=== PATIENT | male | born 1940 | race Caucasian/White ===

== ENCOUNTER 2016-05-09 07:52 | Outpatient (RCR) | payer OTHER ==
[~2016-05-09] VITALS: Ht 175 cm; Wt 67.7 kg
[~2016-05-09 07:52] MED LIST: ASPI-715 PO; DEXTROSE 50% 50 ML SYR IVP PRN; GLY5 PO; KIDNEY MED; LIDOCAINE/PRILOCAINE 30GM TUBE TP PRN; LOR5/325 PO; LOSARTAN; METF-420 PO; METO-566 PO; NOVOLIN SUBQ; ONDA4TAB PO; POTA-24 PO; PRO25 PO; UNKNOWN BP MED
[2016-05-09] MEDS ORDERED: ASPI81TA94 PO (08:03)
[2016-05-09] MEDS ORDERED: LEVO75TA73 PO (08:09)
[2016-05-09] MEDS ORDERED: OMEP-218 PO (08:09)
[2016-05-09] MEDS ORDERED: [UNRECOGNIZED DRUG - CODE] PO (08:09)
[2016-05-09] MEDS ORDERED: MULT1TAB64 PO (08:09)
[2016-05-09] MEDS ORDERED: MULT1CAP59 PO (08:09)
[2016-05-09] MEDS ORDERED: ERGO500037 PO (08:09)
[2016-05-09] MEDS ORDERED: LIDOCAINE/SOD BICARB 8.4% SYR SC PRN (12:00)
[2016-05-09] MEDS ORDERED: LOPERAMIDE HCL 2 MG CAP PO PRN (12:00)
[2016-05-09] MEDS ORDERED: diphenhydr DIALYSIS 50 MG/ML IVP PRN (12:00)
[2016-05-09] MEDS ORDERED: DIALYSIS ACETAMINOPHEN 325 MG PO PRN (12:00)
[2016-05-09] MEDS ORDERED: PROMETHAZINE HCL 25 MG TAB PO PRN (14:00)
[2016-05-09] MEDS: HEPARIN SOD (PORCINE) LOAD IVP PRN (14:30)
[2016-05-09] MEDS: HEPARIN SOD (PORCINE) UNIT/HR IVP PRN (14:30)
[2016-05-11] MEDS: HEPARIN SOD (PORCINE) UNIT/HR IVP PRN (14:49)
[2016-05-11] MEDS: HEPARIN SOD (PORCINE) LOAD IVP PRN (14:50)
[2016-05-13] MEDS: HEPARIN SOD (PORCINE) LOAD IVP PRN (14:35)
[2016-05-13] MEDS: HEPARIN SOD (PORCINE) UNIT/HR IVP PRN (14:35)
[2016-05-16] MEDS: HEPARIN SOD (PORCINE) LOAD IVP PRN (15:08)
[2016-05-16] MEDS: HEPARIN SOD (PORCINE) UNIT/HR IVP PRN (15:08)
[2016-05-18] MEDS: HEPARIN SOD (PORCINE) UNIT/HR IVP PRN (14:45)
[2016-05-18] MEDS: HEPARIN SOD (PORCINE) LOAD IVP PRN (14:45)
[2016-05-18 15:53] LABS: PLATELET COUNT, AUTOMATED 177 K/uL (150-450)
[2016-05-20] MEDS: HEPARIN SOD (PORCINE) LOAD IVP PRN (14:46)
[2016-05-20] MEDS: HEPARIN SOD (PORCINE) UNIT/HR IVP PRN (14:46)
[2016-05-20] MEDS: DARBEPOETIN ESRD 25 MCG/ML IVP PRN (15:06)
[2016-05-23] MEDS: HEPARIN SOD (PORCINE) UNIT/HR IVP PRN (14:40)
[2016-05-23] MEDS: HEPARIN SOD (PORCINE) LOAD IVP PRN (14:40)
[2016-05-25] MEDS: HEPARIN SOD (PORCINE) LOAD IVP PRN (14:54)
[2016-05-25] MEDS: HEPARIN SOD (PORCINE) UNIT/HR IVP PRN (14:54)
[2016-05-27] MEDS: HEPARIN SOD (PORCINE) UNIT/HR IVP PRN (14:16)
[2016-05-27] MEDS: HEPARIN SOD (PORCINE) LOAD IVP PRN (14:16)
[2016-05-27] MEDS: DARBEPOETIN ESRD 25 MCG/ML IVP PRN (14:21)
[2016-05-30] MEDS: HEPARIN SOD (PORCINE) UNIT/HR IVP PRN (14:12)
[2016-05-30] MEDS: HEPARIN SOD (PORCINE) LOAD IVP PRN (14:12)
[2016-06-01] MEDS ORDERED: CALC-515 PO (08:49)
[2016-06-01] MEDS: HEPARIN SOD (PORCINE) UNIT/HR IVP PRN (14:11)
[2016-06-01] MEDS: HEPARIN SOD (PORCINE) LOAD IVP PRN (14:11)
[2016-06-03] MEDS: HEPARIN SOD (PORCINE) UNIT/HR IVP PRN (14:16)
[2016-06-03] MEDS: HEPARIN SOD (PORCINE) LOAD IVP PRN (14:16)
[2016-06-03] MEDS: DARBEPOETIN ESRD 25 MCG/ML IVP PRN (14:21)
[2016-06-06] MEDS: HEPARIN SOD (PORCINE) LOAD IVP PRN (14:16)
[2016-06-06] MEDS: HEPARIN SOD (PORCINE) UNIT/HR IVP PRN (14:17)
[2016-06-08] MEDS: HEPARIN SOD (PORCINE) LOAD IVP PRN (14:07)
[2016-06-08] MEDS: HEPARIN SOD (PORCINE) UNIT/HR IVP PRN (14:07)
[2016-06-10] MEDS: HEPARIN SOD (PORCINE) LOAD IVP PRN (14:13)
[2016-06-10] MEDS: HEPARIN SOD (PORCINE) UNIT/HR IVP PRN (14:14)
[2016-06-10] MEDS: DARBEPOETIN ESRD 25 MCG/ML IVP PRN (14:32)
[2016-06-13] MEDS: HEPARIN SOD (PORCINE) LOAD IVP PRN (14:18)
[2016-06-13] MEDS: HEPARIN SOD (PORCINE) UNIT/HR IVP PRN (14:18)
[2016-06-15] MEDS: HEPARIN SOD (PORCINE) LOAD IVP PRN (14:10)
[2016-06-15] MEDS: HEPARIN SOD (PORCINE) UNIT/HR IVP PRN (14:11)
[2016-06-17] MEDS: HEPARIN SOD (PORCINE) LOAD IVP PRN (12:15)
[2016-06-17] MEDS: HEPARIN SOD (PORCINE) UNIT/HR IVP PRN (12:15)
[2016-06-17] MEDS: DARBEPOETIN ESRD 25 MCG/ML IVP PRN (15:00)
[2016-06-20] MEDS: HEPARIN SOD (PORCINE) UNIT/HR IVP PRN (10:45)
[2016-06-20] MEDS: HEPARIN SOD (PORCINE) LOAD IVP PRN (10:45)
[2016-06-22] MEDS: HEPARIN SOD (PORCINE) LOAD IVP PRN (10:40)
[2016-06-22] MEDS: HEPARIN SOD (PORCINE) UNIT/HR IVP PRN (10:41)
[2016-06-22 11:05] LABS: PLATELET COUNT, AUTOMATED 268 K/uL (150-450)
[2016-06-24] MEDS: HEPARIN SOD (PORCINE) LOAD IVP PRN (10:33)
[2016-06-24] MEDS: HEPARIN SOD (PORCINE) UNIT/HR IVP PRN (10:33)
[2016-06-27] MEDS: HEPARIN SOD (PORCINE) UNIT/HR IVP PRN (10:34)
[2016-06-27] MEDS: HEPARIN SOD (PORCINE) LOAD IVP PRN (10:34)
[2016-06-29] MEDS: HEPARIN SOD (PORCINE) LOAD IVP PRN (10:34)
[2016-06-29] MEDS: HEPARIN SOD (PORCINE) UNIT/HR IVP PRN (10:35)
[2016-07-01] MEDS: HEPARIN SOD (PORCINE) UNIT/HR IVP PRN (12:20)
[2016-07-01] MEDS: HEPARIN SOD (PORCINE) LOAD IVP PRN (12:20)
[2016-07-01] MEDS: DARBEPOETIN ESRD 25 MCG/ML IVP PRN (13:57)
[2016-07-04] MEDS: HEPARIN (PORCINE) 1000 UNIT/ML (DIALYSIS) IVP PRN (12:14)
[2016-07-04] MEDS: HEPARIN SOD (PORCINE) LOAD IVP PRN (12:14)
[2016-07-06] MEDS: HEPARIN (PORCINE) 1000 UNIT/ML (DIALYSIS) IVP PRN (14:31)
[2016-07-06] MEDS: HEPARIN SOD (PORCINE) LOAD IVP PRN (14:32)
[2016-07-08] MEDS: HEPARIN (PORCINE) 1000 UNIT/ML (DIALYSIS) IVP PRN (14:21)
[2016-07-08] MEDS: HEPARIN SOD (PORCINE) LOAD IVP PRN (14:22)
[2016-07-11] MEDS: HEPARIN SOD (PORCINE) LOAD IVP PRN (13:13)
[2016-07-11] MEDS: HEPARIN (PORCINE) 1000 UNIT/ML (DIALYSIS) IVP PRN (13:13)
[2016-07-13] MEDS: HEPARIN (PORCINE) 1000 UNIT/ML (DIALYSIS) IVP PRN (12:50)
[2016-07-13] MEDS: HEPARIN SOD (PORCINE) LOAD IVP PRN (12:50)
[2016-07-15] MEDS: HEPARIN (PORCINE) 1000 UNIT/ML (DIALYSIS) IVP PRN (12:51)
[2016-07-15] MEDS: HEPARIN SOD (PORCINE) LOAD IVP PRN (12:51)
[2016-07-15] MEDS: DARBEPOETIN ESRD 25 MCG/ML IVP PRN (13:54)
[2016-07-18] MEDS: HEPARIN (PORCINE) 1000 UNIT/ML (DIALYSIS) IVP PRN (12:52)
[2016-07-18] MEDS: HEPARIN SOD (PORCINE) LOAD IVP PRN (12:52)
[2016-07-20] MEDS: HEPARIN (PORCINE) 1000 UNIT/ML (DIALYSIS) IVP PRN (12:43)
[2016-07-20] MEDS: HEPARIN SOD (PORCINE) LOAD IVP PRN (12:43)
[2016-07-22] MEDS: HEPARIN (PORCINE) 1000 UNIT/ML (DIALYSIS) IVP PRN (12:43)
[2016-07-22] MEDS: HEPARIN SOD (PORCINE) LOAD IVP PRN (12:43)
[2016-07-25] MEDS: HEPARIN SOD (PORCINE) LOAD IVP PRN (12:42)
[2016-07-25] MEDS: HEPARIN (PORCINE) 1000 UNIT/ML (DIALYSIS) IVP PRN (12:42)
[2016-07-27] MEDS: HEPARIN SOD (PORCINE) LOAD IVP PRN (12:51)
[2016-07-27] MEDS: HEPARIN (PORCINE) 1000 UNIT/ML (DIALYSIS) IVP PRN (12:51)
[2016-07-27 13:32] LABS: PLATELET COUNT, AUTOMATED 249 K/uL (150-450)
[2016-07-29] MEDS: HEPARIN SOD (PORCINE) LOAD IVP PRN (12:33)
[2016-07-29] MEDS: HEPARIN (PORCINE) 1000 UNIT/ML (DIALYSIS) IVP PRN (12:33)
[2016-07-29] MEDS: DARBEPOETIN ESRD 25 MCG/ML IVP PRN (13:01)
[2016-08-01] MEDS: HEPARIN (PORCINE) 1000 UNIT/ML (DIALYSIS) IVP PRN (12:43)
[2016-08-01] MEDS: HEPARIN SOD (PORCINE) LOAD IVP PRN (12:43)
[2016-08-03] MEDS: HEPARIN (PORCINE) 1000 UNIT/ML (DIALYSIS) IVP PRN (12:43)
[2016-08-03] MEDS: HEPARIN SOD (PORCINE) LOAD IVP PRN (12:43)
[2016-08-05] MEDS: HEPARIN (PORCINE) 1000 UNIT/ML (DIALYSIS) IVP PRN (12:46)
[2016-08-05] MEDS: HEPARIN SOD (PORCINE) LOAD IVP PRN (12:46)
[2016-08-08] MEDS: HEPARIN (PORCINE) 1000 UNIT/ML (DIALYSIS) IVP PRN (11:11)
[2016-08-08] MEDS: HEPARIN SOD (PORCINE) LOAD IVP PRN (11:11)
[2016-08-10] MEDS: HEPARIN SOD (PORCINE) LOAD IVP PRN (11:23)
[2016-08-10] MEDS: HEPARIN (PORCINE) 1000 UNIT/ML (DIALYSIS) IVP PRN (11:23)
[2016-08-12] MEDS: HEPARIN (PORCINE) 1000 UNIT/ML (DIALYSIS) IVP PRN (11:13)
[2016-08-12] MEDS: HEPARIN SOD (PORCINE) LOAD IVP PRN (11:13)
[2016-08-12] MEDS: DARBEPOETIN ESRD 25 MCG/ML IVP PRN (11:38)
[2016-08-15] MEDS: HEPARIN (PORCINE) 1000 UNIT/ML (DIALYSIS) IVP PRN (11:24)
[2016-08-15] MEDS: HEPARIN SOD (PORCINE) LOAD IVP PRN (11:24)
[2016-08-17] MEDS: HEPARIN (PORCINE) 1000 UNIT/ML (DIALYSIS) IVP PRN (11:11)
[2016-08-17] MEDS: HEPARIN SOD (PORCINE) LOAD IVP PRN (11:11)
[2016-08-19] MEDS: HEPARIN (PORCINE) 1000 UNIT/ML (DIALYSIS) IVP PRN (11:09)
[2016-08-19] MEDS: HEPARIN SOD (PORCINE) LOAD IVP PRN (11:09)
[2016-08-22] MEDS: HEPARIN (PORCINE) 1000 UNIT/ML (DIALYSIS) IVP PRN (11:12)
[2016-08-22] MEDS: HEPARIN SOD (PORCINE) LOAD IVP PRN (11:12)
[2016-08-24] MEDS: HEPARIN (PORCINE) 1000 UNIT/ML (DIALYSIS) IVP PRN (10:57)
[2016-08-24] MEDS: HEPARIN SOD (PORCINE) LOAD IVP PRN (10:58)
[2016-08-26] MEDS: HEPARIN (PORCINE) 1000 UNIT/ML (DIALYSIS) IVP PRN (11:16)
[2016-08-26] MEDS: HEPARIN SOD (PORCINE) LOAD IVP PRN (11:16)
[2016-08-26] MEDS: DARBEPOETIN ESRD 25 MCG/ML IVP PRN (12:45)
[2016-08-29] MEDS: HEPARIN SOD (PORCINE) LOAD IVP PRN (11:16)
[2016-08-29] MEDS: HEPARIN (PORCINE) 1000 UNIT/ML (DIALYSIS) IVP PRN (11:16)
[2016-08-31] MEDS ORDERED: HEPARIN (PORCINE) 1000 UNIT/ML (DIALYSIS) ONE (05:50)
[2016-08-31] MEDS: HEPARIN SOD (PORCINE) LOAD IVP PRN (11:50)
[2016-08-31] MEDS: HEPARIN (PORCINE) 1000 UNIT/ML (DIALYSIS) IVP PRN (11:50)
[2016-08-31 12:02] LABS: PLATELET COUNT, AUTOMATED 247 K/uL (150-450)
[2016-09-02] MEDS: HEPARIN (PORCINE) 1000 UNIT/ML (DIALYSIS) IVP PRN (11:02)
[2016-09-02] MEDS: HEPARIN SOD (PORCINE) LOAD IVP PRN (11:02)
[2016-09-02] MEDS: DARBEPOETIN ESRD 25 MCG/ML IVP PRN (11:47)
[2016-09-05] MEDS: HEPARIN SOD (PORCINE) LOAD IVP PRN (11:19)
[2016-09-05] MEDS: HEPARIN (PORCINE) 1000 UNIT/ML (DIALYSIS) IVP PRN (11:19)
[2016-09-07] MEDS: HEPARIN SOD (PORCINE) LOAD IVP PRN (11:14)
[2016-09-07] MEDS: HEPARIN (PORCINE) 1000 UNIT/ML (DIALYSIS) IVP PRN (11:14)
[2016-09-09] MEDS: HEPARIN (PORCINE) 1000 UNIT/ML (DIALYSIS) IVP PRN (10:59)
[2016-09-09] MEDS: HEPARIN SOD (PORCINE) LOAD IVP PRN (10:59)
[2016-09-12] MEDS: HEPARIN (PORCINE) 1000 UNIT/ML (DIALYSIS) IVP PRN (11:04)
[2016-09-12] MEDS: HEPARIN SOD (PORCINE) LOAD IVP PRN (11:05)
[2016-09-14] MEDS: HEPARIN SOD (PORCINE) LOAD IVP PRN (11:12)
[2016-09-14] MEDS: HEPARIN (PORCINE) 1000 UNIT/ML (DIALYSIS) IVP PRN (11:13)
[2016-09-16] MEDS: HEPARIN (PORCINE) 1000 UNIT/ML (DIALYSIS) IVP PRN (11:07)
[2016-09-16] MEDS: HEPARIN SOD (PORCINE) LOAD IVP PRN (11:07)
[2016-09-16] MEDS: DARBEPOETIN ESRD 25 MCG/ML IVP PRN (11:20)
[2016-09-19] MEDS: HEPARIN (PORCINE) 1000 UNIT/ML (DIALYSIS) IVP PRN (11:07)
[2016-09-19] MEDS: HEPARIN SOD (PORCINE) LOAD IVP PRN (11:07)
[2016-09-21] MEDS: HEPARIN SOD (PORCINE) LOAD IVP PRN (11:05)
[2016-09-21] MEDS: HEPARIN (PORCINE) 1000 UNIT/ML (DIALYSIS) IVP PRN (11:05)
[2016-09-23] MEDS: HEPARIN (PORCINE) 1000 UNIT/ML (DIALYSIS) IVP PRN (12:03)
[2016-09-23] MEDS: HEPARIN SOD (PORCINE) LOAD IVP PRN (12:03)
[2016-09-23] MEDS: DARBEPOETIN ESRD 25 MCG/ML IVP PRN (13:28)
[2016-09-26] MEDS: HEPARIN (PORCINE) 1000 UNIT/ML (DIALYSIS) IVP PRN (11:13)
[2016-09-26] MEDS: HEPARIN SOD (PORCINE) LOAD IVP PRN (11:13)
[2016-09-28] MEDS: HEPARIN (PORCINE) 1000 UNIT/ML (DIALYSIS) IVP PRN (11:14)
[2016-09-28] MEDS: HEPARIN SOD (PORCINE) LOAD IVP PRN (11:14)
[2016-09-28 11:43] LABS: PLATELET COUNT, AUTOMATED 251 K/uL (150-450)
[2016-09-30] MEDS: HEPARIN (PORCINE) 1000 UNIT/ML (DIALYSIS) IVP PRN (11:51)
[2016-09-30] MEDS: HEPARIN SOD (PORCINE) LOAD IVP PRN (11:51)
[2016-09-30] MEDS: DARBEPOETIN ESRD 25 MCG/ML IVP PRN (12:11)
[2016-10-03] MEDS: HEPARIN SOD (PORCINE) LOAD IVP PRN (11:14)
[2016-10-03] MEDS: HEPARIN (PORCINE) 1000 UNIT/ML (DIALYSIS) IVP PRN (11:14)
[2016-10-05] MEDS: HEPARIN SOD (PORCINE) LOAD IVP PRN (11:21)
[2016-10-05] MEDS: HEPARIN (PORCINE) 1000 UNIT/ML (DIALYSIS) IVP PRN (11:21)
[2016-10-07] MEDS: HEPARIN (PORCINE) 1000 UNIT/ML (DIALYSIS) IVP PRN (10:57)
[2016-10-07] MEDS: HEPARIN SOD (PORCINE) LOAD IVP PRN (10:57)
[2016-10-07] MEDS: DARBEPOETIN ESRD 25 MCG/ML IVP PRN (11:19)
[2016-10-10] MEDS: HEPARIN (PORCINE) 1000 UNIT/ML (DIALYSIS) IVP PRN (11:24)
[2016-10-10] MEDS: HEPARIN SOD (PORCINE) LOAD IVP PRN (11:24)
[2016-10-12] MEDS: HEPARIN SOD (PORCINE) LOAD IVP PRN (11:09)
[2016-10-12] MEDS: HEPARIN (PORCINE) 1000 UNIT/ML (DIALYSIS) IVP PRN (11:09)
[2016-10-14] MEDS: HEPARIN (PORCINE) 1000 UNIT/ML (DIALYSIS) IVP PRN (11:04)
[2016-10-14] MEDS: HEPARIN SOD (PORCINE) LOAD IVP PRN (11:04)
[2016-10-17] MEDS: HEPARIN (PORCINE) 1000 UNIT/ML (DIALYSIS) IVP PRN (11:11)
[2016-10-17] MEDS: HEPARIN SOD (PORCINE) LOAD IVP PRN (11:11)
[2016-10-19] MEDS: HEPARIN (PORCINE) 1000 UNIT/ML (DIALYSIS) IVP PRN (10:58)
[2016-10-19] MEDS: HEPARIN SOD (PORCINE) LOAD IVP PRN (10:58)
[2016-10-21] MEDS ORDERED: DARBEPOETIN ESRD 25 MCG/ML IVP PRN (08:00)
[2016-10-21] MEDS: HEPARIN (PORCINE) 1000 UNIT/ML (DIALYSIS) IVP PRN (11:11)
[2016-10-21] MEDS: HEPARIN SOD (PORCINE) LOAD IVP PRN (11:11)
[2016-10-21] MEDS ORDERED: PROPOFOL EMUL(*) 10MG/ML 20 ML 20 ML ONE (12:59)
[2016-10-21] MEDS ORDERED: LIDOCAINE MPF 1% 5 ML VIAL ONE (12:59)
[2016-10-21] MEDS ORDERED: fentaNYL CITR 100 MCG/2 ML AMP ONE (13:00)
[2016-10-21] MEDS ORDERED: ePHEDrine 25 MG/5 ML DISP.SYR IVP ONE ×2 (13:23→13:47)
[2016-10-21] MEDS ORDERED: ceFAZolin 1 GM VIAL ONE (13:26)
[2016-10-21] MEDS ORDERED: NEOSTIG METHYLSUL 10MG/10ML VL ONE (13:49)
[2016-10-21] MEDS ORDERED: GLYCOPYRROLATE 1 MG/5 ML INJ ONE (13:50)
[2016-10-24] MEDS: HEPARIN (PORCINE) 1000 UNIT/ML (DIALYSIS) IVP PRN (10:55)
[2016-10-24] MEDS: HEPARIN SOD (PORCINE) LOAD IVP PRN (10:55)
[2016-10-26] MEDS: HEPARIN SOD (PORCINE) LOAD IVP PRN (11:05)
[2016-10-26] MEDS: HEPARIN (PORCINE) 1000 UNIT/ML (DIALYSIS) IVP PRN (11:05)
[2016-10-26 11:33] LABS: PLATELET COUNT, AUTOMATED 261 K/uL (150-450)
[2016-10-28] MEDS: HEPARIN SOD (PORCINE) LOAD IVP PRN (11:13)
[2016-10-28] MEDS: HEPARIN (PORCINE) 1000 UNIT/ML (DIALYSIS) IVP PRN (11:13)
[2016-10-28] MEDS: DARBEPOETIN ESRD 25 MCG/ML IVP PRN (11:46)
[2016-10-31] MEDS: HEPARIN (PORCINE) 1000 UNIT/ML (DIALYSIS) IVP PRN (11:28)
[2016-10-31] MEDS: HEPARIN SOD (PORCINE) LOAD IVP PRN (11:28)
[2016-11-02] MEDS: HEPARIN (PORCINE) 1000 UNIT/ML (DIALYSIS) IVP PRN (11:22)
[2016-11-02] MEDS: HEPARIN SOD (PORCINE) LOAD IVP PRN (11:22)
[2016-11-04] MEDS: HEPARIN SOD (PORCINE) LOAD IVP PRN (10:57)
[2016-11-04] MEDS: HEPARIN (PORCINE) 1000 UNIT/ML (DIALYSIS) IVP PRN (10:57)
[2016-11-04] MEDS: DARBEPOETIN ESRD 25 MCG/ML IVP PRN (11:24)
[2016-11-07] MEDS: HEPARIN (PORCINE) 1000 UNIT/ML (DIALYSIS) IVP PRN (11:08)
[2016-11-07] MEDS: HEPARIN SOD (PORCINE) LOAD IVP PRN (11:08)
[2016-11-09] MEDS: HEPARIN (PORCINE) 1000 UNIT/ML (DIALYSIS) IVP PRN (11:13)
[2016-11-09] MEDS: HEPARIN SOD (PORCINE) LOAD IVP PRN (11:13)
[2016-11-09] MEDS: SODIUM FERRIC GLUC 62.5 MG/5ML IVP PRN (11:31)
[2016-11-11] MEDS: HEPARIN (PORCINE) 1000 UNIT/ML (DIALYSIS) IVP PRN (11:00)
[2016-11-11] MEDS: HEPARIN SOD (PORCINE) LOAD IVP PRN (11:00)
[2016-11-11] MEDS: DARBEPOETIN ESRD 25 MCG/ML IVP PRN (12:07)
[2016-11-14] MEDS: HEPARIN (PORCINE) 1000 UNIT/ML (DIALYSIS) IVP PRN (11:15)
[2016-11-14] MEDS: HEPARIN SOD (PORCINE) LOAD IVP PRN (11:15)
[2016-11-16] MEDS: HEPARIN SOD (PORCINE) LOAD IVP PRN (11:02)
[2016-11-16] MEDS: HEPARIN (PORCINE) 1000 UNIT/ML (DIALYSIS) IVP PRN (11:02)
[2016-11-16] MEDS: SODIUM FERRIC GLUC 62.5 MG/5ML IVP PRN (11:22)
[2016-11-18] MEDS: HEPARIN SOD (PORCINE) LOAD IVP PRN (11:07)
[2016-11-18] MEDS: HEPARIN (PORCINE) 1000 UNIT/ML (DIALYSIS) IVP PRN (11:07)
[2016-11-18] MEDS: DARBEPOETIN ESRD 25 MCG/ML IVP PRN (11:24)
[2016-11-21] MEDS: HEPARIN (PORCINE) 1000 UNIT/ML (DIALYSIS) IVP PRN (11:15)
[2016-11-21] MEDS: HEPARIN SOD (PORCINE) LOAD IVP PRN (11:15)
[2016-11-23] MEDS: HEPARIN SOD (PORCINE) LOAD IVP PRN (11:16)
[2016-11-23] MEDS: HEPARIN (PORCINE) 1000 UNIT/ML (DIALYSIS) IVP PRN (11:16)
[2016-11-23] MEDS: SODIUM FERRIC GLUC 62.5 MG/5ML IVP PRN (11:40)
[2016-11-23 11:54] LABS: PLATELET COUNT, AUTOMATED 214 K/uL (150-450)
[2016-11-25] MEDS: HEPARIN SOD (PORCINE) LOAD IVP PRN (11:01)
[2016-11-25] MEDS: HEPARIN (PORCINE) 1000 UNIT/ML (DIALYSIS) IVP PRN (11:01)
[2016-11-25] MEDS: DARBEPOETIN ESRD 25 MCG/ML IVP PRN (11:19)
[2016-11-28] MEDS: HEPARIN (PORCINE) 1000 UNIT/ML (DIALYSIS) IVP PRN (10:49)
[2016-11-28] MEDS: HEPARIN SOD (PORCINE) LOAD IVP PRN (10:49)
[2016-11-30] MEDS: HEPARIN (PORCINE) 1000 UNIT/ML (DIALYSIS) IVP PRN (11:22)
[2016-11-30] MEDS: HEPARIN SOD (PORCINE) LOAD IVP PRN (11:22)
[2016-11-30] MEDS: SODIUM FERRIC GLUC 62.5 MG/5ML IVP PRN (11:51)
[2016-12-02] MEDS: HEPARIN (PORCINE) 1000 UNIT/ML (DIALYSIS) IVP PRN (11:34)
[2016-12-02] MEDS: HEPARIN SOD (PORCINE) LOAD IVP PRN (11:34)
[2016-12-02] MEDS: DARBEPOETIN ESRD 25 MCG/ML IVP PRN (12:25)
[2016-12-05] MEDS: HEPARIN (PORCINE) 1000 UNIT/ML (DIALYSIS) IVP PRN (12:00)
[2016-12-05] MEDS: HEPARIN SOD (PORCINE) LOAD IVP PRN (12:00)
[2016-12-07] MEDS: HEPARIN SOD (PORCINE) LOAD IVP PRN (12:13)
[2016-12-07] MEDS: HEPARIN (PORCINE) 1000 UNIT/ML (DIALYSIS) IVP PRN (12:13)
[2016-12-07] MEDS: SODIUM FERRIC GLUC 62.5 MG/5ML IVP PRN (12:36)
[2016-12-09] MEDS: HEPARIN SOD (PORCINE) LOAD IVP PRN (11:37)
[2016-12-09] MEDS: HEPARIN (PORCINE) 1000 UNIT/ML (DIALYSIS) IVP PRN (11:37)
[2016-12-09] MEDS: DARBEPOETIN ESRD 25 MCG/ML IVP PRN (12:04)
[2016-12-12] MEDS: HEPARIN (PORCINE) 1000 UNIT/ML (DIALYSIS) IVP PRN (11:36)
[2016-12-12] MEDS: HEPARIN SOD (PORCINE) LOAD IVP PRN (11:36)
[2016-12-14] MEDS: HEPARIN (PORCINE) 1000 UNIT/ML (DIALYSIS) IVP PRN (11:44)
[2016-12-14] MEDS: HEPARIN SOD (PORCINE) LOAD IVP PRN (11:45)
[2016-12-14] MEDS: SODIUM FERRIC GLUC 62.5 MG/5ML IVP PRN (12:08)
[2016-12-16] MEDS: HEPARIN SOD (PORCINE) LOAD IVP PRN (11:34)
[2016-12-16] MEDS: HEPARIN (PORCINE) 1000 UNIT/ML (DIALYSIS) IVP PRN (11:34)
[2016-12-16] MEDS: DARBEPOETIN ESRD 25 MCG/ML IVP PRN (11:55)
[2016-12-19] MEDS: HEPARIN SOD (PORCINE) LOAD IVP PRN (11:33)
[2016-12-19] MEDS: HEPARIN (PORCINE) 1000 UNIT/ML (DIALYSIS) IVP PRN (11:33)
[2016-12-21] MEDS: HEPARIN (PORCINE) 1000 UNIT/ML (DIALYSIS) IVP PRN (11:33)
[2016-12-21] MEDS: HEPARIN SOD (PORCINE) LOAD IVP PRN (11:33)
[2016-12-21] MEDS: SODIUM FERRIC GLUC 62.5 MG/5ML IVP PRN (11:53)
[2016-12-21 12:17] LABS: PLATELET COUNT, AUTOMATED 224 K/uL (150-450)
[2016-12-23] MEDS: HEPARIN (PORCINE) 1000 UNIT/ML (DIALYSIS) IVP PRN (11:23)
[2016-12-23] MEDS: HEPARIN SOD (PORCINE) LOAD IVP PRN (11:23)
[2016-12-23] MEDS: DARBEPOETIN ESRD 25 MCG/ML IVP PRN (11:49)
[2016-12-26] MEDS: HEPARIN SOD (PORCINE) LOAD IVP PRN (11:43)
[2016-12-26] MEDS: HEPARIN (PORCINE) 1000 UNIT/ML (DIALYSIS) IVP PRN (11:43)
[2016-12-28] MEDS: HEPARIN (PORCINE) 1000 UNIT/ML (DIALYSIS) IVP PRN (11:29)
[2016-12-28] MEDS: HEPARIN SOD (PORCINE) LOAD IVP PRN (11:29)
[2016-12-28] MEDS: SODIUM FERRIC GLUC 62.5 MG/5ML IVP PRN (11:48)
[2016-12-30] MEDS: HEPARIN (PORCINE) 1000 UNIT/ML (DIALYSIS) IVP PRN (11:30)
[2016-12-30] MEDS: HEPARIN SOD (PORCINE) LOAD IVP PRN (11:30)
[2016-12-30] MEDS: DARBEPOETIN ESRD 25 MCG/ML IVP PRN (11:46)
[2017-01-02] MEDS: HEPARIN (PORCINE) 1000 UNIT/ML (DIALYSIS) IVP PRN (11:28)
[2017-01-02] MEDS: HEPARIN SOD (PORCINE) LOAD IVP PRN (11:28)
[2017-01-04] MEDS: HEPARIN SOD (PORCINE) LOAD IVP PRN (11:24)
[2017-01-04] MEDS: HEPARIN (PORCINE) 1000 UNIT/ML (DIALYSIS) IVP PRN (11:25)
[2017-01-04] MEDS: SODIUM FERRIC GLUC 62.5 MG/5ML IVP PRN (11:53)
[2017-01-06] MEDS: HEPARIN (PORCINE) 1000 UNIT/ML (DIALYSIS) IVP PRN (11:26)
[2017-01-06] MEDS: HEPARIN SOD (PORCINE) LOAD IVP PRN (11:26)
[2017-01-09] MEDS: HEPARIN SOD (PORCINE) LOAD IVP PRN (13:48)
[2017-01-09] MEDS: HEPARIN (PORCINE) 1000 UNIT/ML (DIALYSIS) IVP PRN (13:48)
[2017-01-11] MEDS: HEPARIN (PORCINE) 1000 UNIT/ML (DIALYSIS) IVP PRN (11:24)
[2017-01-11] MEDS: HEPARIN SOD (PORCINE) LOAD IVP PRN (11:24)
[2017-01-11] MEDS: SODIUM FERRIC GLUC 62.5 MG/5ML IVP PRN (12:01)
[2017-01-11] MEDS ORDERED: INFLUENZA VIRUS VAC 0.5 ML SYR IM ONLY ONE (14:30)
[2017-01-13] MEDS: HEPARIN SOD (PORCINE) LOAD IVP PRN (11:13)
[2017-01-13] MEDS: HEPARIN (PORCINE) 1000 UNIT/ML (DIALYSIS) IVP PRN (11:13)
[2017-01-13] MEDS: DARBEPOETIN ESRD 25 MCG/ML IVP PRN (11:44)
[2017-01-16] MEDS: HEPARIN SOD (PORCINE) LOAD IVP PRN (11:24)
[2017-01-16] MEDS: HEPARIN (PORCINE) 1000 UNIT/ML (DIALYSIS) IVP PRN (11:25)
[2017-01-18] MEDS: HEPARIN SOD (PORCINE) LOAD IVP PRN (11:16)
[2017-01-18] MEDS: HEPARIN (PORCINE) 1000 UNIT/ML (DIALYSIS) IVP PRN (11:16)
[2017-01-18] MEDS: SODIUM FERRIC GLUC 62.5 MG/5ML IVP PRN (12:10)
[2017-01-20] MEDS: HEPARIN (PORCINE) 1000 UNIT/ML (DIALYSIS) IVP PRN (11:19)
[2017-01-20] MEDS: HEPARIN SOD (PORCINE) LOAD IVP PRN (11:19)
[2017-01-23] MEDS: HEPARIN SOD (PORCINE) LOAD IVP PRN (11:39)
[2017-01-23] MEDS: HEPARIN (PORCINE) 1000 UNIT/ML (DIALYSIS) IVP PRN (11:39)
[2017-01-25] MEDS: HEPARIN SOD (PORCINE) LOAD IVP PRN (11:34)
[2017-01-25] MEDS: HEPARIN (PORCINE) 1000 UNIT/ML (DIALYSIS) IVP PRN (11:34)
[2017-01-25 12:13] LABS: PLATELET COUNT, AUTOMATED 226 K/uL (150-450)
[2017-01-25] MEDS: SODIUM FERRIC GLUC 62.5 MG/5ML IVP PRN (12:22)
[2017-01-27] MEDS: HEPARIN (PORCINE) 1000 UNIT/ML (DIALYSIS) IVP PRN (11:18)
[2017-01-27] MEDS: HEPARIN SOD (PORCINE) LOAD IVP PRN (11:18)
[2017-01-27] MEDS: DARBEPOETIN ESRD 25 MCG/ML IVP PRN (12:15)
[2017-01-30] MEDS: HEPARIN (PORCINE) 1000 UNIT/ML (DIALYSIS) IVP PRN (11:17)
[2017-01-30] MEDS: HEPARIN SOD (PORCINE) LOAD IVP PRN (11:17)
[2017-02-01] MEDS: HEPARIN SOD (PORCINE) LOAD IVP PRN (11:27)
[2017-02-01] MEDS: HEPARIN (PORCINE) 1000 UNIT/ML (DIALYSIS) IVP PRN (11:27)
[2017-02-01] MEDS: SODIUM FERRIC GLUC 62.5 MG/5ML IVP PRN (12:01)
[2017-02-03] MEDS: HEPARIN SOD (PORCINE) LOAD IVP PRN (11:49)
[2017-02-03] MEDS: HEPARIN (PORCINE) 1000 UNIT/ML (DIALYSIS) IVP PRN (11:49)
[2017-02-06] MEDS: HEPARIN (PORCINE) 1000 UNIT/ML (DIALYSIS) IVP PRN (11:16)
[2017-02-06] MEDS: HEPARIN SOD (PORCINE) LOAD IVP PRN (11:16)
[2017-02-08] MEDS: HEPARIN SOD (PORCINE) LOAD IVP PRN (11:40)
[2017-02-08] MEDS: HEPARIN (PORCINE) 1000 UNIT/ML (DIALYSIS) IVP PRN (11:41)
[2017-02-08] MEDS: SODIUM FERRIC GLUC 62.5 MG/5ML IVP PRN (12:42)
[2017-02-10] MEDS ORDERED: METO25TA93 PO (09:07)
[2017-02-10] MEDS ORDERED: METO25TA23 PO (09:07)
[2017-02-10] MEDS: HEPARIN SOD (PORCINE) LOAD IVP PRN (11:22)
[2017-02-10] MEDS: HEPARIN (PORCINE) 1000 UNIT/ML (DIALYSIS) IVP PRN (11:22)
[2017-02-10] MEDS: DARBEPOETIN ESRD 25 MCG/ML IVP PRN (12:08)
[2017-02-13] MEDS: HEPARIN (PORCINE) 1000 UNIT/ML (DIALYSIS) IVP PRN (11:20)
[2017-02-13] MEDS: HEPARIN SOD (PORCINE) LOAD IVP PRN (11:20)
[2017-02-15] MEDS: HEPARIN SOD (PORCINE) LOAD IVP PRN (11:15)
[2017-02-15] MEDS: HEPARIN (PORCINE) 1000 UNIT/ML (DIALYSIS) IVP PRN (11:15)
[2017-02-15] MEDS: SODIUM FERRIC GLUC 62.5 MG/5ML IVP PRN (11:45)
[2017-02-17] MEDS: HEPARIN SOD (PORCINE) LOAD IVP PRN (11:26)
[2017-02-17] MEDS: HEPARIN (PORCINE) 1000 UNIT/ML (DIALYSIS) IVP PRN (11:26)
[2017-02-17] MEDS: DARBEPOETIN ESRD 25 MCG/ML IVP PRN (12:13)
[2017-02-20] MEDS: HEPARIN SOD (PORCINE) LOAD IVP PRN (11:25)
[2017-02-20] MEDS: HEPARIN (PORCINE) 1000 UNIT/ML (DIALYSIS) IVP PRN (11:25)
[2017-02-22] MEDS: HEPARIN (PORCINE) 1000 UNIT/ML (DIALYSIS) IVP PRN (11:12)
[2017-02-22] MEDS: HEPARIN SOD (PORCINE) LOAD IVP PRN (11:12)
[2017-02-22] MEDS: SODIUM FERRIC GLUC 62.5 MG/5ML IVP PRN (11:49)
[2017-02-24] MEDS: HEPARIN SOD (PORCINE) LOAD IVP PRN (11:19)
[2017-02-24] MEDS: HEPARIN (PORCINE) 1000 UNIT/ML (DIALYSIS) IVP PRN (11:19)
[2017-02-24] MEDS: DARBEPOETIN ESRD 25 MCG/ML IVP PRN (12:21)
[2017-02-27] MEDS: HEPARIN SOD (PORCINE) LOAD IVP PRN (11:18)
[2017-02-27] MEDS: HEPARIN (PORCINE) 1000 UNIT/ML (DIALYSIS) IVP PRN (11:18)
[2017-03-01] MEDS: HEPARIN SOD (PORCINE) LOAD IVP PRN (11:27)
[2017-03-01] MEDS: HEPARIN (PORCINE) 1000 UNIT/ML (DIALYSIS) IVP PRN (11:27)
[2017-03-01] MEDS: SODIUM FERRIC GLUC 62.5 MG/5ML IVP PRN (11:45)
[2017-03-01 12:15] LABS: PLATELET COUNT, AUTOMATED 239 K/uL (150-450)
[2017-03-04] MEDS: HEPARIN SOD (PORCINE) LOAD IVP PRN (11:05)
[2017-03-04] MEDS: HEPARIN (PORCINE) 1000 UNIT/ML (DIALYSIS) IVP PRN (11:05)
[2017-03-04] MEDS: DARBEPOETIN ESRD 25 MCG/ML IVP PRN (12:06)
[2017-03-06] MEDS: HEPARIN SOD (PORCINE) LOAD IVP PRN (11:10)
[2017-03-06] MEDS: HEPARIN (PORCINE) 1000 UNIT/ML (DIALYSIS) IVP PRN (11:11)
[2017-03-08] MEDS: HEPARIN (PORCINE) 1000 UNIT/ML (DIALYSIS) IVP PRN (11:22)
[2017-03-08] MEDS: HEPARIN SOD (PORCINE) LOAD IVP PRN (11:22)
[2017-03-08] MEDS: SODIUM FERRIC GLUC 62.5 MG/5ML IVP PRN (11:57)
[2017-03-10] MEDS: HEPARIN (PORCINE) 1000 UNIT/ML (DIALYSIS) IVP PRN (11:14)
[2017-03-10] MEDS: HEPARIN SOD (PORCINE) LOAD IVP PRN (11:14)
[2017-03-10] MEDS: DARBEPOETIN ESRD 25 MCG/ML IVP PRN (12:02)
[2017-03-13] MEDS: HEPARIN SOD (PORCINE) LOAD IVP PRN (11:04)
[2017-03-13] MEDS: HEPARIN (PORCINE) 1000 UNIT/ML (DIALYSIS) IVP PRN (11:04)
[2017-03-15] MEDS: HEPARIN SOD (PORCINE) LOAD IVP PRN (11:14)
[2017-03-15] MEDS: HEPARIN (PORCINE) 1000 UNIT/ML (DIALYSIS) IVP PRN (11:14)
[2017-03-15 11:41] LABS: PLATELET COUNT, AUTOMATED 235 K/uL (150-450)
[2017-03-15] MEDS: SODIUM FERRIC GLUC 62.5 MG/5ML IVP PRN (11:44)
[2017-03-17] MEDS: HEPARIN (PORCINE) 1000 UNIT/ML (DIALYSIS) IVP PRN (11:19)
[2017-03-17] MEDS: HEPARIN SOD (PORCINE) LOAD IVP PRN (11:19)
[2017-03-17] MEDS: DARBEPOETIN ESRD 25 MCG/ML IVP PRN (11:53)
[2017-03-20] MEDS: HEPARIN (PORCINE) 1000 UNIT/ML (DIALYSIS) IVP PRN (11:11)
[2017-03-20] MEDS: HEPARIN SOD (PORCINE) LOAD IVP PRN (11:11)
[2017-03-22] MEDS: HEPARIN SOD (PORCINE) LOAD IVP PRN (11:24)
[2017-03-22] MEDS: HEPARIN (PORCINE) 1000 UNIT/ML (DIALYSIS) IVP PRN (11:24)
[2017-03-22] MEDS: SODIUM FERRIC GLUC 62.5 MG/5ML IVP PRN (11:47)
[2017-03-24] MEDS: HEPARIN SOD (PORCINE) LOAD IVP PRN (11:33)
[2017-03-24] MEDS: HEPARIN (PORCINE) 1000 UNIT/ML (DIALYSIS) IVP PRN (11:33)
[2017-03-24] MEDS: DARBEPOETIN ESRD 25 MCG/ML IVP PRN (11:57)
[2017-03-27] MEDS: HEPARIN SOD (PORCINE) LOAD IVP PRN (11:14)
[2017-03-27] MEDS: HEPARIN (PORCINE) 1000 UNIT/ML (DIALYSIS) IVP PRN (11:14)
[2017-03-29] MEDS: HEPARIN SOD (PORCINE) LOAD IVP PRN (11:48)
[2017-03-29] MEDS: HEPARIN (PORCINE) 1000 UNIT/ML (DIALYSIS) IVP PRN (11:48)
[2017-03-29] MEDS: SODIUM FERRIC GLUC 62.5 MG/5ML IVP PRN (12:20)
[2017-03-31] MEDS: HEPARIN (PORCINE) 1000 UNIT/ML (DIALYSIS) IVP PRN (11:10)
[2017-03-31] MEDS: HEPARIN SOD (PORCINE) LOAD IVP PRN (11:11)
[2017-03-31] MEDS: DARBEPOETIN ESRD 40MCG/ML IVP PRN (11:32)
[2017-04-02] MEDS: HEPARIN SOD (PORCINE) LOAD IVP PRN (11:10)
[2017-04-02] MEDS: HEPARIN (PORCINE) 1000 UNIT/ML (DIALYSIS) IVP PRN (11:10)
[2017-04-05] MEDS: HEPARIN SOD (PORCINE) LOAD IVP PRN (11:16)
[2017-04-05] MEDS: HEPARIN (PORCINE) 1000 UNIT/ML (DIALYSIS) IVP PRN (11:16)
[2017-04-05] MEDS: SODIUM FERRIC GLUC 62.5 MG/5ML IVP PRN (11:48)
[2017-04-07] MEDS: HEPARIN SOD (PORCINE) LOAD IVP PRN (11:30)
[2017-04-07] MEDS: HEPARIN (PORCINE) 1000 UNIT/ML (DIALYSIS) IVP PRN (11:30)
[2017-04-07] MEDS: DARBEPOETIN ESRD 40MCG/ML IVP PRN (12:05)
== END 2017-04-10 09:21 | disposition home or self-care (01) ==
LOC: DIAL 07:52
PROVIDERS: ATTEND Internal Medicine Nephrology
DX: I12.0 Hypertensive chronic kidney disease with stage 5 chronic kidney disease or end stage renal disease (principal); N18.6 End stage renal disease; E11.22 Type 2 diabetes mellitus with diabetic chronic kidney disease; E11.21 Type 2 diabetes mellitus with diabetic nephropathy; E03.9 Hypothyroidism, unspecified; E78.5 Hyperlipidemia, unspecified; D63.1 Anemia in chronic kidney disease; Z79.4 Long term (current) use of insulin; Z79.82 Long term (current) use of aspirin; Z79.899 Other long term (current) drug therapy; Z99.2 Dependence on renal dialysis; E46 Unspecified protein-calorie malnutrition; E55.9 Vitamin D deficiency, unspecified; Z87.891 Personal history of nicotine dependence; Z23 Encounter for immunization
CPT/HCPCS: 82040; 82108; 82247; 82310; 82374; 82465; 82565; 82728; 82947; 83036; 83540; 83550; 83970; 84075; 84100; 84132; 84295; 84443; 84460; 84478; 84520; 85018; 85025; 86580; 86803; 90658; 90674; 90999; A4657; J0882; J1644; J2916; J0690; J2001; J2704; J2710; J3010; J3490

== ENCOUNTER 2017-04-10 05:48 | Outpatient (RCR) | payer OTHER ==
[~2017-04-10 05:48] MED LIST changes: +ASPI81TA94 PO; +CALC-515 PO; +DARBEPOETIN ESRD 40MCG/ML IVP PRN; +DIALYSIS ACETAMINOPHEN 325 MG PO PRN; +ERGO500037 PO; +LEVO75TA73 PO; +LIDOCAINE/SOD BICARB 8.4% SYR SC PRN; +LOPERAMIDE HCL 2 MG CAP PO PRN; +METO25TA23 PO; +METO25TA93 PO; +MULT1CAP59 PO; +MULT1TAB64 PO; +OMEP-218 PO; +PROMETHAZINE HCL 25 MG TAB PO PRN; +[UNRECOGNIZED DRUG - CODE] PO; +diphenhydr DIALYSIS 50 MG/ML IVP PRN
[2017-04-10] MEDS: HEPARIN (PORCINE) 1000 UNIT/ML (DIALYSIS) IVP PRN (11:09)
[2017-04-10] MEDS: HEPARIN SOD (PORCINE) LOAD IVP PRN (11:09)
[2017-04-12] MEDS: HEPARIN SOD (PORCINE) LOAD IVP PRN (11:30)
[2017-04-12] MEDS: HEPARIN (PORCINE) 1000 UNIT/ML (DIALYSIS) IVP PRN (11:30)
[2017-04-12] MEDS: SODIUM FERRIC GLUC 62.5 MG/5ML IVP PRN (12:00)
[2017-04-14] MEDS: HEPARIN SOD (PORCINE) LOAD IVP PRN (11:53)
[2017-04-14] MEDS: HEPARIN (PORCINE) 1000 UNIT/ML (DIALYSIS) IVP PRN (11:53)
[2017-04-17] MEDS: HEPARIN SOD (PORCINE) LOAD IVP PRN (11:33)
[2017-04-17] MEDS: HEPARIN (PORCINE) 1000 UNIT/ML (DIALYSIS) IVP PRN (11:33)
[2017-04-19] MEDS: HEPARIN SOD (PORCINE) LOAD IVP PRN (11:08)
[2017-04-19] MEDS: HEPARIN (PORCINE) 1000 UNIT/ML (DIALYSIS) IVP PRN (11:08)
[2017-04-19] MEDS: SODIUM FERRIC GLUC 62.5 MG/5ML IVP PRN (11:20)
[2017-04-20] MEDS ORDERED: HEPARIN SOD (PORCINE) LOAD IVP PRN (09:45)
[2017-04-20] MEDS ORDERED: DIALYSIS ACETAMINOPHEN 325 MG PO PRN (09:50)
[2017-04-20] MEDS ORDERED: LIDOCAINE/SOD BICARB 8.4% SYR SC PRN (09:50)
[2017-04-20] MEDS ORDERED: PROMETHAZINE HCL 25 MG TAB PO PRN (09:50)
[2017-04-21] MEDS: HEPARIN (PORCINE) 1000 UNIT/ML (DIALYSIS) IVP PRN (11:35)
[2017-04-21] MEDS: HEPARIN SOD (PORCINE) LOAD IVP PRN (11:35)
[2017-04-21] MEDS: LOPERAMIDE HCL 2 MG CAP PO PRN (12:11)
[2017-04-24] MEDS: HEPARIN (PORCINE) 1000 UNIT/ML (DIALYSIS) IVP PRN (11:01)
[2017-04-24] MEDS: HEPARIN SOD (PORCINE) LOAD IVP PRN (11:01)
[2017-04-26] MEDS: HEPARIN (PORCINE) 1000 UNIT/ML (DIALYSIS) IVP PRN (11:34)
[2017-04-26] MEDS: HEPARIN SOD (PORCINE) LOAD IVP PRN (11:34)
[2017-04-26] MEDS: SODIUM FERRIC GLUC 62.5 MG/5ML IVP PRN (12:10)
[2017-04-26 12:23] LABS: PLATELET COUNT, AUTOMATED 197 K/uL (150-450)
[2017-04-28] MEDS: HEPARIN SOD (PORCINE) LOAD IVP PRN (11:05)
[2017-04-28] MEDS: HEPARIN (PORCINE) 1000 UNIT/ML (DIALYSIS) IVP PRN (11:05)
[2017-05-01] MEDS: HEPARIN (PORCINE) 1000 UNIT/ML (DIALYSIS) IVP PRN (11:30)
[2017-05-01] MEDS: HEPARIN SOD (PORCINE) LOAD IVP PRN (11:30)
[2017-05-03] MEDS: HEPARIN (PORCINE) 1000 UNIT/ML (DIALYSIS) IVP PRN (11:17)
[2017-05-03] MEDS: HEPARIN SOD (PORCINE) LOAD IVP PRN (11:17)
[2017-05-05] MEDS: HEPARIN (PORCINE) 1000 UNIT/ML (DIALYSIS) IVP PRN (10:54)
[2017-05-05] MEDS: HEPARIN SOD (PORCINE) LOAD IVP PRN (10:55)
[2017-05-08] MEDS: HEPARIN (PORCINE) 1000 UNIT/ML (DIALYSIS) IVP PRN (11:15)
[2017-05-08] MEDS: HEPARIN SOD (PORCINE) LOAD IVP PRN (11:15)
[2017-05-10] MEDS: HEPARIN (PORCINE) 1000 UNIT/ML (DIALYSIS) IVP PRN (10:58)
[2017-05-10] MEDS: HEPARIN SOD (PORCINE) LOAD IVP PRN (10:58)
[2017-05-12] MEDS: HEPARIN SOD (PORCINE) LOAD IVP PRN (11:03)
[2017-05-12] MEDS: HEPARIN (PORCINE) 1000 UNIT/ML (DIALYSIS) IVP PRN (11:03)
[2017-05-15] MEDS: HEPARIN SOD (PORCINE) LOAD IVP PRN (11:01)
[2017-05-15] MEDS: HEPARIN (PORCINE) 1000 UNIT/ML (DIALYSIS) IVP PRN (11:01)
[2017-05-17] MEDS: HEPARIN (PORCINE) 1000 UNIT/ML (DIALYSIS) IVP PRN (11:43)
[2017-05-17] MEDS: HEPARIN SOD (PORCINE) LOAD IVP PRN (11:43)
[2017-05-19] MEDS: HEPARIN (PORCINE) 1000 UNIT/ML (DIALYSIS) IVP PRN (11:07)
[2017-05-19] MEDS: HEPARIN SOD (PORCINE) LOAD IVP PRN (11:07)
[2017-05-19] MEDS: LOPERAMIDE HCL 2 MG CAP PO PRN (11:12)
[2017-05-19] MEDS: DARBEPOETIN ESRD 25 MCG/ML IVP PRN (11:13)
[2017-05-22] MEDS: HEPARIN (PORCINE) 1000 UNIT/ML (DIALYSIS) IVP PRN (11:17)
[2017-05-22] MEDS: HEPARIN SOD (PORCINE) LOAD IVP PRN (11:17)
[2017-05-24] MEDS: LOPERAMIDE HCL 2 MG CAP PO PRN (11:33)
[2017-05-24] MEDS: HEPARIN (PORCINE) 1000 UNIT/ML (DIALYSIS) IVP PRN (11:33)
[2017-05-24] MEDS: HEPARIN SOD (PORCINE) LOAD IVP PRN (11:33)
[2017-05-26] MEDS: HEPARIN SOD (PORCINE) LOAD IVP PRN (11:13)
[2017-05-26] MEDS: HEPARIN (PORCINE) 1000 UNIT/ML (DIALYSIS) IVP PRN (11:13)
[2017-05-26] MEDS: DARBEPOETIN ESRD 25 MCG/ML IVP PRN (11:51)
[2017-05-29] MEDS: HEPARIN (PORCINE) 1000 UNIT/ML (DIALYSIS) IVP PRN (11:24)
[2017-05-29] MEDS: HEPARIN SOD (PORCINE) LOAD IVP PRN (11:24)
[2017-05-31] MEDS: HEPARIN (PORCINE) 1000 UNIT/ML (DIALYSIS) IVP PRN (11:31)
[2017-05-31] MEDS: HEPARIN SOD (PORCINE) LOAD IVP PRN (11:32)
[2017-05-31 12:30] LABS: PLATELET COUNT, AUTOMATED 234 K/uL (150-450)
[2017-06-02] MEDS: HEPARIN SOD (PORCINE) LOAD IVP PRN (11:17)
[2017-06-02] MEDS: HEPARIN (PORCINE) 1000 UNIT/ML (DIALYSIS) IVP PRN (11:17)
[2017-06-02] MEDS: DARBEPOETIN ESRD 25 MCG/ML IVP PRN (11:32)
[2017-06-05] MEDS: HEPARIN (PORCINE) 1000 UNIT/ML (DIALYSIS) IVP PRN (11:16)
[2017-06-05] MEDS: HEPARIN SOD (PORCINE) LOAD IVP PRN (11:16)
[2017-06-07] MEDS: HEPARIN SOD (PORCINE) LOAD IVP PRN (11:10)
[2017-06-07] MEDS: HEPARIN (PORCINE) 1000 UNIT/ML (DIALYSIS) IVP PRN (11:10)
[2017-06-09] MEDS: HEPARIN SOD (PORCINE) LOAD IVP PRN (11:18)
[2017-06-09] MEDS: HEPARIN (PORCINE) 1000 UNIT/ML (DIALYSIS) IVP PRN (11:18)
[2017-06-09] MEDS: DARBEPOETIN ESRD 25 MCG/ML IVP PRN (11:37)
[2017-06-12] MEDS: HEPARIN SOD (PORCINE) LOAD IVP PRN (11:21)
[2017-06-12] MEDS: HEPARIN (PORCINE) 1000 UNIT/ML (DIALYSIS) IVP PRN (11:21)
[2017-06-14] MEDS: HEPARIN (PORCINE) 1000 UNIT/ML (DIALYSIS) IVP PRN (11:27)
[2017-06-14] MEDS: HEPARIN SOD (PORCINE) LOAD IVP PRN (11:27)
[2017-06-16] MEDS: HEPARIN (PORCINE) 1000 UNIT/ML (DIALYSIS) IVP PRN (11:07)
[2017-06-16] MEDS: HEPARIN SOD (PORCINE) LOAD IVP PRN (11:07)
[2017-06-16] MEDS: DARBEPOETIN ESRD 25 MCG/ML IVP PRN (11:27)
[2017-06-19] MEDS: HEPARIN (PORCINE) 1000 UNIT/ML (DIALYSIS) IVP PRN (11:19)
[2017-06-19] MEDS: HEPARIN SOD (PORCINE) LOAD IVP PRN (11:19)
[2017-06-21] MEDS: HEPARIN SOD (PORCINE) LOAD IVP PRN (11:30)
[2017-06-21] MEDS: HEPARIN (PORCINE) 1000 UNIT/ML (DIALYSIS) IVP PRN (11:30)
[2017-06-23] MEDS: HEPARIN SOD (PORCINE) LOAD IVP PRN (11:03)
[2017-06-23] MEDS: HEPARIN (PORCINE) 1000 UNIT/ML (DIALYSIS) IVP PRN (11:03)
[2017-06-23] MEDS: DARBEPOETIN ESRD 25 MCG/ML IVP PRN (11:50)
[2017-06-26] MEDS: HEPARIN (PORCINE) 1000 UNIT/ML (DIALYSIS) IVP PRN (11:24)
[2017-06-26] MEDS: HEPARIN SOD (PORCINE) LOAD IVP PRN (11:25)
[2017-06-28] MEDS: HEPARIN SOD (PORCINE) LOAD IVP PRN (11:26)
[2017-06-28] MEDS: HEPARIN (PORCINE) 1000 UNIT/ML (DIALYSIS) IVP PRN (11:26)
[2017-06-28 12:11] LABS: PLATELET COUNT, AUTOMATED 236 K/uL (150-450)
[2017-06-30] MEDS: HEPARIN SOD (PORCINE) LOAD IVP PRN (11:40)
[2017-06-30] MEDS: HEPARIN (PORCINE) 1000 UNIT/ML (DIALYSIS) IVP PRN (11:40)
[2017-06-30] MEDS: DARBEPOETIN ESRD 40MCG/ML IVP PRN (13:47)
[2017-07-03] MEDS: HEPARIN (PORCINE) 1000 UNIT/ML (DIALYSIS) IVP PRN (11:14)
[2017-07-03] MEDS: HEPARIN SOD (PORCINE) LOAD IVP PRN (11:15)
[2017-07-05] MEDS: HEPARIN (PORCINE) 1000 UNIT/ML (DIALYSIS) IVP PRN (11:24)
[2017-07-05] MEDS: HEPARIN SOD (PORCINE) LOAD IVP PRN (11:24)
[2017-07-07] MEDS: HEPARIN (PORCINE) 1000 UNIT/ML (DIALYSIS) IVP PRN (11:23)
[2017-07-07] MEDS: HEPARIN SOD (PORCINE) LOAD IVP PRN (11:23)
[2017-07-07] MEDS: DARBEPOETIN ESRD 40MCG/ML IVP PRN (12:13)
[2017-07-10] MEDS: HEPARIN (PORCINE) 1000 UNIT/ML (DIALYSIS) IVP PRN (11:16)
[2017-07-10] MEDS: HEPARIN SOD (PORCINE) LOAD IVP PRN (11:16)
[2017-07-12] MEDS: HEPARIN (PORCINE) 1000 UNIT/ML (DIALYSIS) IVP PRN (11:28)
[2017-07-12] MEDS: HEPARIN SOD (PORCINE) LOAD IVP PRN (11:28)
[2017-07-14] MEDS: HEPARIN SOD (PORCINE) LOAD IVP PRN (11:29)
[2017-07-14] MEDS: HEPARIN (PORCINE) 1000 UNIT/ML (DIALYSIS) IVP PRN (11:29)
[2017-07-14] MEDS: DARBEPOETIN ESRD 40MCG/ML IVP PRN (13:16)
[2017-07-17] MEDS: HEPARIN (PORCINE) 1000 UNIT/ML (DIALYSIS) IVP PRN (11:30)
[2017-07-17] MEDS: HEPARIN SOD (PORCINE) LOAD IVP PRN (11:30)
[2017-07-19] MEDS: HEPARIN SOD (PORCINE) LOAD IVP PRN (11:17)
[2017-07-19] MEDS: HEPARIN (PORCINE) 1000 UNIT/ML (DIALYSIS) IVP PRN (11:17)
[2017-07-21] MEDS: HEPARIN (PORCINE) 1000 UNIT/ML (DIALYSIS) IVP PRN (11:21)
[2017-07-21] MEDS: HEPARIN SOD (PORCINE) LOAD IVP PRN (11:21)
[2017-07-21] MEDS: DARBEPOETIN ESRD 40MCG/ML IVP PRN (11:56)
[2017-07-24] MEDS: HEPARIN SOD (PORCINE) LOAD IVP PRN (13:26)
[2017-07-24] MEDS: HEPARIN (PORCINE) 1000 UNIT/ML (DIALYSIS) IVP PRN (13:26)
[2017-07-26] MEDS: HEPARIN (PORCINE) 1000 UNIT/ML (DIALYSIS) IVP PRN (13:38)
[2017-07-26] MEDS: HEPARIN SOD (PORCINE) LOAD IVP PRN (13:38)
[2017-07-26 14:36] LABS: PLATELET COUNT, AUTOMATED 254 K/uL (150-450)
[2017-07-28] MEDS: HEPARIN (PORCINE) 1000 UNIT/ML (DIALYSIS) IVP PRN (13:17)
[2017-07-28] MEDS: HEPARIN SOD (PORCINE) LOAD IVP PRN (13:17)
[2017-07-28] MEDS: DARBEPOETIN ESRD 40MCG/ML IVP PRN (13:48)
[2017-07-31] MEDS: HEPARIN SOD (PORCINE) LOAD IVP PRN (13:17)
[2017-07-31] MEDS: HEPARIN (PORCINE) 1000 UNIT/ML (DIALYSIS) IVP PRN (13:17)
[2017-08-02] MEDS: HEPARIN (PORCINE) 1000 UNIT/ML (DIALYSIS) IVP PRN (13:55)
[2017-08-02] MEDS: HEPARIN SOD (PORCINE) LOAD IVP PRN (13:55)
[2017-08-04] MEDS: HEPARIN (PORCINE) 1000 UNIT/ML (DIALYSIS) IVP PRN (13:50)
[2017-08-04] MEDS: HEPARIN SOD (PORCINE) LOAD IVP PRN (13:51)
[2017-08-04] MEDS: DARBEPOETIN ESRD 40MCG/ML IVP PRN (14:45)
[2017-08-07] MEDS: HEPARIN (PORCINE) 1000 UNIT/ML (DIALYSIS) IVP PRN (14:01)
[2017-08-07] MEDS: HEPARIN SOD (PORCINE) LOAD IVP PRN (14:01)
[2017-08-09] MEDS: HEPARIN (PORCINE) 1000 UNIT/ML (DIALYSIS) IVP PRN (10:50)
[2017-08-09] MEDS: HEPARIN SOD (PORCINE) LOAD IVP PRN (10:50)
[2017-08-11] MEDS: HEPARIN (PORCINE) 1000 UNIT/ML (DIALYSIS) IVP PRN (13:41)
[2017-08-11] MEDS: HEPARIN SOD (PORCINE) LOAD IVP PRN (13:41)
[2017-08-11] MEDS: DARBEPOETIN ESRD 40MCG/ML IVP PRN (14:11)
[2017-08-14] MEDS: HEPARIN (PORCINE) 1000 UNIT/ML (DIALYSIS) IVP PRN (13:56)
[2017-08-14] MEDS: HEPARIN SOD (PORCINE) LOAD IVP PRN (13:57)
[2017-08-16] MEDS: HEPARIN SOD (PORCINE) LOAD IVP PRN (12:00)
[2017-08-16] MEDS: HEPARIN (PORCINE) 1000 UNIT/ML (DIALYSIS) IVP PRN (12:00)
[2017-08-16 12:33] LABS: PLATELET COUNT, AUTOMATED 247 K/uL (150-450)
[2017-08-18] MEDS: HEPARIN (PORCINE) 1000 UNIT/ML (DIALYSIS) IVP PRN (11:22)
[2017-08-18] MEDS: HEPARIN SOD (PORCINE) LOAD IVP PRN (11:23)
[2017-08-18] MEDS: DARBEPOETIN ESRD 40MCG/ML IVP PRN (12:30)
[2017-08-21] MEDS: HEPARIN SOD (PORCINE) LOAD IVP PRN (11:14)
[2017-08-21] MEDS: HEPARIN (PORCINE) 1000 UNIT/ML (DIALYSIS) IVP PRN (11:14)
[2017-08-23] MEDS: HEPARIN SOD (PORCINE) LOAD IVP PRN (11:50)
[2017-08-23] MEDS: HEPARIN (PORCINE) 1000 UNIT/ML (DIALYSIS) IVP PRN (11:50)
[2017-08-25] MEDS: HEPARIN (PORCINE) 1000 UNIT/ML (DIALYSIS) IVP PRN (11:45)
[2017-08-25] MEDS: HEPARIN SOD (PORCINE) LOAD IVP PRN (11:46)
[2017-08-25] MEDS: DARBEPOETIN ESRD 40MCG/ML IVP PRN (12:36)
[2017-08-28] MEDS: HEPARIN SOD (PORCINE) LOAD IVP PRN (11:44)
[2017-08-28] MEDS: HEPARIN (PORCINE) 1000 UNIT/ML (DIALYSIS) IVP PRN (11:44)
[2017-08-30] MEDS: HEPARIN (PORCINE) 1000 UNIT/ML (DIALYSIS) IVP PRN (11:40)
[2017-08-30] MEDS: HEPARIN SOD (PORCINE) LOAD IVP PRN (11:41)
[2017-09-01] MEDS: HEPARIN (PORCINE) 1000 UNIT/ML (DIALYSIS) IVP PRN (11:40)
[2017-09-01] MEDS: HEPARIN SOD (PORCINE) LOAD IVP PRN (11:40)
[2017-09-01] MEDS: DARBEPOETIN ESRD 40MCG/ML IVP PRN (12:18)
[2017-09-04] MEDS: HEPARIN (PORCINE) 1000 UNIT/ML (DIALYSIS) IVP PRN (11:51)
[2017-09-04] MEDS: HEPARIN SOD (PORCINE) LOAD IVP PRN (11:51)
[2017-09-06] MEDS: HEPARIN (PORCINE) 1000 UNIT/ML (DIALYSIS) IVP PRN (11:06)
[2017-09-06] MEDS: HEPARIN SOD (PORCINE) LOAD IVP PRN (11:06)
[2017-09-08] MEDS: HEPARIN SOD (PORCINE) LOAD IVP PRN (11:27)
[2017-09-08] MEDS: HEPARIN (PORCINE) 1000 UNIT/ML (DIALYSIS) IVP PRN (11:27)
[2017-09-11] MEDS: HEPARIN (PORCINE) 1000 UNIT/ML (DIALYSIS) IVP PRN (11:11)
[2017-09-11] MEDS: HEPARIN SOD (PORCINE) LOAD IVP PRN (11:11)
[2017-09-13] MEDS: HEPARIN (PORCINE) 1000 UNIT/ML (DIALYSIS) IVP PRN (11:25)
[2017-09-13] MEDS: HEPARIN SOD (PORCINE) LOAD IVP PRN (11:25)
[2017-09-15] MEDS: HEPARIN SOD (PORCINE) LOAD IVP PRN (11:16)
[2017-09-15] MEDS: HEPARIN (PORCINE) 1000 UNIT/ML (DIALYSIS) IVP PRN (11:16)
[2017-09-18] MEDS: HEPARIN (PORCINE) 1000 UNIT/ML (DIALYSIS) IVP PRN (11:18)
[2017-09-18] MEDS: HEPARIN SOD (PORCINE) LOAD IVP PRN (11:18)
[2017-09-20] MEDS: HEPARIN (PORCINE) 1000 UNIT/ML (DIALYSIS) IVP PRN (11:42)
[2017-09-20] MEDS: HEPARIN SOD (PORCINE) LOAD IVP PRN (11:42)
[2017-09-20 13:26] LABS: PLATELET COUNT, AUTOMATED 232 K/uL (150-450)
[2017-09-22] MEDS: HEPARIN (PORCINE) 1000 UNIT/ML (DIALYSIS) IVP PRN ×2 (11:19→11:20)
[2017-09-22] MEDS: HEPARIN SOD (PORCINE) LOAD IVP PRN (11:20)
[2017-09-25] MEDS: HEPARIN SOD (PORCINE) LOAD IVP PRN (10:41)
[2017-09-25] MEDS: HEPARIN (PORCINE) 1000 UNIT/ML (DIALYSIS) IVP PRN (10:41)
[2017-09-27] MEDS: HEPARIN (PORCINE) 1000 UNIT/ML (DIALYSIS) IVP PRN (11:03)
[2017-09-27] MEDS: HEPARIN SOD (PORCINE) LOAD IVP PRN (11:04)
[2017-09-29] MEDS: HEPARIN SOD (PORCINE) LOAD IVP PRN (10:39)
[2017-09-29] MEDS: HEPARIN (PORCINE) 1000 UNIT/ML (DIALYSIS) IVP PRN (10:39)
[2017-10-02] MEDS: HEPARIN SOD (PORCINE) LOAD IVP PRN (10:28)
[2017-10-02] MEDS: HEPARIN (PORCINE) 1000 UNIT/ML (DIALYSIS) IVP PRN (10:28)
[2017-10-04] MEDS: HEPARIN SOD (PORCINE) LOAD IVP PRN (10:51)
[2017-10-04] MEDS: HEPARIN (PORCINE) 1000 UNIT/ML (DIALYSIS) IVP PRN (10:51)
[2017-10-04] MEDS ORDERED: DARBEPOETIN ESRD 25 MCG/ML IVP PRN (16:35)
[2017-10-06] MEDS: HEPARIN SOD (PORCINE) LOAD IVP PRN (10:56)
[2017-10-06] MEDS: HEPARIN (PORCINE) 1000 UNIT/ML (DIALYSIS) IVP PRN (10:56)
[2017-10-09] MEDS: HEPARIN SOD (PORCINE) LOAD IVP PRN (10:52)
[2017-10-09] MEDS: HEPARIN (PORCINE) 1000 UNIT/ML (DIALYSIS) IVP PRN (10:52)
[2017-10-11] MEDS: HEPARIN SOD (PORCINE) LOAD IVP PRN (11:04)
[2017-10-11] MEDS: HEPARIN (PORCINE) 1000 UNIT/ML (DIALYSIS) IVP PRN (11:04)
[2017-10-13] MEDS: HEPARIN SOD (PORCINE) LOAD IVP PRN (10:45)
[2017-10-13] MEDS: HEPARIN (PORCINE) 1000 UNIT/ML (DIALYSIS) IVP PRN (10:45)
[2017-10-13] MEDS: DARBEPOETIN ESRD 40MCG/ML IVP PRN (11:29)
[2017-10-16] MEDS: HEPARIN SOD (PORCINE) LOAD IVP PRN (11:03)
[2017-10-16] MEDS: HEPARIN (PORCINE) 1000 UNIT/ML (DIALYSIS) IVP PRN (11:03)
[2017-10-18] MEDS: HEPARIN (PORCINE) 1000 UNIT/ML (DIALYSIS) IVP PRN (11:10)
[2017-10-18] MEDS: HEPARIN SOD (PORCINE) LOAD IVP PRN (11:10)
[2017-10-20] MEDS: HEPARIN (PORCINE) 1000 UNIT/ML (DIALYSIS) IVP PRN (11:14)
[2017-10-20] MEDS: HEPARIN SOD (PORCINE) LOAD IVP PRN (11:14)
[2017-10-20] MEDS: DARBEPOETIN ESRD 40MCG/ML IVP PRN (12:54)
[2017-10-23] MEDS: HEPARIN (PORCINE) 1000 UNIT/ML (DIALYSIS) IVP PRN (11:04)
[2017-10-23] MEDS: HEPARIN SOD (PORCINE) LOAD IVP PRN (11:04)
[2017-10-25] MEDS: HEPARIN SOD (PORCINE) LOAD IVP PRN (10:47)
[2017-10-25] MEDS: HEPARIN (PORCINE) 1000 UNIT/ML (DIALYSIS) IVP PRN (10:47)
[2017-10-25 12:09] LABS: PLATELET COUNT, AUTOMATED 258 K/uL (150-450)
[2017-10-27] MEDS: HEPARIN (PORCINE) 1000 UNIT/ML (DIALYSIS) IVP PRN (11:05)
[2017-10-27] MEDS: HEPARIN SOD (PORCINE) LOAD IVP PRN (11:05)
[2017-10-27] MEDS: DARBEPOETIN ESRD 40MCG/ML IVP PRN (13:21)
[2017-10-30] MEDS: HEPARIN (PORCINE) 1000 UNIT/ML (DIALYSIS) IVP PRN (10:48)
[2017-10-30] MEDS: HEPARIN SOD (PORCINE) LOAD IVP PRN (10:48)
[2017-11-01] MEDS: HEPARIN SOD (PORCINE) LOAD IVP PRN (10:45)
[2017-11-01] MEDS: HEPARIN (PORCINE) 1000 UNIT/ML (DIALYSIS) IVP PRN (10:45)
[2017-11-03] MEDS: HEPARIN SOD (PORCINE) LOAD IVP PRN (10:47)
[2017-11-03] MEDS: HEPARIN (PORCINE) 1000 UNIT/ML (DIALYSIS) IVP PRN (10:47)
[2017-11-03] MEDS: DARBEPOETIN ESRD 40MCG/ML IVP PRN (12:11)
[2017-11-06] MEDS: HEPARIN (PORCINE) 1000 UNIT/ML (DIALYSIS) IVP PRN (10:42)
[2017-11-06] MEDS: HEPARIN SOD (PORCINE) LOAD IVP PRN (10:42)
[2017-11-08] MEDS: HEPARIN SOD (PORCINE) LOAD IVP PRN (11:00)
[2017-11-08] MEDS: HEPARIN (PORCINE) 1000 UNIT/ML (DIALYSIS) IVP PRN (11:00)
[2017-11-10] MEDS: HEPARIN (PORCINE) 1000 UNIT/ML (DIALYSIS) IVP PRN (10:47)
[2017-11-10] MEDS: HEPARIN SOD (PORCINE) LOAD IVP PRN (10:47)
[2017-11-10] MEDS: DARBEPOETIN ESRD 40MCG/ML IVP PRN (12:20)
[2017-11-13] MEDS: HEPARIN (PORCINE) 1000 UNIT/ML (DIALYSIS) IVP PRN (10:44)
[2017-11-13] MEDS: HEPARIN SOD (PORCINE) LOAD IVP PRN (10:44)
[2017-11-15] MEDS: HEPARIN SOD (PORCINE) LOAD IVP PRN (10:59)
[2017-11-15] MEDS: HEPARIN (PORCINE) 1000 UNIT/ML (DIALYSIS) IVP PRN (10:59)
[2017-11-15 11:30] LABS: PLATELET COUNT, AUTOMATED 249 K/uL (150-450)
[2017-11-17] MEDS: HEPARIN (PORCINE) 1000 UNIT/ML (DIALYSIS) IVP PRN (10:56)
[2017-11-17] MEDS: HEPARIN SOD (PORCINE) LOAD IVP PRN (10:56)
[2017-11-17] MEDS: DARBEPOETIN ESRD 40MCG/ML IVP PRN (12:32)
[2017-11-20] MEDS: HEPARIN (PORCINE) 1000 UNIT/ML (DIALYSIS) IVP PRN (10:33)
[2017-11-20] MEDS: HEPARIN SOD (PORCINE) LOAD IVP PRN (10:33)
[2017-11-22] MEDS: HEPARIN (PORCINE) 1000 UNIT/ML (DIALYSIS) IVP PRN (11:12)
[2017-11-22] MEDS: HEPARIN SOD (PORCINE) LOAD IVP PRN (11:12)
[2017-11-24] MEDS: HEPARIN (PORCINE) 1000 UNIT/ML (DIALYSIS) IVP PRN (11:06)
[2017-11-24] MEDS: HEPARIN SOD (PORCINE) LOAD IVP PRN (11:06)
[2017-11-24] MEDS: DARBEPOETIN ESRD 40MCG/ML IVP PRN (11:25)
[2017-11-27] MEDS: HEPARIN (PORCINE) 1000 UNIT/ML (DIALYSIS) IVP PRN (10:53)
[2017-11-27] MEDS: HEPARIN SOD (PORCINE) LOAD IVP PRN (10:54)
[2017-11-29] MEDS: HEPARIN SOD (PORCINE) LOAD IVP PRN (11:01)
[2017-11-29] MEDS: HEPARIN (PORCINE) 1000 UNIT/ML (DIALYSIS) IVP PRN (11:02)
[2017-12-01] MEDS: HEPARIN (PORCINE) 1000 UNIT/ML (DIALYSIS) IVP PRN (10:54)
[2017-12-01] MEDS: HEPARIN SOD (PORCINE) LOAD IVP PRN (10:54)
[2017-12-01] MEDS: DARBEPOETIN ESRD 40MCG/ML IVP PRN (12:42)
[2017-12-04] MEDS: HEPARIN (PORCINE) 1000 UNIT/ML (DIALYSIS) IVP PRN (10:57)
[2017-12-04] MEDS: HEPARIN SOD (PORCINE) LOAD IVP PRN (10:57)
[2017-12-06] MEDS: HEPARIN (PORCINE) 1000 UNIT/ML (DIALYSIS) IVP PRN (10:58)
[2017-12-06] MEDS: HEPARIN SOD (PORCINE) LOAD IVP PRN (10:59)
[2017-12-08] MEDS: HEPARIN (PORCINE) 1000 UNIT/ML (DIALYSIS) IVP PRN (10:55)
[2017-12-08] MEDS: HEPARIN SOD (PORCINE) LOAD IVP PRN (10:56)
[2017-12-08] MEDS: DARBEPOETIN ESRD 40MCG/ML IVP PRN (12:14)
[2017-12-11] MEDS: HEPARIN (PORCINE) 1000 UNIT/ML (DIALYSIS) IVP PRN (11:02)
[2017-12-11] MEDS: HEPARIN SOD (PORCINE) LOAD IVP PRN (11:03)
[2017-12-13] MEDS: HEPARIN (PORCINE) 1000 UNIT/ML (DIALYSIS) IVP PRN (11:07)
[2017-12-13] MEDS: HEPARIN SOD (PORCINE) LOAD IVP PRN (11:08)
[2017-12-15] MEDS: HEPARIN (PORCINE) 1000 UNIT/ML (DIALYSIS) IVP PRN (11:06)
[2017-12-15] MEDS: HEPARIN SOD (PORCINE) LOAD IVP PRN (11:06)
[2017-12-18] MEDS: HEPARIN SOD (PORCINE) LOAD IVP PRN (11:09)
[2017-12-18] MEDS: HEPARIN (PORCINE) 1000 UNIT/ML (DIALYSIS) IVP PRN (11:09)
[2017-12-20] MEDS: HEPARIN SOD (PORCINE) LOAD IVP PRN (10:57)
[2017-12-20] MEDS: HEPARIN (PORCINE) 1000 UNIT/ML (DIALYSIS) IVP PRN (10:58)
[2017-12-22] MEDS: HEPARIN (PORCINE) 1000 UNIT/ML (DIALYSIS) IVP PRN (10:59)
[2017-12-22] MEDS: HEPARIN SOD (PORCINE) LOAD IVP PRN (10:59)
[2017-12-25] MEDS: HEPARIN SOD (PORCINE) LOAD IVP PRN (10:45)
[2017-12-25] MEDS: HEPARIN (PORCINE) 1000 UNIT/ML (DIALYSIS) IVP PRN (10:45)
[2017-12-27] MEDS: HEPARIN SOD (PORCINE) LOAD IVP PRN (11:08)
[2017-12-27] MEDS: HEPARIN (PORCINE) 1000 UNIT/ML (DIALYSIS) IVP PRN (11:08)
[2017-12-27 12:11] LABS: PLATELET COUNT, AUTOMATED 217 K/uL (150-450)
[2017-12-29] MEDS: HEPARIN SOD (PORCINE) LOAD IVP PRN (11:10)
[2017-12-29] MEDS: HEPARIN (PORCINE) 1000 UNIT/ML (DIALYSIS) IVP PRN (11:10)
[2018-01-01] MEDS: HEPARIN (PORCINE) 1000 UNIT/ML (DIALYSIS) IVP PRN (10:31)
[2018-01-01] MEDS: HEPARIN SOD (PORCINE) LOAD IVP PRN (10:31)
[2018-01-03] MEDS ORDERED: INFLUENZA VIRUS VAC 0.5ML SYR IM ONLY ONE (11:00)
[2018-01-03] MEDS: HEPARIN SOD (PORCINE) LOAD IVP PRN (11:05)
[2018-01-03] MEDS: HEPARIN (PORCINE) 1000 UNIT/ML (DIALYSIS) IVP PRN (11:05)
[2018-01-05] MEDS: HEPARIN (PORCINE) 1000 UNIT/ML (DIALYSIS) IVP PRN (10:47)
[2018-01-05] MEDS: HEPARIN SOD (PORCINE) LOAD IVP PRN (10:47)
[2018-01-05] MEDS ORDERED: INFLUENZA VIRUS VAC 0.5ML SYR IM ONLY ONE (11:00)
[2018-01-08] MEDS: HEPARIN (PORCINE) 1000 UNIT/ML (DIALYSIS) IVP PRN (10:45)
[2018-01-08] MEDS: HEPARIN SOD (PORCINE) LOAD IVP PRN (10:45)
[2018-01-10] MEDS: HEPARIN (PORCINE) 1000 UNIT/ML (DIALYSIS) IVP PRN (09:55)
[2018-01-10] MEDS: HEPARIN SOD (PORCINE) LOAD IVP PRN (09:55)
[2018-01-12] MEDS: HEPARIN SOD (PORCINE) LOAD IVP PRN (09:52)
[2018-01-12] MEDS: HEPARIN (PORCINE) 1000 UNIT/ML (DIALYSIS) IVP PRN (09:52)
[2018-01-15] MEDS: HEPARIN SOD (PORCINE) LOAD IVP PRN (09:42)
[2018-01-15] MEDS: HEPARIN (PORCINE) 1000 UNIT/ML (DIALYSIS) IVP PRN (09:43)
[2018-01-17] MEDS: HEPARIN SOD (PORCINE) LOAD IVP PRN (10:02)
[2018-01-17] MEDS: HEPARIN (PORCINE) 1000 UNIT/ML (DIALYSIS) IVP PRN (10:02)
[2018-01-19] MEDS: HEPARIN (PORCINE) 1000 UNIT/ML (DIALYSIS) IVP PRN (10:01)
[2018-01-19] MEDS: HEPARIN SOD (PORCINE) LOAD IVP PRN (10:01)
[2018-01-19] MEDS ORDERED: DARBEPOETIN ESRD 40MCG/ML IVP PRN (14:20)
[2018-01-22] MEDS: HEPARIN SOD (PORCINE) LOAD IVP PRN (09:56)
[2018-01-22] MEDS: HEPARIN (PORCINE) 1000 UNIT/ML (DIALYSIS) IVP PRN (09:56)
[2018-01-24] MEDS: HEPARIN (PORCINE) 1000 UNIT/ML (DIALYSIS) IVP PRN (09:52)
[2018-01-24] MEDS: HEPARIN SOD (PORCINE) LOAD IVP PRN (09:53)
[2018-01-26] MEDS: HEPARIN SOD (PORCINE) LOAD IVP PRN (10:02)
[2018-01-26] MEDS: HEPARIN (PORCINE) 1000 UNIT/ML (DIALYSIS) IVP PRN (10:02)
[2018-01-29] MEDS: HEPARIN (PORCINE) 1000 UNIT/ML (DIALYSIS) IVP PRN (09:56)
[2018-01-29] MEDS: HEPARIN SOD (PORCINE) LOAD IVP PRN (09:56)
[2018-01-31] MEDS: HEPARIN (PORCINE) 1000 UNIT/ML (DIALYSIS) IVP PRN (10:00)
[2018-01-31] MEDS: HEPARIN SOD (PORCINE) LOAD IVP PRN (10:01)
[2018-01-31 10:58] LABS: PLATELET COUNT, AUTOMATED 222 K/uL (150-450)
[2018-02-02] MEDS: HEPARIN (PORCINE) 1000 UNIT/ML (DIALYSIS) IVP PRN (09:50)
[2018-02-02] MEDS: HEPARIN SOD (PORCINE) LOAD IVP PRN (09:50)
[2018-02-02] MEDS: DARBEPOETIN ESRD 25 MCG/ML IVP PRN (10:19)
[2018-02-05] MEDS: HEPARIN SOD (PORCINE) LOAD IVP PRN (10:06)
[2018-02-05] MEDS: HEPARIN (PORCINE) 1000 UNIT/ML (DIALYSIS) IVP PRN (10:06)
[2018-02-07] MEDS: HEPARIN (PORCINE) 1000 UNIT/ML (DIALYSIS) IVP PRN (09:59)
[2018-02-07] MEDS: HEPARIN SOD (PORCINE) LOAD IVP PRN (10:00)
[2018-02-09] MEDS: HEPARIN (PORCINE) 1000 UNIT/ML (DIALYSIS) IVP PRN (10:01)
[2018-02-09] MEDS: HEPARIN SOD (PORCINE) LOAD IVP PRN (10:02)
[2018-02-09] MEDS: DARBEPOETIN ESRD 25 MCG/ML IVP PRN (12:30)
[2018-02-12] MEDS: HEPARIN SOD (PORCINE) LOAD IVP PRN (10:02)
[2018-02-12] MEDS: HEPARIN (PORCINE) 1000 UNIT/ML (DIALYSIS) IVP PRN (10:02)
[2018-02-14] MEDS: HEPARIN (PORCINE) 1000 UNIT/ML (DIALYSIS) IVP PRN (09:51)
[2018-02-14] MEDS: HEPARIN SOD (PORCINE) LOAD IVP PRN (09:52)
[2018-02-14] MEDS: SODIUM FERRIC GLUC 62.5 MG/5ML IVP PRN (12:09)
[2018-02-16] MEDS: HEPARIN (PORCINE) 1000 UNIT/ML (DIALYSIS) IVP PRN (09:59)
[2018-02-16] MEDS: HEPARIN SOD (PORCINE) LOAD IVP PRN (09:59)
[2018-02-16] MEDS: DARBEPOETIN ESRD 25 MCG/ML IVP PRN (11:35)
[2018-02-19] MEDS: HEPARIN (PORCINE) 1000 UNIT/ML (DIALYSIS) IVP PRN (09:51)
[2018-02-19] MEDS: HEPARIN SOD (PORCINE) LOAD IVP PRN (09:52)
[2018-02-21] MEDS: HEPARIN (PORCINE) 1000 UNIT/ML (DIALYSIS) IVP PRN (09:55)
[2018-02-21] MEDS: HEPARIN SOD (PORCINE) LOAD IVP PRN (09:55)
[2018-02-21] MEDS: SODIUM FERRIC GLUC 62.5 MG/5ML IVP PRN (10:22)
[2018-02-23] MEDS: HEPARIN (PORCINE) 1000 UNIT/ML (DIALYSIS) IVP PRN (10:01)
[2018-02-23] MEDS: HEPARIN SOD (PORCINE) LOAD IVP PRN (10:02)
[2018-02-23] MEDS: DARBEPOETIN ESRD 25 MCG/ML IVP PRN (11:30)
[2018-02-26] MEDS: HEPARIN (PORCINE) 1000 UNIT/ML (DIALYSIS) IVP PRN (09:46)
[2018-02-26] MEDS: HEPARIN SOD (PORCINE) LOAD IVP PRN (09:47)
[2018-02-28] MEDS: HEPARIN (PORCINE) 1000 UNIT/ML (DIALYSIS) IVP PRN (09:55)
[2018-02-28] MEDS: HEPARIN SOD (PORCINE) LOAD IVP PRN (09:55)
[2018-02-28] MEDS: SODIUM FERRIC GLUC 62.5 MG/5ML IVP PRN (10:24)
[2018-02-28 10:34] LABS: PLATELET COUNT, AUTOMATED 246 K/uL (150-450)
[2018-03-03] MEDS: HEPARIN (PORCINE) 1000 UNIT/ML (DIALYSIS) IVP PRN (09:55)
[2018-03-03] MEDS: HEPARIN SOD (PORCINE) LOAD IVP PRN (09:55)
[2018-03-03] MEDS: DARBEPOETIN ESRD 40MCG/ML IVP PRN (11:44)
[2018-03-06] MEDS: HEPARIN (PORCINE) 1000 UNIT/ML (DIALYSIS) IVP PRN (09:19)
[2018-03-06] MEDS: HEPARIN SOD (PORCINE) LOAD IVP PRN (09:20)
[2018-03-07] MEDS: HEPARIN (PORCINE) 1000 UNIT/ML (DIALYSIS) IVP PRN (10:03)
[2018-03-07] MEDS: HEPARIN SOD (PORCINE) LOAD IVP PRN (10:04)
[2018-03-07] MEDS: SODIUM FERRIC GLUC 62.5 MG/5ML IVP PRN (11:46)
[2018-03-09] MEDS: HEPARIN SOD (PORCINE) LOAD IVP PRN (09:59)
[2018-03-09] MEDS: HEPARIN (PORCINE) 1000 UNIT/ML (DIALYSIS) IVP PRN (09:59)
[2018-03-09] MEDS: DARBEPOETIN ESRD 40MCG/ML IVP PRN (10:40)
[2018-03-12] MEDS: HEPARIN (PORCINE) 1000 UNIT/ML (DIALYSIS) IVP PRN (09:59)
[2018-03-12] MEDS: HEPARIN SOD (PORCINE) LOAD IVP PRN (10:00)
[2018-03-14] MEDS: HEPARIN (PORCINE) 1000 UNIT/ML (DIALYSIS) IVP PRN (09:55)
[2018-03-14] MEDS: HEPARIN SOD (PORCINE) LOAD IVP PRN (09:55)
[2018-03-14] MEDS: SODIUM FERRIC GLUC 62.5 MG/5ML IVP PRN (10:25)
[2018-03-14 10:37] LABS: PLATELET COUNT, AUTOMATED 239 K/uL (150-450)
[2018-03-16] MEDS: HEPARIN (PORCINE) 1000 UNIT/ML (DIALYSIS) IVP PRN (09:52)
[2018-03-16] MEDS: HEPARIN SOD (PORCINE) LOAD IVP PRN (09:52)
[2018-03-16] MEDS: LOPERAMIDE HCL 2 MG CAP PO PRN (10:14)
[2018-03-16] MEDS: DARBEPOETIN ESRD 40MCG/ML IVP PRN (11:50)
[2018-03-19] MEDS: HEPARIN (PORCINE) 1000 UNIT/ML (DIALYSIS) IVP PRN (09:48)
[2018-03-19] MEDS: HEPARIN SOD (PORCINE) LOAD IVP PRN (09:48)
[2018-03-21] MEDS: HEPARIN SOD (PORCINE) LOAD IVP PRN (09:50)
[2018-03-21] MEDS: HEPARIN (PORCINE) 1000 UNIT/ML (DIALYSIS) IVP PRN (09:50)
[2018-03-21] MEDS: SODIUM FERRIC GLUC 62.5 MG/5ML IVP PRN (10:11)
[2018-03-23] MEDS: HEPARIN SOD (PORCINE) LOAD IVP PRN (09:49)
[2018-03-23] MEDS: HEPARIN (PORCINE) 1000 UNIT/ML (DIALYSIS) IVP PRN (09:49)
[2018-03-23] MEDS: DARBEPOETIN ESRD 40MCG/ML IVP PRN (11:52)
[2018-03-26] MEDS: HEPARIN (PORCINE) 1000 UNIT/ML (DIALYSIS) IVP PRN (09:47)
[2018-03-26] MEDS: HEPARIN SOD (PORCINE) LOAD IVP PRN (09:48)
[2018-03-28] MEDS: HEPARIN (PORCINE) 1000 UNIT/ML (DIALYSIS) IVP PRN (09:58)
[2018-03-28] MEDS: HEPARIN SOD (PORCINE) LOAD IVP PRN (09:58)
[2018-03-28] MEDS: SODIUM FERRIC GLUC 62.5 MG/5ML IVP PRN (10:26)
[2018-03-30] MEDS: HEPARIN (PORCINE) 1000 UNIT/ML (DIALYSIS) IVP PRN (09:55)
[2018-03-30] MEDS: HEPARIN SOD (PORCINE) LOAD IVP PRN (09:55)
[2018-03-30] MEDS: DARBEPOETIN ESRD 40MCG/ML IVP PRN (11:32)
[2018-04-01] MEDS: HEPARIN SOD (PORCINE) LOAD IVP PRN (09:54)
[2018-04-01] MEDS: HEPARIN (PORCINE) 1000 UNIT/ML (DIALYSIS) IVP PRN (09:54)
[2018-04-04] MEDS: HEPARIN SOD (PORCINE) LOAD IVP PRN (09:58)
[2018-04-04] MEDS: HEPARIN (PORCINE) 1000 UNIT/ML (DIALYSIS) IVP PRN (09:58)
[2018-04-04] MEDS: SODIUM FERRIC GLUC 62.5 MG/5ML IVP PRN (11:21)
[2018-04-06] MEDS: HEPARIN SOD (PORCINE) LOAD IVP PRN (09:56)
[2018-04-06] MEDS: HEPARIN (PORCINE) 1000 UNIT/ML (DIALYSIS) IVP PRN (09:56)
[2018-04-06] MEDS: DARBEPOETIN ESRD 40MCG/ML IVP PRN (10:15)
[2018-04-09] MEDS: HEPARIN SOD (PORCINE) LOAD IVP PRN (09:54)
[2018-04-09] MEDS: HEPARIN (PORCINE) 1000 UNIT/ML (DIALYSIS) IVP PRN (09:54)
== END 2018-04-09 18:04 | disposition home or self-care (01) ==
LOC: DIAL 05:48
PROVIDERS: ATTEND Internal Medicine Nephrology
DX: I12.0 Hypertensive chronic kidney disease with stage 5 chronic kidney disease or end stage renal disease (principal); N18.6 End stage renal disease; D63.1 Anemia in chronic kidney disease; N25.81 Secondary hyperparathyroidism of renal origin; E11.22 Type 2 diabetes mellitus with diabetic chronic kidney disease; E46 Unspecified protein-calorie malnutrition; Z99.2 Dependence on renal dialysis; I95.3 Hypotension of hemodialysis
CPT/HCPCS: 82040; 82108; 82247; 82306; 82310; 82374; 82465; 82565; 82728; 82947; 83036; 83540; 83550; 83970; 84075; 84100; 84132; 84295; 84443; 84460; 84478; 84520; 85018; 85025; 86580; 86706; 86803; 87340; 90999; A4657; J0882; J2916

== ENCOUNTER 2018-04-11 10:11 | Outpatient (RCR) | payer MEDICARE, OTHER ==
[2018-04-11] MEDS: HEPARIN (PORCINE) 1000 UNIT/ML (DIALYSIS) IVP PRN ×2 (09:54)
[~2018-04-11 10:11] MED LIST changes: -DEXTROSE 50% 50 ML SYR IVP PRN
[2018-04-11] MEDS: SODIUM FERRIC GLUC 62.5 MG/5ML IVP PRN (12:04)
[2018-04-13] MEDS: HEPARIN (PORCINE) 1000 UNIT/ML (DIALYSIS) IVP PRN ×2 (09:52)
[2018-04-16] MEDS: HEPARIN (PORCINE) 1000 UNIT/ML (DIALYSIS) IVP PRN ×2 (09:59)
[2018-04-18] MEDS: HEPARIN (PORCINE) 1000 UNIT/ML (DIALYSIS) IVP PRN ×2 (09:53)
[2018-04-18] MEDS: SODIUM FERRIC GLUC 62.5 MG/5ML IVP PRN (10:09)
[2018-04-20] MEDS: HEPARIN (PORCINE) 1000 UNIT/ML (DIALYSIS) IVP PRN ×2 (09:59)
[2018-04-20] MEDS: DARBEPOETIN ESRD 40MCG/ML IVP PRN (10:09)
[2018-04-22] MEDS ORDERED: CYCL10TA29 PO (14:12)
[2018-04-22] MEDS ORDERED: PRED20TA6 PO (14:12)
[2018-04-22] MEDS ORDERED: TRAM-420 PO (14:12)
[2018-04-23] MEDS: HEPARIN (PORCINE) 1000 UNIT/ML (DIALYSIS) IVP PRN ×2 (09:56→09:57)
[2018-04-25] MEDS: HEPARIN (PORCINE) 1000 UNIT/ML (DIALYSIS) IVP PRN ×2 (10:02)
[2018-04-25] MEDS: SODIUM FERRIC GLUC 62.5 MG/5ML IVP PRN (11:45)
[2018-05-04] MEDS: HEPARIN (PORCINE) 1000 UNIT/ML (DIALYSIS) IVP PRN ×2 (14:28)
[2018-05-04] MEDS ORDERED: OMEP40CA48 PO (14:34)
[2018-05-04] MEDS ORDERED: MULT1CAP59 PO (14:34)
[2018-05-04] MEDS ORDERED: PRIL (14:34)
[2018-05-04] MEDS ORDERED: ASPI81TA86 PO (14:34)
[2018-05-04] MEDS ORDERED: METO-253 PO (14:34)
[2018-05-04] MEDS ORDERED: LEV112 PO (14:34)
[2018-05-04 14:52] LABS: PLATELET COUNT, AUTOMATED 244 K/uL (150-450)
[2018-05-07] MEDS: HEPARIN (PORCINE) 1000 UNIT/ML (DIALYSIS) IVP PRN ×2 (15:31)
[2018-05-09] MEDS: HEPARIN (PORCINE) 1000 UNIT/ML (DIALYSIS) IVP PRN ×2 (14:12)
[2018-05-09] MEDS ORDERED: CALC400T65 PO (16:27)
[2018-05-11] MEDS: HEPARIN (PORCINE) 1000 UNIT/ML (DIALYSIS) IVP PRN ×2 (13:56)
[2018-05-11] MEDS: DARBEPOETIN ESRD 40MCG/ML IVP PRN (15:00)
[2018-05-13] MEDS ORDERED: CALC-743 PO (10:33)
[2018-05-14] MEDS: HEPARIN (PORCINE) 1000 UNIT/ML (DIALYSIS) IVP PRN ×2 (15:15)
[2018-05-16] MEDS: HEPARIN (PORCINE) 1000 UNIT/ML (DIALYSIS) IVP PRN ×2 (12:49)
[2018-05-16] MEDS ORDERED: LIDO700A19 TP (16:20)
[2018-05-16] MEDS ORDERED: ACET-2007 PO (16:20)
[2018-05-18] MEDS: HEPARIN (PORCINE) 1000 UNIT/ML (DIALYSIS) IVP PRN ×2 (10:37)
[2018-05-18] MEDS: DARBEPOETIN ESRD 25 MCG/ML IVP PRN (11:59)
[2018-05-21] MEDS: HEPARIN (PORCINE) 1000 UNIT/ML (DIALYSIS) IVP PRN ×2 (09:36)
[2018-05-23] MEDS: HEPARIN (PORCINE) 1000 UNIT/ML (DIALYSIS) IVP PRN ×2 (10:31)
[2018-05-25] MEDS: HEPARIN (PORCINE) 1000 UNIT/ML (DIALYSIS) IVP PRN ×2 (09:55)
[2018-05-25] MEDS: DARBEPOETIN ESRD 25 MCG/ML IVP PRN (11:46)
[2018-05-28] MEDS: HEPARIN (PORCINE) 1000 UNIT/ML (DIALYSIS) IVP PRN ×2 (10:23)
[2018-05-30] MEDS: HEPARIN (PORCINE) 1000 UNIT/ML (DIALYSIS) IVP PRN ×2 (10:22)
[2018-05-30 10:53] LABS: PLATELET COUNT, AUTOMATED 315 K/uL (150-450)
[2018-06-01] MEDS: HEPARIN (PORCINE) 1000 UNIT/ML (DIALYSIS) IVP PRN ×2 (10:12)
[2018-06-01] MEDS: DARBEPOETIN ESRD 40MCG/ML IVP PRN (12:12)
[2018-06-04] MEDS: HEPARIN (PORCINE) 1000 UNIT/ML (DIALYSIS) IVP PRN ×2 (09:57)
[2018-06-06] MEDS: HEPARIN (PORCINE) 1000 UNIT/ML (DIALYSIS) IVP PRN ×2 (10:06)
[2018-06-08] MEDS: HEPARIN (PORCINE) 1000 UNIT/ML (DIALYSIS) IVP PRN ×2 (09:54→09:55)
[2018-06-08] MEDS: DARBEPOETIN ESRD 40MCG/ML IVP PRN (10:19)
[2018-06-20] MEDS: HEPARIN (PORCINE) 1000 UNIT/ML (DIALYSIS) IVP PRN ×2 (10:57)
[2018-06-20 11:18] LABS: PLATELET COUNT, AUTOMATED 337 K/uL (150-450)
[2018-06-22] MEDS: HEPARIN (PORCINE) 1000 UNIT/ML (DIALYSIS) IVP PRN ×2 (10:25)
[2018-06-22] MEDS: DARBEPOETIN ESRD 100 MCG/0.5ML SYR IVP PRN (10:50)
[2018-06-25] MEDS: HEPARIN (PORCINE) 1000 UNIT/ML (DIALYSIS) IVP PRN ×2 (08:02)
[2018-06-27] MEDS: HEPARIN (PORCINE) 1000 UNIT/ML (DIALYSIS) IVP PRN ×2 (10:29)
[2018-06-29] MEDS: HEPARIN (PORCINE) 1000 UNIT/ML (DIALYSIS) IVP PRN ×2 (07:08)
[2018-06-29] MEDS: DARBEPOETIN ESRD 100 MCG/0.5ML SYR IVP PRN (07:32)
[2018-07-02] MEDS: HEPARIN (PORCINE) 1000 UNIT/ML (DIALYSIS) IVP PRN ×2 (10:20)
[2018-07-04] MEDS: HEPARIN (PORCINE) 1000 UNIT/ML (DIALYSIS) IVP PRN ×2 (10:20)
[2018-07-06] MEDS: HEPARIN (PORCINE) 1000 UNIT/ML (DIALYSIS) IVP PRN ×2 (10:22→10:23)
[2018-07-06] MEDS: DARBEPOETIN ESRD 100 MCG/0.5ML SYR IVP PRN (11:59)
[2018-07-09] MEDS: HEPARIN (PORCINE) 1000 UNIT/ML (DIALYSIS) IVP PRN ×2 (10:26→10:27)
[2018-07-11] MEDS: HEPARIN (PORCINE) 1000 UNIT/ML (DIALYSIS) IVP PRN ×2 (10:23)
[2018-07-13] MEDS: HEPARIN (PORCINE) 1000 UNIT/ML (DIALYSIS) IVP PRN ×2 (10:21→10:22)
[2018-07-13] MEDS: DARBEPOETIN ESRD 25 MCG/ML IVP PRN (11:29)
[2018-07-16] MEDS: HEPARIN (PORCINE) 1000 UNIT/ML (DIALYSIS) IVP PRN ×2 (10:13)
[2018-07-18] MEDS: HEPARIN (PORCINE) 1000 UNIT/ML (DIALYSIS) IVP PRN ×2 (10:09)
[2018-07-20] MEDS: HEPARIN (PORCINE) 1000 UNIT/ML (DIALYSIS) IVP PRN ×2 (10:21→10:22)
[2018-07-20] MEDS: DARBEPOETIN ESRD 25 MCG/ML IVP PRN (10:41)
[2018-07-23] MEDS: HEPARIN (PORCINE) 1000 UNIT/ML (DIALYSIS) IVP PRN ×2 (10:25→10:26)
[2018-07-25] MEDS: HEPARIN (PORCINE) 1000 UNIT/ML (DIALYSIS) IVP PRN ×2 (10:12)
[2018-07-25 10:57] LABS: PLATELET COUNT, AUTOMATED 298 K/uL (150-450)
[2018-07-27] MEDS: HEPARIN (PORCINE) 1000 UNIT/ML (DIALYSIS) IVP PRN ×2 (10:06)
[2018-07-27] MEDS: DARBEPOETIN ESRD 40MCG/ML IVP PRN (10:29)
[2018-07-30] MEDS: HEPARIN (PORCINE) 1000 UNIT/ML (DIALYSIS) IVP PRN ×2 (10:11)
[2018-08-01] MEDS: HEPARIN (PORCINE) 1000 UNIT/ML (DIALYSIS) IVP PRN ×2 (10:36)
[2018-08-03] MEDS: HEPARIN (PORCINE) 1000 UNIT/ML (DIALYSIS) IVP PRN ×2 (10:11)
[2018-08-03] MEDS: DARBEPOETIN ESRD 40MCG/ML IVP PRN (10:36)
[2018-08-06] MEDS: HEPARIN (PORCINE) 1000 UNIT/ML (DIALYSIS) IVP PRN ×2 (10:07)
[2018-08-08] MEDS: HEPARIN (PORCINE) 1000 UNIT/ML (DIALYSIS) IVP PRN ×2 (10:11)
[2018-08-10] MEDS: HEPARIN (PORCINE) 1000 UNIT/ML (DIALYSIS) IVP PRN ×2 (10:12)
[2018-08-10] MEDS: DARBEPOETIN ESRD 25 MCG/ML IVP PRN (11:49)
[2018-08-13] MEDS: HEPARIN (PORCINE) 1000 UNIT/ML (DIALYSIS) IVP PRN ×2 (10:04)
[2018-08-15] MEDS: HEPARIN (PORCINE) 1000 UNIT/ML (DIALYSIS) IVP PRN ×2 (10:09)
[2018-08-17] MEDS: HEPARIN (PORCINE) 1000 UNIT/ML (DIALYSIS) IVP PRN ×2 (09:55)
[2018-08-17] MEDS: DARBEPOETIN ESRD 25 MCG/ML IVP PRN (10:09)
[2018-08-20] MEDS: HEPARIN (PORCINE) 1000 UNIT/ML (DIALYSIS) IVP PRN ×2 (10:12)
[2018-08-22] MEDS: HEPARIN (PORCINE) 1000 UNIT/ML (DIALYSIS) IVP PRN ×2 (10:03)
[2018-08-22 10:34] LABS: PLATELET COUNT, AUTOMATED 303 K/uL (150-450)
[2018-08-24] MEDS: HEPARIN (PORCINE) 1000 UNIT/ML (DIALYSIS) IVP PRN ×2 (10:17)
[2018-08-27] MEDS: HEPARIN (PORCINE) 1000 UNIT/ML (DIALYSIS) IVP PRN ×2 (09:58)
[2018-08-29] MEDS: HEPARIN (PORCINE) 1000 UNIT/ML (DIALYSIS) IVP PRN ×2 (10:10)
[2018-08-31] MEDS: HEPARIN (PORCINE) 1000 UNIT/ML (DIALYSIS) IVP PRN ×2 (10:02→10:03)
[2018-08-31] MEDS: DARBEPOETIN ESRD 25 MCG/ML IVP PRN (11:53)
[2018-09-03] MEDS: HEPARIN (PORCINE) 1000 UNIT/ML (DIALYSIS) IVP PRN ×2 (10:08→10:09)
[2018-09-05] MEDS: HEPARIN (PORCINE) 1000 UNIT/ML (DIALYSIS) IVP PRN ×2 (10:06)
[2018-09-07] MEDS: HEPARIN (PORCINE) 1000 UNIT/ML (DIALYSIS) IVP PRN ×2 (10:08)
[2018-09-10] MEDS: HEPARIN (PORCINE) 1000 UNIT/ML (DIALYSIS) IVP PRN ×2 (10:15)
[2018-09-12] MEDS: HEPARIN (PORCINE) 1000 UNIT/ML (DIALYSIS) IVP PRN ×2 (10:10)
[2018-09-12 10:54] LABS: PLATELET COUNT, AUTOMATED 289 K/uL (150-450)
[2018-09-14] MEDS: HEPARIN (PORCINE) 1000 UNIT/ML (DIALYSIS) IVP PRN ×2 (10:07)
[2018-09-14] MEDS: DARBEPOETIN ESRD 25 MCG/ML IVP PRN (11:33)
[2018-09-17] MEDS: HEPARIN (PORCINE) 1000 UNIT/ML (DIALYSIS) IVP PRN ×2 (10:07)
[2018-09-19] MEDS: HEPARIN (PORCINE) 1000 UNIT/ML (DIALYSIS) IVP PRN ×2 (10:00)
[2018-09-21] MEDS ORDERED: CALC-515 PO (08:22)
[2018-09-21] MEDS: HEPARIN (PORCINE) 1000 UNIT/ML (DIALYSIS) IVP PRN ×2 (10:25)
[2018-09-24] MEDS: HEPARIN (PORCINE) 1000 UNIT/ML (DIALYSIS) IVP PRN ×2 (10:13)
[2018-09-26] MEDS: HEPARIN (PORCINE) 1000 UNIT/ML (DIALYSIS) IVP PRN ×2 (10:05→10:06)
[2018-09-28] MEDS: HEPARIN (PORCINE) 1000 UNIT/ML (DIALYSIS) IVP PRN ×2 (10:12)
[2018-09-28] MEDS: DARBEPOETIN ESRD 25 MCG/ML IVP PRN (12:13)
[2018-10-01] MEDS: HEPARIN (PORCINE) 1000 UNIT/ML (DIALYSIS) IVP PRN ×2 (10:23)
[2018-10-03] MEDS: HEPARIN (PORCINE) 1000 UNIT/ML (DIALYSIS) IVP PRN ×2 (10:00)
[2018-10-05] MEDS: HEPARIN (PORCINE) 1000 UNIT/ML (DIALYSIS) IVP PRN ×2 (10:07→10:08)
[2018-10-08] MEDS: HEPARIN (PORCINE) 1000 UNIT/ML (DIALYSIS) IVP PRN ×2 (10:03)
[2018-10-10] MEDS: HEPARIN (PORCINE) 1000 UNIT/ML (DIALYSIS) IVP PRN ×2 (10:05→10:06)
[2018-10-12] MEDS: HEPARIN (PORCINE) 1000 UNIT/ML (DIALYSIS) IVP PRN ×2 (10:07)
[2018-10-12] MEDS: DARBEPOETIN ESRD 25 MCG/ML IVP PRN (10:28)
[2018-10-15] MEDS: HEPARIN (PORCINE) 1000 UNIT/ML (DIALYSIS) IVP PRN ×2 (10:13→10:14)
[2018-10-17] MEDS: HEPARIN (PORCINE) 1000 UNIT/ML (DIALYSIS) IVP PRN ×2 (10:30)
[2018-10-19] MEDS: HEPARIN (PORCINE) 1000 UNIT/ML (DIALYSIS) IVP PRN ×2 (10:21)
[2018-10-19] MEDS: DARBEPOETIN ESRD 25 MCG/ML IVP PRN (10:49)
[2018-10-22] MEDS: HEPARIN (PORCINE) 1000 UNIT/ML (DIALYSIS) IVP PRN ×2 (10:03→10:04)
[2018-10-24] MEDS: HEPARIN (PORCINE) 1000 UNIT/ML (DIALYSIS) IVP PRN ×2 (10:15)
[2018-10-26] MEDS: HEPARIN (PORCINE) 1000 UNIT/ML (DIALYSIS) IVP PRN ×2 (10:20)
[2018-10-26] MEDS: DARBEPOETIN ESRD 25 MCG/ML IVP PRN (11:11)
[2018-10-29] MEDS: HEPARIN (PORCINE) 1000 UNIT/ML (DIALYSIS) IVP PRN ×2 (10:34)
[2018-10-31] MEDS: HEPARIN (PORCINE) 1000 UNIT/ML (DIALYSIS) IVP PRN ×2 (10:10)
[2018-10-31 11:06] LABS: PLATELET COUNT, AUTOMATED 298 K/uL (150-450)
[2018-11-02] MEDS: HEPARIN (PORCINE) 1000 UNIT/ML (DIALYSIS) IVP PRN ×2 (10:19)
[2018-11-02] MEDS: DARBEPOETIN ESRD 25 MCG/ML IVP PRN (10:31)
[2018-11-07] MEDS: HEPARIN (PORCINE) 1000 UNIT/ML (DIALYSIS) IVP PRN ×2 (10:01)
[2018-11-09] MEDS: HEPARIN (PORCINE) 1000 UNIT/ML (DIALYSIS) IVP PRN ×2 (10:18)
[2018-11-09] MEDS: DARBEPOETIN ESRD 25 MCG/ML IVP PRN (11:33)
[2018-11-12] MEDS: HEPARIN (PORCINE) 1000 UNIT/ML (DIALYSIS) IVP PRN ×2 (10:44→10:45)
[2018-11-14] MEDS: HEPARIN (PORCINE) 1000 UNIT/ML (DIALYSIS) IVP PRN ×2 (10:07→10:08)
[2018-11-16] MEDS: HEPARIN (PORCINE) 1000 UNIT/ML (DIALYSIS) IVP PRN ×2 (09:48)
[2018-11-16] MEDS: DARBEPOETIN ESRD 25 MCG/ML IVP PRN (10:28)
[2018-11-19] MEDS: HEPARIN (PORCINE) 1000 UNIT/ML (DIALYSIS) IVP PRN ×2 (10:10)
[2018-11-21] MEDS: HEPARIN (PORCINE) 1000 UNIT/ML (DIALYSIS) IVP PRN ×2 (10:23→10:24)
[2018-11-21 11:17] LABS: PLATELET COUNT, AUTOMATED 279 K/uL (150-450)
[2018-11-23] MEDS: HEPARIN (PORCINE) 1000 UNIT/ML (DIALYSIS) IVP PRN ×2 (10:01)
[2018-11-23] MEDS: DARBEPOETIN ESRD 25 MCG/ML IVP PRN (10:28)
[2018-11-26] MEDS: HEPARIN (PORCINE) 1000 UNIT/ML (DIALYSIS) IVP PRN ×2 (10:10)
[2018-11-28] MEDS: HEPARIN (PORCINE) 1000 UNIT/ML (DIALYSIS) IVP PRN ×2 (10:10)
[2018-11-30] MEDS: HEPARIN (PORCINE) 1000 UNIT/ML (DIALYSIS) IVP PRN ×2 (09:59)
[2018-11-30] MEDS: DARBEPOETIN ESRD 25 MCG/ML IVP PRN (10:31)
== END 2018-12-08 ==
LOC: DIAL 10:11
PROVIDERS: ATTEND Internal Medicine Nephrology
DX: E11.22 Type 2 diabetes mellitus with diabetic chronic kidney disease (principal); N18.6 End stage renal disease; I95.3 Hypotension of hemodialysis; D63.1 Anemia in chronic kidney disease; Z99.2 Dependence on renal dialysis; N25.81 Secondary hyperparathyroidism of renal origin; E83.39 Other disorders of phosphorus metabolism; Z98.61 Coronary angioplasty status; E43 Unspecified severe protein-calorie malnutrition; I12.0 Hypertensive chronic kidney disease with stage 5 chronic kidney disease or end stage renal disease; Z79.4 Long term (current) use of insulin
CPT/HCPCS: 36416; 82040; 82108; 82247; 82306; 82310; 82374; 82465; 82565; 82728; 82947; 82948; 83036; 83540; 83550; 83970; 84075; 84100; 84132; 84295; 84443; 84460; 84478; 84520; 85018; 85025; 86580; 86706; 86803; 87340; 90999; A4657; J0882; J2916

== ENCOUNTER 2018-04-16 13:47 | Emergency (ER) | payer OTHER ==
[~2018-04-16 13:47] MED LIST changes: -DARBEPOETIN ESRD 40MCG/ML IVP PRN; -DIALYSIS ACETAMINOPHEN 325 MG PO PRN; -LIDOCAINE/PRILOCAINE 30GM TUBE TP PRN; -LIDOCAINE/SOD BICARB 8.4% SYR SC PRN; -LOPERAMIDE HCL 2 MG CAP PO PRN; -PROMETHAZINE HCL 25 MG TAB PO PRN; -diphenhydr DIALYSIS 50 MG/ML IVP PRN
--- NOTE | 2018-04-16 14:19 | ER Report ---
History and Physical Time Seen By MD: 14:00 Hx. of Stated Complaint: LOWER BACK PAIN HPI/ROS CHIEF COMPLAINT: Back pain HISTORY OF PRESENT ILLNESS: 77-year-old male just over a week ago was working for an extended period of time on his knees at home. When he got up without known injury, he noted some back pain that gradually got worse over the next couple days. Pain has now been persistent, bilateral low back and around "his tailbone", radiating intermittently to both legs down past knees. Pain is moderate in severity. Pain appears to be relieved at night, as patient states he does not notice pain when he sleeps. Pain is worse when he starts moving around in the morning and persistent throughout the day. Patient has taken Tylenol for the pain, with some relief. He is no prior back injuries, no known osteoporosis, has not seen his primary care doctor at the [place] for this. He presents more out of concern for injury then need for pain control. He does have a family member who is a physical therapist and has initiated stretching with some relief. No abdominal pain, no weakness, no incontinence, no new neuro deficit. REVIEW OF SYSTEMS: Constitutional: No fever, no chills. Eyes: no eye pain ENT: no facial pain or injury Cardiovascular: No chest pain, no palpitations. Respiratory: No cough, no shortness of breath. Gastrointestinal: No abdominal pain, no vomiting. Genitourinary: no dysuria, no perineal anesthesia, no incontinence Musculoskeletal: above Skin: No rashes. Neurological: No headache. Remainder of the 14 system rev: Yes Allergies: Coded Allergies: meperidine HCl (Verified Allergy, Mild, GETS LOOPY, 04/16/18) meperidine (Verified Adverse Reaction, Intermediate, HALLUCINATIONS, 04/16/18) Home Meds Reported Medications Metoprolol Tartrate (METOPROLOL TARTRATE) 25 Mg Tablet, 1 TAB PO BID, TAB 02/10/17 Calcium Carbonate (TUMS) 200 Mg Tab.chew, 3000 MG PO TIDCF, TAB.CHEW Take 3 tabs tid with meals 06/01/16 Ergocalciferol (Vitamin D2) (VITAMIN D2) 50,000 Unit Capsule, 60420 UNIT PO 3XW, CAPSULE 05/09/16 Omeprazole Magnesium (PRILOSEC OTC) 20 Mg Tablet.dr, 1 TAB PO QDAY, TAB 05/09/16 Nut.tx.impaired Renal Fxn,Soy (NEPRO CARB STEADY) 237 Ml Liquid, 237 ML PO QODAY 05/09/16 Levothyroxine Sodium (LEVOTHYROXINE SODIUM) 75 Mcg Tablet, 0.1 MCG PO QDAY, TAB 05/09/16 Aspirin (ASPIRIN) 81 Mg Tab.chew, 81 MG PO QDAY, TAB.CHEW 05/09/16 [Novolin] 100unit/ml No Conflict Check, 10 UNITS SUBQ TID 05/28/12 Discontinued Reported Medications Multivitamin (MULTI VITAMIN DAILY) 1 Each Tablet, 1 EACH PO DAILY 05/09/16 Reviewed Nurses Notes: Yes Hx Smoking: No Smoking Status: Never Smoker Exposure to Second Hand Smoke?: No Hx Substance Use Disorder: No Hx Alcohol Use: No Constitutional Vital Sign - Last 24 Hours 04/16/18 13:50 Temp 97.4 Pulse 72 Resp 16 B/P (MAP) 167/88 Pulse Ox 91 O2 Delivery Room Air Physical Exam General Appearance: The patient is alert, has no immediate need for airway protection and no signs of toxicity. [ ] Eyes: Pupils equal and round no pallor or injection. ENT, Mouth: Mucous membranes are moist. Respiratory: There are no retractions, lungs are clear to auscultation. Cardiovascular: Regular rate and rhythm. Gastrointestinal: Abdomen is soft and non tender, no masses, bowel sounds normal. Specifically, no pulsatile mass, no ttp on deep palpation Neurological: Cranial nerves grossly intact, 5 out of 5 muscle strength lower extremity bilaterally, normal sensation throughout lower extremity bilaterally, normal lower extremity reflexes. Skin: Warm and dry, no rashes. Musculoskeletal: TTP L5, S1 without stepoff. Mild bilat superior gluteal ttp. DIFFERENTIAL DIAGNOSIS: After history and physical exam differential diagnosis was considered for back pain including but not limited to cauda equina, muscular pain, herniated disc, spine fracture, intra-abdominal causes and urinary tract infection. Medical Decision Making ED Course/Re-evaluation ED Course 77-year-old diabetic, chronic kidney disease, on hemodialysis, presents with back pain one week after minor injury. I ruled out CRAFTI risk factors, and after ED evaluation, patient does not appear to have emergent complication of musculoskeletal pain. Patient ambulates without difficulty on discharge, given strict return precautions and will follow-up with primary doctor. Decision to Disposition Date: Apr 16, 2018 Decision to Disposition Time: 14:53 Depart Departure Latest Vital Signs Vital Signs Date Time Temp Pulse Resp B/P (MAP) Pulse Ox O2 Delivery O2 Flow Rate FiO2 04/16/18 13:50 97.4 72 16 167/88 91 Room Air Impression: Primary Impression: Back pain Condition: Improved Disposition: HOME OR SELF-CARE Patient Instructions: Acute Low Back Pain (ED) Additional Instructions: As we discussed, as of right now I do not see any complications of your back i njury that are concerning. However, if you have uncontrolled pain, new weakness, numbness, incontinence, or any concerns, please return immediately. I recommend 3 tablets of Tylenol twice daily for pain as needed. As we discussed, I recommend stretching 3 times daily. Please follow up with her primary doctor for consideration of physical therapy or further evaluation if her pain is not improved in one week. Problem Qualifiers Primary Impression: Back pain Back pain location: low back pain Chronicity: acute Back pain laterality: bilateral Sciatica presence: without sciatica Qualified Codes: M54.5 - Low back pain SORIN ZHU MD Apr 16, 2018 14:19
--- NOTE | 2018-04-16 14:35 | RADIOLOGY IMAGING REPORT ---
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 There are multileve l degenerative changes including endplate osteophytosis, intervertebral displaced narrowing and ana nal osteophytosis. 2 mm retrolisthesis of L2 on L3 also a millimeter retrolisthesis of L3 on L4 is p resent. Vertebral body heights are maintained. IMPRESSION: 1. Degenerative changes as described above. Report Dictated By: Bart Martin DO at 04/16/2018 2:27 PM Report E-Signed By: Bart Martin DO at 04/16/2018 2:30 PM WSN:[id number]
[2018-04-16 14:58] VITALS: BP 129/76
== END 2018-04-16 15:10 | disposition home or self-care (01) ==
LOC: ER 14:52
DX: M54.5 Low back pain (principal)
CPT/HCPCS: 72100; 99283

== ENCOUNTER 2018-04-22 13:29 | Emergency (ER) | payer OTHER ==
--- NOTE | 2018-04-22 13:40 | ER Report ---
History and Physical Time Seen By MD: 13:40 Hx. of Stated Complaint: PATIENT HERE 1 WEEK AGO FOR BACK. REPORTS NOT GETTING ANY BETTER AND STILL HAVE A LOT OF PAIN HPI/ROS CHIEF COMPLAINT: Lower midline back pain HISTORY OF PRESENT ILLNESS: Patient is a 77-year-old male here with complaints of lower lumbar back pain which is been present since last week on the patient reportedly was on his knees working on a tub. He was seen in the emergency department at that time, x-rays were negative for fracture or dislocation. Patient has been taking Tylenol without relief of symptoms. Patient is on dialysis so he was advised to avoid NSAIDs. Patient denies bowel or bladder incontinence, fevers, saddle anesthesia, lower extremity weakness. Pain is primarily located in the lower midline lumbar region with radiation to both buttock. REVIEW OF SYSTEMS: Constitutional: No fever, no chills. Eyes: No discharge. ENT: No sore throat. Cardiovascular: No chest pain, no palpitations. Respiratory: No cough, no shortness of breath. Gastrointestinal: No abdominal pain, no vomiting. Genitourinary: No hematuria, bladder retention or incontinence Musculoskeletal: + lower lumbar back pain with radiation to b/l buttocks. Skin: No rashes. Neurological: NV intact in the lower extremities Allergies: Coded Allergies: meperidine HCl (Verified Allergy, Mild, GETS LOOPY, 04/16/18) meperidine (Verified Adverse Reaction, Intermediate, HALLUCINATIONS, 04/16/18) Home Meds Reported Medications Metoprolol Tartrate (METOPROLOL TARTRATE) 25 Mg Tablet, 1 TAB PO BID, TAB 02/10/17 Calcium Carbonate (TUMS) 200 Mg Tab.chew, 3000 MG PO TIDCF, TAB.CHEW Take 3 tabs tid with meals 06/01/16 Ergocalciferol (Vitamin D2) (VITAMIN D2) 50,000 Unit Capsule, 11568 UNIT PO 3XW, CAPSULE 05/09/16 Omeprazole Magnesium (PRILOSEC OTC) 20 Mg Tablet.dr, 1 TAB PO QDAY, TAB 05/09/16 Nut.tx.impaired Renal Fxn,Soy (NEPRO CARB STEADY) 237 Ml Liquid, 237 ML PO QODAY 05/09/16 Levothyroxine Sodium (LEVOTHYROXINE SODIUM) 75 Mcg Tablet, 0.1 MCG PO QDAY, TAB 05/09/16 Aspirin (ASPIRIN) 81 Mg Tab.chew, 81 MG PO QDAY, TAB.CHEW 05/09/16 [Novolin] 100unit/ml No Conflict Check, 10 UNITS SUBQ TID 05/28/12 Discontinued Reported Medications Multivitamin (MULTI VITAMIN DAILY) 1 Each Tablet, 1 EACH PO DAILY 05/09/16 Hx Smoking: No Smoking Status: Never Smoker Exposure to Second Hand Smoke?: No Hx Substance Use Disorder: No Hx Alcohol Use: No Constitutional Vital Sign - Last 24 Hours 04/22/18 13:33 Temp 98.6 Pulse 69 Resp 16 Pulse Ox 90 O2 Delivery Room Air Physical Exam General Appearance: The patient is alert, has no immediate need for airway protection and no signs of toxicity. No acute distress Eyes: Pupils equal and round no pallor or injection. ENT, Mouth: Mucous membranes are moist. Respiratory: There are no retractions, lungs are clear to auscultation. Cardiovascular: Regular rate and rhythm. Gastrointestinal: Abdomen is soft and non tender, no masses, bowel sounds normal. Neurological: Neurovascularly intact in the distal lower extremities Skin: Warm and dry, no rashes. Musculoskeletal: Neck is supple non tender.+ Midline lumbar and sacral tenderness on palpation, hypertonic paraspinal musculature bilaterally. Extremities are nontender, nonswollen and have full range of motion. [ ] DIFFERENTIAL DIAGNOSIS: After history and physical exam differential diagnosis was considered for back pain including but not limited to muscular pain, herniated disc, spine fracture, intra-abdominal causes and urinary tract infection. Medical Decision Making ED Course/Re-evaluation ED Course Patient is a 77-year-old male here with complaints of ongoing back pain since last week on the patient was on his knees working on time. He was seen in the emergency department, x-ray imaging showed no acute findings. Patient was taking Tylenol without relief of symptoms. Patient came back and because he was having persistent symptoms. He was started on prednisone, tramadol and given prescription sore a 5 day course of prednisone 40 mg, tramadol, Flexeril as needed for symptom management. Return precautions provided. Patient denied bowel or bladder incontinence, saddle anesthesias, fevers, lower extremity weakness. Decision to Disposition Date: Apr 22, 2018 Decision to Disposition Time: 14:14 Depart Departure Latest Vital Signs Vital Signs Date Time Temp Pulse Resp B/P (MAP) Pulse Ox O2 Delivery O2 Flow Rate FiO2 04/22/18 13:33 98.6 69 16 90 Room Air Impression: Primary Impression: Back pain Condition: Improved Disposition: HOME OR SELF-CARE New Scripts Cyclobenzaprine Hcl (CYCLOBENZAPRINE HCL) 10 Mg Tablet 10 MG PO Q8H PRN for MUSCLE SPASMS, #20 TAB 0 Refills Prov: LINDY ATWOOD DO 04/22/18 Tramadol Hcl (TRAMADOL HCL) 50 Mg Tablet 50 MG PO Q6H PRN for PAIN, #15 TAB 0 Refills Prov: LINDY ATWOOD DO 04/22/18 Prednisone (PREDNISONE) 20 Mg Tablet 40 MG PO QDAY for 4 Days, #4 TAB Prov: LINDY ATWOOD DO 04/22/18 Patient Instructions: Acute Low Back Pain (ED) Additional Instructions: You may take Flexeril 10 mg up to 3 times a day as needed for muscle spasms. You may take 1 tramadol every 6-8 hours as needed for back pain relief. Please take prednisone 40 mg for the next 4 days to complete a 5 day course. Please follow up closely with your family doctor in the next several days. Please return immediately if you develop worsening back pain, bowel or bladder incontinence, weakness in her legs, loss of sensation. Please closely monitor your glucose levels as prednisone may elevate your levels from baseline. LINDY ATWOOD DO Apr 22, 2018 13:40
[2018-04-22] MEDS ORDERED: predniSONE 20 MG TAB PO ONE (14:00)
[2018-04-22] MEDS ORDERED: traMADol 50 MG TAB PO ONE (14:05)
[2018-04-22] MEDS ORDERED: CYCL10TA29 PO (14:12)
[2018-04-22] MEDS ORDERED: TRAM-420 PO (14:12)
[2018-04-22] MEDS ORDERED: PRED20TA6 PO (14:12)
== END 2018-04-22 15:03 | disposition home or self-care (01) ==
LOC: ER 13:51
DX: M54.5 Low back pain (principal)
CPT/HCPCS: 99283; J7512

== ENCOUNTER 2018-04-26 03:46 | Emergency (ER) | payer OTHER ==
--- NOTE | 2018-04-26 03:45 | ER Report ---
History and Physical Time Seen By MD: 03:45 (TEE MARTINEZ MD) HPI/ROS CHIEF COMPLAINT: fall, low back and left hip pain HISTORY OF PRESENT ILLNESS: This is a 77 year old male. He fell while getting into bed. Landed on bottom and was not able to get up. He does not know how long he was on the ground. No loss of consciousness. Pain in back and hip made it difficult to move. He eventually crawled to a phone and called for help. EMS arrived at his home at about 0300. He has no neck or head pain. Pain in left hip and low back and sacral area when moving the left lower extremity. Has no loss of bowel or bladder function. Has no cough or shortness of breath. Normal sensation in feet. (TEE MARTINEZ MD) Allergies: Coded Allergies: meperidine HCl (Verified Allergy, Mild, GETS LOOPY, 04/26/18) meperidine (Verified Adverse Reaction, Intermediate, HALLUCINATIONS, 04/26/18) Home Meds Active Scripts Cyclobenzaprine Hcl (CYCLOBENZAPRINE HCL) 10 Mg Tablet, 10 MG PO Q8H PRN for MUSCLE SPASMS, #20 TAB 0 Refills Prov:LINDY ATWOOD DO 04/22/18 Tramadol Hcl (TRAMADOL HCL) 50 Mg Tablet, 50 MG PO Q6H PRN for PAIN, #15 TAB 0 Refills Prov:LINDY ATWOOD DO 04/22/18 Prednisone (PREDNISONE) 20 Mg Tablet, 40 MG PO QDAY for 4 Days, #4 TAB Prov:LINDY ATWOOD DO 04/22/18 Reported Medications Metoprolol Tartrate (METOPROLOL TARTRATE) 25 Mg Tablet, 1 TAB PO BID, TAB 02/10/17 Calcium Carbonate (TUMS) 200 Mg Tab.chew, 3000 MG PO TIDCF, TAB.CHEW Take 3 tabs tid with meals 06/01/16 Ergocalciferol (Vitamin D2) (VITAMIN D2) 50,000 Unit Capsule, 98672 UNIT PO 3XW, CAPSULE 05/09/16 Omeprazole Magnesium (PRILOSEC OTC) 20 Mg Tablet.dr, 1 TAB PO QDAY, TAB 05/09/16 Nut.tx.impaired Renal Fxn,Soy (NEPRO CARB STEADY) 237 Ml Liquid, 237 ML PO QODAY 05/09/16 Levothyroxine Sodium (LEVOTHYROXINE SODIUM) 75 Mcg Tablet, 0.1 MCG PO QDAY, TAB 05/09/16 Aspirin (ASPIRIN) 81 Mg Tab.chew, 81 MG PO QDAY, TAB.CHEW 05/09/16 [Novolin] 100unit/ml No Conflict Check, 10 UNITS SUBQ TID 05/28/12 Past Medical/Surgical History Past medical history for end-stage renal disease on dialysis Monday, history of insulin-dependent diabetes, history of surgical fistula placed. (SORIN HI MD) Reviewed Nurses Notes: Yes (TEE MARTINEZ MD) Hx Smoking: No Smoking Status: Never Smoker Exposure to Second Hand Smoke?: No Hx Substance Use Disorder: No Hx Alcohol Use: No (TEE MARTINEZ MD) Constitutional Vital Sign - Last 24 Hours 04/26/18 04/26/18 04/26/18 04/26/18 03:46 03:46 03:46 04:16 Temp 98.9 Pulse 77 75 77 Resp 17 B/P (MAP) 169/95 Pulse Ox 99 97 97 O2 Delivery Nasal Cannula O2 Flow Rate 2.0 04/26/18 04/26/18 04/26/18 04/26/18 04:36 04:46 05:00 05:09 Pulse 81 B/P (MAP) 185/99 (127) 169/91 (117) Pulse Ox 93 04/26/18 04/26/18 04/26/18 04/26/18 05:14 05:30 06:00 06:05 Pulse 75 75 B/P (MAP) 147/94 (111) 147/87 (107) Pulse Ox 88 94 04/26/18 04/26/18 04/26/18 04/26/18 06:30 06:35 06:40 07:00 Pulse 78 78 B/P (MAP) 160/86 (110) 153/86 (108) Pulse Ox 96 96 04/26/18 04/26/18 04/26/18 04/26/18 07:10 07:30 07:40 08:00 Pulse 73 77 B/P (MAP) 152/85 (107) 140/80 (100) Pulse Ox 96 95 04/26/18 04/26/18 04/26/18 04/26/18 08:10 08:30 08:35 09:05 Pulse 78 74 74 B/P (MAP) 145/88 (107) Pulse Ox 94 97 97 04/26/18 09:10 Pulse 74 Pulse Ox 97 (SORIN HI MD) Physical Exam General Appearance: The patient is alert. No acute distress. Eyes: Pupils are round, chronic dilated right pupil. No pallor, injection or icterus. ENT: Mucous membranes are moist. Normal oral mucosa. Posterior oropharynx is normal. Neck: Supple and non tender. Respiratory: Lungs are clear to auscultation. Cardiovascular: Regular rate and rhythm. No murmurs, gallops or rubs. Normal capillary refill. Gastrointestinal: Abdomen is soft and non tender. Nondistended. Normal active bowel sounds. Neurological: Alert and oriented x3. Cranial nerves II through XII show no acute deficits on my exam. No focal neurologic deficits in the extremities. Skin: Warm and dry. No rashes. Musculoskeletal: Pain in lower sacral and pelvic area. Can move left lower leg, but severe pain when moving the hip. Has pain in sacrum and low back. No pain in the neck or chest. DIFFERENTIAL DIAGNOSIS: After history and physical exam, differential diagnosis was considered for fall with left hip area and sacral/lumbar area pain. [facility] Medical Decision Making Data Points Result Diagram: 04/26/18 0421 04/26/18 0441 Laboratory Hematology Test 04/26/18 04:21 04/26/18 04:41 Red Blood Count 3.39 M/uL (4.00-5.60) Mean Corpuscular Volume 96.6 fL (80.0-96.0) Mean Corpuscular Hemoglobin 32.7 pg (26.0-33.0) Mean Corpuscular Hemoglobin Concent 33.9 g/dL (32.0-36.0) Red Cell Distribution Width 14.6 % (11.5-14.5) Mean Platelet Volume 7.1 fL (7.2-11.1) Neutrophils (%) (Auto) % (39.4-72.5) Lymphocytes (%) (Auto) % (17.6-49.6) Monocytes (%) (Auto) % (4.1-12.4) Eosinophils (%) (Auto) % (0.4-6.7) Basophils (%) (Auto) % (0.3-1.4) Nucleated RBC Relative Count (auto) /100WBC Neutrophils # (Auto) K/uL (2.0-7.4) Lymphocytes # (Auto) K/uL (1.3-3.6) Monocytes # (Auto) K/uL (0.3-1.0) Eosinophils # (Auto) K/uL (0.0-0.5) Basophils # (Auto) K/uL (0.0-0.1) Nucleated RBC Absolute Count (auto) K/uL Neutrophils % (Manual) 88 % (39.4-72.5) Band Neutrophils % 3 % Lymphocytes % (Manual) 2 % (17.6-49.6) Monocytes % (Manual) 2 % (4.1-12.4) Eosinophils % (Manual) 1 % (0.4-6.7) Basophils % (Manual) 0 % (0.3-1.4) Metamyelocytes % 4 % Peripheral Blood Smear Yes Y/N Sodium Level 139 mmol/L (137-145) Potassium Level 3.7 mmol/L (3.5-5.0) Chloride Level 97 mmol/L (98-107) Carbon Dioxide Level 32 mmol/L (22-30) Blood Urea Nitrogen 36 mg/dl (9-21) Creatinine 3.40 mg/dl (0.66-1.25) Glomerular Filtration Rate Calc 17.7 Random Glucose 191 mg/dl (75-110) Calcium Level 9.2 mg/dl (8.4-10.2) Total Bilirubin 0.5 mg/dl (0.2-1.3) Aspartate Amino Transf (AST/SGOT) 17 U/L (0-35) Alanine Aminotransferase (ALT/SGPT) 34 U/L (0-56) Alkaline Phosphatase 146 U/L (0-126) Total Creatine Kinase 81 U/L (55-170) Total Protein 7.3 g/dl (6.3-8.2) Albumin 3.8 g/dl (3.5-5.0) Chemistry Test 04/26/18 04:21 04/26/18 04:41 White Blood Count 12.0 k/uL (4.5-11.0) Red Blood Count 3.39 M/uL (4.00-5.60) Hemoglobin 11.1 g/dL (14.0-18.0) Hematocrit 32.7 % (42.0-52.0) Mean Corpuscular Volume 96.6 fL (80.0-96.0) Mean Corpuscular Hemoglobin 32.7 pg (26.0-33.0) Mean Corpuscular Hemoglobin Concent 33.9 g/dL (32.0-36.0) Red Cell Distribution Width 14.6 % (11.5-14.5) Platelet Count 289 K/uL (150-450) Mean Platelet Volume 7.1 fL (7.2-11.1) Neutrophils (%) (Auto) % (39.4-72.5) Lymphocytes (%) (Auto) % (17.6-49.6) Monocytes (%) (Auto) % (4.1-12.4) Eosinophils (%) (Auto) % (0.4-6.7) Basophils (%) (Auto) % (0.3-1.4) Nucleated RBC Relative Count (auto) /100WBC Neutrophils # (Auto) K/uL (2.0-7.4) Lymphocytes # (Auto) K/uL (1.3-3.6) Monocytes # (Auto) K/uL (0.3-1.0) Eosinophils # (Auto) K/uL (0.0-0.5) Basophils # (Auto) K/uL (0.0-0.1) Nucleated RBC Absolute Count (auto) K/uL Neutrophils % (Manual) 88 % (39.4-72.5) Band Neutrophils % 3 % Lymphocytes % (Manual) 2 % (17.6-49.6) Monocytes % (Manual) 2 % (4.1-12.4) Eosinophils % (Manual) 1 % (0.4-6.7) Basophils % (Manual) 0 % (0.3-1.4) Metamyelocytes % 4 % Peripheral Blood Smear Yes Y/N Glomerular Filtration Rate Calc 17.7 Calcium Level 9.2 mg/dl (8.4-10.2) Total Bilirubin 0.5 mg/dl (0.2-1.3) Aspartate Amino Transf (AST/SGOT) 17 U/L (0-35) Alanine Aminotransferase (ALT/SGPT) 34 U/L (0-56) Alkaline Phosphatase 146 U/L (0-126) Total Creatine Kinase 81 U/L (55-170) Total Protein 7.3 g/dl (6.3-8.2) Albumin 3.8 g/dl (3.5-5.0) (SORIN HI MD) EKG/Imaging Imaging Pelvis and left hip: Indication: Injury. Technique: Two views were obtained. Comparison: None. Findings: There is no evidence of fracture, dislocation, or other acute deformity. There is mild joint space narrowing in both hips. No erosion or osteophyte formation is identified. There is uniform mineralization of the skeletal structures. No focal soft tissue deformity is evident. There is diffuse atherosclerotic calcification in the iliac and proximal femoral arteries. There is moderate/marked degenerative disc disease in the lower lumbar spine. IMPRESSION: No acute deformity. Report Dictated By: Alexandro Chapman MD at 04/26/2018 4:27 AM EXAMINATION: Abdomen and pelvis CT without contrast HISTORY: Fall, left hip and low back pain TECHNIQUE: CT was performed through the abdomen and pelvis without iv contrast. Sagittal and coronal reformatted images were generated. One of the following dose optimization techniques was utilized in the performance of this exam: automated exposure control; adjustment of the mA and/or kV according to patient size; or use of iterative reconstruction technique. Specific details can be referenced in the facility's radiology CT exam operational policy. COMPARISON: None FINDINGS: Lower chest: Coronary artery calcifications. Chronic rounded atelectasis in the left lower lobe measures 2.9 cm craniocaudad, coronal image 63. Trace to small chronic loculated pleural fluid in the region of the round atelectasis. Spleen: Normal. Adrenal glands: Normal. Pancreas: Normal. Kidneys: Normal. Liver / biliary: Moderately distended gallbladder. Mildly dense liver. Vessels: Normal for age. Lymph node assessment: Normal. Bowel including small bowel, colon and appendix: Small hiatal hernia, otherwise unremarkable stomach. Normal small bowel. Appendix not definitively visualized. Moderate volume colonic stool, no acute colonic abnormality. Peritoneum / retroperitoneum / mesentery: Normal. Pelvic structures: Significantly distended urinary bladder. Normal prostate. Moderate rectal stool. No pelvic fluid or adenopathy. Body wall: Small fat-containing umbilical hernia. Musculoskeletal: Acute minimally displaced left inferior pubic ramus fracture partially extends into the left pubic body. Nondisplaced acute left superior pubic ramus fracture, coronal image 44. Convexity left lumbar scoliosis. Bilateral anterior sacral cortical irregularity concerning for subtle acute sacral fractures. Mild age-indeterminate L3 wedge compression deformity is favored to be chronic. IMPRESSION: 1. Acute minimally displaced left inferior pubic ramus fracture. Nondisplaced acute left superior pubic ramus fracture. 2. Subtle nondisplaced bilateral anterior cortical sacral fractures. 3. No additional acute finding in the abdomen or pelvis. 4. Chronic left lower lung 2.9 cm rounded atelectasis with adjacent trace to small volume chronic loculated pleural fluid. Report Dictated By: Andrea Cobian MD at 04/26/2018 5:45 AM EXAMINATION: CT Cervical spine without intravenous contrast HISTORY: Fall COMPARISON: None. TECHNIQUE: Axial images were obtained from the skull base through the upper thoracic spine without IV contrast administration. Coronal and sagittal reformatted images were generated from the axial source data. One of the following dose optimization techniques was utilized in the performance of this exam: automated exposure control; adjustment of the mA and/or kV according to patient size; or use of iterative reconstruction technique. Specific details can be referenced in the facility's radiology CT exam operational policy. FINDINGS: Vertebral bodies and posterior elements: Multiple cervical vertebral body heights. Multilevel thoracic vertebral body wedging. Alignment: Slight retrolisthesis of C4 on C5. Disc Spaces: Severe multilevel disc space degeneration. Multilevel degenerative foraminal narrowing. Soft tissues: Normal. Visualized upper chest: Biapical pleural-parenchymal scarring. IMPRESSION: No acute fracture or acute abnormality. Severe multilevel disc space degeneration. Chronic slight retrolisthesis of C4 on C5. Report Dictated By: Andrea Cobian MD at 04/26/2018 6:17 AM Addendum: There is additional mild age-indeterminate wedging of the T3 vertebral body. Report Dictated By: Andrea Cobian MD at 04/26/2018 6:24 AM Report E-Signed By: Andrea Cobian MD at 04/26/2018 6:25 AM ORIGINAL REPORT EXAMINATION: CT Thoracic spine without intravenous contrast HISTORY: Fall COMPARISON: None. TECHNIQUE: Axial images were obtained through the thoracic spine without IV contrast administration. Coronal and sagittal reformatted images were generated from the source data. One of the following dose optimization techniques was utilized in the performance of this exam: automated exposure control; adjustment of the mA and/or kV according to patient size; or use of iterative reconstruction technique. Specific details can be referenced in the facility's radiology CT exam operational policy. FINDINGS: Alignment: Normal. Vertebral bodies and posterior elements: Minimal T1 vertebral body wedging. Mild upper T2 concave endplate deformity with adjacent upper vertebral body curvilinear sclerosis. Mild T4 wedge compression deformity. Mild T6 wedge comp ression deformity. No acute fracture lucency seen within these vertebral bodies. Hardware: None. Disc Spaces: T11-12 chronic disc space calcification. Coronary artery calcifications. Rounded atelectasis with adjacent pleural fluid in the left lower chest noted. Soft tissues: No significant abnormality. Visualized lungs / abdomen: No significant abnormality. IMPRESSION: Age-indeterminate minimal to mild T1, T2, T4 and T6 wedge compression deformities. These may be chronic. Acute fractures cannot be entirely excluded. Correlate with site of pain. MR could be utilized to evaluate for underlying marrow edema if there is high clinical concern for acute wedge compression fractures. Report Dictated By: Andrea Cobian MD at 04/26/2018 5:59 AM EXAMINATION: CT Lumbar spine without intravenous contrast HISTORY: Fall, pain COMPARISON: Radiographs April 16, 2018 TECHNIQUE: Axial images were obtained through the lumbar spine without IV contrast administration. Coronal and sagittal reformatted images were generated from the source data. One of the following dose optimization techniques was utilized in the performance of this exam: automated exposure control; adjustment of the mA and/or kV according to patient size; or use of iterative reconstruction technique. Specific details can be referenced in the facility's radiology CT exam operational policy. FINDINGS: Alignment: Slight retrolisthesis of L2 on L3 in approximate 3 mm retrolisthesis of L3 on L4 as before. Mild convexity left lumbar scoliosis. Vertebral bodies and posterior elements: Mild L3 wedge compression deformity is unchanged compared to radiographs. Concave upper L4 endplate deformity is also likely unchanged and favored to be chronic. No definitive acute finding in the lumbar spine. Disc Spaces: Severe multilevel disc space degeneration. Hardware: None. Other: Nondisplaced fracture lucencies are visible within the upper sacrum on coronal reformations, for example image 64 and 67. Visible abdomen and thoracic structures. Left lower chest rounded atelectasis and adjacent chronic loculated pleural fluid. CT abdomen and pelvis CT for additional details. IMPRESSION: 1. Mild unchanged likely chronic L3 wedge compression deformity when compared to April 16, 2018 radiographs. 2. Unchanged minimal upper L4 concave endplate deformity is also favored to be chronic. 3. Subtle nondisplaced acute upper anterior sacral cortical fractures. 4. Convexity left lumbar scoliosis and multilevel degenerative findings. Report Dictated By: Andrea Cobian MD at 04/26/2018 6:09 AM ([facility]) ED Course/Re-evaluation ED Course 04/26/2018 9:23:54 am physical therapy has come to evaluate the patient nothing by mouth that he is unsafe to discharge home as he is not even able to sit up on the side of the bed secondary to pain alone weight-bear or ambulate with a walker. I had 2 separate discussions totaling approximately 15 minutes with the patient about recommendation for transfer to [facility] so he can receive inpatient dialysis explaining that [facility] per her is the assessment of the physical therapy that this would not be an overnight admission followed by discharge tomorrow if they feel that he will require days worth of physical therapy and pain control before he will be safely able to ambulate on his own. This was explained to the patient and he is unwilling at this time to be transferred to [facility] citing that he has to take care of his dog and that it is "so far away". I explained that the patient does have a right to sign out against medical advice however I I explained very strongly that I felt that he would likely be calling an ambulance to return to the emergency department as he is unable to care for himself. I am attempting to reach out to the patient's daughter Hina Nunes so that I can speak with her and hopefully have her try to convince her father to be transferred so that he can get the appropriate medical care he needs. 04/26/2018 9:41:06 am I did speak with the patient's daughter and she had a conversation with her father via the bone and he is now agreeable to transfer to [facility] for pain control and inpatient dialysis. 04/26/2018 10:05:[address] Wilkinson who is the on-call trauma surgeon at [facility]. Because this was a traumatic injury the patient will be required to go to [facility] instead of [facility] as part of there protocol. Patient was updated as to the change of location of the transfer. Decision to Disposition Date: Apr 26, 2018 Decision to Disposition Time: 10:07 (SORIN HI MD) Depart Departure Latest Vital Signs Vital Signs Date Time Temp Pulse Resp B/P (MAP) Pulse Ox O2 Delivery O2 Flow Rate FiO2 04/26/18 09:10 74 97 04/26/18 08:30 145/88 (107) 04/26/18 03:46 98.9 17 Nasal Cannula 04/26/18 03:46 2.0 (SORIN HI MD) Impression: Primary Impression: Fracture of left superior pubic ramus Additional Impression: Fracture of left inferior pubic ramus Condition: Improved Disposition: XFER TO [facility] (To Dr Wilkinson at [facility]) Problem Qualifiers Primary Impression: Fracture of left superior pubic ramus Encounter type: initial encounter Fracture type: closed Qualified Codes: S32.512A - Fracture of superior rim of left pubis, initial encounter for closed fracture Additional Impression: Fracture of left inferior pubic ramus Encounter type: initial encounter Fracture type: closed Qualified Codes: S32.592A - Other specified fracture of left pubis, initial encounter for closed fracture TEE MARTINEZ MD Apr 26, 2018 03:45 SORIN HI MD Apr 26, 2018 09:26
[~2018-04-26 03:46] MED LIST changes: -ASPI81TA86 PO; -LEV112 PO; -METO-253 PO; -OMEP40CA48 PO; -PRIL
[2018-04-26] MEDS ORDERED: ONDANSETRON 4 MG/2 ML VIAL IVP ONE (03:55)
[2018-04-26] MEDS ORDERED: NS(*) 0.9% 1000 ML BAG 1,000 ML IV ONE (03:55)
[2018-04-26] MEDS ORDERED: fentaNYL CITR 100 MCG/2 ML AMP IVP ONE ×2 (03:55→04:45)
--- NOTE | 2018-04-26 04:34 | RADIOLOGY IMAGING REPORT ---
FACILITY: [facility] PATIENT NAME: Nahum Garza : 1940 MR: [id number] V: [id number] EXAM DATE: ORDERING PHYSICIAN: TEE MARTINEZ TECHNOLOGIST: Location: [facility] [place] Patient: Nahum Garza : 1940 Visit/Account:[id number] Date of Sevice: 04/26/2018 Pelvis and left hip: Indication: Injury. Technique: Two views were obtained. Comparison: None. Findings: There is no evidence of fracture, dislocation, or other acute deformity. There is mild join t space narrowing in both hips. No erosion or osteophyte formation is identified. There is uniform mi neralization of the skeletal structures. No focal soft tissue deformity is evident. There is diffuse atherosclerotic calcification in the iliac and proximal femoral arteries. There is moderate/marked degenerative disc disease in the lower lumbar spine. IMPRESSION: No acute deformity. Report Dictated By: Alexandro Chapman MD at 04/26/2018 4:27 AM Report E-Signed By: Alexandro Chapman MD at 04/26/2018 4:30 AM WSN:[id number]
[2018-04-26 04:56] LABS: PLATELET COUNT, AUTOMATED 289 K/uL (150-450)
--- NOTE | 2018-04-26 06:06 | RADIOLOGY IMAGING REPORT ---
FACILITY: [facility] PATIENT NAME: Nahum Garza : 1940 MR: [id number] V: [id number] EXAM DATE: ORDERING PHYSICIAN: TEE MARTINEZ TECHNOLOGIST: Location: [facility] Patient: Nahum Garza : 1940 Visit/Account:[id number] Date of Sevice: 04/26/2018 EXAMINATION: Abdomen and pelvis CT without contrast HISTORY: Fall, left hip and low back pain TECHNIQUE: CT was performed through the abdomen and pelvis without iv contrast. Sagittal and coron al reformatted images were generated. One of the following dose optimization techniques was utilized in the performance of this exam: autom ated exposure control; adjustment of the mA and/or kV according to patient size; or use of iterative reconstruction technique. Specific details can be referenced in the facility's radiology CT exam ope rational policy. COMPARISON: None FINDINGS: Lower chest: Coronary artery calcifications. Chronic rounded atelectasis in the left lower lobe measu res 2.9 cm craniocaudad, coronal image 63. Trace to small chronic loculated pleural fluid in the ed on of the round atelectasis. Spleen: Normal. Adrenal glands: Normal. Pancreas: Normal. Kidneys: Normal. Liver / biliary: Moderately distended gallbladder. Mildly dense liver. Vessels: Normal for age. Lymph node assessment: Normal. Bowel including small bowel, colon and appendix: Small hiatal hernia, otherwise unremarkable stomach. Normal small bowel. Appendix not definitively visualized. Moderate volume colonic stool, no acute co lonic abnormality. Peritoneum / retroperitoneum / mesentery: Normal. Pelvic structures: Significantly distended urinary bladder. Normal prostate. Moderate rectal stool . No pelvic fluid or adenopathy. Body wall: Small fat-containing umbilical hernia. Musculoskeletal: Acute minimally displaced left inferior pubic ramus fracture partially extends into the left pubic body. Nondisplaced acute left superior pubic ramus fracture, coronal image 44. Convexity left lumbar scoliosis. Bilateral anterior sacral cortical irregularity concerning for subtl e acute sacral fractures. Mild age-indeterminate L3 wedge compression deformity is favored to be chronic. IMPRESSION: 1. Acute minimally displaced left inferior pubic ramus fracture. Nondisplaced acute left superior pub ic ramus fracture. 2. Subtle nondisplaced bilateral anterior cortical sacral fractures. 3. No additional acute finding in the abdomen or pelvis. 4. Chronic left lower lung 2.9 cm rounded atelectasis with adjacent trace to small volume chronic loc ulated pleural fluid. Report Dictated By: Andrea Cobian MD at 04/26/2018 5:45 AM Report E-Signed By: Andrea Cobian MD at 04/26/2018 5:59 AM WSN:[id number]
--- NOTE | 2018-04-26 06:11 | RADIOLOGY IMAGING REPORT ---
FACILITY: [facility] PATIENT NAME: Nahum Garza : 1940 MR: [id number] V: [id number] EXAM DATE: ORDERING PHYSICIAN: TEE MARTINEZ TECHNOLOGIST: Location: [facility] Patient: Nahum Garza : 1940 Visit/Account:[id number] Date of Sevice: 04/26/2018 ADDENDUM #1 Addendum: There is additional mild age-indeterminate wedging of the T3 vertebral body. Report Dictated By: Andrea Cobian MD at 04/26/2018 6:24 AM Report E-Signed By: Andrea Cobian MD at 04/26/2018 6:25 AM ORIGINAL REPORT EXAMINATION: CT Thoracic spine without intravenous contrast HISTORY: Fall COMPARISON: None. TECHNIQUE: Axial images were obtained through the thoracic spine without IV contrast administration. Coronal and sagittal reformatted images were generated from the source data. One of the following dose optimization techniques was utilized in the performance of this exam: autom ated exposure control; adjustment of the mA and/or kV according to patient size; or use of iterative reconstruction technique. Specific details can be referenced in the facility's radiology CT exam ope rational policy. FINDINGS: Alignment: Normal. Vertebral bodies and posterior elements: Minimal T1 vertebral body wedging. Mild upper T2 concave end plate deformity with adjacent upper vertebral body curvilinear sclerosis. Mild T4 wedge compression d eformity. Mild T6 wedge compression deformity. No acute fracture lucency seen within these vertebral bodies. Hardware: None. Disc Spaces: T11-12 chronic disc space calcification. Coronary artery calcifications. Rounded atelect asis with adjacent pleural fluid in the left lower chest noted. Soft tissues: No significant abnormality. Visualized lungs / abdomen: No significant abnormality. IMPRESSION: Age-indeterminate minimal to mild T1, T2, T4 and T6 wedge compression deformities. These may be chron ic. Acute fractures cannot be entirely excluded. Correlate with site of pain. MR could be utilized to evaluate for underlying marrow edema if there is high clinical concern for [place] wedge compression fractures. Report Dictated By: Andrea Cobian MD at 04/26/2018 5:59 AM Report E-Signed By: Andrea Cobian MD at 04/26/2018 6:07 AM WSN:[id number]
--- NOTE | 2018-04-26 06:23 | RADIOLOGY IMAGING REPORT ---
FACILITY: [facility] PATIENT NAME: Nahum Garza : 1940 MR: [id number] V: [id number] EXAM DATE: ORDERING PHYSICIAN: TEE MARTINEZ TECHNOLOGIST: Location: [facility] [place] Patient: Nahum Garza : 1940 Visit/Account:[id number] Date of Sevice: 04/26/2018 EXAMINATION: CT Lumbar spine without intravenous contrast HISTORY: Fall, pain COMPARISON: Radiographs April 16, 2018 TECHNIQUE: Axial images were obtained through the lumbar spine without IV contrast administration. C oronal and sagittal reformatted images were generated from the source data. One of the following dose optimization techniques was utilized in the performance of this exam: autom ated exposure control; adjustment of the mA and/or kV according to patient size; or use of iterative reconstruction technique. Specific details can be referenced in the facility's radiology CT exam ope rational policy. FINDINGS: Alignment: Slight retrolisthesis of L2 on L3 in approximate 3 mm retrolisthesis of L3 on L4 as before . Mild convexity left lumbar scoliosis. Vertebral bodies and posterior elements: Mild L3 wedge compression deformity is unchanged compared to radiographs. Concave upper L4 endplate deformity is also likely unchanged and favored to be chronic. No definitive acute finding in the lumbar spine. Disc Spaces: Severe multilevel disc space degeneration. Hardware: None. Other: Nondisplaced fracture lucencies are visible within the upper sacrum on coronal reformations, f or example image 64 and 67. Visible abdomen and thoracic structures. Left lower chest rounded atelectasis and adjacent chronic lo culated pleural fluid. CT abdomen and pelvis CT for additional details. IMPRESSION: 1. Mild unchanged likely chronic L3 wedge compression deformity when compared to April 16, 2018 radi ographs. 2. Unchanged minimal upper L4 concave endplate deformity is also favored to be chronic. 3. Subtle nondisplaced acute upper anterior sacral cortical fractures. 4. Convexity left lumbar scoliosis and multilevel degenerative findings. Report Dictated By: Andrea Cobian MD at 04/26/2018 6:09 AM Report E-Signed By: Andrea Cobian MD at 04/26/2018 6:17 AM WSN:[id number]
--- NOTE | 2018-04-26 06:29 | RADIOLOGY IMAGING REPORT ---
FACILITY: [facility] [place] PATIENT NAME: Nahum Garza : 1940 MR: [id number] V: [id number] EXAM DATE: ORDERING PHYSICIAN: TEE MARTINEZ TECHNOLOGIST: Location: [facility] Patient: Nahum Garza : 1940 Visit/Account:[id number] Date of Sevice: 04/26/2018 EXAMINATION: CT Cervical spine without intravenous contrast HISTORY: Fall COMPARISON: None. TECHNIQUE: Axial images were obtained from the skull base through the upper thoracic spine without I V contrast administration. Coronal and sagittal reformatted images were generated from the axial sour ce data. One of the following dose optimization techniques was utilized in the performance of this exam: autom ated exposure control; adjustment of the mA and/or kV according to patient size; or use of iterative reconstruction technique. Specific details can be referenced in the facility's radiology CT exam ope rational policy. FINDINGS: Vertebral bodies and posterior elements: Multiple cervical vertebral body heights. Multilevel thoraci c vertebral body wedging. Alignment: Slight retrolisthesis of C4 on C5. Disc Spaces: Severe multilevel disc space degeneration. Multilevel degenerative foraminal narrowing. Soft tissues: Normal. Visualized upper chest: Biapical pleural-parenchymal scarring. IMPRESSION: No acute fracture or acute abnormality. Severe multilevel disc space degeneration. Chronic slight retrolisthesis of C4 on C5. Report Dictated By: Andrea Cobian MD at 04/26/2018 6:17 AM Report E-Signed By: Andrea Cobian MD at 04/26/2018 6:24 AM WSN:[id number]
--- NOTE | 2018-04-26 08:35 | NUR ---
Physical Therapy Impression PT eval complete. Pt reports that he lives with his in [place], but that she is currently "snowed in" in [place]. He reports 3 stairs with a railing to enter home with all needs on one level. He owns a cane. PT instructed patient in use of leg numerologist in attempts to perform bed mobility independently. Pt was unable to move L) LE d/t pain. Pt required modA x2 for supine to sit bed mobility, but only tolerated seated position at EOB for approx. 10 seconds prior to requesting return to supine. SPO2 dropped to 81% on room air, returned to WNL on 4L O2. The patient is not safe to d/c home at this time. PT available for further consult if needed. Physical Therapy Goals Patient's Goals
[2018-04-26 11:00] VITALS: BP 158/85
[2018-04-26] MEDS ORDERED: ONDANSETRON 4 MG/2 ML VIAL ONE (11:15)
== END 2018-04-26 11:25 | disposition short-term general hospital (02) ==
LOC: ER 03:46
DX: S32.512A Fracture of superior rim of left pubis, initial encounter for closed fracture (principal); S32.592A Other specified fracture of left pubis, initial encounter for closed fracture; S32.10XA Unspecified fracture of sacrum, initial encounter for closed fracture; W06.XXXA Fall from bed, initial encounter; N18.6 End stage renal disease; Z99.2 Dependence on renal dialysis; E11.22 Type 2 diabetes mellitus with diabetic chronic kidney disease; Z79.4 Long term (current) use of insulin
CPT/HCPCS: 36415; 36416; 72125; 72128; 72131; 73502; 74176; 82550; 82948; 85025; 96361; 96374; 96375; 97161; 99285; J2405; J3010; J7030; 82040; 82247; 82310; 82374; 82435; 82565; 82947; 84075; 84132; 84155; 84295; 84450; 84460; 84520

== ENCOUNTER → 2018-04-26 | Outpatient (CLI) | payer OTHER ==
[~2018-04-26] MED LIST changes: +ASPI81TA86 PO; +CYCL10TA29 PO; +LEV112 PO; +METO-253 PO; +OMEP40CA48 PO; +PRED20TA6 PO; +PRIL; +TRAM-420 PO
== END ==
LOC: AMB 11:05
PROVIDERS: ATTEND Nurse Practitioner
DX: S32.9XXA Fracture of unspecified parts of lumbosacral spine and pelvis, initial encounter for closed fracture (principal); I10 Essential (primary) hypertension; E11.9 Type 2 diabetes mellitus without complications; R09.02 Hypoxemia
CPT/HCPCS: A0425; A0426

== ENCOUNTER → 2018-04-26 | Outpatient (CLI) | payer OTHER | LOC: AMB 03:04 | PROVIDERS: ATTEND Nurse Practitioner | DX: M25.551 Pain in right hip (principal); M79.604 Pain in right leg; R11.2 Nausea with vomiting, unspecified; W06.XXXA Fall from bed, initial encounter | CPT/HCPCS: A0425; A0427 ==

== ENCOUNTER 2018-05-03 08:36 | Inpatient (IN) | payer MEDICARE, OTHER ==
[~2018-05-03] VITALS: Ht 170.2 cm; Wt 61.7 kg
[2018-05-03 14:20] VITALS: BP 115/58
--- NOTE | 2018-05-03 14:46 | History & Physical ---
History of Present Illness Chief Complaint Pelvic fracture History of Present Illness This patient was admitted to [facility] on April 26 for a pelvic fracture. This was a nonsurgical injury, but he was transferred because of the need for dialysis. He has been admitted to extended care for ongoing therapy. History Problems: (1) DM type 1 (diabetes mellitus, type 1) (2) End-stage renal disease on hemodialysis Home Meds Active Scripts Cyclobenzaprine Hcl (CYCLOBENZAPRINE HCL) 10 Mg Tablet, 10 MG PO Q8H PRN for MUSCLE SPASMS, #20 TAB 0 Refills Prov:LINDY ATWOOD S DO 04/22/18 Tramadol Hcl (TRAMADOL HCL) 50 Mg Tablet, 50 MG PO Q6H PRN for PAIN, #15 TAB 0 Refills Prov:ATWOODLINDY IRELAND S DO 04/22/18 Prednisone (PREDNISONE) 20 Mg Tablet, 40 MG PO QDAY for 4 Days, #4 TAB Prov:LINDY ATWOOD S DO 04/22/18 Reported Medications Metoprolol Tartrate (METOPROLOL TARTRATE) 25 Mg Tablet, 1 TAB PO BID, TAB 02/10/17 Calcium Carbonate (TUMS) 200 Mg Tab.chew, 3000 MG PO TIDCF, TAB.CHEW Take 3 tabs tid with meals 06/01/16 Ergocalciferol (Vitamin D2) (VITAMIN D2) 50,000 Unit Capsule, 21349 UNIT PO 3XW, CAPSULE 05/09/16 Omeprazole Magnesium (PRILOSEC OTC) 20 Mg Tablet.dr, 1 TAB PO QDAY, TAB 05/09/16 Nut.tx.impaired Renal Fxn,Soy (NEPRO CARB STEADY) 237 Ml Liquid, 237 ML PO QODAY 05/09/16 Levothyroxine Sodium (LEVOTHYROXINE SODIUM) 75 Mcg Tablet, 0.1 MCG PO QDAY, TAB 05/09/16 Aspirin (ASPIRIN) 81 Mg Tab.chew, 81 MG PO QDAY, TAB.CHEW 05/09/16 [Novolin] 100unit/ml No Conflict Check, 10 UNITS SUBQ TID 05/28/12 Allergies: Coded Allergies: meperidine HCl (Verified Allergy, Mild, GETS LOOPY, 04/26/18) meperidine (Verified Adverse Reaction, Intermediate, HALLUCINATIONS, 04/26/18) Hx Smoking: No Smoking Status: Never Smoker Exposure to Second Hand Smoke?: No Hx Alcohol Use: No Hx Substance Use Disorder: No Review of Systems All Systems Reviewed/Normal: Yes Exam Vital Signs Vital Signs Date Time Temp Pulse Resp B/P (MAP) Pulse Ox O2 Delivery O2 Flow Rate FiO2 05/03/18 14:20 98.8 70 14 115/58 (77) 92 Room Air Neuro: No Gross deficits Eyes: PERRLA Cardiovascular: Regular Rate and Rhythm Respiratory: Clear to Auscultation GI: Abd Soft and Non-Tender Extremities: No Edema Integumentary: No Cyanosis Assessment and Plan Problems: (1) Fracture of left superior pubic ramus Status: Acute Assessment & Plan: This is a nonsurgical injury. Physical and occupational t herapy consults are requested. (2) Fracture of left inferior pubic ramus Status: Acute (3) DM type 1 (diabetes mellitus, type 1) Assessment & Plan: He is on chronic treatment with NPH. He has also been placed on sliding scale level #1. (4) End-stage renal disease on hemodialysis Assessment & Plan: He does receive dialysis on Monday, Monday, and Monday. Venous Thromboembolism Antithrombotics Is Pt On Any Antithrombotics?: No KANDI GOMEZ DO May 03, 2018 14:46
--- NOTE | 2018-05-03 15:01 | NUR ---
Physical Therapy Impression PT/OT co elbert complete. Pt completed STS transfers with CGA, requiring Celia for pivot transfers with assistance required for walker management. Verbal and tactile cues provided for hand placement with STS transfers. Pt tolerated 2-3 steps, but with increased pain with all weightbearing through the involved LE requesting seated rest break. The patient will benefit from skilled PT services in order to improve tolerance to functional mobility and decrease need of assistance from others prior to d/c home. Physical Therapy Goals 1: Pt to complete bed mobility with Lidia 2: Pt to complete transfers with SBA and least restrictive AD 3: Pt to ambulate 150' with SBA and least restrictive AD 4: Pt to asc/desc 4 stairs with railing and SBA Patient's Goals
--- NOTE | 2018-05-03 15:44 | OT ECF NOTE ---
Type of Note: Initial Note Primary Medical Diagnosis: Generalized weakness s/p fall at home 04/26/18 resulting in left superior/inferior ramus fx and sacral fx. WBAT. Occupational Therapy Evaluation Date: 05/03/18 SUBJECTIVE: Prior Hospitalization: [facility] 04/26/18 thru 05/03/18 Prior Level of Function: Prior to admission, pt reports (I) with ADLs/IADLs. Pt does not drive at baseline, utilizes community transportation. Prior Living Status: Single level house Living with family Assist by family Community Services: No known needs Home Accessibility: Stairs without rails All needs on one level Tub/shower combination Equipment Owned: Cane Medical Complications/Past Medical History: ESRD-Dialysis 3x/week, Diabetes, HTN Psychosocial Support: Supportive spouse and daughter in [place] Pain Scale (0-10): Aching in seated position. 4/10 upon attempting ambulation. OBJECTIVE: Strength: MMT: Right Left Shoulder Flexion WFL WFL Elbow Flexion WFL WFL Wrist Extension WFL WFL Dividing Machine Operator WFL WFL (5= normal, 4= good, 3= fair, 2= poor, 1= trace) ROM: Both upper extremities,WFL Sensation: No paraesthesia reported Functional Transfer: Assistive Device: Front wheeled walker, Gait belt Transfer Ability: Minimum assistance,1-person assist ADL: Upper body dressing: Assistive device: Upper body dressing ability: N/T Lower body dressing: Assistive device: May benefit from LB AE education Lower body dressing ability: N/T Toileting: Assistive device: Toileting ability: N/T Grooming/hygiene: Assistive device: Grooming ability: N/T Bathing: Assistive device: Bathing ability: N/T Standardized Assessment: Dominic Index of Activities of Daily Livin/20 upon initial evaluation (05/03/18). ASSESSMENT: Terence presents to [facility] below PLOF s/p fall at home and subsequent pelvic fractures. At PLOF he was largely (I) with ADLs/IADLs. Currently, is unable to tolerate functional mobility and completes stand pivot transfers with Min Ax1 and RW. He will benefit from skilled OT services to optimize independence with ADLs and improve tolerance for functional mobility and IADLs. Problem List/Current Limitations: Pain Decreased activity tolerance Decreased strength Decreased ROM Decreased balance Generalized weakness Decreased vision Short Term Goals: 1) Pt will be Mod (I) UB/LB dressing. 2) Pt will be Mod (I) grooming/hygiene. 3) Pt will be Mod (I) toilet task. 4) Pt will be Min A shower task. 5) Pt Dominic Index of ADLs score will improve by 2 points. Central Supply Manager Goals: Return home with services Patient Goals: Return home Rehabilitation Prognosis: Good Barriers to Discharge: Pain PLAN: The patient will benefit from skilled occupational therapy services 3-5 times per week for 2 weeks including: Ther ex ADL training Safety training Ther act IADL training Transfer training Adaptive equip training Bed mobility Energy conservation Thank you for this referral. If you have any questions, concerns, or comments about this report or plan, please contact me at . Aicha Samuel MS, OTR/L Occupational Therapist MAZIN
--- NOTE | 2018-05-03 15:46 | PT ECF NOTE ---
Type of Note: Initial Note Primary Medical Diagnosis: Fractures of the L) superior and inferior pubic rami Physical Therapy Evaluation Date: 05/03/18 SUBJECTIVE: Prior Hospitalization: [facility] 04/16/18 - 05/03/18 Prior Level of Function: Independent Prior Living Status: Single level house, Spouse Community Services: Support adequate, uses [employer] bus to/from dialysis Home Accessibility: 4 stairs with rails, All needs on one level Equipment Owned: Cane Medical Complications/Past Medical History: End stage renal disease, DM type 1 Psychosocial Support: Supportive and daughter Pain Scale (0-10): 2.5/10 at rest, 4/10 with ambulation OBJECTIVE: Strength: Right Lower Extremity: DF: 4/5 Knee flexion: 4/5 Knee extension: 3+/5 (pain on contralateral pelvis with resistance) Hip flexion: 3+/5 Left Lower Extremity: DF: 3+/5 Knee flexion: 3/5 Knee extension: 3/5 Hip flexion: <3/5 ROM: (please note any abnormalities) L) LE hip flexion and AROM limited by pain Sensation: (please note any abnormalities) no abnormalities reported by pt Other Neuro findings: N/A Bed Mobility: Pt up in w/c and requesting to sit in chair, bed mobility not assessed Transfers: CGA for STS, Celia for stand pivot transfer with RW Gait: CGA x2' with RW Stairs: NT Timed Up and Go (>12 seconds indicated increased risk for falls): Pt unable to ambulate adequate distance to assess 10 meter walk test (0.6m/second cannot function independently): Pt unable to ambulate adequate distance to assess ASSESSMENT: PT/OT co elbert complete. Pt completed STS transfers with CGA, requiring Celia for pivot transfers with assistance required for walker management. Verbal and tactile cues provided for hand placement with STS transfers. Pt tolerated 2-3 steps, but with increased pain with all weightbearing through the involved LE requesting seated rest break. The patient will benefit from skilled PT services in order to improve tolerance to functional mobility and decrease need of assistance from others prior to d/c home. Problem List/Current Limitations: Pain Decreased WB Decreased activity kerri Decreased strength Decreased ROM Decreased balance Generalized weakness Short Term Goals: 1: Pt to complete bed mobility with Lidia 2: Pt to complete transfers with SBA and least restrictive AD 3: Pt to ambulate 150' with SBA and least restrictive AD 4: Pt to asc/desc 4 stairs with railing and SBA [facility]ci Goals: Pt to d/c home with decreased need of assistance from others. Patient Goals: "Run down the street" Rehabilitation Prognosis: Good Barriers for Discharge: High pain levels present at baseline PLAN: The patient will benefit from skilled physical therapy services 5 times per week for 2 weeks including: Therapeutic Exercise Therapeutic Activities Transfer Training Gait Training Stair Training Manual Therapy Safety Training Neuromuscular Re-educ. Pt/Caregiver Training Bed Mobility Thank you for this referral. If you have any questions, concerns, or comments about this report or plan, please contact me at . Susan Orellana, PT, DPT SAHILD
--- NOTE | 2018-05-03 16:03 | Consultant Pharmacy Review ---
Title Clerk Review Medication Review Do All Mecications have a Diag: Yes Beers Criteria Medication 2015 Sliding Scale Insulin: Slidin Scale Insulin (LISPRO) Proton Pump Inhibitors: Pantoprazole (USE FOR THE SHORTEST DURATION POSSIBLE.) Other General Cautions Lexicomp Interaction Analysis A = No known interaction C = Monitor therapy X = Avoid combination B = No action needed D = Consider therapy modification Drugs in this analysis: Acetaminophen; Aspirin; Calcium Carbonate; Choleca lciferol; Epoetin Azam; Insulin Lispro; Insulin NPH; Levothyroxine; Lidocaine and Prilocaine; Metoprolol; Oxymetazoline (Nasal); Protonix * Drug-Drug Interactions * D Calcium Carbonate (Calcium Salts) Levothyroxine (Thyroid Products) C Acetaminophen (Methemoglobinemia Associated Agents) Lidocaine and Prilocaine (Prilocaine) Depends on Age C Aspirin (Salicylates) Insulin Lispro (Blood Glucose Lowering Agents) Depends on Dose C Aspirin (Salicylates) Insulin NPH (Blood Glucose Lowering Agents) Depends on Dose C Calcium Carbonate (Calcium Salts) Cholecalciferol (Vitamin D Analogs) C Insulin Lispro (Antidiabetic Agents) Insulin NPH (Hypoglycemia-Associated Agents) C Insulin Lispro (Hypoglycemia-Associated Agents) Insulin NPH (Hypoglycemia- Associated Agents) C Insulin Lispro (Insulins) Metoprolol (Beta-Blockers) C Insulin NPH (Insulins) Metoprolol (Beta-Blockers) C Lidocaine and Prilocaine (Lidocaine (Topical)) Metoprolol (Beta-Blockers) B Aspirin (Salicylates) Calcium Carbonate (Antacids) Depends on Duration B Levothyroxine (Thyroid Products) Protonix (Proton Pump Inhibitors) Pneumococcal Vaccine HX Pneumo Vac ([id number]): Yes (2006) Comments Regarding the Review Patient has received the flu vaccine for the 2018 season; he has received the pneumococcal vaccine in 2006 and may receive the Prevnar 13 vaccine if he desires. Labs: Periodic HgA1c, annual TSH ISAC GABRIEL May 03, 2018 16:03
[2018-05-03] MEDS: INSULIN HUM LISPRO 100 UN/ML 3 ML VIAL SUBQ PRN (17:05)
[2018-05-03] MEDS: INSULIN HUM ISO(NPH) 100 UN/ML 3 ML VIAL SUBQ SCH (17:05)
[2018-05-03] MEDS: OXYMETAZOLINE SPRAY 15 ML BTL ENA SCH (20:22)
[2018-05-03] MEDS: CHOLECALCIFEROL 1000 UNIT TAB PO SCH (20:23)
[2018-05-03] MEDS: ACETAMINOPHEN 500 MG TAB PO SCH (20:23)
[2018-05-03] MEDS: MULTIVITAMINS TAB PO SCH (20:23)
[2018-05-03] MEDS: METOPROLOL TART 50 MG TAB PO SCH (20:23)
[2018-05-03] MEDS: ASPIRIN 81 MG ENTERIC COATED PO SCH (20:26)
[2018-05-04] MEDS: LEVOTHYROXINE SOD 0.112 MG TAB PO SCH (06:06)
[2018-05-04 08:00] VITALS: BP 157/67
[2018-05-04] MEDS: ACETAMINOPHEN 500 MG TAB PO SCH ×3 (08:47→20:25)
[2018-05-04] MEDS: METOPROLOL TART 50 MG TAB PO SCH ×2 (08:47→20:25)
[2018-05-04] MEDS: INSULIN HUM ISO(NPH) 100 UN/ML 3 ML VIAL SUBQ SCH ×2 (08:48→18:14)
[2018-05-04] MEDS ORDERED: [UNRECOGNIZED DRUG - OTHER] SC SCH ×2 (09:00→09:52)
[2018-05-04] MEDS ORDERED: PANTOPRAZOLE SOD 40 MG TABEC PO SCH (09:00)
--- NOTE | 2018-05-04 11:06 | NUR ---
Occupational Therapy Impression UB ther ex with 5# weight. (I) donning/doffing socks and shoes seated with no increase in pain and no use of LB AE. Pt declined further ADLs. Continue POC. Occupational Therapy Goals 1) Pt will be Mod (I) UB/LB dressing. 2) Pt will be Mod (I) grooming/hygiene. 3) Pt will be Mod (I) toilet task. 4) Pt will be Min A shower task. 5) Pt Dominic Index of ADLs score will improve by 2 points. Patient's Goal
[2018-05-04] MEDS: CALCIUM CARBONATE 500 MG CHEW PO SCH (12:28)
--- NOTE | 2018-05-04 14:14 | NUR ---
Physical Therapy Impression Pt with improved tolerance to activity compared to yesterday with 2 bouts of ambulation, 30' and 20' with RW and CGA. Physical Therapy Goals 1: Pt to complete bed mobility with Lidia 2: Pt to complete transfers with SBA and least restrictive AD 3: Pt to ambulate 150' with SBA and least restrictive AD 4: Pt to asc/desc 4 stairs with railing and SBA Patient's Goals
--- NOTE | 2018-05-04 14:26 | Medical Nutrition Therapy ---
Nutrition Anthropometrics Height (Inches): 67.00 Height (Calculated Centimeters: 170.766601 Weight (Pounds): 136 Weight (Calculated Kilograms): 61.689 Mohamud Nutrition Score: Probably Inadequate Mohamud Nutrition Risk Score: 15 Dietary Referral Nutrition Risk Factors: Nutrition Risk Comment: Physical Findings Physical Appearance: Skin Appearance Skin Appearance: Edema Edema Location Modifier: Edema Location: Type of Edema: Degree of Edema: Gastrointestinal Symptoms GI Symtoms: Tube Present: Bowel Sounds: Recent Bowel Pattern: Stool Characteristics: Brown, Soft Nutritional Diagnosis Nutritional Risk Acuity 1: Acute/ES Renal Nutritional Risk Acuity 3: Fair Appetite Past Medical History: T1DM, end stage renal disease with hemodialysis. Nutritional Acuity: 1-High Nutrition Diagnosis: Inappropriate Carb Intake Nutrition Etiology: Physiological Causes Nutrition Problem/Etiology/Sym: Inappropriate carb intake as related to physiological causes as evidenced by whole blood glucose of 85-195mg/dL. Energy Requirement: 1719 (M-St. Jeor X 1.1 (TE) X 1.2 (activity factor)) Protein Requirement: 61 (1 g protein/kg-elevated due to age and healing) Fluid Requirement: 1525 (25mL/kg) Diet Type: Diabetic Nutrition Intervention: Cont diet as ordered, Encourage intake, Check glucose Nutrition Monitoring & Eval Nutrition Goals: Eat 50-100% Meal Nutritional Goals Comment: Pt will consume 50-100% of meals offered RD Patient Assessment Time: [address] Assessment Type: RD Assessment Patient Nutrition Acuity: 1-High Follow Up Date: May 08, 2018 Nutritional Comment: Pt admitted with pelvic fracture. Dx with fracture of left superior pubic ramus and left inferior pubis ramus. Hx of T1DM and end stage renal disease with hemodialysis. Pt on ADA with 75% consumption of meals offered. Whole blood glucose has ranged from 889-195 mg/dL. Pt is taking epoetin alpha, levopthyroxine and two types of insulin. Pt wt of 61kg and ht of 170 cm makes a BMI of 21.3, which is within the normal range. Continue to monitor for adequate intake.-LEANNA JONES May 04, 2018 14:26
[2018-05-04] MEDS ORDERED: PRIL (14:34)
[2018-05-04] MEDS ORDERED: OMEP40CA48 PO (14:34)
[2018-05-04] MEDS ORDERED: METO-253 PO (14:34)
[2018-05-04] MEDS ORDERED: MULT1CAP59 PO (14:34)
[2018-05-04] MEDS ORDERED: LEV112 PO (14:34)
[2018-05-04] MEDS ORDERED: ASPI81TA86 PO (14:34)
[2018-05-04] MEDS: PATIENT'S OWN MED TP SCH (15:20)
[2018-05-04] MEDS: MULTIVITAMINS TAB PO SCH (20:25)
[2018-05-04] MEDS: CHOLECALCIFEROL 1000 UNIT TAB PO SCH (20:25)
[2018-05-04] MEDS: PANTOPRAZOLE SOD 40 MG TABEC PO SCH (20:25)
[2018-05-04] MEDS: OXYMETAZOLINE SPRAY 15 ML BTL ENA SCH (20:25)
[2018-05-04] MEDS: ASPIRIN 81 MG ENTERIC COATED PO SCH (20:27)
[2018-05-04 20:33] VITALS: BP 140/75
[2018-05-05] MEDS: LEVOTHYROXINE SOD 0.112 MG TAB PO SCH (06:14)
[2018-05-05 07:56] VITALS: BP 120/60
[2018-05-05] MEDS: METOPROLOL TART 50 MG TAB PO SCH ×2 (08:19→20:41)
[2018-05-05] MEDS: INSULIN HUM ISO(NPH) 100 UN/ML 3 ML VIAL SUBQ SCH ×2 (08:20→17:27)
[2018-05-05] MEDS: ACETAMINOPHEN 500 MG TAB PO SCH ×3 (08:20→20:40)
[2018-05-05] MEDS: CALCIUM CARBONATE 500 MG CHEW PO SCH (12:20)
[2018-05-05 15:30] VITALS: BP 125/69
[2018-05-05] MEDS: PANTOPRAZOLE SOD 40 MG TABEC PO SCH (20:40)
[2018-05-05] MEDS: MULTIVITAMINS TAB PO SCH (20:40)
[2018-05-05] MEDS: CHOLECALCIFEROL 1000 UNIT TAB PO SCH (20:41)
[2018-05-05] MEDS: OXYMETAZOLINE SPRAY 15 ML BTL ENA SCH (20:42)
[2018-05-05] MEDS: ASPIRIN 81 MG ENTERIC COATED PO SCH (20:44)
[2018-05-06] MEDS: LEVOTHYROXINE SOD 0.112 MG TAB PO SCH (05:18)
[2018-05-06 07:45] VITALS: BP 168/76
[2018-05-06] MEDS: ACETAMINOPHEN 500 MG TAB PO SCH ×3 (08:32→20:44)
[2018-05-06] MEDS: INSULIN HUM ISO(NPH) 100 UN/ML 3 ML VIAL SUBQ SCH ×2 (08:35→17:23)
[2018-05-06] MEDS: METOPROLOL TART 50 MG TAB PO SCH ×2 (08:35→20:44)
[2018-05-06] MEDS: CALCIUM CARBONATE 500 MG CHEW PO SCH (12:40)
[2018-05-06] MEDS: PATIENT'S OWN MED TP SCH (15:20)
[2018-05-06 16:00] VITALS: BP 161/78
[2018-05-06] MEDS: INSULIN HUM LISPRO 100 UN/ML 3 ML VIAL SUBQ PRN (17:23)
--- NOTE | 2018-05-06 18:22 | NUR ---
"Urine" (pus) This is note from provider notification, so that all staff will see it: "Pt passed "urine" this evening that wasn't like urine but more like pus and it smells incredibly foul. He also mentioned to the APARTMENT LEASING MANAGER that he thought he heard his outside his window calling for him. Pt stated that he had an in-and-out catheter while down at [facility] and wonders if he could have gotten an infection from that." This RN notified Dr. Toño Wolf, who said he would put in orders for lab work.
[2018-05-06 19:07] LABS: PLATELET COUNT, AUTOMATED 279 K/uL (150-450)
[2018-05-06] MEDS: PANTOPRAZOLE SOD 40 MG TABEC PO SCH (20:44)
[2018-05-06] MEDS: MULTIVITAMINS TAB PO SCH (20:44)
[2018-05-06] MEDS: CHOLECALCIFEROL 1000 UNIT TAB PO SCH (20:44)
[2018-05-06] MEDS: OXYMETAZOLINE SPRAY 15 ML BTL ENA SCH (21:45)
[2018-05-06] MEDS: ASPIRIN 81 MG ENTERIC COATED PO SCH (21:45)
[2018-05-07] MEDS: LEVOTHYROXINE SOD 0.112 MG TAB PO SCH (06:04)
[2018-05-07 08:00] VITALS: BP 154/79
[2018-05-07] MEDS: ACETAMINOPHEN 500 MG TAB PO SCH ×3 (08:39→20:28)
[2018-05-07] MEDS: METOPROLOL TART 50 MG TAB PO SCH ×2 (08:39→20:27)
[2018-05-07] MEDS: INSULIN HUM ISO(NPH) 100 UN/ML 3 ML VIAL SUBQ SCH ×2 (08:40→20:45)
[2018-05-07] MEDS ORDERED: PATIENT'S OWN MED PO SCH (09:00)
--- NOTE | 2018-05-07 11:56 | NUR ---
Occupational Therapy Impression CGA ambulation x8ft with RW. Pt request to sit. Trialed w/c mobility to improve (I) throughout the unit. Pt able to tolerate with use of B UE x20ft. UB ther ex with blue theraband. Pt declined further ADLs. Pt functional mobility significantly limited by pain. Pt declined ice or further needs at this time. Occupational Therapy Goals 1) Pt will be Mod (I) UB/LB dressing. 2) Pt will be Mod (I) grooming/hygiene. 3) Pt will be Mod (I) toilet task. 4) Pt will be Min A shower task. 5) Pt Dominic Index of ADLs score will improve by 2 points. Patient's Goal
[2018-05-07] MEDS: CALCIUM CARBONATE 500 MG CHEW PO SCH (12:24)
--- NOTE | 2018-05-07 12:28 | NUR ---
Physical Therapy Impression Pt reports not feeling well today and also with increased pain. Pt is agreeable to ther ex but no additional ambulation (ambulated with OT earlier this AM). Physical Therapy Goals 1: Pt to complete bed mobility with Lidia 2: Pt to complete transfers with SBA and least restrictive AD 3: Pt to ambulate 150' with SBA and least restrictive AD 4: Pt to asc/desc 4 stairs with railing and SBA Patient's Goals
[2018-05-07] MEDS: PATIENT'S OWN MED TP SCH (13:57)
[2018-05-07] MEDS: LIDOCAINE 5% PATCH TP SCH (15:17)
[2018-05-07 15:38] VITALS: BP 155/75
--- NOTE | 2018-05-07 17:17 | Medical Nutrition Therapy ---
Nutrition Anthropometrics Height (Inches): 67.00 Height (Calculated Centimeters: 170.211269 Weight (Pounds): 136 Weight (Calculated Kilograms): 61.689 BMI: 21.3 Mohamud Nutrition Score: Probably Inadequate Mohamud Nutrition Risk Score: 15 Dietary Referral Nutrition Risk Factors: Nutrition Risk Comment: Nutritional Diagnosis Nutritional Risk Acuity 1: Acute/ES Renal (on dialysis) Nutritional Risk Acuity 3: Fair Appetite Past Medical History: T1DM, end stage renal disease with hemodialysis. Nutritional Acuity: 1-High Nutrition Diagnosis: Inappropriate Carb Intake Nutrition Etiology: Physiological Causes Nutrition Problem/Etiology/Sym: Inappropriate carb intake as related to physiological causes as evidenced by whole blood glucose of 85-195mg/dL. Energy Requirement: 1719 (M-St. Jeor X 1.1 (TE) X 1.2 (activity factor)) Protein Requirement: 80 (1.3gm/kg r/t hemodialsyis + healing of fx) Fluid Requirement: 1525 (25mL/kg) Diet Type: Diabetic Nutrition Intervention: Cont diet as ordered, Encourage intake, Check glucose Additional Diet Restrictions: PUT PROTEIN POWDER IN APPROPRIATE FOODS Diet Comment To [facility]: OFFER SF NUTR SUPPLMENT Nutrition Monitoring & Eval Nutrition Goals: Eat 75-100% Meal Nutrition Follow-Up: Good Intake RD Patient Assessment Time: [address] Assessment Type: RD Re-Assessment Patient Nutrition Acuity: 1-High Follow Up Date: May 15, 2018 Nutritional Comment: Pt admitted with pelvic fracture. Dx with fracture of left superior pubic ramus and left inferior pubis ramus. Hx of T1DM and end stage renal disease with hemodialysis. Pt on ADA with 75% consumption of meals offered. Whole blood glucose has ranged from 889-195 mg/dL. Pt is taking epoetin alpha, levopthyroxine and two types of insulin. Pt wt of 61kg and ht of 170 cm makes a BMI of 21.3, which is within the normal range. Continue to monitor for adequate intake.-AKG 05/08 Pt cont intake 75-100%. Will put protein powder in appropriate foods and offer nutr supplment d/t increased protein needs for hemodialysis and pelvix fx. NEFTALY PETERSON May 07, 2018 17:17
[2018-05-07] MEDS: CHOLECALCIFEROL 1000 UNIT TAB PO SCH (20:27)
[2018-05-07] MEDS: INSULIN HUM LISPRO 100 UN/ML 3 ML VIAL SUBQ PRN (20:27)
[2018-05-07] MEDS: MULTIVITAMINS TAB PO SCH (20:28)
[2018-05-07] MEDS: PATCH REMOVAL 1 EA TOP SCH (20:28)
[2018-05-07] MEDS: OXYMETAZOLINE SPRAY 15 ML BTL ENA SCH (20:28)
[2018-05-07] MEDS: PANTOPRAZOLE SOD 40 MG TABEC PO SCH (20:28)
[2018-05-07] MEDS: ASPIRIN 81 MG ENTERIC COATED PO SCH (20:44)
[2018-05-08] MEDS: LEVOTHYROXINE SOD 0.112 MG TAB PO SCH (06:02)
[2018-05-08 07:40] VITALS: BP 140/70
[2018-05-08] MEDS ORDERED: NS(*) 0.9% 250 ML BAG 250 ML in NS(*) 0.9% 250 ML BAG 250 ML IV PRN (08:55)
[2018-05-08] MEDS: METOPROLOL TART 50 MG TAB PO SCH ×2 (08:57→20:42)
[2018-05-08] MEDS: ACETAMINOPHEN 500 MG TAB PO SCH ×3 (08:57→20:42)
[2018-05-08] MEDS: INSULIN HUM ISO(NPH) 100 UN/ML 3 ML VIAL SUBQ SCH ×2 (08:58→16:59)
[2018-05-08] MEDS: LIDOCAINE 5% PATCH TP SCH (08:58)
[2018-05-08] MEDS ORDERED: cefTRIAXone 1 GM VIAL IVP SCH (09:00)
[2018-05-08] MEDS ORDERED: NS(*) 0.9% 250 ML BAG 250 ML IVPB PRN (09:00)
[2018-05-08] MEDS: cefTRIAXone(*) 1 GM VIAL 1 GM in NS(*) 0.9% 100 ML ADDVANT BAG 100 ML IVPB SCH (09:11)
--- NOTE | 2018-05-08 09:52 | NUR ---
Physical Therapy Impression Pt CGA for all transfers with verbal cues for sequencing for STS transfers. PT provided verbal cues for pushing through UEs when weightbearing through L) LE, which improved with lowering of pt's walker. Pt with improved overall tolerance to ambulation. 2x10' with use of RW. Continue with POC. Physical Therapy Goals 1: Pt to complete bed mobility with Lidia 2: Pt to complete transfers with SBA and least restrictive AD 3: Pt to ambulate 150' with SBA and least restrictive AD 4: Pt to asc/desc 4 stairs with railing and SBA Patient's Goals
[2018-05-08] MEDS: CALCIUM CARBONATE 500 MG CHEW PO SCH (12:50)
--- NOTE | 2018-05-08 15:12 | NUR ---
Occupational Therapy Impression Pt alert and agreeable to OT tx. Reporting improved pain control this date. CGA ambulation x50ft with RW. Set-up shower. Set-up UB/LB dressing seated. Improved (I) with ADLs. Continue POC. Occupational Therapy Goals 1) Pt will be Mod (I) UB/LB dressing. 2) Pt will be Mod (I) grooming/hygiene. 3) Pt will be Mod (I) toilet task. 4) Pt will be Min A shower task. 5) Pt Dominic Index of ADLs score will improve by 2 points. Patient's Goal
[2018-05-08] MEDS: PATIENT'S OWN MED TP SCH (15:20)
[2018-05-08 15:50] VITALS: BP 133/70
[2018-05-08] MEDS: INSULIN HUM LISPRO 100 UN/ML 3 ML VIAL SUBQ PRN ×2 (16:59→20:42)
[2018-05-08] MEDS: PANTOPRAZOLE SOD 40 MG TABEC PO SCH (20:42)
[2018-05-08] MEDS: ASPIRIN 81 MG ENTERIC COATED PO SCH (20:42)
[2018-05-08] MEDS: MULTIVITAMINS TAB PO SCH (20:42)
[2018-05-08] MEDS: CHOLECALCIFEROL 1000 UNIT TAB PO SCH (20:42)
[2018-05-08] MEDS: PATCH REMOVAL 1 EA TOP SCH (20:43)
[2018-05-08] MEDS: OXYMETAZOLINE SPRAY 15 ML BTL ENA SCH (20:43)
[2018-05-09] MEDS: LEVOTHYROXINE SOD 0.112 MG TAB PO SCH (06:04)
[2018-05-09 07:55] VITALS: BP 139/66
[2018-05-09] MEDS: INSULIN HUM ISO(NPH) 100 UN/ML 3 ML VIAL SUBQ SCH ×2 (08:08→17:56)
[2018-05-09] MEDS: METOPROLOL TART 50 MG TAB PO SCH ×2 (09:12→20:28)
[2018-05-09] MEDS: ACETAMINOPHEN 500 MG TAB PO SCH (09:12)
[2018-05-09] MEDS: cefTRIAXone(*) 1 GM VIAL 1 GM in NS(*) 0.9% 100 ML ADDVANT BAG 100 ML IVPB SCH (09:13)
[2018-05-09] MEDS: LIDOCAINE 5% PATCH TP SCH (09:14)
[2018-05-09] MEDS: CALCIUM CARBONATE 500 MG CHEW PO SCH (11:58)
[2018-05-09] MEDS: PATIENT'S OWN MED TP SCH (12:00)
[2018-05-09] MEDS: INSULIN HUM LISPRO 100 UN/ML 3 ML VIAL SUBQ PRN (12:08)
--- NOTE | 2018-05-09 13:36 | Hospitalist Progress Note ---
Subjective Progress Notes Subjective He had complaints of pain with urination and frequency of urination, which started after catheter was placed during admission at [facility]. He states that the catheter did not go in easily, which caused them to "pull the catheter in and out many times". Patient Complains of: Cardiovascular: No: Chest Pain Respiratory: No: Shortness of Breath Physical Exam Vital Signs Date Time Temp Pulse Resp B/P (MAP) Pulse Ox O2 Delivery O2 Flow Rate FiO2 05/09/18 09:50 91 Room Air 05/09/18 07:55 99.1 70 18 139/66 (90) Intake and Output 05/09/18 07:00 Intake Total 600 ml Output Total 100 ml Balance 500 ml Intake Oral 600 ml Output Urine Total 100 ml # Voids 4 # Bowel Movements 1 General Appearance: Alert, Awake, No Acute Distress, Afebrile Neuro: No Gross deficits Cardiovascular: Regular Rate and Rhythm Respiratory: No Respiratory Distress, Clear to Auscultation GI: Soft and Non-Tender Psych: Alert & Oriented X3, Appropriate Mood & Affect Result Diagram: 05/06/18 7987 Assessment and Plan Problems: (1) Fracture of left superior pubic ramus Status: Acute Assessment & Plan: This is a nonsurgical injury. Physical and occupational therapy consults were ordered. (2) Fracture of left inferior pubic ramus Status: Acute (3) UTI (urinary tract infection) due to Enterococcus Status: Acute Assessment & Plan: He presented with frequency and pain of urination. He was initially started on Rocephin. Urine culture results show enterococcus. He has been switched to Amoxicillin which has been dosed after dialysis. He should be treated for 5-7 days. (4) DM type 1 (diabetes mellitus, type 1) Assessment & Plan: He is on chronic treatment with [facility]. He has also been placed on sliding scale level #1. (5) End-stage renal disease on hemodialysis Assessment & Plan: He does receive dialysis on Monday, Monday, and Monday. WERO CHA May 09, 2018 13:36
--- NOTE | 2018-05-09 14:46 | NUR ---
Physical Therapy Impression Pt taken to dialysis early, thus, PT performed on dialysis unit. Pt agreeable to seated ther ex with good tolerance. Physical Therapy Goals 1: Pt to complete bed mobility with Lidia 2: Pt to complete transfers with SBA and least restrictive AD 3: Pt to ambulate 150' with SBA and least restrictive AD 4: Pt to asc/desc 4 stairs with railing and SBA Patient's Goals
--- NOTE | 2018-05-09 15:36 | Antimicrobial Stewardship ---
Antimicrobial Time Out Antimicrobial Stewardship MD Service: Hospitalist Indications: UTI Antimicrobial Used Rocephin started 05/08 then switched to po Amoxicillin on 05/09. Start Date: May 08, 2018 Culture Results: Yes Eligible for PO Conversion Eligable for PO Conversion: Yes (Changed to po Amoxicillin to treat for 5-7 days.) ISAC GABRIEL May 09, 2018 15:36
[2018-05-09] MEDS ORDERED: CALC400T65 PO (16:27)
[2018-05-09] MEDS: LACTOBACILLUS ACIDOPHILUS TAB PO SCH (17:00)
[2018-05-09 19:00] VITALS: BP 133/72
[2018-05-09] MEDS: IBUPROFEN 600 MG TAB PO PRN (19:36)
[2018-05-09] MEDS: AMOXICILLIN 500 MG CAP PO SCH (19:37)
[2018-05-09] MEDS ORDERED: AMOXICILLIN 500 MG CAP PO SCH (20:00)
[2018-05-09] MEDS: MULTIVITAMINS TAB PO SCH (20:28)
[2018-05-09] MEDS: CHOLECALCIFEROL 1000 UNIT TAB PO SCH (20:28)
[2018-05-09] MEDS: PANTOPRAZOLE SOD 40 MG TABEC PO SCH (20:28)
[2018-05-09] MEDS: OXYMETAZOLINE SPRAY 15 ML BTL ENA SCH (20:29)
[2018-05-09] MEDS: PATCH REMOVAL 1 EA TOP SCH (20:29)
[2018-05-09] MEDS: ASPIRIN 81 MG ENTERIC COATED PO SCH (20:29)
[2018-05-10] MEDS: LEVOTHYROXINE SOD 0.112 MG TAB PO SCH (06:04)
[2018-05-10 08:18] VITALS: BP 148/78
[2018-05-10] MEDS: LACTOBACILLUS ACIDOPHILUS TAB PO SCH ×2 (08:33→16:45)
[2018-05-10] MEDS: METOPROLOL TART 50 MG TAB PO SCH ×2 (08:34→20:37)
[2018-05-10] MEDS: LIDOCAINE 5% PATCH TP SCH (08:34)
[2018-05-10] MEDS: INSULIN HUM ISO(NPH) 100 UN/ML 3 ML VIAL SUBQ SCH ×2 (08:35→16:46)
--- NOTE | 2018-05-10 10:59 | NUR ---
5-day MDS completed with pt. C: 14, D- , E: no concerns, Q: pt plans to return to home in the community with HHS, has not yet decided on a company. SW will follow-up for referrals.
[2018-05-10] MEDS: CALCIUM CARBONATE 500 MG CHEW PO SCH (12:05)
--- NOTE | 2018-05-10 14:09 | NUR ---
Occupational Therapy Impression CGA ambulation 2x20ft with toilet RW to toilet and back. Pt agreeable to transition to ambulation to/from vs use of BSC. Nursing informed. Pt declined further intervention reporting today was "the just right challenge." Contacted spouse Kusum, per pt request. Plan for home evaluation next week. [facility]. Occupational Therapy Goals 1) Pt will be Mod (I) UB/LB dressing. 2) Pt will be Mod (I) grooming/hygiene. 3) Pt will be Mod (I) toilet task. 4) Pt will be Min A shower task. 5) Pt Dominic Index of ADLs score will improve by 2 points. Patient's Goal
[2018-05-10] MEDS: IBUPROFEN 600 MG TAB PO PRN (14:41)
--- NOTE | 2018-05-10 15:03 | NUR ---
Physical Therapy Impression Pt's limiting factor at this time is his pain. Pt tolerated ambulation x 75' with FWW and SBA, though required one lengthy seated rest break during bout due to pain. Pt shows good safety with FWW mgmt and strength with sit <> stands. Cont. with POC. Physical Therapy Goals 1: Pt to complete bed mobility with Lidia 2: Pt to complete transfers with SBA and least restrictive AD 3: Pt to ambulate 150' with SBA and least restrictive AD 4: Pt to asc/desc 4 stairs with railing and SBA Patient's Goals
[2018-05-10 16:15] VITALS: BP 133/79
[2018-05-10] MEDS: INSULIN HUM LISPRO 100 UN/ML 3 ML VIAL SUBQ PRN ×2 (16:45→20:37)
[2018-05-10] MEDS: CHOLECALCIFEROL 1000 UNIT TAB PO SCH (20:37)
[2018-05-10] MEDS: MULTIVITAMINS TAB PO SCH (20:37)
[2018-05-10] MEDS: ASPIRIN 81 MG ENTERIC COATED PO SCH (20:37)
[2018-05-10] MEDS: PANTOPRAZOLE SOD 40 MG TABEC PO SCH (20:37)
[2018-05-10] MEDS: AMOXICILLIN 500 MG CAP PO SCH (20:37)
[2018-05-10] MEDS: OXYMETAZOLINE SPRAY 15 ML BTL ENA SCH (21:00)
[2018-05-10] MEDS: PATCH REMOVAL 1 EA TOP SCH (21:00)
[2018-05-11] MEDS: LEVOTHYROXINE SOD 0.112 MG TAB PO SCH (05:50)
[2018-05-11 08:30] VITALS: BP 152/82
[2018-05-11] MEDS: LIDOCAINE 5% PATCH TP SCH (08:35)
[2018-05-11] MEDS: IBUPROFEN 600 MG TAB PO PRN (08:35)
[2018-05-11] MEDS: LACTOBACILLUS ACIDOPHILUS TAB PO SCH ×2 (08:35→17:40)
[2018-05-11] MEDS: INSULIN HUM ISO(NPH) 100 UN/ML 3 ML VIAL SUBQ SCH ×2 (08:36→17:40)
[2018-05-11] MEDS: METOPROLOL TART 50 MG TAB PO SCH ×2 (08:36→20:24)
[2018-05-11] MEDS: INSULIN HUM LISPRO 100 UN/ML 3 ML VIAL SUBQ PRN ×3 (08:37→20:25)
--- NOTE | 2018-05-11 11:02 | NUR ---
Occupational Therapy Impression SBA ambulation x50ft with RW. Good tolerance retrieving clothing from closet with SBA and use of walker tray. (I) UB/LB dressing. (I) shower task seated. Plan for home evaluation next week when pt tolerates stairs safely. Letter of medical necessity for AE faxed to [facility] in [place]-will follow. Continue POC. Occupational Therapy Goals 1) Pt will be Mod (I) UB/LB dressing. 2) Pt will be Mod (I) grooming/hygiene. 3) Pt will be Mod (I) toilet task. 4) Pt will be Min A shower task. 5) Pt Dominic Index of ADLs score will improve by 2 points. Patient's Goal
[2018-05-11] MEDS: CALCIUM CARBONATE 500 MG CHEW PO SCH (12:09)
[2018-05-11] MEDS: PATIENT'S OWN MED TP SCH (12:10)
--- NOTE | 2018-05-11 13:40 | NUR ---
Terence taken per wheel chair to dialysis
--- NOTE | 2018-05-11 16:22 | NUR ---
Physical Therapy Impression Strongly encouraged Pt to participate in PT with multiple suggestions for activities made. Pt declined a total of 3 times. Will attempt therapy Monday. Physical Therapy Goals 1: Pt to complete bed mobility with Lidia 2: Pt to complete transfers with SBA and least restrictive AD 3: Pt to ambulate 150' with SBA and least restrictive AD 4: Pt to asc/desc 4 stairs with railing and SBA Patient's Goals
[2018-05-11 19:30] VITALS: BP 102/67
[2018-05-11] MEDS: CHOLECALCIFEROL 1000 UNIT TAB PO SCH (20:24)
[2018-05-11] MEDS: AMOXICILLIN 500 MG CAP PO SCH (20:24)
[2018-05-11] MEDS: ACETAMINOPHEN 325 MG TAB PO PRN (20:24)
[2018-05-11] MEDS: ASPIRIN 81 MG ENTERIC COATED PO SCH (20:24)
[2018-05-11] MEDS: PANTOPRAZOLE SOD 40 MG TABEC PO SCH (20:24)
[2018-05-11] MEDS: MULTIVITAMINS TAB PO SCH (20:25)
[2018-05-11] MEDS: PATCH REMOVAL 1 EA TOP SCH (20:25)
[2018-05-11] MEDS: OXYMETAZOLINE SPRAY 15 ML BTL ENA SCH (20:25)
[2018-05-12] MEDS: LEVOTHYROXINE SOD 0.112 MG TAB PO SCH (06:47)
[2018-05-12 07:30] VITALS: BP 137/96
[2018-05-12] MEDS: LIDOCAINE 5% PATCH TP SCH (08:36)
[2018-05-12] MEDS: METOPROLOL TART 50 MG TAB PO SCH ×2 (08:36→20:39)
[2018-05-12] MEDS: LACTOBACILLUS ACIDOPHILUS TAB PO SCH ×2 (08:36→18:01)
[2018-05-12] MEDS: INSULIN HUM ISO(NPH) 100 UN/ML 3 ML VIAL SUBQ SCH ×2 (08:37→18:00)
[2018-05-12] MEDS: INSULIN HUM LISPRO 100 UN/ML 3 ML VIAL SUBQ PRN ×4 (08:38→20:48)
[2018-05-12] MEDS: CALCIUM CARBONATE 500 MG CHEW PO SCH (12:52)
[2018-05-12 15:20] VITALS: BP 128/75
[2018-05-12] MEDS: CHOLECALCIFEROL 1000 UNIT TAB PO SCH (20:38)
[2018-05-12] MEDS: MULTIVITAMINS TAB PO SCH (20:38)
[2018-05-12] MEDS: AMOXICILLIN 500 MG CAP PO SCH (20:38)
[2018-05-12] MEDS: PANTOPRAZOLE SOD 40 MG TABEC PO SCH (20:39)
[2018-05-12] MEDS: ASPIRIN 81 MG ENTERIC COATED PO SCH (20:39)
[2018-05-12] MEDS: PATCH REMOVAL 1 EA TOP SCH (20:41)
[2018-05-12] MEDS: ACETAMINOPHEN 325 MG TAB PO PRN (20:42)
[2018-05-12] MEDS: OXYMETAZOLINE SPRAY 15 ML BTL ENA SCH (20:51)
[2018-05-13] MEDS: LEVOTHYROXINE SOD 0.112 MG TAB PO SCH (05:50)
[2018-05-13 07:20] VITALS: BP 163/77
[2018-05-13] MEDS: LACTOBACILLUS ACIDOPHILUS TAB PO SCH ×2 (08:29→17:29)
[2018-05-13] MEDS: INSULIN HUM ISO(NPH) 100 UN/ML 3 ML VIAL SUBQ SCH ×2 (08:30→17:33)
[2018-05-13] MEDS: INSULIN HUM LISPRO 100 UN/ML 3 ML VIAL SUBQ PRN ×3 (08:31→20:31)
[2018-05-13] MEDS: METOPROLOL TART 50 MG TAB PO SCH ×2 (08:34→20:31)
[2018-05-13] MEDS: LIDOCAINE 5% PATCH TP SCH (08:34)
[2018-05-13] MEDS ORDERED: CALC-488 PO (10:33)
[2018-05-13] MEDS: CALCIUM CARBONATE 500 MG CHEW PO SCH (12:06)
[2018-05-13 15:10] VITALS: BP 163/72
[2018-05-13] MEDS: PATCH REMOVAL 1 EA TOP SCH (20:20)
[2018-05-13] MEDS: OXYMETAZOLINE SPRAY 15 ML BTL ENA SCH (20:21)
[2018-05-13] MEDS: AMOXICILLIN 500 MG CAP PO SCH (20:31)
[2018-05-13] MEDS: ACETAMINOPHEN 325 MG TAB PO PRN (20:31)
[2018-05-13] MEDS: PANTOPRAZOLE SOD 40 MG TABEC PO SCH (20:31)
[2018-05-13] MEDS: CHOLECALCIFEROL 1000 UNIT TAB PO SCH (20:31)
[2018-05-13] MEDS: MULTIVITAMINS TAB PO SCH (20:31)
[2018-05-13] MEDS: ASPIRIN 81 MG ENTERIC COATED PO SCH (20:31)
[2018-05-14] MEDS: LEVOTHYROXINE SOD 0.112 MG TAB PO SCH (05:40)
[2018-05-14 07:30] VITALS: BP 158/79
[2018-05-14] MEDS: METOPROLOL TART 50 MG TAB PO SCH ×2 (08:42→20:29)
[2018-05-14] MEDS: LACTOBACILLUS ACIDOPHILUS TAB PO SCH ×2 (08:42→19:26)
[2018-05-14] MEDS: LIDOCAINE 5% PATCH TP SCH (08:43)
[2018-05-14] MEDS: INSULIN HUM ISO(NPH) 100 UN/ML 3 ML VIAL SUBQ SCH ×2 (08:44→19:26)
[2018-05-14] MEDS: CALCIUM CARBONATE 500 MG CHEW PO SCH (12:08)
[2018-05-14] MEDS: PATIENT'S OWN MED TP SCH (12:09)
--- NOTE | 2018-05-14 13:00 | NUR ---
Physical Therapy Impression Pt is limited by pain throughout session. CGA stairs with R ascending hand rail to simulate entry into home. Pt required a significant amount of extra time and encouragement for descent. Ambulation x 25' after a short seated rest break after completion of stairs. Recommend services upon D/C. Physical Therapy Goals 1: Pt to complete bed mobility with Lidia 2: Pt to complete transfers with SBA and least restrictive AD 3: Pt to ambulate 150' with SBA and least restrictive AD 4: Pt to asc/desc 4 stairs with railing and SBA Patient's Goals
[2018-05-14] MEDS: ACETAMINOPHEN 325 MG TAB PO PRN ×2 (13:21→20:29)
--- NOTE | 2018-05-14 13:22 | Medical Nutrition Therapy ---
Nutrition Anthropometrics Height (Inches): 67.00 Height (Calculated Centimeters: 170.976478 Weight (Pounds): 136 Weight (Calculated Kilograms): 61.689 BMI: 21.3 Mohamud Nutrition Score: Probably Inadequate Mohamud Nutrition Risk Score: 17 Dietary Referral Nutrition Risk Factors: Nutrition Risk Comment: Nutritional Diagnosis Nutritional Risk Acuity 1: Acute/ES Renal (on dialysis) Nutritional Risk Acuity 4: Good Appetite Past Medical History: T1DM, end stage renal disease with hemodialysis. Nutritional Acuity: 1-High Nutrition Diagnosis: Inappropriate Carb Intake Nutrition Etiology: Physiological Causes Nutrition Problem/Etiology/Sym: Inappropriate carb intake as related to physiological causes as evidenced by whole blood glucose of 85-195mg/dL. Energy Requirement: 1719 (M-St. Jeor X 1.1 (TE) X 1.2 (activity factor)) Protein Requirement: 80 (1.3gm/kg r/t hemodialsyis + healing of fx) Fluid Requirement: 1525 (25mL/kg) Diet Type: Diabetic Nutrition Intervention: Cont diet as ordered, Encourage intake, Check glucose Additional Diet Restrictions: PUT PROTEIN POWDER IN APPROPRIATE FOODS Diet Comment To [facility]: OFFER SF NUTR SUPPLMENT Nutrition Monitoring & Eval Nutrition Goals: Eat 75-100% Meal Nutrition Follow-Up: Good Intake RD Patient Assessment Time: [address] Assessment Type: RD Re-Assessment Patient Nutrition Acuity: 1-High Follow Up Date: May 22, 2018 Nutritional Comment: Pt admitted with pelvic fracture. Dx with fracture of left superior pubic ramus and left inferior pubis ramus. Hx of T1DM and end stage renal disease with hemodialysis. Pt on ADA with 75% consumption of meals offered. Whole blood glucose has ranged from 889-195 mg/dL. Pt is taking epoetin alpha, levopthyroxine and two types of insulin. Pt wt of 61kg and ht of 170 cm makes a BMI of 21.3, which is within the normal range. Continue to monitor for adequate intake.-AKG 05/08 Pt cont intake 75-100%. Will put protein powder in appropriate foods and offer nutr supplment d/t increased protein needs for hemodialysis and pelvix fx. BK 05/14 Pt cont on diabetic diet eating 100% of most meals. Cont to offer nutr supplments and protein powder to increase protein intake r/t increased protein needs with dialysis. BG rangin 77-228 past week. Will cont to monitor and encourage intake. NEFTALY PETERSON May 14, 2018 13:22
--- NOTE | 2018-05-14 13:42 | NUR ---
Occupational Therapy Impression Pt alert and agreeable to OT tx. Plan for home evaluation tomorrow at 315pm with [employer] transporting pt. SBA ambulation x25ft, x15ft with RW. Self-propelling w/c x150ft to improve B UE strength for mobility and ADLs. Mod (I) tub transfer with use of extended tub transfer bench. Pt progressing well towards goals. Continue POC. Occupational Therapy Goals 1) Pt will be Mod (I) UB/LB dressing. 2) Pt will be Mod (I) grooming/hygiene. 3) Pt will be Mod (I) toilet task. 4) Pt will be Min A shower task. 5) Pt Dominic Index of ADLs score will improve by 2 points. Patient's Goal
[2018-05-14 20:10] VITALS: BP 119/70
[2018-05-14] MEDS: INSULIN HUM LISPRO 100 UN/ML 3 ML VIAL SUBQ PRN (20:27)
[2018-05-14] MEDS: CHOLECALCIFEROL 1000 UNIT TAB PO SCH (20:27)
[2018-05-14] MEDS: MULTIVITAMINS TAB PO SCH (20:27)
[2018-05-14] MEDS: PANTOPRAZOLE SOD 40 MG TABEC PO SCH (20:27)
[2018-05-14] MEDS: AMOXICILLIN 500 MG CAP PO SCH (20:27)
[2018-05-14] MEDS: OXYMETAZOLINE SPRAY 15 ML BTL ENA SCH (20:29)
[2018-05-14] MEDS: PATCH REMOVAL 1 EA TOP SCH (20:29)
[2018-05-14] MEDS: ASPIRIN 81 MG ENTERIC COATED PO SCH (20:31)
[2018-05-15] MEDS: LEVOTHYROXINE SOD 0.112 MG TAB PO SCH (05:47)
[2018-05-15 08:30] VITALS: BP 150/74
[2018-05-15] MEDS: INSULIN HUM ISO(NPH) 100 UN/ML 3 ML VIAL SUBQ SCH ×2 (08:46→17:32)
[2018-05-15] MEDS: METOPROLOL TART 50 MG TAB PO SCH ×2 (08:46→20:39)
[2018-05-15] MEDS: LACTOBACILLUS ACIDOPHILUS TAB PO SCH ×2 (08:46→17:00)
[2018-05-15] MEDS: INSULIN HUM LISPRO 100 UN/ML 3 ML VIAL SUBQ PRN ×2 (08:47→20:39)
[2018-05-15] MEDS: LIDOCAINE 5% PATCH TP SCH (09:00)
--- NOTE | 2018-05-15 09:48 | NUR ---
Physical Therapy Impression Pt reports that he experienced increased pain after PT session yesterday, requesting to "take it easy" today prior to home evaluation with OT. PT instructed pt in seated LE ther-ex with emphasis on achieving full ROM, utilizing UEs to lift L) LE during marching. Pt encouraged to control eccentric motion with FAQ. PT instruction for use of leg manager transportation for sit to supine, pt completed with SBA. Supine to sit completed with no bed rail and SBA. Transfers completed with SBA and RW, ambulation x80' with SBA. Pt requested to hold off on stair negotiation, as he will be doing them at home with OT for home eval. He is able to verbalize proper sequencing. Physical Therapy Goals 1: Pt to complete bed mobility with Lidia 2: Pt to complete transfers with SBA and least restrictive AD 3: Pt to ambulate 150' with SBA and least restrictive AD 4: Pt to asc/desc 4 stairs with railing and SBA Patient's Goals
--- NOTE | 2018-05-15 10:41 | NUR ---
14-day MDS completed with pt. C: 15, D: 00, E: no concerns, Q: pt plans to return to home in the community with HHS, has not yet decided on a company. SW will follow-up for referrals.
[2018-05-15] MEDS: CALCIUM CARBONATE 500 MG CHEW PO SCH (12:40)
[2018-05-15 19:30] VITALS: BP 146/76
[2018-05-15] MEDS: CHOLECALCIFEROL 1000 UNIT TAB PO SCH (20:39)
[2018-05-15] MEDS: ACETAMINOPHEN 325 MG TAB PO PRN (20:39)
[2018-05-15] MEDS: AMOXICILLIN 500 MG CAP PO SCH (20:39)
[2018-05-15] MEDS: MULTIVITAMINS TAB PO SCH (20:40)
[2018-05-15] MEDS: PATCH REMOVAL 1 EA TOP SCH (20:40)
[2018-05-15] MEDS: OXYMETAZOLINE SPRAY 15 ML BTL ENA SCH (20:40)
[2018-05-15] MEDS: ASPIRIN 81 MG ENTERIC COATED PO SCH (20:40)
[2018-05-15] MEDS: PANTOPRAZOLE SOD 40 MG TABEC PO SCH (20:40)
[2018-05-16] MEDS: LEVOTHYROXINE SOD 0.112 MG TAB PO SCH (05:38)
[2018-05-16 07:20] LABS: PLATELET COUNT, AUTOMATED 301 K/uL (150-450)
[2018-05-16 08:00] VITALS: BP 149/65
[2018-05-16] MEDS: LACTOBACILLUS ACIDOPHILUS TAB PO SCH ×2 (08:31→16:43)
[2018-05-16] MEDS: METOPROLOL TART 50 MG TAB PO SCH ×2 (08:31→20:43)
[2018-05-16] MEDS: ACETAMINOPHEN 325 MG TAB PO PRN ×2 (08:32→20:42)
[2018-05-16] MEDS: INSULIN HUM ISO(NPH) 100 UN/ML 3 ML VIAL SUBQ SCH ×2 (08:33→16:44)
[2018-05-16] MEDS: LIDOCAINE 5% PATCH TP SCH (09:00)
[2018-05-16] MEDS: CALCIUM CARBONATE 500 MG CHEW PO SCH (12:00)
--- NOTE | 2018-05-16 12:46 | NUR ---
Occupational Therapy Impression Pt has met skilled OT goals and presents with no further questions/concerns for OT at this time. [facility] has approved requested equipment-anticipated to arrive at patient's home next week. Pt able to borrow (tub bench/toilet riser/RW) from [facility] until equipment arrives (placed in pt room). [facility] is able to offer "door to door" service for pt on dialysis days. Plan for discharge home tomorrow with services. Occupational Therapy Goals 1) Pt will be Mod (I) UB/LB dressing. 2) Pt will be Mod (I) grooming/hygiene. 3) Pt will be Mod (I) toilet task. 4) Pt will be Min A shower task. 5) Pt Dominic Index of ADLs score will improve by 2 points. Patient's Goal
--- NOTE | 2018-05-16 12:47 | NUR ---
OCCUPATIONAL THERAPY Dressing Assistance: Independent Dressing Aid Required: None Bathing Assistance: Independent Bathing Equipment: Shower Chair Home Assessment: Completed Feeding Assistance: Independent Feeding Specialized Equipment: None Toilet Use: Modified Independent Verbalizes Needs: Yes Understands Precautions: Yes Cooperative: Yes Family Teaching: Yes Occupational Therapy Comment: May benefit from addressing endurance and safety for high level IADLs in home environment.
--- NOTE | 2018-05-16 12:53 | OT ECF NOTE ---
Type of Note: Discharge Note Primary Medical Diagnosis: Generalized weakness s/p fall at home 04/26/18 resulting in left superior/inferior ramus fx and sacral fx. WBAT. Occupational Therapy Evaluation Date: 05/03/18 SUBJECTIVE: Prior Hospitalization: [facility] 04/26/18 thru 05/03/18 Prior Level of Function: Prior to admission, pt reports (I) with ADLs/IADLs. Pt does not drive at baseline, utilizes community transportation. Prior Living Status: Single level house Living with family Assist by family Community Services: No known needs Home Accessibility: Stairs without rails All needs on one level Tub/shower combination Equipment Owned: Cane. Borrowing from [facility] (RW,bed cane, extended tub bench, toilet riser). [facility] RW/BSC/tub bench/walker tray. Medical Complications/Past Medical History: ESRD-Dialysis 3x/week, Diabetes, HTN Psychosocial Support: Supportive spouse and daughter in [place] Pain Scale (0-10): Improved pain tolerance for ambulation upon discharge. OBJECTIVE: Strength: MMT: Right Left Shoulder Flexion WFL WFL Elbow Flexion WFL WFL Wrist Extension WFL WFL Bottle Caser WFL WFL (5= normal, 4= good, 3= fair, 2= poor, 1= trace) ROM: Both upper extremities,WFL Sensation: No paraesthesia reported Functional Transfer: Assistive Device: Front wheeled walker Transfer Ability: Independent ADL: Upper body dressing: Assistive device: None Upper body dressing ability: Independent Lower body dressing: Assistive device: None Lower body dressing ability: Independent Toileting: Assistive device: Raised toilet seat Toileting ability: Modified Independent Grooming/hygiene: Assistive device: Standing Grooming ability: Independent Bathing: Assistive device: Extended tub bench Bathing ability: Modified Independent Standardized Assessment: Dominic Index of Activities of Daily Livin/20 upon initial evaluation (05/03/18). upon discharge (05/16/18). ASSESSMENT: Terence presented to [facility] below PLOF s/p fall at home and subsequent pelvic fractures. At PLOF he was largely (I) with ADLs/IADLs. He has met all skilled OT goals and obtained recommend adaptive equipment. A home evaluation was completed with minimal adaptation recommendations required. Pt reports no further questions/concerns for OT at this time and is ready for discharge home tomorrow. Short Term Goals: 1) Pt will be Mod (I) UB/LB dressing. GOAL MET 2) Pt will be Mod (I) grooming/hygiene. GOAL MET 3) Pt will be Mod (I) toilet task. GOAL MET 4) Pt will be Min A shower task. GOAL MET 5) Pt Dominic Index of ADLs score will improve by 2 points. GOAL MET Machine Gunner Goals: Return home with services Patient Goals: Return home Rehabilitation Prognosis: Good Barriers to Discharge: Pain PLAN: The patient will discharge home with PT/OT and public transportation on dialysis days. Thank you for this referral. If you have any questions, concerns, or comments about this report or plan, please contact me at . Aicha Samuel MS, OTR/L Occupational Therapist MAZIN
--- NOTE | 2018-05-16 14:38 | NUR ---
Physical Therapy Impression Attempted to descend with L LE first which was actually more painful that descending with R LE, thus, Pt will descend with his "good" leg first. Pt demonstrated safety with stairs. Pt safe for DC when medically appropriate. Physical Therapy Goals 1: Pt to complete bed mobility with Lidia 2: Pt to complete transfers with SBA and least restrictive AD 3: Pt to ambulate 150' with SBA and least restrictive AD 4: Pt to asc/desc 4 stairs with railing and SBA Patient's Goals
--- NOTE | 2018-05-16 16:12 | Hospitalist Progress Note ---
Subjective Progress Notes Subjective Patient in dialysis unit. Denies any new concerns. Physical Exam Vital Signs Date Time Temp Pulse Resp B/P (MAP) Pulse Ox O2 Delivery O2 Flow Rate FiO2 05/16/18 09:00 93 Room Air 05/16/18 08:00 98.6 69 16 149/65 (93) Intake and Output 05/16/18 07:00 Intake Total 1240 ml Balance 1240 ml Intake Oral 1240 ml # Voids 1 # Bowel Movements 1 General Appearance: Alert, Awake, No Acute Distress Neuro: No Gross deficits Psych: Alert & Oriented X3, Appropriate Mood & Affect Result Diagram: 05/16/18 0650 05/16/18 0650 Assessment and Plan Problems: (1) Fracture of left superior pubic ramus Status: Acute Assessment & Plan: This is a nonsurgical injury. Physical and occupational therapy consults were ordered. (2) Fracture of left inferior pubic ramus Status: Acute (3) UTI (urinary tract infection) due to Enterococcus Status: Acute Assessment & Plan: He presented with frequency and pain of urination. He was initially started on Rocephin. Urine culture results showed enterococcus. He was switched to Amoxicillin which has been dosed daily at 8 pm, after dialysis. He should be treated for 5-7 days. (4) DM type 1 (diabetes mellitus, type 1) Assessment & Plan: He is on chronic treatment with [facility]. He has also been placed on sliding scale level #1. (5) End-stage renal disease on hemodialysis Assessment & Plan: He does receive dialysis on Monday, Monday, and Monday. Time Spent on Plan of Care: < 30 min ISAC THRASHER MD May 16, 2018 16:12
--- NOTE | 2018-05-16 16:17 | Hospitalist Depart ---
Discharge Summary Reason for Hosp/Final Diag: (1) Fracture of left superior pubic ramus Status: Acute Hospital Course & Plan: This was a nonsurgical injury. Physical and occupational therapy worked with the patient and his pain and mobility improved. (2) Fracture of left inferior pubic ramus Status: Acute Hospital Course & Plan: See above. (3) UTI (urinary tract infection) due to Enterococcus Status: Acute Hospital Course & Plan: The patient presented with frequency and pain with u rination. He was initially started on Rocephin. Urine culture grew a pansensitive enterococcus. He was switched to Amoxicillin which was dosed daily at 8 pm, after dialysis. He was treated for 8 days. (4) DM type 1 (diabetes mellitus, type 1) Hospital Course & Plan: He was continued on chronic treatment with NPH. He was also placed on sliding scale level #1 while on ECF. (5) End-stage renal disease on hemodialysis Hospital Course & Plan: He continued to receive dialysis on Monday, Monday, and Monday as per his usual schedule. Departure Weight (Pounds): 136 Weight (Ounces): 4.0 Result Diagram: 05/16/1850 05/16/1850 Item Value Date Time Urine Color Yellow 05/07/18 1345 Urine Clarity Turbid 05/07/18 1345 Urine pH 8.5 pH 05/07/18 1345 Urine Specific Hollister 1.005 05/07/18 1345 Urine Protein >/=500 mg/dL H 05/07/18 1345 Urine Glucose (UA) Negative mg/dL 05/07/18 1345 Urine Ketones Negative mg/dL 05/07/18 1345 Urine Blood Moderate H 05/07/18 1345 Urine Nitrite Positive 05/07/18 1345 Urine Bilirubin Negative 05/07/18 1345 Urine Urobilinogen 0.2 mg/dL 05/07/18 1345 Urine Leukocyte Esterase Large H 05/07/18 1345 Urine RBC 20-25 /HPF 05/07/18 1345 Urine WBC Tntc /HPF 05/07/18 1345 Urine Squamous Epithelial Cells Few /LPF 05/07/18 1345 Urine Bacteria Moderate /HPF H 05/07/18 1345 Urine Mucus Many /HPF H 05/07/18 1345 [facility]* [address] [place] [address] RACHEL YANEZ M.D., DIRECTOR OF LABORATORY SERVICES ALICIA ARREGUIN M.D., PATHOLOGIST RUN DATE: 05/09/18 Specimen Inquiry Report PAGE 1 RUN TIME: 08 PATIENT: SAMANTHA BLACK ACCT: [id number] LOC: [facility] U: [id number] AGE/SX: 77/M ROOM: [facility] RE05/03/[address]: KANDI GOMEZ DO : 1940 BED: 365 DIS: STATUS: ADM IN TLOC: SPEC #: [id number] VIANCA: 05/07/18 STATUS: COMP REQ #: [id number] RECD: 05/07/[address] [facility] [address]: W[facility] SOURCE: [facility] ENTR: 05/07/[address] [facility] [address]: KANDI GOMEZ DO SPDESC: ORDERED: CULT URINE COMMENTS: Has specimen been collected/obtained? Y Procedure Result Verified URINE CULTURE Final 05/09/18-0850 Organism 1 ENTEROCOCCUS FAECALIS (GRP D) >100,000 COL/ML BETA LACTAMASE: NEGATIVE PREDOMINATE ORGANISM IN A MIXED CULTURE ENT FAEC M.I.C. RX --------- --- AMPICILLIN <=2 S CIPROFLOXACIN <=0.5 S GENTAMICIN HIGH LEVEL SYNERGY SYN-S S LEVOFLOXACIN 1 S LINEZOLID 2 S NITROFURANTOIN <=16 S BENZYLPENICILLIN 4 S STREPTOMYCIN HIGH LEVEL SYN-S S TETRACYCLINE <=1 S VANCOMYCIN 1 S END OF REPORT Condition: Improved Discharge: Home, Home Health PT/OT Follow Up For: PT For Strengthening, OT For ADL's Home Health RN Follow Up For: Nursing Assessment Time Spent: < 30 min Discharge Instructions Home Meds Active Scripts Lidocaine (Lidocaine) 5 % Adh..patch, 1 EACH TP QDAY, #1 BOX Prov:SIAC THRASHER MD 05/16/18 Reported Medications Calcium Carbonate (CALCIUM CARBONATE) 500 Mg Tablet, 1000 MG PO TIDCF 05/13/18 Multivitamin (MULTIVITAMINS) 1 Each Capsule, 1 EACH PO QDAY, CAPSULE 05/04/18 Aspirin (ASPIRIN EC) 81 Mg Tablet.dr, 81 MG PO QDAY, TAB 05/04/18 Metoprolol Tartrate (METOPROLOL TARTRATE) 50 Mg Tab, 1 TAB PO BID, TAB 05/04/18 Omeprazole (OMEPRAZOLE) 40 Mg Capsule., 40 MG PO QDAY, CAP 05/04/18 Levothyroxine Sodium (LEVOTHYROXINE SODIUM) 0.112 Mg Tab, 0.112 MG PO QDAY, TAB 05/04/18 Ergocalciferol (Vitamin D2) (VITAMIN D2) 50,000 Unit Capsule, 41471 UNIT PO 3XW, CAPSULE 05/09/16 Nut.tx.impaired Renal Fxn,Soy (NEPRO CARB STEADY) 237 Ml Liquid, 237 ML PO QODAY 05/09/16 [Novolin] 100unit/ml No Conflict Check, 10 UNITS SUBQ TID MAY INCREASE TO 20 UNITS TID NEEDED TO KEEP BLOOD SUGARS IN RANGE 05/28/12 Discontinued Reported Medications Calcium Carbonate (TUMS ULTRA) 400 Mg Tab.chew, 500 MG PO, TAB.CHEW Take 500mg daily with lunch 05/09/18 Calcium Carbonate (TUMS) 200 Mg Tab.chew, 2000 MG PO TIDCF, TAB.CHEW Take 2 tabs three times per with meals 06/01/16 Diet: Diabetic Activity: As Tolerated Special Instructions: Follow up with your [place] primary care provider as scheduled. Copies to: TK ROYAL MD ; Venous Thromboembolism Antithrombotics Is Pt On Any Antithrombotics?: No [id number] Certification Face to Face Home Health Certification Institutional Provider conducted the [id number] encounter. Electronic Undersigning Physician Certifies Home Health. I certify that the patient has been under my care and that I had a [id number] encounter that meets the physician [id number] encounter requirements with this patient. This patient is home-bound due to safety issues and continues to require assistance with ADL's. I certify that based on my findings, that Nursing, Aides and the following Home Health services are medically necessary: PT and OT Medical Necessity: Nursing Date Face to Face Conducted: May 16, 2018 ISAC THRASHER MD May 16, 2018 16:17
[2018-05-16] MEDS ORDERED: ACET-2007 PO (16:20)
[2018-05-16] MEDS ORDERED: LIDO700A19 TP (16:20)
[2018-05-16] MEDS: INSULIN HUM LISPRO 100 UN/ML 3 ML VIAL SUBQ PRN ×2 (16:44→20:43)
[2018-05-16] MEDS ORDERED: AMOXICILLIN 500 MG CAP PO SCH (20:00)
[2018-05-16] MEDS: CHOLECALCIFEROL 1000 UNIT TAB PO SCH (20:42)
[2018-05-16] MEDS: MULTIVITAMINS TAB PO SCH (20:42)
[2018-05-16] MEDS: PANTOPRAZOLE SOD 40 MG TABEC PO SCH (20:42)
[2018-05-16] MEDS: ASPIRIN 81 MG ENTERIC COATED PO SCH (20:42)
[2018-05-16] MEDS: OXYMETAZOLINE SPRAY 15 ML BTL ENA SCH (20:43)
[2018-05-16] MEDS: PATCH REMOVAL 1 EA TOP SCH (20:44)
[2018-05-17] MEDS: LEVOTHYROXINE SOD 0.112 MG TAB PO SCH (05:27)
[2018-05-17 08:30] VITALS: BP 134/74
[2018-05-17] MEDS: METOPROLOL TART 50 MG TAB PO SCH (08:55)
[2018-05-17] MEDS: INSULIN HUM ISO(NPH) 100 UN/ML 3 ML VIAL SUBQ SCH (08:55)
[2018-05-17] MEDS: LACTOBACILLUS ACIDOPHILUS TAB PO SCH (08:55)
[2018-05-17] MEDS: LIDOCAINE 5% PATCH TP SCH (09:00)
--- NOTE | 2018-05-17 09:07 | NUR ---
DC MDS completed with pt. C: 15, D: 00, E: no concerns, Q: pt plans to return to home in the community with [facility], referral made. No further DC needs reported.
[2018-05-17] MEDS: CALCIUM CARBONATE 500 MG CHEW PO SCH (12:39)
[2018-05-17] MEDS: INSULIN HUM LISPRO 100 UN/ML 3 ML VIAL SUBQ PRN (12:40)
== END 2018-05-17 15:45 | disposition home or self-care (01) | DRG 535 ==
LOC: ECF 13:45
PROVIDERS: ADMIT Family Medicine; ATTEND Family Medicine
DX: S32.592A Other specified fracture of left pubis, initial encounter for closed fracture (principal); N18.6 End stage renal disease; N39.0 Urinary tract infection, site not specified; B95.2 Enterococcus as the cause of diseases classified elsewhere; E10.22 Type 1 diabetes mellitus with diabetic chronic kidney disease; Z88.8 Allergy status to other drugs, medicaments and biological substances; Z79.4 Long term (current) use of insulin; Z99.2 Dependence on renal dialysis
CPT/HCPCS: 36415; 36416; 81001; 82310; 82374; 82435; 82565; 82947; 82948; 84132; 84295; 84520; 85025; 87077; 87088; 87186; 87205; 97161; 97166; J0696; J7050

== ENCOUNTER 2018-06-09 08:32 | Emergency (ER) | payer MEDICARE ==
--- NOTE | 2018-06-09 09:12 | EKG ---
FACILITY: [facility] PATIENT NAME: SAMANTHA BLACK : [id number] MR: [id number] V: [id number] EXAM DATE: ORDERING PHYSICIAN: SORIN HI TECHNOLOGIST: Test Reason : BLOCK Blood Pressure : / mmHG Vent. Rate : 069 BPM Atrial Rate : 069 BPM P-R Int : 270 ms QRS Dur : 096 ms QT Int : 418 ms P-R-T Axes : 046 -40 067 degrees QTc Int : 447 ms Sinus rhythm with PAC Left axis deviation Septal infarct , age undetermined Abnormal ECG Confirmed by ISAC LAMB ([id number]) on 06/09/2018 7:35:08 PM Referred By: Confirmed By:ISAC LAMB
[2018-06-09] MEDS ORDERED: fentaNYL CITR 100 MCG/2 ML AMP IVP ONE ×2 (09:30→10:20)
--- NOTE | 2018-06-09 09:31 | RADIOLOGY IMAGING REPORT ---
FACILITY: [facility] [place] PATIENT NAME: Nahum Garza : 1940 MR: [id number] V: [id number] EXAM DATE: ORDERING PHYSICIAN: SORIN HI TECHNOLOGIST: Location: [facility] Patient: Nahum Garza : 1940 Visit/Account:[id number] Date of Sevice: 06/09/2018 PELVIS, FEMUR RIGHT Indication: R HIP DEFORMITY Comparison: None. Findings: Pelvis radiograph: There is a nondisplaced fracture of the proximal right femur, just below the great er trochanter. Proximal left femur is intact. There is a nondisplaced fracture of the left pubis bone. The right superior and inferior pubic rami a nd the right and left iliac crests are intact. There are degenerative changes in the lower lumbar spi ne. Atherosclerotic changes are seen in the soft tissues. Right femur radiograph: Again noted is the minimally displaced fracture of the proximal third of the right femur. The distal two thirds of the right femur are intact. Atherosclerotic changes seen throug hout the superficial femoral and popliteal arteries. IMPRESSION: 1. Minimally displaced fracture of the proximal right femur, just below the greater trochanter. 2. Nondisplaced fracture of the left pubis symphysis. 3. No evidence of dislocation. Report Dictated By: Chun Hinson at 06/09/2018 9:23 AM Report E-Signed By: Chun Hinson at 06/09/2018 9:26 AM WSN:[id number]
--- NOTE | 2018-06-09 09:32 | RADIOLOGY IMAGING REPORT ---
FACILITY: [facility] [place] PATIENT NAME: Nahum Garza : 1940 MR: [id number] V: [id number] EXAM DATE: ORDERING PHYSICIAN: SORIN HI TECHNOLOGIST: Location: [facility] Patient: Nahum Garza : 1940 Visit/Account:[id number] Date of Sevice: 06/09/2018 PELVIS, FEMUR RIGHT Indication: R HIP DEFORMITY Comparison: None. Findings: Pelvis radiograph: There is a nondisplaced fracture of the proximal right femur, just below the great er trochanter. Proximal left femur is intact. There is a nondisplaced fracture of the left pubis bone. The right superior and inferior pubic rami a nd the right and left iliac crests are intact. There are degenerative changes in the lower lumbar spi ne. Atherosclerotic changes are seen in the soft tissues. Right femur radiograph: Again noted is the minimally displaced fracture of the proximal third of the right femur. The distal two thirds of the right femur are intact. Atherosclerotic changes seen throug hout the superficial femoral and popliteal arteries. IMPRESSION: 1. Minimally displaced fracture of the proximal right femur, just below the greater trochanter. 2. Nondisplaced fracture of the left pubis symphysis. 3. No evidence of dislocation. Report Dictated By: Chun Hinson at 06/09/2018 9:23 AM Report E-Signed By: Chun Hinson at 06/09/2018 9:26 AM WSN:[id number]
[2018-06-09 09:46] LABS: PLATELET COUNT, AUTOMATED 248 K/uL (150-450)
[2018-06-09 09:53] LABS: INR 1.08
--- NOTE | 2018-06-09 09:53 | ER Report ---
History and Physical Time Seen By : 09:30 Hx. of Stated Complaint: FALL WITH R HIP DEFORMITY (DAVID WADDELL DO) HPI/ROS CHIEF COMPLAINT: r hip pain HISTORY OF PRESENT ILLNESS: Pt had recent fracture of his pelvis ramus and was admitted to [facility] for pain control and dialysis. Pt was then transfered to our facility for rehab. Pt is now home and had been doing well. PT uses a walker and was turning and his slippers got caught. Pt fell down landing on his r hip. pt unable to get up. Pt does not believe he hit his head. no loc. no head or neck pain. Pt denies chest pain. no abd pain. pt denies numbness to leg but c/o of pain at r hip. REVIEW OF SYSTEMS: Constitutional: No fever, no chills. Eyes: No discharge. ENT: No sore throat. Cardiovascular: No chest pain, no palpitations. Respiratory: No cough, no shortness of breath. Gastrointestinal: No abdominal pain, no vomiting. Genitourinary: No hematuria. Musculoskeletal: No back pain. + right hip pain Skin: No rashes. Neurological: No headache. (DAVID WADDELL DO) Allergies: Coded Allergies: meperidine HCl (Verified Allergy, Mild, GETS LOOPY, 04/26/18) meperidine (Verified Adverse Reaction, Intermediate, HALLUCINATIONS, 04/26/18) Home Meds Active Scripts Lidocaine (Lidocaine) 5 % Adh..patch, 1 EACH TP QDAY, #1 BOX Prov:ISAC THRASHER MD 05/16/18 Acetaminophen (MAPAP) 325 Mg Tablet, 650 MG PO Q6H PRN for FEVER/PAIN, #60 TAB Prov:ISAC THRASHER MD 05/16/18 Reported Medications Calcium Carbonate (CALCIUM CARBONATE) 500 Mg Tablet, 1000 MG PO TIDCF 05/13/18 Aspirin (ASPIRIN EC) 81 Mg Tablet.dr, 81 MG PO QDAY, TAB 05/04/18 Metoprolol Tartrate (METOPROLOL TARTRATE) 50 Mg Tab, 1 TAB PO BID, TAB 05/04/18 Omeprazole (OMEPRAZOLE) 40 Mg Capsule.dr, 40 MG PO QDAY, CAP 05/04/18 Levothyroxine Sodium (LEVOTHYROXINE SODIUM) 0.112 Mg Tab, 0.112 MG PO QDAY, TAB 05/04/18 Ergocalciferol (Vitamin D2) (VITAMIN D2) 50,000 Unit Capsule, 30278 UNIT PO 3XW, CAPSULE 05/09/16 Nut.tx.impaired Renal Fxn,Soy (NEPRO CARB STEADY) 237 Ml Liquid, 237 ML PO QODAY 05/09/16 [Novolin] 100unit/ml No Conflict Check, 10 UNITS SUBQ TID MAY INCREASE TO 20 UNITS TID NEEDED TO KEEP BLOOD SUGARS IN RANGE 05/28/12 Discontinued Reported Medications Multivitamin (MULTIVITAMINS) 1 Each Capsule, 1 EACH PO QDAY, CAPSULE 05/04/18 Past Medical/Surgical History pmhx: dm, renal dialysis M, W, F, hypothyroid Pshx: tonsillectomy (DAVID WADDELL DO) Reviewed Nurses Notes: Yes (DAVID WADDELL DO) Hx Smoking: No Smoking Status: Never Smoker Exposure to Second Hand Smoke?: No Hx Substance Use Disorder: No Hx Alcohol Use: No (DAVID WADDELL DO) Constitutional Vital Sign - Last 24 Hours 06/09/18 06/09/18 06/09/18 06/09/18 08:32 08:33 08:34 08:47 Pulse ??? 67 70 Resp 16 11 B/P (MAP) 162/102 (122) 162/102 Pulse Ox 90 89 O2 Delivery Room Air 06/09/18 06/09/18 06/09/18 06/09/18 09:00 09:02 09:17 09:30 Pulse 68 67 Resp 23 15 B/P (MAP) 159/90 (113) 178/89 (118) Pulse Ox 99 96 06/09/18 06/09/18 06/09/18 06/09/18 09:32 09:47 10:00 10:17 Pulse 64 67 ??? Resp 7 8 B/P (MAP) 164/78 (106) Pulse Ox 96 94 06/09/18 06/09/18 06/09/18 06/09/18 10:30 10:35 10:49 10:50 Pulse 67 64 Resp 15 25 B/P (MAP) 168/89 (115) Pulse Ox 97 97 O2 Flow Rate 1.0 06/09/18 06/09/18 06/09/18 06/09/18 11:00 11:05 11:20 11:30 Pulse 65 64 Resp 11 12 B/P (MAP) 157/82 (107) 135/76 (95) Pulse Ox 95 94 06/09/18 06/09/18 06/09/18 06/09/18 11:35 11:50 12:00 12:05 Pulse 64 65 68 Resp 20 11 9 B/P (MAP) 160/93 (115) Pulse Ox 97 100 97 06/09/18 06/09/18 06/09/18 06/09/18 12:20 12:30 12:35 12:50 Pulse 65 63 65 Resp 15 9 16 B/P (MAP) 149/70 (96) Pulse Ox 99 95 97 06/09/18 06/09/18 06/09/18 06/09/18 13:00 13:05 13:15 13:20 Temp 97.9 Pulse 65 66 Resp 9 7 B/P (MAP) 142/75 (97) Pulse Ox 96 97 06/09/18 06/09/18 06/09/18 06/09/18 13:30 13:35 13:50 14:00 Pulse 63 67 Resp 14 10 B/P (MAP) 137/75 (95) 150/77 (101) Pulse Ox 95 94 06/09/18 06/09/18 14:05 14:20 Pulse 69 61 Resp 15 29 Pulse Ox 92 94 Intake and Output 06/09/18 06/09/18 06/10/18 15:00 23:00 07:00 Intake Total 700 ml Balance 700 ml (SORIN HI MD) Physical Exam General Appearance: The patient is alert, has no immediate need for airway protection and no signs of toxicity. Eyes: Pupils equal and round no pallor or injection, EOMI ENT: no pharyngeal erythema or exudates, Mucous membranes are moist, TM are nl b/l without hemotypanums Respiratory: There are no retractions, lungs are clear to auscultation. Cardiovascular: Regular rate and rhythm. pulses are equal and symmetrical Gastrointestinal: Abdomen is soft and non tender, no masses, bowel sounds normal, no guarding, no rigidity or rebound Neurological: Cranial nerves II-XII grossly intact, no sensory or motor loss Skin: Warm and dry, no rashes. Musculoskeletal: Neck is supple non tender, no vertebral tenderness Upper Extremities and left lowere Extremity: are non tender, nonswollen and have full range of motion. Left lower extremity has tenderness over proximal femur and is rotated/shortened; no knee pain or swelling; foot has no deformity DIFFERENTIAL DIAGNOSIS: After history and physical exam differential diagnosis was considered for hip fx, intracranial head bleed (LAURORA,DAVID V DO) Medical Decision Making Data Points Result Diagram: 06/09/18 0913 06/09/18 0913 Laboratory Hematology Test 06/09/18 09:13 06/09/18 14:21 Red Blood Count 3.25 M/uL (4.00-5.60) Mean Corpuscular Volume 96.4 fL (80.0-96.0) Mean Corpuscular Hemoglobin 32.4 pg (26.0-33.0) Mean Corpuscular Hemoglobin Concent 33.6 g/dL (32.0-36.0) Red Cell Distribution Width 16.3 % (11.5-14.5) Mean Platelet Volume 7.4 fL (7.2-11.1) Neutrophils (%) (Auto) 61.6 % (39.4-72.5) Lymphocytes (%) (Auto) 19.8 % (17.6-49.6) Monocytes (%) (Auto) 12.7 % (4.1-12.4) Eosinophils (%) (Auto) 4.8 % (0.4-6.7) Basophils (%) (Auto) 1.1 % (0.3-1.4) Nucleated RBC Relative Count (auto) 0.1 /100WBC Neutrophils # (Auto) 3.2 K/uL (2.0-7.4) Lymphocytes # (Auto) 1.0 K/uL (1.3-3.6) Monocytes # (Auto) 0.7 K/uL (0.3-1.0) Eosinophils # (Auto) 0.2 K/uL (0.0-0.5) Basophils # (Auto) 0.1 K/uL (0.0-0.1) Nucleated RBC Absolute Count (auto) 0.01 K/uL Prothrombin Time 14.0 seconds (12.0-14.4) Prothromb Time International Ratio 1.08 Activated Partial Thromboplast Time 28 seconds (23-35) Sodium Level 140 mmol/L (137-145) Potassium Level 3.7 mmol/L (3.5-5.0) Chloride Level 98 mmol/L (98-107) Carbon Dioxide Level 32 mmol/L (22-30) Blood Urea Nitrogen 38 mg/dl (9-21) Creatinine 3.60 mg/dl (0.66-1.25) Glomerular Filtration Rate Calc 16.5 Random Glucose 122 mg/dl (75-110) Calcium Level 9.2 mg/dl (8.4-10.2) Total Bilirubin 0.5 mg/dl (0.2-1.3) Aspartate Amino Transf (AST/SGOT) 18 U/L (0-35) Alanine Aminotransferase (ALT/SGPT) 13 U/L (0-56) Alkaline Phosphatase 144 U/L (0-126) Total Protein 7.4 g/dl (6.3-8.2) Albumin 3.9 g/dl (3.5-5.0) Whole Blood Glucose 106 mg/DL (75-110) Chemistry Test 06/09/18 09:13 06/09/18 14:21 White Blood Count 5.1 k/uL (4.5-11.0) Red Blood Count 3.25 M/uL (4.00-5.60) Hemoglobin 10.5 g/dL (14.0-18.0) Hematocrit 31.4 % (42.0-52.0) Mean Corpuscular Volume 96.4 fL (80.0-96.0) Mean Corpuscular Hemoglobin 32.4 pg (26.0-33.0) Mean Corpuscular Hemoglobin Concent 33.6 g/dL (32.0-36.0) Red Cell Distribution Width 16.3 % (11.5-14.5) Platelet Count 248 K/uL (150-450) Mean Platelet Volume 7.4 fL (7.2-11.1) Neutrophils (%) (Auto) 61.6 % (39.4-72.5) Lymphocytes (%) (Auto) 19.8 % (17.6-49.6) Monocytes (%) (Auto) 12.7 % (4.1-12.4) Eosinophils (%) (Auto) 4.8 % (0.4-6.7) Basophils (%) (Auto) 1.1 % (0.3-1.4) Nucleated RBC Relative Count (auto) 0.1 /100WBC Neutrophils # (Auto) 3.2 K/uL (2.0-7.4) Lymphocytes # (Auto) 1.0 K/uL (1.3-3.6) Monocytes # (Auto) 0.7 K/uL (0.3-1.0) Eosinophils # (Auto) 0.2 K/uL (0.0-0.5) Basophils # (Auto) 0.1 K/uL (0.0-0.1) Nucleated RBC Absolute Count (auto) 0.01 K/uL Prothrombin Time 14.0 seconds (12.0-14.4) Prothromb Time International Ratio 1.08 Activated Partial Thromboplast Time 28 seconds (23-35) Glomerular Filtration Rate Calc 16.5 Calcium Level 9.2 mg/dl (8.4-10.2) Total Bilirubin 0.5 mg/dl (0.2-1.3) Aspartate Amino Transf (AST/SGOT) 18 U/L (0-35) Alanine Aminotransferase (ALT/SGPT) 13 U/L (0-56) Alkaline Phosphatase 144 U/L (0-126) Total Protein 7.4 g/dl (6.3-8.2) Albumin 3.9 g/dl (3.5-5.0) Whole Blood Glucose 106 mg/DL (75-110) Coagulation Test 06/09/18 09:13 Prothrombin Time 14.0 seconds Prothromb Time International Ratio 1.08 Activated Partial Thromboplast Time 28 seconds (SORIN HI MD) EKG/Imaging EKG Interpretation nsr with first degree AV block @ 70 with LAD compared to prior in 05/28/2012 pts now with first degree block Imaging minimally displaced fx of proximal righ tfemur just below the greater trochanter; non displaced left pubis symphysis fx (DAVID WADDELL DO) Imaging FACILITY: [facility] [place] PATIENT NAME: Nahum Garza : 1940 MR: [id number] V: [id number] EXAM DATE: ORDERING PHYSICIAN: DAVID WADDELL TECHNOLOGIST: Location: [facility] Patient: Nahum Garza : 1940 Visit/Account:[id number] Date of Sevice: 06/09/2018 CT examination of the head and cervical spine without contrast Indication: Fall Comparison: CT examination of the cervical spine April 26. Technique: Axial CT images of the head and cervical spine were obtained. Sagittal reformatted images were obtained reviewed. One of the following dose optimization techniques was utilized in the performance of this exam: Automated exposure control; adjustment of the mA and/or kV according to the patient's size; or use of an iterative reconstruction technique. Specific details can be referenced in the facility's radiology CT exam operational policy. Findings: There is mild overall global parenchymal volume loss with regions of periventricular and subcortical white matter hypoattenuation indicative of corona es from chronic small vessel occlusive disease. Given the volume loss, the ventricular system is within normal limits. There is no intracranial mass, mass effect, midline shift, intraparenchymal hemorrhage or abnormal extra-axial fluid collection. Mastoid air cells are well pneumatized. Mild mucosal thickening is seen in the left maxillary sinus. The calvarium is intact. Cervical spine: Incidental note is made of air-fluid level in the left ethmoid sinus. There are moderate to severe multilevel spondylotic changes C3-C4, C4-C5, C5-C6 and C6-C7. The prevertebral soft tissues are within normal limits. Posterior elements align appropriately without fracture. The mild wedge deformities of the upper thoracic spine are stable as compared to the previous CT examination from April 26. IMPRESSION: 1. Mild global parenchymal volume loss with evidence of changes from chronic small vessel occlusive disease. No evidence of acute intracranial finding. 2. Stable moderate to severe multilevel spondylosis of the cervical spine without acute osseous finding 3. Stable, subtle wedge deformities of the upper thoracic spine, unchanged as compared to the CT examination from April 26. Report Dictated By: Kiko Carney MD at 06/09/2018 10:59 AM Report E-Signed By: Kiko Carney MD at 06/09/2018 11:08 AM WSN:[id number] (SORIN HI MD) ED Course/Re-evaluation ED Course check labs and imaging 06/09/2018 9:52:01 am Pt with + fx but is on dialysis so is unable to stay here in [place] at [facility]. PTs first choice would be [facility] if able otherwise [facility]CR. 06/09/2018 10:09:22 am Page out to [facility] to see if they are able to accept pt. 06/09/2018 10:24:06 am [facility] does not have orthopedics for surgery so pt is going to be transferred to [facility]. SPoke with Dr. Aponte, trauma surgeon at [facility]. PT is accepted at [facility] as trauma. Understands pt will also need dialysis M/w/F and they are aware. Pts ct of head and cervical spine are pending. Will start transfer. 06/09/2018 10:27:47 am Pt back from CT and c/o increased pain in hip will remedicate. Decision to Disposition Date: Jun 09, 2018 (DAVID WADDELL DO) ED Course awaiting transfer; will keep patient comfortable with PRN pain meds Decision to Disposition Date: Jun 09, 2018 Decision to Disposition Time: 14:30 (SORIN HI MD) Depart Departure Latest Vital Signs Vital Signs Date Time Temp Pulse Resp B/P (MAP) Pulse Ox O2 Delivery O2 Flow Rate FiO2 06/09/18 14:20 61 29 94 06/09/18 14:00 150/77 (101) 06/09/18 13:15 97.9 06/09/18 10:49 1.0 06/09/18 08:34 Room Air (SORIN HI MD) Impression: Primary Impression: Hip fracture, right Condition: Condition Unchanged Disposition: XFER TO [facility] Problem Qualifiers Primary Impression: Hip fracture, right Encounter type: initial encounter Fracture type: closed Qualified Codes: S72.001A - Fracture of unspecified part of neck of right femur, initial en counter for closed fracture DAVID WADDELL DO Jun 09, 2018 09:52 SORIN HI MD Jun 09, 2018 11:16
[2018-06-09] MEDS ORDERED: ONDANSETRON 4 MG/2 ML VIAL ONE (10:21)
--- NOTE | 2018-06-09 10:22 | RADIOLOGY IMAGING REPORT ---
FACILITY: [facility] PATIENT NAME: Nahum Garza : 1940 MR: [id number] V: [id number] EXAM DATE: ORDERING PHYSICIAN: DAVID WADDELL TECHNOLOGIST: [place] [facility] [place]um Garza : 1940 Visit/Account:[id number] Date of Sevice: 06/09/2018 CHEST SINGLE AP Indication: broken hip; OR Comparison: None. Findings: Lungs: Prominent interstitial changes throughout both lungs are seen. There is no focal airspace opac ity. Mediastinum/pulmonary vasculature: Heart size and pulmonary vasculature are normal. Bones/soft tissues: Normal. IMPRESSION: 1. Chronic appearing interstitial changes both lungs. 2. Lungs are clear. Report Dictated By: Chun Hinson at 06/09/2018 10:18 AM Report E-Signed By: Chun Hinson at 06/09/2018 10:19 AM WSN:[id number]
[2018-06-09] MEDS ORDERED: ONDANSETRON 4 MG/2 ML VIAL IVP ONE ×2 (10:25→14:30)
--- NOTE | 2018-06-09 11:12 | RADIOLOGY IMAGING REPORT ---
FACILITY: [facility] PATIENT NAME: Nahum Garza : 1940 MR: [id number] V: [id number] EXAM DATE: ORDERING PHYSICIAN: DAVID WADDELL TECHNOLOGIST: Location: [facility] [place] Patient: Nahum Garza : 1940 Visit/Account:[id number] Date of Sevice: 06/09/2018 CT examination of the head and cervical spine without contrast Indication: Fall Comparison: CT examination of the cervical spine April 26. Technique: Axial CT images of the head and cervical spine were obtained. Sagittal reformatted images were obtained reviewed. One of the following dose optimization techniques was utilized in the perform ance of this exam: Automated exposure control; adjustment of the mA and/or kV according to the patien t's size; or use of an iterative reconstruction technique. Specific details can be referenced in [facility]'s radiology CT exam operational policy. Findings: There is mild overall global parenchymal volume loss with regions of periventricular and subcortical white matter hypoattenuation indicative of changes from chronic small vessel occlusive disease. Given the volume loss, the ventricular system is within normal limits. There is no intracranial mass, mass effect, midline shift, intraparenchymal hemorrhage or abnormal extra-axial fluid collection. Mastoid air cells are well pneumatized. Mild mucosal thickening is seen in the left maxillary sinus. The calvarium is intact. Cervical spine: Incidental note is made of air-fluid level in the left ethmoid sinus. There are moderate to severe multilevel spondylotic changes C3-C4, C4-C5, C5-C6 and C6-C7. The prever tebral soft tissues are within normal limits. Posterior elements align appropriately without fracture . The mild wedge deformities of the upper thoracic spine are stable as compared to the previous CT ex amination from April 26. IMPRESSION: 1. Mild global parenchymal volume loss with evidence of changes from chronic small vessel occlusive d isease. No evidence of acute intracranial finding. 2. Stable moderate to severe multilevel spondylosis of the cervical spine without acute osseous findi ng 3. Stable, subtle wedge deformities of the upper thoracic spine, unchanged as compared to the CT exam ination from April 26. Report Dictated By: Kiko Carney MD at 06/09/2018 10:59 AM Report E-Signed By: Kiko Carney MD at 06/09/2018 11:08 AM WSN:[id number]
--- NOTE | 2018-06-09 11:12 | RADIOLOGY IMAGING REPORT ---
FACILITY: [facility] [place] PATIENT NAME: Nahum Garza : 1940 MR: [id number] V: [id number] EXAM DATE: ORDERING PHYSICIAN: DAVID WADDELL TECHNOLOGIST: Location: [facility] [place] Patient: Nahum Garza : 1940 Visit/Account:[id number] Date of Sevice: 06/09/2018 CT examination of the head and cervical spine without contrast Indication: Fall Comparison: CT examination of the cervical spine April 26. Technique: Axial CT images of the head and cervical spine were obtained. Sagittal reformatted images were obtained reviewed. One of the following dose optimization techniques was utilized in the perform ance of this exam: Automated exposure control; adjustment of the mA and/or kV according to the patien t's size; or use of an iterative reconstruction technique. Specific details can be referenced in [facility] facility's radiology CT exam operational policy. Findings: There is mild overall global parenchymal volume loss with regions of periventricular and subcortical white matter hypoattenuation indicative of changes from chronic small vessel occlusive disease. Given the volume loss, the ventricular system is within normal limits. There is no intracranial mass, mass effect, midline shift, intraparenchymal hemorrhage or abnormal extra-axial fluid collection. Mastoid air cells are well pneumatized. Mild mucosal thickening is seen in the left maxillary sinus. The calvarium is intact. Cervical spine: Incidental note is made of air-fluid level in the left ethmoid sinus. There are moderate to severe multilevel spondylotic changes C3-C4, C4-C5, C5-C6 and C6-C7. The prever tebral soft tissues are within normal limits. Posterior elements align appropriately without fracture . The mild wedge deformities of the upper thoracic spine are stable as compared to the previous CT ex amination from April 26. IMPRESSION: 1. Mild global parenchymal volume loss with evidence of changes from chronic small vessel occlusive d isease. No evidence of acute intracranial finding. 2. Stable moderate to severe multilevel spondylosis of the cervical spine without acute osseous findi ng 3. Stable, subtle wedge deformities of the upper thoracic spine, unchanged as compared to the CT exam ination from April 26. Report Dictated By: Kiko Carney MD at 06/09/2018 10:59 AM Report E-Signed By: Kiko Carney MD at 06/09/2018 11:08 AM WSN:[id number]
[2018-06-09] MEDS ORDERED: LR(*) 1000 ML BAG 1,000 ML IV ONE (11:28)
[2018-06-09] MEDS ORDERED: MORPHINE 4 MG/ML SDV IVP ONE (11:55)
[2018-06-09 14:00] VITALS: BP 150/77
[2018-06-09] MEDS ORDERED: MORPHINE 4 MG/ML SDV ONE (14:15)
[2018-06-09] MEDS ORDERED: DIAZEPAM 50 MG/10 ML MDV IVP ONE (14:30)
== END 2018-06-09 14:40 | disposition short-term general hospital (02) ==
LOC: ER 09:52
DX: S72.001A Fracture of unspecified part of neck of right femur, initial encounter for closed fracture (principal); M47.892 Other spondylosis, cervical region; E11.9 Type 2 diabetes mellitus without complications; Z99.2 Dependence on renal dialysis; E03.9 Hypothyroidism, unspecified; Z79.82 Long term (current) use of aspirin; W01.0XXA Fall on same level from slipping, tripping and stumbling without subsequent striking against object, initial encounter
CPT/HCPCS: 36416; 70450; 71045; 72125; 72170; 73552; 82948; 85025; 85610; 85730; 93005; 96361; 96374; 96375; 96376; 99285; J2270; J2405; J3010; J3360; J7120; 82040; 82247; 82310; 82374; 82435; 82565; 82947; 84075; 84132; 84155; 84295; 84450; 84460; 84520

== ENCOUNTER → 2018-06-09 | Outpatient (CLI) | payer MEDICARE ==
[~2018-06-09] MED LIST changes: +ACET-2007 PO; +ASPI81TA86 PO; +CALC-488 PO; +CALC400T65 PO; +LEV112 PO; +LIDO700A19 TP; +METO-253 PO; +OMEP40CA48 PO; +PRIL
== END ==
LOC: AMB 07:49
PROVIDERS: ATTEND Nurse Practitioner
DX: M25.551 Pain in right hip (principal); W01.0XXA Fall on same level from slipping, tripping and stumbling without subsequent striking against object, initial encounter
CPT/HCPCS: A0425; A0427

== ENCOUNTER → 2018-06-09 | Outpatient (CLI) | payer MEDICARE | LOC: AMB 13:56 | PROVIDERS: ATTEND Nurse Practitioner | DX: S72.001A Fracture of unspecified part of neck of right femur, initial encounter for closed fracture (principal); Z99.2 Dependence on renal dialysis | CPT/HCPCS: A0425; A0426 ==

== ENCOUNTER 2018-06-19 12:58 | Inpatient (IN) | payer MEDICARE ==
[~2018-06-19] VITALS: Ht 165.1 cm; Wt 57.4 kg
[2018-06-19 13:25] VITALS: BP 148/67
[2018-06-19] MEDS ORDERED: ACETAMINOPHEN 500 MG TAB PO PRN ×2 (13:55→16:05)
[2018-06-19] MEDS ORDERED: OXYMETAZOLINE SPRAY 15 ML BTL ENA PRN (13:55)
--- NOTE | 2018-06-19 14:19 | NUR ---
Physical Therapy Impression PT/OT co ECF eval complete. Pt with significant fear of pain with movement. ModA x2 for supine to sit, once sitting at EOB, pt with difficulty finding comfortable position. MaxA x 2 for sit to supine as pt was unable to initiate movement d/t pain and fear of movement. Pt required significantly elevated bed in order to complete STS transfer with Celia x2 with RW. Pt with difficulty unweighting LE in order to complete side step at EOB. Pt will benefit from skilled PT services in order to increase independence with functional mobility and decrease need of assistance from others prior to d/c home. Physical Therapy Goals 1: Pt to complete bed mobility with Lidia 2: Pt to complete transfers with Lidia and least restrictive AD 3: Pt to ambulate 150' with Lidia and least restrictive AD 4: Pt to asc/desc 4 stairs with railing and CGA Patient's Goals
--- NOTE | 2018-06-19 15:48 | PT ECF NOTE ---
Type of Note: Initial Note Primary Medical Diagnosis: R) hip fx, s/p ORIF Physical Therapy Evaluation Date: 06/19/18 SUBJECTIVE: Prior Hospitalization: [facility] 06/09/18-06/19/18 Prior Level of Function: Randell with RW Prior Living Status: Single level house, Spouse Community Services:Support adequate, uses [employer] bus to/from dialysis, [facility] services s/p pelvic fx Home Accessibility: 4 stairs with rails, All needs on one level Equipment Owned: Cane, AGATA Medical Complications/Past Medical History: End stage renal disease, DM type 1 Psychosocial Support: Supportive and daughter Pain Scale (0-10): 8/10 with mobility OBJECTIVE: Strength: Right Lower Extremity: DF: 4/5 Knee flexion: <3/5 Knee extension: <3/5 Hip flexion: <3/5 Left Lower Extremity: DF: 4/5 Knee flexion: <3/5 Knee extension: <3/5 Hip flexion: <3/5 ROM: (please note any abnormalities) Bilateral LEs limited by pain in R) LE with all movement Sensation: (please note any abnormalities) no abnormalities reported by pt Other Neuro findings: N/A Bed Mobility: ModA x2 supine to sit, MaxAx2 sit to supine Transfers: Celia x2 with RW from elevated bed Gait: Pt unable Stairs: Pt unable Timed Up and Go (>12 seconds indicated increased risk for falls): Pt unable to ambulate adequate distance to assess 10 meter walk test (0.6m/second cannot function independently): Pt unable to ambulate adequate distance to assess ASSESSMENT: PT/OT co ECF eval complete. Pt with significant fear of pain with movement. ModA x2 for supine to sit, once sitting at EOB, pt with difficulty finding comfortable position. MaxA x 2 for sit to supine as pt was unable to initiate movement d/t pain and fear of movement. Pt required significantly elevated bed in order to complete STS transfer with Celia x2 with RW. Pt with difficulty unweighting LE in order to complete side step at EOB. Pt will benefit from skilled PT services in order to increase independence with functional mobility and decrease need of assistance from others prior to d/c home. Problem List/Current Limitations: Pain Decreased WB Decreased activity kerri Decreased strength Decreased ROM Decreased balance Generalized weakness Short Term Goals: 1: Pt to complete bed mobility with Randell 2: Pt to complete transfers with Randell and least restrictive AD 3: Pt to ambulate 150' with Randell and least restrictive AD 4: Pt to asc/desc 4 stairs with railing and CGA Alf Goals: Pt to d/c home with decreased need of assistance from others. Rehabilitation Prognosis: Fair Barriers for Discharge: High pain levels present at baseline evaluation, fear of movement, h/o falls PLAN: The patient will benefit from skilled physical therapy services 5 times per week for 2 weeks including: Therapeutic Exercise Therapeutic Activities Transfer Training Gait Training Stair Training Manual Therapy Safety Training Neuromuscular Re-educ. Pt/Caregiver Training Bed Mobility Thank you for this referral. If you have any questions, concerns, or comments about this report or plan, please contact me at . Susan Orellana, PT, DPT MTDD
[2018-06-19] MEDS ORDERED: BISACODYL 10 MG SUPP PR PRN (17:05)
--- NOTE | 2018-06-19 17:39 | History & Physical ---
History of Present Illness History of Present Illness 78yo male with a h/o T1DM/ESRD/pubic ramus fx who had a suffered a right hip fracture on 06/09. It was repaired on 06/10 with a CMN nail. He denies any cp/sob. He does have right groin pain with sitting since the surgery. [facility] for continued work with OT/PT. History Problems: (1) DM type 1 (diabetes mellitus, type 1) Status: Chronic (2) End-stage renal disease on hemodialysis Status: Chronic (3) Hip fracture, right Status: Acute (4) Fracture of left superior pubic ramus Status: Acute (5) Fracture of left inferior pubic ramus Status: Acute Home Meds Active Scripts Lidocaine (Lidocaine) 5 % Adh..patch, 1 EACH TP QDAY, #1 BOX Prov:ISAC THRASHER MD 05/16/18 Acetaminophen (MAPAP) 325 Mg Tablet, 650 MG PO Q6H PRN for FEVER/PAIN, #60 TAB Prov:ISAC THRASHER MD 05/16/18 Reported Medications Calcium Carbonate (CALCIUM CARBONATE) 500 Mg Tablet, 1000 MG PO TIDCF 05/13/18 Aspirin (ASPIRIN EC) 81 Mg Tablet.dr, 81 MG PO QDAY, TAB 05/04/18 Metoprolol Tartrate (METOPROLOL TARTRATE) 50 Mg Tab, 1 TAB PO BID, TAB 05/04/18 Omeprazole (OMEPRAZOLE) 40 Mg Capsule.dr, 40 MG PO QDAY, CAP 05/04/18 Levothyroxine Sodium (LEVOTHYROXINE SODIUM) 0.112 Mg Tab, 0.112 MG PO QDAY, TAB 05/04/18 Ergocalciferol (Vitamin D2) (VITAMIN D2) 50,000 Unit Capsule, 36186 UNIT PO 3XW, CAPSULE 05/09/16 Nut.tx.impaired Renal Fxn,Soy (NEPRO CARB STEADY) 237 Ml Liquid, 237 ML PO QODAY 05/09/16 [Novolin] 100unit/ml No Conflict Check, 10 UNITS SUBQ TID MAY INCREASE TO 20 UNITS TID NEEDED TO KEEP BLOOD SUGARS IN RANGE 05/28/12 Allergies: Coded Allergies: meperidine HCl (Verified Allergy, Mild, GETS LOOPY, 04/26/18) meperidine (Verified Adverse Reaction, Intermediate, HALLUCINATIONS, 04/26/18) Hx Smoking: No Smoking Status: Never Smoker Exposure to Second Hand Smoke?: No Caffeine Intake: Coffee Caffeine/Cups Per Day: 1 cup in the am Hx Alcohol Use: No Hx Substance Use Disorder: No Review of Systems Other SEE HPI Exam Vital Signs Vital Signs Date Time Temp Pulse Resp B/P (MAP) Pulse Ox O2 Delivery O2 Flow Rate FiO2 06/19/18 13:25 98.3 66 16 148/67 (94) Room Air General Appearance: Alert, Awake, No Acute Distress ENT: Moist Mucous Membranes Cardiovascular: Regular Rate and Rhythm Respiratory: Clear to Auscultation Extremities: No Edema Integumentary: Other (incisions over right hip has 3 different sites. They are all c/d/i and deangelo in place) Assessment and Plan Problems: (1) Hip fracture, right Status: Acute Assessment & Plan: He tripped and fell on 06/09 suffering a proximal femur fracture below the greater trochanter. He had a CMN nail placed on 06/10. He can weight bear as tolerated. He will be on heparin SC for 6 more days for DVT prophylaxis. He will be on APAP and lidoderm for pain and tramadol for breakthrough pain (ESRD dosing). Will start MiraLax, docusate and prn Dulcolax suppository for constipation. His deangelo need to come out by 06/24. He is work with OT/PT. (2) DM type 1 (diabetes mellitus, type 1) Status: Chronic Assessment & Plan: NPH 5 units bid. Will check glucose AC and HS, but will not do SSI because of the ESRD. If glucose>300 or <70, staff is to call. (3) End-stage renal disease on hemodialysis Status: Chronic Assessment & Plan: Continue chronic HD. Venous Thromboembolism Antithrombotics Is Pt On Any Antithrombotics?: Yes HEYDI OLMOS MD Jun 19, 2018 17:39
[2018-06-19] MEDS: POLYETHYLENE GLYCOL 17 GM PKT PO SCH (17:47)
[2018-06-19] MEDS: INSULIN HUM ISO(NPH) 100 UN/ML 3 ML VIAL SUBQ SCH (17:51)
--- NOTE | 2018-06-19 19:10 | Consultant Pharmacy Review ---
Pediatric Dermatologist Review Medication Review Do All Mecications have a Diag: No (pantoprazole (home med is omeprazole)) Other General Cautions Lexicomp Interaction Analysis A = No known interaction C = Monitor therapy X = Avoid combination B = No action needed D = Consider therapy modification Drugs in this analysis: Acetaminophen; Aspirin; Bisacodyl; Calcium Carbonate; Centrum (SYN); Cholecalciferol; Docusate Sodium (SYN); EMLA [DSC]; Heparin Sodium Injection, MCFP (CAN); HumuLIN N [OTC]; Levothyroxine; Lidoderm; Metoprolol; Oxymetazoline (Nasal); Pantoprazole; Vitamin B Complex and Ascorbic Acid * Drug-Drug Interactions X Centrum (SYN) (Multivitamins/Minerals (with ADEK, Folate, Iron)) Cholecalciferol (Vitamin D Analogs) Depends on Dose D Bisacodyl Calcium Carbonate (Antacids) D Calcium Carbonate (Antacids) Centrum (SYN) (Multivitamins/Minerals (with ADEK, Folate, Iron)) D Calcium Carbonate (Calcium Salts) Levothyroxine (Thyroid Products) D Centrum (SYN) (Multivitamins/Minerals (with ADEK, Folate, Iron)) Le vothyroxine C Acetaminophen (Methemoglobinemia Associated Agents) Lidoderm (Local Anesthetics) C Aspirin Centrum (SYN) (Multivitamins/Minerals (with ADEK, Folate, Iron)) Depends on Dose C Aspirin Heparin Sodium Injection, MCFP (CAN) (Heparin) C Aspirin (Salicylates) HumuLIN N [OTC] (Blood Glucose Lowering Agents) Depends on Dose C Calcium Carbonate (Calcium Salts) Cholecalciferol (Vitamin D Analogs) C Centrum (SYN) (Multivitamins/Minerals (with ADEK, Folate, Iron)) Pantoprazole (Proton Pump Inhibitors) C HumuLIN N [OTC] (Insulins) Metoprolol (Beta-Blockers) C Lidoderm (Lidocaine (Topical)) Metoprolol (Beta-Blockers) B Aspirin Vitamin B Complex and Ascorbic Acid (Ascorbic Acid) Depends on Dose B Aspirin (Salicylates) Calcium Carbonate (Antacids) Depends on Duration B Levothyroxine (Thyroid Products) Pantoprazole (Proton Pump Inhibitors) Patient is on Dialysis and gets his blood work checked frequently so the interaction with multivitamin and the cholecalciferol is okay as patient being monitored. Pneumococcal Vaccine HX Pneumo Vac ([id number]): Yes (01/08/14) HX Pneumo Vac (Pneumovax): Yes (10/19/12) Comments Regarding the Review Patient is up to date on his vaccinations. RAFY CRYSTAL Jun 19, 2018 19:10
[2018-06-19] MEDS: PATCH REMOVAL 1 EA TP SCH (20:51)
[2018-06-19] MEDS: HEPARIN (PORC) 5000 UN/ML VIAL SC SCH (20:52)
[2018-06-19] MEDS: METOPROLOL TART 50 MG TAB PO SCH (20:52)
[2018-06-19] MEDS: DOCUSATE SODIUM 100 MG CAP PO SCH (20:52)
[2018-06-19] MEDS: traMADol 50 MG TAB PO PRN (21:00)
[2018-06-20] MEDS: LEVOTHYROXINE SOD 0.112 MG TAB PO SCH (06:10)
[2018-06-20 08:30] VITALS: BP 142/77
--- NOTE | 2018-06-20 08:42 | OT ECF NOTE ---
Type of Note: Initial Note Primary Medical Diagnosis: Generalized weakness s/p fall at home and right hip fx with gamma nail *WBAT* [facility] for hip fx 06/09/18 thru 06/19/18 Previous pelvic fx with admission to [facility] 04/26/18 thru 05/03/18 and [facility] 05/03/18 thru 05/17/18 Occupational Therapy Evaluation Date: 06/19/18 SUBJECTIVE: Prior Hospitalization: [facility] 06/09/18 thru 06/19/18 Prior Level of Function: Mod (I) with RW Prior Living Status: Single level house Spouse Living with family Assist by family Community Services: Home health assisted Accessibility: Stairs with rails All needs on one level Tub/shower combination Equipment Owned: Front wheeled walker Rollator Toilet riser Bedside commode Extended tub bench Medical Complications/Past Medical History: Please refer to EMR. Pt has end stage renal disease on hemodialysis Psychosocial Support: Supportive spouse Pain Scale (0-10): 8/10 with mobility. Pt very fearful anticipation of all movement. OBJECTIVE: Strength: MMT: Right Left Shoulder Flexion WFL WFL Elbow Flexion WFL WFL Wrist Extension WFL WFL [employer] Support Specialist WFL WFL (5= normal, 4= good, 3= fair, 2= poor, 1= trace) ROM: Both upper extremities, WFL Sensation: Intact, No concerns Functional Transfer: Assistive Device: Front wheeled walker, Gait belt Transfer Ability: Moderate assistance, 2-person assist. Unable to tolerate functional transfers or mobility. Recommend EZ lift. ADL: Upper body dressing: Assistive device: Upper body dressing ability: N/T Lower body dressing: Assistive device: Lower body dressing ability: N/T Toileting: Assistive device: Toileting ability: N/T Grooming/hygiene: Assistive device: Grooming ability: N/T Bathing: Assistive device: Bathing ability: N/T Standardized Assessment: Dominic Index of Activities of Daily Livin/20 upon initial evaluation (06/19/18). ASSESSMENT: "Terence" presents to [facility] requiring 2 person assist for all ADLs/IADLs and is unable to tolerate functional mobility or functional transfers at this time due to increased pain. At [facility], he was Modified Independent with ADLs and occasional assist from spouse for IADLs. Pt was receiving assist from services. Problem List/Current Limitations: Pain Decreased activity tolerance Generalized weakness Short Term Goals: 1) Pt will be Mod (I) UB/LB dressing. 2) Pt will be Mod (I) grooming/hygiene. 3) Pt will be Mod (I) toileting. 4) Pt will be CGA shower transfer and shower. 5) Pt Dominic Index of ADLs will improve by 2 points. 6) Pt will be SBA light meal prep task. Prison Goals: Return home with Patient Goals: Return home Rehabilitation Prognosis: Fair Barriers to Discharge: Pain, fear of movement, history of falls PLAN: The patient will benefit from skilled occupational therapy services 5 times per week for 2 weeks including: Ther ex ADL training Safety training Ther act IADL training Transfer training Adaptive equip training Bed mobility Energy conservation Thank you for this referral. If you have any questions, concerns, or comments about this report or plan, please contact me at . Aicha Samuel MS, OTR/L Occupational Therapist MAZIN
[2018-06-20] MEDS: INSULIN HUM ISO(NPH) 100 UN/ML 3 ML VIAL SUBQ SCH ×2 (08:53→17:18)
[2018-06-20] MEDS: MULTIVITAMINS TAB PO SCH (08:54)
[2018-06-20] MEDS: LIDOCAINE 5% PATCH TP SCH (08:54)
[2018-06-20] MEDS: DOCUSATE SODIUM 100 MG CAP PO SCH ×2 (08:54→20:48)
[2018-06-20] MEDS: METOPROLOL TART 50 MG TAB PO SCH ×2 (08:54→20:44)
[2018-06-20] MEDS: VITAMIN B CPLX/VIT C/FOLIC AC PO SCH (08:54)
[2018-06-20] MEDS: PANTOPRAZOLE SOD 40 MG TABEC PO SCH (08:54)
[2018-06-20] MEDS: HEPARIN (PORC) 5000 UN/ML VIAL SC SCH ×2 (08:55→20:45)
[2018-06-20] MEDS: CALCIUM CARBONATE 500 MG CHEW PO SCH (08:55)
[2018-06-20] MEDS: POLYETHYLENE GLYCOL 17 GM PKT PO SCH (08:55)
[2018-06-20] MEDS: ACETAMINOPHEN 500 MG TAB PO PRN ×2 (08:57→20:54)
--- NOTE | 2018-06-20 12:32 | NUR ---
Occupational Therapy Impression PT/OT co-tx for pt safety. Pt with poor tolerance for transfers and functional mobility secondary to c/o pain and fear with movement. Increased time for Min Ax2 stand pivot with RW chair to w/c for dialysis. Pt declined further ADLs. Continue POC. Occupational Therapy Goals 1) Pt will be Mod (I) UB/LB dressing. 2) Pt will be Mod (I) grooming/hygiene. 3) Pt will be Mod (I) toileting. 4) Pt will be CGA shower transfer and shower. 5) Pt Dominic Index of ADLs will improve by 2 points. 6) Pt will be SBA light meal prep task. Patient's Goal
[2018-06-20 13:43] VITALS: BMI 21.5
--- NOTE | 2018-06-20 14:16 | Medical Nutrition Therapy ---
Nutrition Anthropometrics Height (Inches): 65.00 Height (Calculated Centimeters: 165.207458 Weight (Pounds): 129 Weight (Calculated Kilograms): 58.740 BMI: 21.5 Mohamud Nutrition Score: Probably Inadequate Mohamud Nutrition Risk Score: 15 Dietary Referral Nutrition Risk Factors: Special Diet Nutrition Risk Comment: Nutritional Diagnosis Nutritional Risk Acuity 1: Acute/ES Renal (on dialysis) Nutritional Risk Acuity 3: Fair Appetite Nutritional Risk Acuity 4: Age Related Past Medical History: T1DM, end stage renal disease with hemodialysis, hip fracture, pubic ramus fracture. Nutritional Acuity: 1-High Nutrition Diagnosis: Increased Nutrient Needs, Decreased Nutrient Needs Nutrition Etiology: Physiological Causes Nutrition Problem/Etiology/Sym: Increased protein need R/T physiologial cause AEB ESRD on dialysis. Decreased Na, fluids, K+, phos R/T physiologial cause AEB ESRD on dialysis Energy Requirement: 1950 (M- St J X 1.2SF) Protein Requirement: 71 (1.2gm/kg) Fluid Requirement: 1500 Nutrition Intervention: Cont diet as ordered, Check glucose Nutrition Monitoring & Eval Nutrition Goals: Eat 75-100% Meal Nutrition Follow-Up: Fair Intake RD Patient Assessment Time: [address] Assessment Type: RD Assessment Patient Nutrition Acuity: 1-High Follow Up Date: Jun 26, 2018 Nutritional Comment: 06/20: Pt admitted for right hip fracture. Pt has a hx of DMT1, end stage renal, hip fracture, pubic ramus fracture. Elevated WBG (187-210). Pt on heparin (anticoagulant). Pt on a diabetic diet and consuming 50% of meals. -JJ 06/20 Pt on Renal high protein. Pt requesting high phos/ high Na foods not recommended on renal diet. Pt was advised to limit these foods but he has right to choose foods not recommended. Encouraged pt to take phos binder with meals. Will cont to monitor and encourage intake. NEFTALY PETERSON Jun 20, 2018 14:16
--- NOTE | 2018-06-20 16:59 | NUR ---
Physical Therapy Impression Attempted stand pivot transfer chair>wheelchair. Pt able to stand with Min-Mod A x2 using RW but was unable to perform stepping or pivoting. OT had to move wheelchair behind patient. Pt with verbalizations indicating pain, however, when asked to rate pain, Pt reports low number. Pt with poor tolerance to activity at this time. Physical Therapy Goals 1: Pt to complete bed mobility with Lidia 2: Pt to complete transfers with Lidia and least restrictive AD 3: Pt to ambulate 150' with Lidia and least restrictive AD 4: Pt to asc/desc 4 stairs with railing and CGA Patient's Goals
[2018-06-20 17:00] VITALS: BP 118/68
[2018-06-20] MEDS: CHOLECALCIFEROL 1000 UNIT TAB PO SCH (20:44)
[2018-06-20] MEDS: ASPIRIN 81 MG ENTERIC COATED PO SCH (20:44)
[2018-06-20] MEDS: PATCH REMOVAL 1 EA TP SCH (21:00)
[2018-06-21] MEDS: LEVOTHYROXINE SOD 0.112 MG TAB PO SCH (06:13)
[2018-06-21 08:00] VITALS: BP 134/82
[2018-06-21] MEDS: traMADol 50 MG TAB PO PRN (08:50)
[2018-06-21] MEDS: CALCIUM CARBONATE 500 MG CHEW PO SCH (08:50)
[2018-06-21] MEDS: POLYETHYLENE GLYCOL 17 GM PKT PO SCH (08:51)
[2018-06-21] MEDS: INSULIN HUM ISO(NPH) 100 UN/ML 3 ML VIAL SUBQ SCH ×2 (08:51→17:11)
[2018-06-21] MEDS: PANTOPRAZOLE SOD 40 MG TABEC PO SCH (08:51)
[2018-06-21] MEDS: LIDOCAINE 5% PATCH TP SCH (08:51)
[2018-06-21] MEDS: HEPARIN (PORC) 5000 UN/ML VIAL SC SCH ×2 (08:51→20:25)
[2018-06-21] MEDS: CHOLECALCIFEROL 1000 UNIT TAB PO SCH (08:51)
[2018-06-21] MEDS: MULTIVITAMINS TAB PO SCH (08:51)
[2018-06-21] MEDS: VITAMIN B CPLX/VIT C/FOLIC AC PO SCH (08:51)
[2018-06-21] MEDS: DOCUSATE SODIUM 100 MG CAP PO SCH ×2 (08:51→20:25)
[2018-06-21] MEDS: METOPROLOL TART 50 MG TAB PO SCH ×2 (08:51→20:25)
--- NOTE | 2018-06-21 10:33 | NUR ---
Occupational Therapy Impression Pt able to tolerate ambulation x1 foot with Min A from therapist prior to fatigue and requesting to sit. Refusing further mobility/ADLs secondary to pain. Declined UB ther ex. Will continue to encourage and promote improved function. Reports spouse is bringing clothes later and would like a shower. Occupational Therapy Goals 1) Pt will be Mod (I) UB/LB dressing. 2) Pt will be Mod (I) grooming/hygiene. 3) Pt will be Mod (I) toileting. 4) Pt will be CGA shower transfer and shower. 5) Pt Dominic Index of ADLs will improve by 2 points. 6) Pt will be SBA light meal prep task. Patient's Goal
[2018-06-21] MEDS: ACETAMINOPHEN 500 MG TAB PO PRN ×2 (11:44→21:17)
[2018-06-21 16:25] VITALS: BP 113/67
[2018-06-21] MEDS: ASPIRIN 81 MG ENTERIC COATED PO SCH (20:25)
[2018-06-21] MEDS: PATCH REMOVAL 1 EA TP SCH (21:00)
[2018-06-22] MEDS: LEVOTHYROXINE SOD 0.112 MG TAB PO SCH (06:05)
[2018-06-22 08:00] VITALS: BP 164/89
[2018-06-22] MEDS: INSULIN HUM ISO(NPH) 100 UN/ML 3 ML VIAL SUBQ SCH ×2 (08:00→16:51)
[2018-06-22] MEDS: ONDANSETRON 4 MG ODT TABDP SL PRN (08:28)
[2018-06-22] MEDS: VITAMIN B CPLX/VIT C/FOLIC AC PO SCH (09:00)
[2018-06-22] MEDS: DOCUSATE SODIUM 100 MG CAP PO SCH ×2 (09:00→20:16)
[2018-06-22] MEDS: LIDOCAINE 5% PATCH TP SCH (09:00)
[2018-06-22] MEDS: POLYETHYLENE GLYCOL 17 GM PKT PO SCH (09:00)
[2018-06-22] MEDS: CHOLECALCIFEROL 1000 UNIT TAB PO SCH (09:00)
[2018-06-22] MEDS: PANTOPRAZOLE SOD 40 MG TABEC PO SCH (09:00)
[2018-06-22] MEDS: CALCIUM CARBONATE 500 MG CHEW PO SCH (09:00)
[2018-06-22] MEDS: METOPROLOL TART 50 MG TAB PO SCH ×2 (09:00→20:16)
[2018-06-22] MEDS: MULTIVITAMINS TAB PO SCH (09:00)
[2018-06-22] MEDS: HEPARIN (PORC) 5000 UN/ML VIAL SC SCH ×2 (10:00→20:16)
--- NOTE | 2018-06-22 16:33 | NUR ---
Occupational Therapy Impression Bryce Cognitive Assessment Completed (MOCA) Pt scoring 21/30. Normal is 26 or greater. Areas of deficit were executive function, attention, language and recall. Pt discouraged at end of assessment, will review and address needs at next tx. Occupational Therapy Goals 1) Pt will be Mod (I) UB/LB dressing. 2) Pt will be Mod (I) grooming/hygiene. 3) Pt will be Mod (I) toileting. 4) Pt will be CGA shower transfer and shower. 5) Pt Dominic Index of ADLs will improve by 2 points. 6) Pt will be SBA light meal prep task. Patient's Goal
[2018-06-22 16:40] VITALS: BP 154/72
[2018-06-22] MEDS: ACETAMINOPHEN 500 MG TAB PO PRN (16:54)
[2018-06-22] MEDS: ASPIRIN 81 MG ENTERIC COATED PO SCH (20:16)
[2018-06-22] MEDS: PATCH REMOVAL 1 EA TP SCH (21:00)
[2018-06-23] MEDS: LEVOTHYROXINE SOD 0.112 MG TAB PO SCH (06:28)
[2018-06-23 08:10] VITALS: BP 127/70
[2018-06-23] MEDS: POLYETHYLENE GLYCOL 17 GM PKT PO SCH (09:00)
[2018-06-23] MEDS: DOCUSATE SODIUM 100 MG CAP PO SCH ×2 (09:00→21:00)
[2018-06-23] MEDS: METOPROLOL TART 50 MG TAB PO SCH ×2 (09:01→21:07)
[2018-06-23] MEDS: CALCIUM CARBONATE 500 MG CHEW PO SCH (09:01)
[2018-06-23] MEDS: HEPARIN (PORC) 5000 UN/ML VIAL SC SCH ×2 (09:02→21:07)
[2018-06-23] MEDS: PANTOPRAZOLE SOD 40 MG TABEC PO SCH (09:02)
[2018-06-23] MEDS: LIDOCAINE 5% PATCH TP SCH (09:02)
[2018-06-23] MEDS: INSULIN HUM ISO(NPH) 100 UN/ML 3 ML VIAL SUBQ SCH ×2 (09:02→17:35)
[2018-06-23] MEDS: MULTIVITAMINS TAB PO SCH (09:02)
[2018-06-23] MEDS: CHOLECALCIFEROL 1000 UNIT TAB PO SCH (09:02)
[2018-06-23] MEDS: VITAMIN B CPLX/VIT C/FOLIC AC PO SCH (09:02)
[2018-06-23 15:40] VITALS: BP 144/74
[2018-06-23] MEDS: traMADol 50 MG TAB PO PRN (16:12)
--- NOTE | 2018-06-23 16:53 | NUR ---
Physical Therapy Impression Pt requires Min-Mod A for standing and Min A to ambulate 5' with RW. Pt most limited by pain in weightbearing. Physical Therapy Goals 1: Pt to complete bed mobility with Lidia 2: Pt to complete transfers with Lidia and least restrictive AD 3: Pt to ambulate 150' with Lidia and least restrictive AD 4: Pt to asc/desc 4 stairs with railing and CGA Patient's Goals
[2018-06-23] MEDS: PATCH REMOVAL 1 EA TP SCH (21:00)
[2018-06-23] MEDS: ASPIRIN 81 MG ENTERIC COATED PO SCH (21:07)
[2018-06-24] MEDS: LEVOTHYROXINE SOD 0.112 MG TAB PO SCH (05:54)
[2018-06-24 08:00] VITALS: BP 146/68
[2018-06-24] MEDS: MULTIVITAMINS TAB PO SCH (08:16)
[2018-06-24] MEDS: INSULIN HUM ISO(NPH) 100 UN/ML 3 ML VIAL SUBQ SCH ×2 (08:16→16:51)
[2018-06-24] MEDS: PANTOPRAZOLE SOD 40 MG TABEC PO SCH (08:16)
[2018-06-24] MEDS: VITAMIN B CPLX/VIT C/FOLIC AC PO SCH (08:16)
[2018-06-24] MEDS: HEPARIN (PORC) 5000 UN/ML VIAL SC SCH ×2 (08:16→20:16)
[2018-06-24] MEDS: CALCIUM CARBONATE 500 MG CHEW PO SCH (08:16)
[2018-06-24] MEDS: METOPROLOL TART 50 MG TAB PO SCH ×2 (08:17→20:16)
[2018-06-24] MEDS: DOCUSATE SODIUM 100 MG CAP PO SCH ×2 (08:17→20:16)
[2018-06-24] MEDS: CHOLECALCIFEROL 1000 UNIT TAB PO SCH (08:17)
[2018-06-24] MEDS: LIDOCAINE 5% PATCH TP SCH (08:18)
[2018-06-24] MEDS: POLYETHYLENE GLYCOL 17 GM PKT PO SCH (09:00)
[2018-06-24 15:15] VITALS: BP 101/66
[2018-06-24] MEDS: ASPIRIN 81 MG ENTERIC COATED PO SCH (20:16)
[2018-06-24] MEDS: PATCH REMOVAL 1 EA TP SCH (20:16)
[2018-06-24] MEDS: ACETAMINOPHEN 500 MG TAB PO PRN (20:16)
[2018-06-25] MEDS: LEVOTHYROXINE SOD 0.112 MG TAB PO SCH (06:27)
[2018-06-25] MEDS: LIDOCAINE/PRILOCAINE 30GM TUBE TP PRN (06:29)
[2018-06-25 07:30] VITALS: BP 148/73
[2018-06-25] MEDS: PANTOPRAZOLE SOD 40 MG TABEC PO SCH (07:51)
[2018-06-25] MEDS: CHOLECALCIFEROL 1000 UNIT TAB PO SCH (07:51)
[2018-06-25] MEDS: VITAMIN B CPLX/VIT C/FOLIC AC PO SCH (07:51)
[2018-06-25] MEDS: CALCIUM CARBONATE 500 MG CHEW PO SCH (07:51)
[2018-06-25] MEDS: MULTIVITAMINS TAB PO SCH (07:51)
[2018-06-25] MEDS: INSULIN HUM ISO(NPH) 100 UN/ML 3 ML VIAL SUBQ SCH ×2 (07:52→17:02)
[2018-06-25] MEDS: DOCUSATE SODIUM 100 MG CAP PO SCH ×2 (07:56→20:15)
[2018-06-25] MEDS: LIDOCAINE 5% PATCH TP SCH (07:56)
[2018-06-25] MEDS: POLYETHYLENE GLYCOL 17 GM PKT PO SCH (07:57)
[2018-06-25] MEDS: METOPROLOL TART 50 MG TAB PO SCH ×2 (07:57→20:15)
[2018-06-25] MEDS: HEPARIN (PORC) 5000 UN/ML VIAL SC SCH (07:58)
--- NOTE | 2018-06-25 10:14 | Medical Nutrition Therapy ---
Nutrition Anthropometrics Height (Inches): 65.00 Height (Calculated Centimeters: 165.095167 Weight (Pounds): 128 Weight (Calculated Kilograms): 58.315 BMI: 21.5 Mohamud Nutrition Score: Probably Inadequate Mohamud Nutrition Risk Score: 15 Dietary Referral Nutrition Risk Factors: Special Diet Nutrition Risk Comment: Nutritional Diagnosis Nutritional Risk Acuity 1: Acute/ES Renal (on dialysis) Nutritional Risk Acuity 3: Fair Appetite Nutritional Risk Acuity 4: Age Related Past Medical History: T1DM, end stage renal disease with hemodialysis, hip fracture, pubic ramus fracture. Nutritional Acuity: 1-High Nutrition Diagnosis: Increased Nutrient Needs, Decreased Nutrient Needs Nutrition Etiology: Physiological Causes Nutrition Problem/Etiology/Sym: Increased protein need R/T physiologial cause AEB ESRD on dialysis. Decreased Na, fluids, K+, phos R/T physiologial cause AEB ESRD on dialysis Energy Requirement: 1950 (M- St J X 1.2SF) Protein Requirement: 71 (1.2gm/kg) Fluid Requirement: 1500 Nutrition Intervention: Cont diet as ordered Nutrition Monitoring & Eval Nutrition Goals: Eat 75-100% Meal Nutrition Follow-Up: Fair Intake RD Patient Assessment Time: [address] Assessment Type: RD Re-Assessment Patient Nutrition Acuity: 1-High Follow Up Date: Jul 03, 2018 Nutritional Comment: 06/20: Pt admitted for right hip fracture. Pt has a hx of DMT1, end stage renal, hip fracture, pubic ramus fracture. Elevated WBG (187-210). Pt on heparin (anticoagulant). Pt on a diabetic diet and consuming 50% of meals. -JJ 06/20 Pt on Renal high protein. Pt requesting high phos/ high Na foods not recommended on renal diet. Pt was advised to limit these foods but he has right to choose foods not recommended. Encouraged pt to take phos binder with meals. Will cont to monitor and encourage intake. BK 06/25 Pt cont on high protein, renal, diabetic diet. Intake average 7-% of small to regular meals with occasional nutr supplment. BG elevated up to 320. Pt not interested in education for diabetes or renal. Anticipate wt to fluctuate d/t dialysis. Recommend weighing pt after dialysis to ensure dry wt is obtained. Cont to monitor and encourage intake. NEFTALY PETERSON Jun 25, 2018 10:14
--- NOTE | 2018-06-25 11:54 | NUR ---
Physical Therapy Impression Pt taken early for dialysis despite original scheduled time and therapy planned accordingly. Pt will receive OT this pm as tolerated, resume PT tomorrow. Physical Therapy Goals 1: Pt to complete bed mobility with Lidia 2: Pt to complete transfers with Lidia and least restrictive AD 3: Pt to ambulate 150' with Lidia and least restrictive AD 4: Pt to asc/desc 4 stairs with railing and CGA Patient's Goals
[2018-06-25] MEDS: traMADol 50 MG TAB PO PRN (11:59)
--- NOTE | 2018-06-25 14:56 | NUR ---
5-day MDS completed with pt. C: 15, D: 02, E: no concerns, Q: pt plans to DC to community setting, referral made for [facility] Will continue to follow for DC needs.
--- NOTE | 2018-06-25 15:40 | NUR ---
Occupational Therapy Impression Attempting sit<>stand x2 with RW. Pt unable to tolerate WB for standing. EZ lift utilized for transfer with CGA. Fearful with anticipation of movement. Mod A threading LB dressing with asbestos wire finisher. Poor tolerance. Discussed results of MOCA. Pt agreeable to speech therapy consult. Will follow and address at care conference tomorrow. Occupational Therapy Goals 1) Pt will be Mod (I) UB/LB dressing. 2) Pt will be Mod (I) grooming/hygiene. 3) Pt will be Mod (I) toileting. 4) Pt will be CGA shower transfer and shower. 5) Pt Dominic Index of ADLs will improve by 2 points. 6) Pt will be SBA light meal prep task. Patient's Goal
[2018-06-25 17:00] VITALS: BP_SYST 100; BP_SYST 110; BP_DIAS 62
[2018-06-25] MEDS: ASPIRIN 81 MG ENTERIC COATED PO SCH (20:15)
[2018-06-25] MEDS: PATCH REMOVAL 1 EA TP SCH (20:15)
[2018-06-25] MEDS: ACETAMINOPHEN 500 MG TAB PO PRN (20:16)
[2018-06-26] MEDS: LEVOTHYROXINE SOD 0.112 MG TAB PO SCH (06:34)
[2018-06-26 08:00] VITALS: BP 140/74
[2018-06-26] MEDS: POLYETHYLENE GLYCOL 17 GM PKT PO SCH (09:00)
[2018-06-26] MEDS: VITAMIN B CPLX/VIT C/FOLIC AC PO SCH (09:12)
[2018-06-26] MEDS: METOPROLOL TART 50 MG TAB PO SCH ×2 (09:12→20:15)
[2018-06-26] MEDS: CHOLECALCIFEROL 1000 UNIT TAB PO SCH (09:12)
[2018-06-26] MEDS: INSULIN HUM ISO(NPH) 100 UN/ML 3 ML VIAL SUBQ SCH ×2 (09:12→16:58)
[2018-06-26] MEDS: CALCIUM CARBONATE 500 MG CHEW PO SCH (09:13)
[2018-06-26] MEDS: PANTOPRAZOLE SOD 40 MG TABEC PO SCH (09:13)
[2018-06-26] MEDS: MULTIVITAMINS TAB PO SCH (09:13)
[2018-06-26] MEDS: LIDOCAINE 5% PATCH TP SCH (09:13)
[2018-06-26] MEDS: DOCUSATE SODIUM 100 MG CAP PO SCH ×2 (09:13→20:14)
[2018-06-26] MEDS: ACETAMINOPHEN 500 MG TAB PO PRN (09:17)
--- NOTE | 2018-06-26 11:57 | NUR ---
Physical Therapy Impression Pt requires a significant amount of encouragement to participate with mobility. He is highly fearful of falling and of increasing his pain. Pt required a significant amount of time to ambulate only 3'. At this time, home is not a viable option for D/C unless he makes a significant amount of improvement and tolerates increased mobility. Per nursing request, provided pt with a leg electric arc furnace operator to assist with bed mobility. Cont. with POC. Physical Therapy Goals 1: Pt to complete bed mobility with Lidia 2: Pt to complete transfers with Lidia and least restrictive AD 3: Pt to ambulate 150' with Lidia and least restrictive AD 4: Pt to asc/desc 4 stairs with railing and CGA Patient's Goals
--- NOTE | 2018-06-26 12:57 | NUR ---
Occupational Therapy Impression Pt significantly limited by anticipation of pain. Mod Ax1 sit<>stand. Pt unable to tolerate functional mobility. Standing tolerance x1 minute with RW. SBA LB dressing with manager acute, pt with poor problem solving and initiation of tasks. Weight provided for UB ther ex. Continue POC. Occupational Therapy Goals 1) Pt will be Mod (I) UB/LB dressing. 2) Pt will be Mod (I) grooming/hygiene. 3) Pt will be Mod (I) toileting. 4) Pt will be CGA shower transfer and shower. 5) Pt Dominic Index of ADLs will improve by 2 points. 6) Pt will be SBA light meal prep task. Patient's Goal
[2018-06-26 16:35] VITALS: BP 116/68
[2018-06-26] MEDS: PATCH REMOVAL 1 EA TP SCH (20:14)
[2018-06-26] MEDS: ASPIRIN 81 MG ENTERIC COATED PO SCH (20:14)
[2018-06-27] MEDS: LEVOTHYROXINE SOD 0.112 MG TAB PO SCH (06:06)
[2018-06-27 08:00] VITALS: BP 155/81
[2018-06-27] MEDS: PANTOPRAZOLE SOD 40 MG TABEC PO SCH (08:59)
[2018-06-27] MEDS: CALCIUM CARBONATE 500 MG CHEW PO SCH (08:59)
[2018-06-27] MEDS: DOCUSATE SODIUM 100 MG CAP PO SCH ×2 (08:59→20:27)
[2018-06-27] MEDS: CHOLECALCIFEROL 1000 UNIT TAB PO SCH (08:59)
[2018-06-27] MEDS: VITAMIN B CPLX/VIT C/FOLIC AC PO SCH (08:59)
[2018-06-27] MEDS: INSULIN HUM ISO(NPH) 100 UN/ML 3 ML VIAL SUBQ SCH ×2 (08:59→17:00)
[2018-06-27] MEDS: MULTIVITAMINS TAB PO SCH (08:59)
[2018-06-27] MEDS: METOPROLOL TART 50 MG TAB PO SCH ×2 (09:00→20:27)
[2018-06-27] MEDS: LIDOCAINE 5% PATCH TP SCH (09:00)
[2018-06-27] MEDS: POLYETHYLENE GLYCOL 17 GM PKT PO SCH (09:00)
--- NOTE | 2018-06-27 10:41 | NUR ---
Physical Therapy Impression Pt continues to be limited by R LE pain, though it has been noted by nursing that he has not been taking any pain medications, even when offered. Pt is resistant to all education on techniques to reduce pain and improve mobility. His reports of pain are inconsistent with activities being completed. Pt unable to tolerate any ambulation this session. Highly resistant to attempting task. Pt is showing minimal to no progress at this time. May benefit from trial of nustep to improve tolerance for reciprocal motion in a non weight bearing position. Physical Therapy Goals 1: Pt to complete bed mobility with Lidia 2: Pt to complete transfers with Lidia and least restrictive AD 3: Pt to ambulate 150' with Lidia and least restrictive AD 4: Pt to asc/desc 4 stairs with railing and CGA Patient's Goals
[2018-06-27 12:00] VITALS: BP 155/81
[2018-06-27] MEDS: ACETAMINOPHEN 500 MG TAB PO PRN (14:26)
--- NOTE | 2018-06-27 14:58 | Hospitalist Progress Note ---
Subjective Progress Notes Subjective Still complains of pain in his R leg with any movement. Overall he thinks it is getting a bit better. Physical Exam Vital Signs Date Time Temp Pulse Resp B/P (MAP) Pulse Ox O2 Delivery O2 Flow Rate FiO2 06/27/18 12:00 97.6 68 18 155/81 (105) 90 Room Air Intake and Output 06/27/18 06:59 Intake Total 1010 ml Balance 1010 ml Intake Oral 1010 ml # Voids 1 # Bowel Movements 0 General Appearance: Alert, Awake, No Acute Distress Neuro: No Gross deficits Cardiovascular: Regular Rate and Rhythm Respiratory: Clear to Auscultation GI: Soft and Non-Tender Extremities: Warm, Perfused Psych: Appropriate Mood & Affect Assessment and Plan Problems: (1) Hip fracture, right Status: Acute Assessment & Plan: He tripped and fell on 06/09 suffering a proximal femur fracture below the greater trochanter. He had a CMN nail placed on 06/10. He can weight bear as tolerated. He was on heparin SC for DVT prophylaxis and then it was stopped, but he is still not moving well. Will restart. He will be on APAP and lidoderm for pain and tramadol for breakthrough pain (ESRD dosing). Will start MiraLax, docusate and prn Dulcolax suppository for constipation. His deangelo need to come out by 06/24. He is work with OT/PT. (2) DM type 1 (diabetes mellitus, type 1) Status: Chronic Assessment & Plan: NPH 5 units bid. Will check glucose AC and HS, but will not do SSI because of the ESRD. If glucose>300 or <70, staff is to call. (3) End-stage renal disease on hemodialysis Status: Chronic Assessment & Plan: Continue chronic HD. Time Spent on Plan of Care: < 30 min ISAC THRASHER MD Jun 27, 2018 14:58
[2018-06-27 16:10] VITALS: BP 90/54
--- NOTE | 2018-06-27 17:00 | NUR ---
ST ENCOUNTER Cognitive linguistic assessment complete. Please refer to report for detailed information. Overall, the pt exhibits mild to moderate cognitive linguistic impairments in the areas of short-term memory, problem-solving, executive functioning, and speed-of processing. Emphasis will be initially placed on instruction in external visual aides and organization systems to support deficits in short-term memory and executive functioning for improved, holistic participation in rehabilitation program with ultimate goal of d/c to prior living environment. Recommend supervision with IADLs (meds, finances) at discharge. POC 1. Pt will independently refer to external visual aids (e.g., memory book, calendars, daily schedule) to improve memory for daily events, medical information, orientation information, and functional facts. 2. Pt will accurately complete prospective thinking/planning tasks with min cues to improve executive functioning for achievement of rehabilitative goals and successful discharge to least restrictive living environment. 3.Pt will appropriately problem solve for safe and efficient management of medications with min cues for error awareness to support successful return to IADL participation.
[2018-06-27] MEDS: HEPARIN (PORC) 5000 UN/ML VIAL SC SCH (20:27)
[2018-06-27] MEDS: PATCH REMOVAL 1 EA TP SCH (20:27)
[2018-06-27] MEDS: ASPIRIN 81 MG ENTERIC COATED PO SCH (20:27)
[2018-06-28] MEDS: LEVOTHYROXINE SOD 0.112 MG TAB PO SCH (06:22)
[2018-06-28 07:30] VITALS: BP 155/80
[2018-06-28] MEDS: traMADol 50 MG TAB PO PRN (08:43)
[2018-06-28] MEDS: PANTOPRAZOLE SOD 40 MG TABEC PO SCH (08:43)
[2018-06-28] MEDS: MULTIVITAMINS TAB PO SCH (08:43)
[2018-06-28] MEDS: METOPROLOL TART 50 MG TAB PO SCH ×2 (08:43→20:20)
[2018-06-28] MEDS: VITAMIN B CPLX/VIT C/FOLIC AC PO SCH (08:43)
[2018-06-28] MEDS: DOCUSATE SODIUM 100 MG CAP PO SCH ×2 (08:43→20:21)
[2018-06-28] MEDS: CHOLECALCIFEROL 1000 UNIT TAB PO SCH (08:43)
[2018-06-28] MEDS: CALCIUM CARBONATE 500 MG CHEW PO SCH (08:43)
[2018-06-28] MEDS: HEPARIN (PORC) 5000 UN/ML VIAL SC SCH ×2 (08:44→20:20)
[2018-06-28] MEDS: INSULIN HUM ISO(NPH) 100 UN/ML 3 ML VIAL SUBQ SCH ×2 (08:46→17:24)
[2018-06-28] MEDS: POLYETHYLENE GLYCOL 17 GM PKT PO SCH (09:00)
[2018-06-28] MEDS: LIDOCAINE 5% PATCH TP SCH (09:00)
--- NOTE | 2018-06-28 10:31 | SPEECH INITIAL EVALUATION ---
INITIAL SPEECH THERAPY EVALUATION REPORT Cognitive Linguistic Assessment Patient Name: Nahum Garza Date of Evaluation: 06/27/2018 Patient : 42 Clinician: Susi Samuel M.S., CCC-CONSTRUCTION CRAFT LABORER Ordering Physician: Eliane Guerra MD Treatment Dx: mild to moderate cognitive linguistic deficits BACKGROUND The patient is a 78-year-old male who presents to the [facility] for further rehabilitation following hospitalization at [facility] from 06/09/18-06/19/18 for a R hip fx. Pt with additional hx of pelvic fx with prior hospitalization at [facility] from 04/26/18-05/03/18, and associated admission to the [facility] from 05/03/18-05/17/18. The pt was referred for an ST assessment to analyze cognitive linguistic status secondary to staff concerns re: decreased task initiation and problem-solving skills during participation in therapeutic activities. Primary Medical Dx: Generalized weakness s/p fall at home and right hip fx with gamma nail Prior Level of Function: The pt resides in a private residence with his spouse. Prior to hospitalization, the pt exhibited modified independence with ADLs and received occasional assistance from spouse for IADLs. LANGUAGE/COGNITION Pt was seen at the bedside for cognitive linguistic evaluation using portions of the Assessment of Language Related Functional Activities (ANKUSH). Of note, occupational therapy also recently administered the Bryce Cognitive Assessment (MoCA), with results illustrating mild deficits in the areas of attention, language, executive function, and short-term recall. The pt achieved a 21/30 on the MoCA (>26/30=WNL). On the ANKUSH, mild to moderate deficits were further observed in short-term memory, executive functioning, speed of processing, and problem solving skills. The pt was slow to process and store information (both auditory and written), which often resulted in need for additional instruction and a tendency to repeat steps that had been previously completed. Tendency to repeat steps indicated lack of tbhmy-lmy-kncot skills for efficient problem solving. The pt also did not independently recognize errors, but endorsed mistakes when later prompted. The pt relied on external aides to identify the date for successful completion of check writing activity. ANKUSH results indicated the pt would require assistance for safe and effective completion of medication management tasks, and tasks requiring comprehension of written information (e.g., bill paying, reading medication labels, etc). On subtests analyzing ability to solve functional math problems, write checks, and understand schedules/calendars, results indicated a good probability of independent functioning. However, the pts scores on the check writing and calendar/schedule comprehension subtests fell at the low end of the independent range. Overall, the pt exhibits mild to moderate cognitive linguistic impairments in the areas of short-term memory, problem-solving, executive functioning, and speed-of processing. Pt demonstrated good insight re: areas of impairment, and reported motivation to participate in CONSTRUCTION CRAFT LABORER interventions. Pt and spouse participated in mutual establishment of ST POC. Emphasis will be initially placed on instruction in external visual aides and organization systems to support deficits in short-term memory and executive functioning for improved, holistic participation in rehabilitation program. SPEECH: WFL. VOICE: WFL. DYSPHAGIA: WFL. Screened w/ thins. No c/o dysphagia. RECOMMENDATIONS 1. ST 3x/wk, 2wks 2. Assistance with medication and manager financial reporting at discharge PROGNOSIS: Good. Supportive spouse, fair insight, reported willingness to participate. PLAN OF CARE Short Term Goals 1. The patient will independently refer to external visual aids (e.g., memory book, calendars, daily schedule) to improve memory for daily events, medical information, orientation information, and functional facts. 2. The patient will accurately complete prospective thinking/planning tasks with min cues to improve executive functioning for achievement of rehabilitative goals and successful discharge to least restrictive living environment. 3. The patient will appropriately problem solve for safe and efficient management of medications with min cues for error awareness to support successful return to IADL participation. Long-Term Goals 1. The patient will demonstrate functional cognitive communication status for safety and maximized independence upon anticipated d/c to prior living environment w/ appropriate access to home and community resources. Thank you for this referral. Please call [phone] to contact with any questions or concerns. Susi Samuel M.S., CCC-CONSTRUCTION CRAFT LABORER [*] MTDD
--- NOTE | 2018-06-28 12:16 | NUR ---
Occupational Therapy Impression Pt alert and agreeable to OT tx. Goal to progress towards stand pivots with RW in order to progress away from EZ lift with staff. Pt c/o of pain in bilateral shoulders with use of RW. Trialed bilateral platforms and lower RW. Pt reports improvement with lower walker. However, pt requiring Mod A for sit<>stand and unable to tolerate functional mobility. Pt primary c/o of pain in right hoffman this date, positioning and support offered. Continue POC. Occupational Therapy Goals 1) Pt will be Mod (I) UB/LB dressing. 2) Pt will be Mod (I) grooming/hygiene. 3) Pt will be Mod (I) toileting. 4) Pt will be CGA shower transfer and shower. 5) Pt Dominic Index of ADLs will improve by 2 points. 6) Pt will be SBA light meal prep task. Patient's Goal
--- NOTE | 2018-06-28 15:30 | NUR ---
ST ENCOUNTER Pt participated in establishing external "memory book" system to compensate for deficits in short-term recall and executive functioning. Pt required min cues to refer to external aides following initial establishment to support accurate response to questions targeting orientation and short-term memory. Pt also engaged in goal setting exercise to improve prospective thinking and planning for ultimate goal of d/c to home environment. Pt required max to mod cues for participation in executive function tasks. Pt somewhat limited by delayed processing speed and reduced mental flexibility. Motivated to participate in cognitive linguistic tasks. Cont to recommend supervision with IADLs (meds, finances) at discharge. POC 1. Pt will independently refer to external visual aids (e.g., memory book, calendars, daily schedule) to improve memory for daily events, medical information, orientation information, and functional facts. 2. Pt will accurately complete prospective thinking/planning tasks with min cues to improve executive functioning for achievement of rehabilitative goals and successful discharge to least restrictive living environment. 3.Pt will appropriately problem solve for safe and efficient management of medications with min cues for error awareness to support successful return to IADL participation.
--- NOTE | 2018-06-28 17:19 | NUR ---
Physical Therapy Impression Pt declines pain medication offered by nursing, however, then notes that he is unable to participate in therapy due to pain. When asked to point to site of pain during activities and MMT pt notes anterior groin. Pt has been using EZ lift with nursing for BSC use for toileting, but declines ambulation, stating that something just feels significantly worse as compared to his previous pelvis fracture. Looking back on those notes, however, pt was fairly self limiting during that time period as well. Nursing has requested guidance from orthopedic surgeon in [place] who performed surgery but have not received a response. Dr. Eliane Guerra will round on ECF clients tomorrow and nursing plans to address this increased pain issue with her at that time as well. Will delay next PT visit tomorrow until after Dr. Guerra is able to review his concerns. Physical Therapy Goals 1: Pt to complete bed mobility with Lidia 2: Pt to complete transfers with Lidia and least restrictive AD 3: Pt to ambulate 150' with Lidia and least restrictive AD 4: Pt to asc/desc 4 stairs with railing and CGA Patient's Goals
[2018-06-28 17:25] VITALS: BP 100/57
[2018-06-28] MEDS: ASPIRIN 81 MG ENTERIC COATED PO SCH (20:20)
[2018-06-28] MEDS: PATCH REMOVAL 1 EA TP SCH (20:20)
[2018-06-29] MEDS: LEVOTHYROXINE SOD 0.112 MG TAB PO SCH (06:21)
[2018-06-29] MEDS: INSULIN HUM ISO(NPH) 100 UN/ML 3 ML VIAL SUBQ SCH ×2 (08:00→17:00)
[2018-06-29] MEDS: VITAMIN B CPLX/VIT C/FOLIC AC PO SCH (09:00)
[2018-06-29] MEDS: POLYETHYLENE GLYCOL 17 GM PKT PO SCH (09:00)
[2018-06-29] MEDS: DOCUSATE SODIUM 100 MG CAP PO SCH ×2 (09:00→20:31)
[2018-06-29] MEDS: LIDOCAINE 5% PATCH TP SCH (09:00)
[2018-06-29] MEDS: CHOLECALCIFEROL 1000 UNIT TAB PO SCH (09:00)
[2018-06-29] MEDS: PANTOPRAZOLE SOD 40 MG TABEC PO SCH (09:00)
[2018-06-29] MEDS: CALCIUM CARBONATE 500 MG CHEW PO SCH (09:00)
[2018-06-29] MEDS: MULTIVITAMINS TAB PO SCH (09:00)
[2018-06-29] MEDS: METOPROLOL TART 50 MG TAB PO SCH ×2 (09:00→20:30)
[2018-06-29] MEDS: HEPARIN (PORC) 5000 UN/ML VIAL SC SCH ×2 (11:50→20:31)
[2018-06-29 12:50] VITALS: BP 118/58
--- NOTE | 2018-06-29 13:17 | NUR ---
ST ENCOUNTER Pt encountered in room, requesting to reinitiate GRINDER CHIPPER interventions on Monday. Nonspecific rationale for declining participation: "Its just not a good day." Reviewed "memory book" system, and encouraged the pt to continue updating information over the weekend. Pt verbalized agreement. GRINDER CHIPPER to continue POC. POC 1. Pt will independently refer to external visual aids (e.g., memory book, calendars, daily schedule) to improve memory for daily events, medical information, orientation information, and functional facts. 2. Pt will accurately complete prospective thinking/planning tasks with min cues to improve executive functioning for achievement of rehabilitative goals and successful discharge to least restrictive living environment. 3.Pt will appropriately problem solve for safe and efficient management of medications with min cues for error awareness to support successful return to IADL participation.
--- NOTE | 2018-06-29 13:26 | NUR ---
Occupational Therapy Impression Pt tearful regarding progression, emotional support, discussion re: POC. Agreeable to complete LB dressing. Pt reporting increased right leg pain when threading sock on sock aid with bilateral UEs. Use of cash applications associate/sock aid with Min A. Pt frequently reporting hearing a "popping" sensation in ankle/knee seated in chair for LB dressing. Nursing working on getting xray to evaluate R LE. Will follow. Occupational Therapy Goals 1) Pt will be Mod (I) UB/LB dressing. 2) Pt will be Mod (I) grooming/hygiene. 3) Pt will be Mod (I) toileting. 4) Pt will be CGA shower transfer and shower. 5) Pt Dominic Index of ADLs will improve by 2 points. 6) Pt will be SBA light meal prep task. Patient's Goal
--- NOTE | 2018-06-29 13:27 | NUR ---
Occupational Therapy Impression Pt tearful regarding progression. Agreeable to complete LB dressing. Pt reporting increased right leg pain when threading sock on sock aid with bilateral UEs. Use of structural engineer/sock aid with Min A. Pt frequently reporting hearing a "popping" sensation in ankle/knee seated in chair for LB dressing. Nursing working on getting xray to evaluate R LE. Will follow. Occupational Therapy Goals 1) Pt will be Mod (I) UB/LB dressing. 2) Pt will be Mod (I) grooming/hygiene. 3) Pt will be Mod (I) toileting. 4) Pt will be CGA shower transfer and shower. 5) Pt Dominic Index of ADLs will improve by 2 points. 6) Pt will be SBA light meal prep task. Patient's Goal
--- NOTE | 2018-06-29 15:00 | NUR ---
14-day MDS completed with pt. C: 15, D: 03, E: no concerns, Q: pt plans to DC to community setting, referral made for [facility]. Will continue to follow for DC needs.
--- NOTE | 2018-06-29 15:39 | RADIOLOGY IMAGING REPORT ---
FACILITY: [facility] PATIENT NAME: Nahum Garza : 1940 MR: [id number] V: [id number] EXAM DATE: ORDERING PHYSICIAN: ISAC THRASHER TECHNOLOGIST: Location: Patient: Nahum Garza : 1940 Visit/Account:[id number] Date of Sevice: 06/29/2018 Right femur, five views. HISTORY: Pain, recent surgery. COMPARISON: 06/09/2018. The bones are osteoporotic. An oblique mildly comminuted fracture is present in the right proximal f emoral shaft extending into the lesser trochanter resulting in 5 mm medial displacement of the distal fragment. No surrounding callus. A metal kvng has been inserted into the femoral shaft. An interlo cking threaded metal pin terminates in the right femoral head 5 mm from the articular surface. Moder ate degenerative changes are present in the right knee. The distal end of the kvng is been secured wi th an interlocking screw. The distal end of the kvng terminates in the distal femoral metaphysis. Ar terial calcifications are present in the pelvis and leg. IMPRESSION: Internal fixation of right intertrochanteric hip fracture. Atherosclerosis. Report Dictated By: Michael Ny MD at 06/29/2018 3:04 PM Report E-Signed By: Michael Ny MD at 06/29/2018 3:35 PM WSN:LANIVLakia
[2018-06-29 16:20] VITALS: BP 93/53
[2018-06-29] MEDS: PATCH REMOVAL 1 EA TP SCH (19:08)
[2018-06-29] MEDS: ASPIRIN 81 MG ENTERIC COATED PO SCH (20:30)
[2018-06-29] MEDS: traMADol 50 MG TAB PO PRN (22:29)
[2018-06-30] MEDS: LEVOTHYROXINE SOD 0.112 MG TAB PO SCH (06:00)
[2018-06-30 08:31] VITALS: BP 128/69
[2018-06-30] MEDS: POLYETHYLENE GLYCOL 17 GM PKT PO SCH (08:33)
[2018-06-30] MEDS: DOCUSATE SODIUM 100 MG CAP PO SCH ×2 (08:33→21:23)
[2018-06-30] MEDS: METOPROLOL TART 50 MG TAB PO SCH ×2 (08:35→21:23)
[2018-06-30] MEDS: PANTOPRAZOLE SOD 40 MG TABEC PO SCH (08:35)
[2018-06-30] MEDS: MULTIVITAMINS TAB PO SCH (08:35)
[2018-06-30] MEDS: CHOLECALCIFEROL 1000 UNIT TAB PO SCH (08:35)
[2018-06-30] MEDS: VITAMIN B CPLX/VIT C/FOLIC AC PO SCH (08:35)
[2018-06-30] MEDS: HEPARIN (PORC) 5000 UN/ML VIAL SC SCH ×2 (08:36→21:22)
[2018-06-30] MEDS: INSULIN HUM ISO(NPH) 100 UN/ML 3 ML VIAL SUBQ SCH ×2 (08:36→17:53)
[2018-06-30] MEDS: CALCIUM CARBONATE 500 MG CHEW PO SCH (08:37)
[2018-06-30] MEDS ORDERED: LIDOCAINE 5% PATCH TP PRN (09:00)
[2018-06-30 15:50] VITALS: BP 135/64
[2018-06-30] MEDS: traMADol 50 MG TAB PO PRN (16:57)
--- NOTE | 2018-06-30 17:50 | NUR ---
Physical Therapy Impression Lengthy discussion had with pt and regarding pain mangement strategies and functional mobility. Pt did have x-ray taken, however, no response has been had from orthopedist's office in [place]. Orders currently remain unchanged. Pt agreeable to participate in ther ex in reclined and upright sitting. Physical Therapy Goals 1: Pt to complete bed mobility with Lidia 2: Pt to complete transfers with Lidia and least restrictive AD 3: Pt to ambulate 150' with Lidia and least restrictive AD 4: Pt to asc/desc 4 stairs with railing and CGA Patient's Goals
[2018-06-30] MEDS: PATCH REMOVAL 1 EA TP SCH (21:00)
[2018-06-30] MEDS: ASPIRIN 81 MG ENTERIC COATED PO SCH (21:22)
[2018-07-01] MEDS: LEVOTHYROXINE SOD 0.112 MG TAB PO SCH (05:57)
[2018-07-01 07:20] VITALS: BP 126/64
[2018-07-01] MEDS: INSULIN HUM ISO(NPH) 100 UN/ML 3 ML VIAL SUBQ SCH ×2 (08:29→17:03)
[2018-07-01] MEDS: HEPARIN (PORC) 5000 UN/ML VIAL SC SCH ×2 (08:30→21:18)
[2018-07-01] MEDS: CALCIUM CARBONATE 500 MG CHEW PO SCH (08:30)
[2018-07-01] MEDS: VITAMIN B CPLX/VIT C/FOLIC AC PO SCH (08:30)
[2018-07-01] MEDS: PANTOPRAZOLE SOD 40 MG TABEC PO SCH (08:30)
[2018-07-01] MEDS: METOPROLOL TART 50 MG TAB PO SCH ×2 (08:30→21:18)
[2018-07-01] MEDS: CHOLECALCIFEROL 1000 UNIT TAB PO SCH (08:30)
[2018-07-01] MEDS: MULTIVITAMINS TAB PO SCH (08:30)
[2018-07-01] MEDS: DOCUSATE SODIUM 100 MG CAP PO SCH ×2 (08:31→21:00)
[2018-07-01] MEDS: POLYETHYLENE GLYCOL 17 GM PKT PO SCH (08:31)
[2018-07-01 16:25] VITALS: BP 110/59
[2018-07-01] MEDS: PATCH REMOVAL 1 EA TP SCH (21:00)
[2018-07-01] MEDS: ACETAMINOPHEN 500 MG TAB PO PRN (21:17)
[2018-07-01] MEDS: ASPIRIN 81 MG ENTERIC COATED PO SCH (21:18)
[2018-07-02] MEDS: ONDANSETRON 4 MG ODT TABDP SL PRN (02:00)
[2018-07-02] MEDS: LEVOTHYROXINE SOD 0.112 MG TAB PO SCH (05:34)
[2018-07-02 07:40] VITALS: BP 149/69
[2018-07-02] MEDS: VITAMIN B CPLX/VIT C/FOLIC AC PO SCH (08:32)
[2018-07-02] MEDS: traMADol 50 MG TAB PO PRN (08:32)
[2018-07-02] MEDS: CHOLECALCIFEROL 1000 UNIT TAB PO SCH (08:32)
[2018-07-02] MEDS: CALCIUM CARBONATE 500 MG CHEW PO SCH (08:32)
[2018-07-02] MEDS: MULTIVITAMINS TAB PO SCH (08:33)
[2018-07-02] MEDS: PANTOPRAZOLE SOD 40 MG TABEC PO SCH (08:33)
[2018-07-02] MEDS: HEPARIN (PORC) 5000 UN/ML VIAL SC SCH ×2 (08:33→21:03)
[2018-07-02] MEDS: METOPROLOL TART 50 MG TAB PO SCH ×2 (08:33→21:02)
[2018-07-02] MEDS: POLYETHYLENE GLYCOL 17 GM PKT PO SCH (08:34)
[2018-07-02] MEDS: DOCUSATE SODIUM 100 MG CAP PO SCH ×2 (08:34→21:00)
[2018-07-02] MEDS: INSULIN HUM ISO(NPH) 100 UN/ML 3 ML VIAL SUBQ SCH ×2 (08:34→17:24)
--- NOTE | 2018-07-02 08:34 | NUR ---
Contacted Dr Spencer office in [place] who performed Terence's surgery. Dr. Dale Guerra reports that she left an extensive message on Monday regarding xrays, but has not heard back. Spoke with Clari, who stated she would check and then we were disconnected. Message left upon return call.
[2018-07-02] MEDS: LIDOCAINE/PRILOCAINE 30GM TUBE TP PRN (09:45)
--- NOTE | 2018-07-02 10:09 | NUR ---
Occupational Therapy Impression Pt alert and agreeable to OT tx. Pain medication provided 30 minutes prior to tx. SBA with v/c's LB dressing with banking analyst/sock aid, pt with poor problem solving and initiation utilizing AE for dressing. External cues required for increased independence with LB dressing. Mod A sit<>stand with RW for ADLs. Continued difficulty WB throughout R LE. C/o of right ankle/knee/groin pain. Returned to seated. Continue POC. Occupational Therapy Goals 1) Pt will be Mod (I) UB/LB dressing. 2) Pt will be Mod (I) grooming/hygiene. 3) Pt will be Mod (I) toileting. 4) Pt will be CGA shower transfer and shower. 5) Pt Dominic Index of ADLs will improve by 2 points. 6) Pt will be SBA light meal prep task. Patient's Goal
--- NOTE | 2018-07-02 11:25 | NUR ---
ST ENCOUNTER Reviewed patient-centered goals across rehabilitative disciplines. Pt self-reporting use of external aides has improved planning/executive functioning for pain management and exercise completion throughout the day. Pt with evidence of indep carryover with use of "memory book" system outside of structured ST tx encounters. Pt required min cues to initiate reference to external aides in response to questions targeting orientation, daily events, and upcoming activities. Tx duration somewhat shortened due to timing of dialysis. Will f/u later in day as schedule allows. POC 1. Pt will independently refer to external visual aids (e.g., memory book, calendars, daily schedule) to improve memory for daily events, medical information, orientation information, and functional facts. 2. Pt will accurately complete prospective thinking/planning tasks with min cues to improve executive functioning for achievement of rehabilitative goals and successful discharge to least restrictive living environment. 3.Pt will appropriately problem solve for safe and efficient management of medications with min cues for error awareness to support successful return to IADL participation.
[2018-07-02 16:05] VITALS: BP 96/54
--- NOTE | 2018-07-02 16:50 | NUR ---
Physical Therapy Impression Pt performed seated ther ex with improved control of R LE. Mod A to stand from a chair. Standing marching x10 reps with improved tolerance to R LE weightbearing. Pt reporting R LE anterior leg "shooting" pain. (-) slump test. Physical Therapy Goals 1: Pt to complete bed mobility with Lidia 2: Pt to complete transfers with Lidia and least restrictive AD 3: Pt to ambulate 150' with Lidia and least restrictive AD 4: Pt to asc/desc 4 stairs with railing and CGA Patient's Goals
[2018-07-02] MEDS: PATCH REMOVAL 1 EA TP SCH (21:00)
[2018-07-02] MEDS: ACETAMINOPHEN 500 MG TAB PO PRN (21:02)
[2018-07-02] MEDS: ASPIRIN 81 MG ENTERIC COATED PO SCH (21:02)
[2018-07-03] MEDS: LEVOTHYROXINE SOD 0.112 MG TAB PO SCH (05:50)
[2018-07-03 07:30] VITALS: BP 121/66
[2018-07-03] MEDS: INSULIN HUM ISO(NPH) 100 UN/ML 3 ML VIAL SUBQ SCH ×2 (08:27→17:09)
[2018-07-03] MEDS: VITAMIN B CPLX/VIT C/FOLIC AC PO SCH (08:27)
[2018-07-03] MEDS: CALCIUM CARBONATE 500 MG CHEW PO SCH (08:27)
[2018-07-03] MEDS: MULTIVITAMINS TAB PO SCH (08:27)
[2018-07-03] MEDS: POLYETHYLENE GLYCOL 17 GM PKT PO SCH (08:28)
[2018-07-03] MEDS: traMADol 50 MG TAB PO PRN (08:28)
[2018-07-03] MEDS: METOPROLOL TART 50 MG TAB PO SCH ×2 (08:28→20:39)
[2018-07-03] MEDS: PANTOPRAZOLE SOD 40 MG TABEC PO SCH (08:28)
[2018-07-03] MEDS: HEPARIN (PORC) 5000 UN/ML VIAL SC SCH ×2 (08:28→20:40)
[2018-07-03] MEDS: DOCUSATE SODIUM 100 MG CAP PO SCH ×2 (08:28→20:40)
[2018-07-03] MEDS: CHOLECALCIFEROL 1000 UNIT TAB PO SCH (08:28)
--- NOTE | 2018-07-03 10:58 | NUR ---
Physical Therapy Impression Pt's progress note due today; please refer to other notes for details. Pt notes that he did take pain medication with breakfast this morning and is agreeable to address ambulation with therapy visit. Pt ambulated 5' to straight backed armchair to address TUG test. Pt completed TUG test in 10 minutes 45 seconds, requiring 30 seconds to stand, 30 seconds to complete 180 degree turn after 10' ambulation, and 15 seconds to sit into chair at end of test. After sitting rest break, pt was agreeable to ambulate 5' back to his recliner. Physical Therapy Goals 1: Pt to complete bed mobility with Lidia 2: Pt to complete transfers with Lidia and least restrictive AD 3: Pt to ambulate 150' with Lidia and least restrictive AD 4: Pt to asc/desc 4 stairs with railing and CGA Patient's Goals
--- NOTE | 2018-07-03 11:01 | NUR ---
Occupational Therapy Impression Improved tolerance for transfers this date. CGA stand step pivot with RW chair<>BSC and BSC<>chair. Pt continues to demonstrate poor problem solving requiring v/c's for appropriate donning of LB clothing with surgery aid/sock aid. Occupational Therapy Goals 1) Pt will be Mod (I) UB/LB dressing. 2) Pt will be Mod (I) grooming/hygiene. 3) Pt will be Mod (I) toileting. 4) Pt will be CGA shower transfer and shower. 5) Pt Dominic Index of ADLs will improve by 2 points. 6) Pt will be SBA light meal prep task. Patient's Goal
--- NOTE | 2018-07-03 11:19 | OT ECF NOTE ---
Type of Note: 2-week progress note Primary Medical Diagnosis: Generalized weakness s/p fall at home and right hip fx with gamma nail *WBAT* [facility] for hip fx 06/09/18 thru 06/19/18 Previous pelvic fx with admission to [facility] 04/26/18 thru 05/03/18 and [facility] 05/03/18 thru 05/17/18 Occupational Therapy Evaluation Date: 06/19/18 SUBJECTIVE: Prior Hospitalization: [facility] 06/09/18 thru 06/19/18 Prior Level of Function: Mod (I) with RW Prior Living Status: Single level house Spouse Living with family Assist by family Community Services: Home health [facility] Accessibility: Stairs with rails All needs on one level Tub/shower combination Equipment Owned: Front wheeled walker Rollator Toilet riser Bedside commode Extended tub bench Medical Complications/Past Medical History: Please refer to EMR. Pt has end stage renal disease on hemodialysis Psychosocial Support: Supportive spouse Pain Scale (0-10): 8/10 with mobility. Pt very fearful anticipation of all movement. OBJECTIVE: Strength: MMT: Right Left Shoulder Flexion WFL WFL Elbow Flexion WFL WFL Wrist Extension WFL WFL Water Hydrant Installer WFL WFL (5= normal, 4= good, 3= fair, 2= poor, 1= trace) ROM: Both upper extremities, WFL Sensation: Intact, No concerns Functional Transfer: Assistive Device: Front wheeled walker, Gait belt Transfer Ability: CGA stand pivot with RW. Unable to tolerate functional mobility at this time. ADL: Upper body dressing: Assistive device: Upper body dressing ability: Set-up Lower body dressing: Assistive device: Sock aid/chief security and safety officer Lower body dressing ability: Min A with v/c's Toileting: Assistive device: Toileting ability: N/T Grooming/hygiene: Assistive device: Seated Grooming ability: Set-up Bathing: Assistive device: Bathing ability: N/T Standardized Assessment: Dominic Index of Activities of Daily Livin/20 upon initial evaluation (06/19/18). 01/27 upon 2-week progress note (07/03/18). ASSESSMENT: "Terence" presented to [facility] requiring 2 person assist for all ADLs/IADLs and is unable to tolerate functional mobility or functional transfers at this time due to increased pain. Currently, he has progressed to one assist for stand pivot transfers/ADLs. At [facility], he was Modified Independent with ADLs and occasional assist from spouse for IADLs. Pt was receiving assist from HH services. He will benefit from continued OT services to optimize (I) with ADLs/IADLs prior to discharge home. Problem List/Current Limitations: Pain Decreased activity tolerance Generalized weakness Short Term Goals: 1) Pt will be Mod (I) UB/LB dressing. Progressing towards. 2) Pt will be Mod (I) grooming/hygiene. Progressing towards. 3) Pt will be Mod (I) toileting. Progressing towards. 4) Pt will be CGA shower transfer and shower. Progressing towards. 5) Pt Dominic Index of ADLs will improve by 2 points. Progressing towards. 6) Pt will be SBA light meal prep task. Progressing towards. Nursing Home Goals: Return home with Patient Goals: Return home Rehabilitation Prognosis: Fair Barriers to Discharge: Pain, fear of movement, history of falls PLAN: The patient will benefit from skilled occupational therapy services 5 times per week for 2 weeks including: Ther ex ADL training Safety training Ther act IADL training Transfer training Adaptive equip training Bed mobility Energy conservation Thank you for this referral. If you have any questions, concerns, or comments about this report or plan, please contact me at . Aicha Samuel MS, OTR/L Occupational Therapist [facility]
--- NOTE | 2018-07-03 11:29 | Medical Nutrition Therapy ---
Nutrition Anthropometrics Height (Inches): 65.00 Height (Calculated Centimeters: 165.131538 Weight (Pounds): 128 Weight (Calculated Kilograms): 58.117 BMI: 21.5 Mohamud Nutrition Score: Probably Inadequate Mohamud Nutrition Risk Score: 15 Dietary Referral Nutrition Risk Factors: Special Diet Nutrition Risk Comment: Physical Findings Physical Appearance: Skin Appearance Skin Appearance: Edema Edema Location Modifier: Right Edema Location: Lower Extremity Type of Edema: Degree of Edema: Gastrointestinal Symptoms GI Symtoms: Vomiting Tube Present: Bowel Sounds: Recent Bowel Pattern: Stool Characteristics: Nutritional Diagnosis Nutritional Risk Acuity 1: Acute/ES Renal (on dialysis) Nutritional Risk Acuity 3: Fair Appetite Nutritional Risk Acuity 4: Age Related Past Medical History: T1DM, end stage renal disease with hemodialysis, hip fracture, pubic ramus fracture. Nutritional Acuity: 1-High Nutrition Diagnosis: Increased Nutrient Needs, Decreased Nutrient Needs Nutrition Etiology: Physiological Causes Nutrition Problem/Etiology/Sym: Increased protein need R/T physiologial cause AEB ESRD on dialysis. Decreased Na, fluids, K+, phos R/T physiologial cause AEB ESRD on dialysis Energy Requirement: 1950 (M- St J X 1.2SF) Protein Requirement: 71 (1.2gm/kg) Fluid Requirement: 1500 Nutrition Intervention: Cont diet as ordered Nutrition Monitoring & Eval RD Patient Assessment Time: [address] Assessment Type: RD Re-Assessment Patient Nutrition Acuity: 1-High Follow Up Date: Jun 11, 2019 Nutritional Comment: 06/20: Pt admitted for right hip fracture. Pt has a hx of DMT1, end stage renal, hip fracture, pubic ramus fracture. Elevated WBG (187-210). Pt on heparin (anticoagulant). Pt on a diabetic diet and consuming 50% of meals. -JJ 06/20 Pt on Renal high protein. Pt requesting high phos/ high Na foods not recommended on renal diet. Pt was advised to limit these foods but he has right to choose foods not recommended. Encouraged pt to take phos binder with meals. Will cont to monitor and encourage intake. BK 06/25 Pt cont on high protein, renal, diabetic diet. Intake average 7-% of small to regular meals with occasional nutr supplment. BG elevated up to 320. Pt not interested in education for diabetes or renal. Anticipate wt to fluctuate d/t dialysis. Recommend weighing pt after dialysis to ensure dry wt is obtained. Cont to monitor and encourage intake. BK 07/03: Pt is on a renal high protein/NARENDRA diet. Pt is consuming on average 75% of meals and refusing snacks 50% of the time. Pt has elevated WBG (116-160). Pt's weight has been stable (128lbs upon admission and 128lbs on 07/02). Continue monitoring intake and offering snacks/supplements. -HITESH DAVIS Jul 03, 2018 08:30
--- NOTE | 2018-07-03 14:26 | NUR ---
Another message left for Dr. Butcher in [place] regarding xray which was sent to him on Monday.
--- NOTE | 2018-07-03 14:33 | NUR ---
ST ENCOUNTER Pt independently utilizing external memory book system to support deficits in short-term recall, orientation, and prospective recall. Pt required mod assist for participation in executive function tasks with focus on identifying concrete, daily steps to support achievement of long-term goals (e.g., walking, home discharge). Pt with tendency to produce vague, nonspecific responses but was redirected with use of external organization systems and provision of concrete, sequential examples. Mod cues also provided for accurate completion of problem solving scenarios related to med management. Pt exhibited difficulty identifying information re: prior med regimen, including administration time, medication names, purpose, and dosage. Will cont to address. POC 1. Pt will independently refer to external visual aids (e.g., memory book, calendars, daily schedule) to improve memory for daily events, medical information, orientation information, and functional facts. 2. Pt will accurately complete prospective thinking/planning tasks with min cues to improve executive functioning for achievement of rehabilitative goals and successful discharge to least restrictive living environment. 3.Pt will appropriately problem solve for safe and efficient management of medications with min cues for error awareness to support successful return to IADL participation.
--- NOTE | 2018-07-03 15:03 | PT ECF NOTE ---
Type of Note: 2 week progress Note Primary Medical Diagnosis: R) hip fx, s/p ORIF Physical Therapy Evaluation Date: 06/19/18 SUBJECTIVE: Prior Hospitalization: [facility] 06/09/18-06/19/18 Prior Level of Function: Randell with RW Prior Living Status: Single level house, Spouse Community Services:Support adequate, uses [employer] bus to/from dialysis, [facility] services s/p pelvic fx Home Accessibility: 4 stairs with rails, All needs on one level Equipment Owned: Cane, RW Medical Complications/Past Medical History: End stage renal disease, DM type 1 Psychosocial Support: Supportive and daughter Pain Scale (0-10): 8/10 with mobility OBJECTIVE: Strength: Right Lower Extremity: DF: 4/5 Knee flexion: 3/5 Knee extension: 3/5 Hip flexion: <3/5 Left Lower Extremity: DF: 4/5 Knee flexion: 3/5 Knee extension: 3/5 Hip flexion: 3/5 ROM: (please note any abnormalities) R) LE limited by pain Sensation: (please note any abnormalities) no abnormalities reported by pt Other Neuro findings: N/A Bed Mobility: ModA supine to/from sit Transfers: Rochelle/CGA with RW from bed or chair with arms Gait: 30' with sitting rest break using FWW and CGA Stairs: Pt unable Timed Up and Go (>12 seconds indicated increased risk for falls): 10 minutes 45 seconds; with 30 seconds required simply to stand erect and 30 seconds required to complete 180 degree turn after 10' ambulation. 10 meter walk test (0.6m/second cannot function independently): n/a ASSESSMENT: Pt with gradual improvement in fear of pain with movement. Pt previously utilizing EZ lift for transfers with nursing, however, with improved acceptance of pain medication administration, pt has been able to participate more in functional mobility trng. Pt will now utilize BSC with short distance ambulation until he is able to ambulate needed distance to regularly access bathroom. Pt did complete TUG test in 10 min 45 seconds today, which is certainly not a functional speed for household mobility, however, it is a significant improvement overall. Problem List/Current Limitations: Pain Decreased WB Decreased activity kerri Decreased strength Decreased ROM Decreased balance Generalized weakness Short Term Goals: 1: Pt to complete bed mobility with Randell 2: Pt to complete transfers with Randell and least restrictive AD 3: Pt to ambulate 150' with Randell and least restrictive AD 4: Pt to asc/desc 4 stairs with railing and CGA Custodial Goals: Pt to d/c home with decreased need of assistance from others. Rehabilitation Prognosis: Fair Barriers for Discharge: High pain levels present at baseline evaluation, fear of movement, h/o falls PLAN: The patient will benefit from skilled physical therapy services 5 times per week for 2 weeks including: Therapeutic Exercise Therapeutic Activities Transfer Training Gait Training Stair Training Manual Therapy Safety Training Neuromuscular Re-educ. Pt/Caregiver Training Bed Mobility Thank you for this referral. If you have any questions, concerns, or comments about this report or plan, please contact me at . h. Zina Espinoza, PT, MPT, OMS MTDD
[2018-07-03 17:05] VITALS: BP 114/65
[2018-07-03] MEDS: PATCH REMOVAL 1 EA TP SCH (20:34)
[2018-07-03] MEDS: ASPIRIN 81 MG ENTERIC COATED PO SCH (20:40)
[2018-07-03] MEDS: ACETAMINOPHEN 500 MG TAB PO PRN (20:47)
[2018-07-04] MEDS: LEVOTHYROXINE SOD 0.112 MG TAB PO SCH (05:50)
[2018-07-04 08:00] VITALS: BP 132/63
[2018-07-04] MEDS: DOCUSATE SODIUM 100 MG CAP PO SCH ×2 (08:55→20:18)
[2018-07-04] MEDS: CALCIUM CARBONATE 500 MG CHEW PO SCH (08:55)
[2018-07-04] MEDS: CHOLECALCIFEROL 1000 UNIT TAB PO SCH (08:55)
[2018-07-04] MEDS: PANTOPRAZOLE SOD 40 MG TABEC PO SCH (08:55)
[2018-07-04] MEDS: METOPROLOL TART 50 MG TAB PO SCH ×2 (08:55→20:17)
[2018-07-04] MEDS: MULTIVITAMINS TAB PO SCH (08:55)
[2018-07-04] MEDS: VITAMIN B CPLX/VIT C/FOLIC AC PO SCH (08:55)
[2018-07-04] MEDS: INSULIN HUM ISO(NPH) 100 UN/ML 3 ML VIAL SUBQ SCH ×2 (08:56→16:58)
[2018-07-04] MEDS: HEPARIN (PORC) 5000 UN/ML VIAL SC SCH ×2 (09:00→20:17)
[2018-07-04] MEDS: POLYETHYLENE GLYCOL 17 GM PKT PO SCH (09:00)
[2018-07-04] MEDS: ACETAMINOPHEN 500 MG TAB PO PRN ×2 (09:02→20:17)
--- NOTE | 2018-07-04 10:36 | NUR ---
Occupational Therapy Impression Pt alert, agreeable to work on functional mobility to/from toilet. CGA ambulation x15ft with RW prior to pt refusing further mobility due to right knee pain. Pt declining further ADLs. Seated in w/c for dialysis at end tx. Occupational Therapy Goals 1) Pt will be Mod (I) UB/LB dressing. Progressing towards. 2) Pt will be Mod (I) grooming/hygiene. Progressing towards. 3) Pt will be Mod (I) toileting. Progressing towards. 4) Pt will be CGA shower transfer and shower. Progressing towards. 5) Pt Dominic Index of ADLs will improve by 2 points. Progressing towards. 6) Pt will be SBA light meal prep task. Progressing towards. Patient's Goal
--- NOTE | 2018-07-04 15:15 | NUR ---
Physical Therapy Impression Patient presents in room and agrees to therapy but reports he is fatigued from dialysis. Patient declines ambulation as he reports he is in pain and too tired to ambulate. Patient performed basic B seated exercises including seated marching B LAQ ham curls hip abd with manual resist ankle pumps all x 10 reps patient has significant weakness due to hip fracture had increased fatigue from dialysis today. Physical Therapy Goals 1: Pt to complete bed mobility with Lidia 2: Pt to complete transfers with Lidia and least restrictive AD 3: Pt to ambulate 150' with Lidia and least restrictive AD 4: Pt to asc/desc 4 stairs with railing and CGA Patient's Goals
[2018-07-04 15:50] VITALS: BP 109/61
[2018-07-04] MEDS: ASPIRIN 81 MG ENTERIC COATED PO SCH (20:17)
[2018-07-04] MEDS: PATCH REMOVAL 1 EA TP SCH (20:18)
[2018-07-05] MEDS: LEVOTHYROXINE SOD 0.112 MG TAB PO SCH (05:56)
[2018-07-05] MEDS: traMADol 50 MG TAB PO PRN (07:14)
[2018-07-05 08:00] VITALS: BP 152/69
[2018-07-05] MEDS: CHOLECALCIFEROL 1000 UNIT TAB PO SCH (08:38)
[2018-07-05] MEDS: METOPROLOL TART 50 MG TAB PO SCH ×2 (08:38→20:27)
[2018-07-05] MEDS: DOCUSATE SODIUM 100 MG CAP PO SCH ×2 (08:38→20:27)
[2018-07-05] MEDS: PANTOPRAZOLE SOD 40 MG TABEC PO SCH (08:38)
[2018-07-05] MEDS: MULTIVITAMINS TAB PO SCH (08:38)
[2018-07-05] MEDS: INSULIN HUM ISO(NPH) 100 UN/ML 3 ML VIAL SUBQ SCH ×2 (08:39→16:45)
[2018-07-05] MEDS: VITAMIN B CPLX/VIT C/FOLIC AC PO SCH (08:39)
[2018-07-05] MEDS: CALCIUM CARBONATE 500 MG CHEW PO SCH (08:39)
[2018-07-05] MEDS: HEPARIN (PORC) 5000 UN/ML VIAL SC SCH ×2 (08:39→20:27)
[2018-07-05] MEDS: POLYETHYLENE GLYCOL 17 GM PKT PO SCH (09:00)
--- NOTE | 2018-07-05 09:39 | Hospitalist Progress Note ---
Subjective Progress Notes Subjective Moving better with PT. Pain is gradually improving. No new issues. Physical Exam Vital Signs Date Time Temp Pulse Resp B/P (MAP) Pulse Ox O2 Delivery O2 Flow Rate FiO2 07/05/18 08:00 98.3 61 18 152/69 (96) 96 Room Air 07/03/18 17:05 2.0 Intake and Output 07/05/18 07:00 Intake Total 900 ml Balance 900 ml Intake Oral 900 ml # Voids 0 # Bowel Movements 0 General Appearance: Alert, Awake, No Acute Distress Eyes: PERRLA Cardiovascular: Regular Rate and Rhythm Respiratory: Clear to Auscultation GI: Soft and Non-Tender Extremities: Warm, Perfused Psych: Appropriate Mood & Affect Assessment and Plan Problems: (1) Hip fracture, right Status: Acute Assessment & Plan: He tripped and fell on 06/09 suffering a proximal femur fractu re below the greater trochanter. He had a CMN nail placed on 06/10. He can weight bear as tolerated. He was on heparin SC for DVT prophylaxis and then it was stopped, but he is still not moving well so it was restarted. He will be on APAP and lidoderm for pain and tramadol for breakthrough pain (ESRD dosing). Will start MiraLax, docusate and prn Dulcolax suppository for constipation. His deangelo are out. He is working with OT/PT. He was having significant pain and a repeat x-ray was done. This was pushed to his orthopedist and multiple calls were placed to have the new x-ray compared with the postoperative x-ray, however, despite multiple attempts to have this looked at, there has been no response from his orthopedist. The patient is now better able to ambulate. He will need to follow up with the orthopedist in the future. (2) DM type 1 (diabetes mellitus, type 1) Status: Chronic Assessment & Plan: NPH 5 units bid. Will check glucose AC and HS, but will not do SSI because of the ESRD. If glucose>300 or <70, staff is to call. (3) End-stage renal disease on hemodialysis Status: Chronic Assessment & Plan: Continue chronic HD. Time Spent on Plan of Care: < 30 min ISAC THRASHER MD Jul 05, 2018 09:39
--- NOTE | 2018-07-05 10:15 | NUR ---
Physical Therapy Impression Pt continues to require encouragement to participate, however, tolerates greater level of activity and distance for ambulation safely. Pt does require an extended period of time to complete ambulation. Previous TUG test, however, required nearly 11 minutes to accomplish only 20'. Today, pt ambulated 45' in 15 minutes. Physical Therapy Goals 1: Pt to complete bed mobility with Lidia 2: Pt to complete transfers with Lidia and least restrictive AD 3: Pt to ambulate 150' with Lidia and least restrictive AD 4: Pt to asc/desc 4 stairs with railing and CGA Patient's Goals
--- NOTE | 2018-07-05 12:23 | NUR ---
Occupational Therapy Impression CGA ambulation x40ft with RW prior to pt refusing further mobility. Set-up shower task seated. Set-up UB dressing. Min A LB dressing with diesel dinkey engineer, pt continues to have difficulty with initiation of tasks and problem solving. V/c's and encouragement provided. Tx session concluded with PT initiating tx with pt. Occupational Therapy Goals 1) Pt will be Mod (I) UB/LB dressing. Progressing towards. 2) Pt will be Mod (I) grooming/hygiene. Progressing towards. 3) Pt will be Mod (I) toileting. Progressing towards. 4) Pt will be CGA shower transfer and shower. Progressing towards. 5) Pt Dominic Index of ADLs will improve by 2 points. Progressing towards. 6) Pt will be SBA light meal prep task. Progressing towards. Patient's Goal
[2018-07-05 17:03] VITALS: BP 148/76
[2018-07-05] MEDS: ACETAMINOPHEN 500 MG TAB PO PRN (20:26)
[2018-07-05] MEDS: ASPIRIN 81 MG ENTERIC COATED PO SCH (20:27)
[2018-07-06] MEDS: LEVOTHYROXINE SOD 0.112 MG TAB PO SCH (06:32)
[2018-07-06 08:00] VITALS: BP 168/72
[2018-07-06] MEDS: MULTIVITAMINS TAB PO SCH (08:44)
[2018-07-06] MEDS: VITAMIN B CPLX/VIT C/FOLIC AC PO SCH (08:44)
[2018-07-06] MEDS: METOPROLOL TART 50 MG TAB PO SCH ×2 (08:44→20:23)
[2018-07-06] MEDS: PANTOPRAZOLE SOD 40 MG TABEC PO SCH (08:44)
[2018-07-06] MEDS: INSULIN HUM ISO(NPH) 100 UN/ML 3 ML VIAL SUBQ SCH ×2 (08:44→17:00)
[2018-07-06] MEDS: DOCUSATE SODIUM 100 MG CAP PO SCH ×2 (08:44→20:23)
[2018-07-06] MEDS: HEPARIN (PORC) 5000 UN/ML VIAL SC SCH ×2 (08:45→20:23)
[2018-07-06] MEDS: CALCIUM CARBONATE 500 MG CHEW PO SCH (08:45)
[2018-07-06] MEDS: CHOLECALCIFEROL 1000 UNIT TAB PO SCH (08:45)
[2018-07-06] MEDS: ACETAMINOPHEN 500 MG TAB PO PRN ×2 (08:50→15:00)
[2018-07-06] MEDS: POLYETHYLENE GLYCOL 17 GM PKT PO SCH (09:00)
--- NOTE | 2018-07-06 11:08 | NUR ---
Occupational Therapy Impression SBA ambulation to toilet and back with RW. SBA toileting. Pt declining further ADLs/ther ex as he was anxious regarding preparing to go to dialysis. Improved functional mobility this date. Continue POC. Occupational Therapy Goals 1) Pt will be Mod (I) UB/LB dressing. Progressing towards. 2) Pt will be Mod (I) grooming/hygiene. Progressing towards. 3) Pt will be Mod (I) toileting. Progressing towards. 4) Pt will be CGA shower transfer and shower. Progressing towards. 5) Pt Dominic Index of ADLs will improve by 2 points. Progressing towards. 6) Pt will be SBA light meal prep task. Progressing towards. Patient's Goal
--- NOTE | 2018-07-06 17:25 | NUR ---
Physical Therapy Impression Initially PT attempted at scheduled time and pt was already in dialysis. PT returned at 1500 and pt declined visit stating that he was in pain. Pt was agreeable to taking Tylenol and PT returned again at 1725. Pt kerri ambulation to/from BR with some assist to don clothing due to R) UE supporting him on grab bar. Physical Therapy Goals 1: Pt to complete bed mobility with Lidia 2: Pt to complete transfers with Lidia and least restrictive AD 3: Pt to ambulate 150' with Lidia and least restrictive AD 4: Pt to asc/desc 4 stairs with railing and CGA Patient's Goals
[2018-07-06 20:00] VITALS: BP 85/61
[2018-07-06] MEDS: ASPIRIN 81 MG ENTERIC COATED PO SCH (20:23)
[2018-07-07] MEDS: traMADol 50 MG TAB PO PRN (00:40)
[2018-07-07] MEDS: LEVOTHYROXINE SOD 0.112 MG TAB PO SCH (06:35)
[2018-07-07 07:35] VITALS: BP 125/69
[2018-07-07] MEDS: ONDANSETRON 4 MG ODT TABDP SL PRN (07:55)
[2018-07-07] MEDS: CHOLECALCIFEROL 1000 UNIT TAB PO SCH (08:37)
[2018-07-07] MEDS: MULTIVITAMINS TAB PO SCH (08:37)
[2018-07-07] MEDS: CALCIUM CARBONATE 500 MG CHEW PO SCH (08:37)
[2018-07-07] MEDS: VITAMIN B CPLX/VIT C/FOLIC AC PO SCH (08:37)
[2018-07-07] MEDS: DOCUSATE SODIUM 100 MG CAP PO SCH ×2 (08:37→21:00)
[2018-07-07] MEDS: PANTOPRAZOLE SOD 40 MG TABEC PO SCH (08:37)
[2018-07-07] MEDS: METOPROLOL TART 50 MG TAB PO SCH ×2 (08:37→21:28)
[2018-07-07] MEDS: HEPARIN (PORC) 5000 UN/ML VIAL SC SCH ×2 (08:38→21:28)
[2018-07-07] MEDS: INSULIN HUM ISO(NPH) 100 UN/ML 3 ML VIAL SUBQ SCH ×2 (08:38→17:31)
[2018-07-07] MEDS: POLYETHYLENE GLYCOL 17 GM PKT PO SCH (09:00)
[2018-07-07 09:35] VITALS: Ht 165.1 cm; Wt 57.4 kg
[2018-07-07 15:40] VITALS: BP 122/63
[2018-07-07] MEDS: ASPIRIN 81 MG ENTERIC COATED PO SCH (21:28)
[2018-07-08] MEDS: LEVOTHYROXINE SOD 0.112 MG TAB PO SCH (05:50)
[2018-07-08 07:35] VITALS: BP 148/75
[2018-07-08] MEDS: CHOLECALCIFEROL 1000 UNIT TAB PO SCH (08:33)
[2018-07-08] MEDS: MULTIVITAMINS TAB PO SCH (08:33)
[2018-07-08] MEDS: PANTOPRAZOLE SOD 40 MG TABEC PO SCH (08:33)
[2018-07-08] MEDS: HEPARIN (PORC) 5000 UN/ML VIAL SC SCH ×2 (08:33→20:52)
[2018-07-08] MEDS: METOPROLOL TART 50 MG TAB PO SCH ×2 (08:33→20:52)
[2018-07-08] MEDS: CALCIUM CARBONATE 500 MG CHEW PO SCH (08:33)
[2018-07-08] MEDS: VITAMIN B CPLX/VIT C/FOLIC AC PO SCH (08:33)
[2018-07-08] MEDS: DOCUSATE SODIUM 100 MG CAP PO SCH ×2 (08:34→20:52)
[2018-07-08] MEDS: POLYETHYLENE GLYCOL 17 GM PKT PO SCH (08:34)
[2018-07-08] MEDS: INSULIN HUM ISO(NPH) 100 UN/ML 3 ML VIAL SUBQ SCH ×2 (08:34→17:36)
--- NOTE | 2018-07-08 10:53 | Medical Nutrition Therapy ---
Nutrition Anthropometrics Height (Inches): 65.00 Height (Calculated Centimeters: 165.679319 Weight (Pounds): 130 Weight (Calculated Kilograms): 59.080 BMI: 21.5 Mohamud Nutrition Score: Probably Inadequate Mohamud Nutrition Risk Score: 17 Dietary Referral Nutrition Risk Factors: Special Diet Nutrition Risk Comment: Physical Findings Physical Appearance: Skin Appearance Skin Appearance: Edema Edema Location Modifier: Right Edema Location: Lower Extremity Type of Edema: Degree of Edema: Gastrointestinal Symptoms GI Symtoms: Vomiting Tube Present: Bowel Sounds: Recent Bowel Pattern: Stool Characteristics: Nutritional Diagnosis Nutritional Risk Acuity 1: Acute/ES Renal Nutritional Risk Acuity 3: Fair Appetite Nutritional Risk Acuity 4: Age Related Past Medical History: T1DM, end stage renal disease with hemodialysis, hip fracture, pubic ramus fracture. Nutritional Acuity: 1-High Nutrition Diagnosis: Increased Nutrient Needs, Decreased Nutrient Needs Nutrition Etiology: Physiological Causes Nutrition Problem/Etiology/Sym: Increased protein need R/T physiologial cause AEB ESRD on dialysis. Decreased Na, fluids, K+, phos R/T physiologial cause AEB ESRD on dialysis Energy Requirement: 1950 (M- St J X 1.2SF) Protein Requirement: 71 (1.2gm/kg) Fluid Requirement: 1500 Nutrition Intervention: Cont diet as ordered Nutrition Monitoring & Eval RD Patient Assessment Time: [address] Assessment Type: RD Re-Assessment Patient Nutrition Acuity: 1-High Follow Up Date: Jul 10, 2018 Nutritional Comment: 06/20: Pt admitted for right hip fracture. Pt has a hx of DMT1, end stage renal, hip fracture, pubic ramus fracture. Elevated WBG (187-210). Pt on heparin (anticoagulant). Pt on a diabetic diet and consuming 50% of meals. -JJ 06/20 Pt on Renal high protein. Pt requesting high phos/ high Na foods not recommended on renal diet. Pt was advised to limit these foods but he has right to choose foods not recommended. Encouraged pt to take phos binder with meals. Will cont to monitor and encourage intake. BK 06/25 Pt cont on high protein, renal, diabetic diet. Intake average 7-% of small to regular meals with occasional nutr supplment. BG elevated up to 320. Pt not interested in education for diabetes or renal. Anticipate wt to fluctuate d/t dialysis. Recommend weighing pt after dialysis to ensure dry wt is obtained. Cont to monitor and encourage intake. BK 07/03: Pt is on a renal high protein/NARENDRA diet. Pt is consuming on average 75% of meals and refusing snacks 50% of the time. Pt has elevated WBG (116-160). Pt's weight has been stable (128lbs upon admission and 128lbs on 07/02). Continue monitoring intake and offering snacks/supplements. -HEATHER 07/07/18: Change follow up date. -WONG 07/08/18: Changed follow up date.-LEANNA JONES Jul 08, 2018 10:53
[2018-07-08 15:15] VITALS: BP 131/74
[2018-07-08] MEDS: ACETAMINOPHEN 500 MG TAB PO PRN (20:52)
[2018-07-08] MEDS: ASPIRIN 81 MG ENTERIC COATED PO SCH (20:52)
[2018-07-09] MEDS: LEVOTHYROXINE SOD 0.112 MG TAB PO SCH (05:42)
[2018-07-09 07:20] VITALS: BP 150/80
[2018-07-09] MEDS: HEPARIN (PORC) 5000 UN/ML VIAL SC SCH ×2 (08:32→20:54)
[2018-07-09] MEDS: METOPROLOL TART 50 MG TAB PO SCH ×2 (08:32→20:55)
[2018-07-09] MEDS: CHOLECALCIFEROL 1000 UNIT TAB PO SCH (08:32)
[2018-07-09] MEDS: PANTOPRAZOLE SOD 40 MG TABEC PO SCH (08:32)
[2018-07-09] MEDS: MULTIVITAMINS TAB PO SCH (08:32)
[2018-07-09] MEDS: CALCIUM CARBONATE 500 MG CHEW PO SCH (08:32)
[2018-07-09] MEDS: traMADol 50 MG TAB PO PRN (08:32)
[2018-07-09] MEDS: VITAMIN B CPLX/VIT C/FOLIC AC PO SCH (08:32)
[2018-07-09] MEDS: DOCUSATE SODIUM 100 MG CAP PO SCH ×2 (08:33→20:55)
[2018-07-09] MEDS: INSULIN HUM ISO(NPH) 100 UN/ML 3 ML VIAL SUBQ SCH ×2 (08:33→17:22)
[2018-07-09] MEDS: POLYETHYLENE GLYCOL 17 GM PKT PO SCH (08:33)
[2018-07-09] MEDS: LIDOCAINE/PRILOCAINE 30GM TUBE TP PRN (09:47)
--- NOTE | 2018-07-09 10:27 | NUR ---
Occupational Therapy Impression SBA ambulation x80ft with RW demonstrating improved functional mobility for household distances. Pt attempts LB dressing without AE and when unsuccessful reports "I just won't do this at home" With cue to use AE, pt is Mod (I) LB dressing with increased time for problem solving. Pt progressing well towards goals. Continue to address needs in order to promote safe discharge home. Occupational Therapy Goals 1) Pt will be Mod (I) UB/LB dressing. Progressing towards. 2) Pt will be Mod (I) grooming/hygiene. Progressing towards. 3) Pt will be Mod (I) toileting. Progressing towards. 4) Pt will be CGA shower transfer and shower. Progressing towards. 5) Pt Dominic Index of ADLs will improve by 2 points. Progressing towards. 6) Pt will be SBA light meal prep task. Progressing towards. Patient's Goal
[2018-07-09 16:05] VITALS: BP 85/51
--- NOTE | 2018-07-09 16:07 | NUR ---
Physical Therapy Impression Pt with improving tolerance to activity with ambulation at 38' with RW, CGA, and multiple rest breaks. Pt had wanted to attempt a stair, however, it is not safe at this time. Physical Therapy Goals 1: Pt to complete bed mobility with Lidia 2: Pt to complete transfers with Lidia and least restrictive AD 3: Pt to ambulate 150' with Lidia and least restrictive AD 4: Pt to asc/desc 4 stairs with railing and CGA Patient's Goals
--- NOTE | 2018-07-09 16:40 | NUR ---
ST ENCOUNTER Pt independently utilizing external memory book system to support deficits in short-term recall, orientation, and prospective recall. Pt required mod assist for participation in executive function tasks with focus on identifying short-term steps to support achievement of long-term goals (e.g., walking, home discharge). Pt was encouraged to establish concrete, sequential steps, including written plan and strategies to self-monitor progress. Pt further participated in problem solving scenarios related to med management. Mod cues provided for error awareness/attn to detail, with difficulty identifying discrepancies between home and current regimen. Pt progressing towards ST goals. Recommend spousal supervision with IADLs at d/c. POC 1. Pt will independently refer to external visual aids (e.g., memory book, calendars, daily schedule) to improve memory for daily events, medical information, orientation information, and functional facts. MET 4 2. Pt will accurately complete prospective thinking/planning tasks with min cues to improve executive functioning for achievement of rehabilitative goals and successful discharge to least restrictive living environment. 3.Pt will appropriately problem solve for safe and efficient management of medications with min cues for error awareness to support successful return to IADL participation.
[2018-07-09] MEDS: ACETAMINOPHEN 500 MG TAB PO PRN (20:54)
[2018-07-09] MEDS: ASPIRIN 81 MG ENTERIC COATED PO SCH (20:55)
[2018-07-10] MEDS: LEVOTHYROXINE SOD 0.112 MG TAB PO SCH (05:53)
[2018-07-10 07:30] VITALS: BP 129/67
[2018-07-10] MEDS: MULTIVITAMINS TAB PO SCH (08:39)
[2018-07-10] MEDS: HEPARIN (PORC) 5000 UN/ML VIAL SC SCH ×2 (08:39→20:37)
[2018-07-10] MEDS: CALCIUM CARBONATE 500 MG CHEW PO SCH (08:39)
[2018-07-10] MEDS: DOCUSATE SODIUM 100 MG CAP PO SCH ×2 (08:39→20:37)
[2018-07-10] MEDS: CHOLECALCIFEROL 1000 UNIT TAB PO SCH (08:39)
[2018-07-10] MEDS: VITAMIN B CPLX/VIT C/FOLIC AC PO SCH (08:39)
[2018-07-10] MEDS: INSULIN HUM ISO(NPH) 100 UN/ML 3 ML VIAL SUBQ SCH ×2 (08:39→17:05)
[2018-07-10] MEDS: PANTOPRAZOLE SOD 40 MG TABEC PO SCH (08:40)
[2018-07-10] MEDS: ACETAMINOPHEN 500 MG TAB PO PRN ×2 (08:40→20:37)
[2018-07-10] MEDS: METOPROLOL TART 50 MG TAB PO SCH ×2 (08:40→20:36)
[2018-07-10] MEDS: POLYETHYLENE GLYCOL 17 GM PKT PO SCH (09:00)
--- NOTE | 2018-07-10 10:14 | NUR ---
Occupational Therapy Impression CGA sit<>stands with RW. Ambulation x50ft with RW. SBA tub transfer with extended tub bench. Poor insight into limitations and decreased problem solving noted. V/c's throughout tx for safety and problem solving through tasks. Spouse plans to present for bathing tasks. Pt will benefit from services upon discharge home. Occupational Therapy Goals 1) Pt will be Mod (I) UB/LB dressing. Progressing towards. 2) Pt will be Mod (I) grooming/hygiene. Progressing towards. 3) Pt will be Mod (I) toileting. Progressing towards. 4) Pt will be CGA shower transfer and shower. Progressing towards. 5) Pt Dominic Index of ADLs will improve by 2 points. Progressing towards. 6) Pt will be SBA light meal prep task. Progressing towards. Patient's Goal
--- NOTE | 2018-07-10 13:04 | NUR ---
ST ENCOUNTER Informally reviewed previously established daily goals with pt encouragement to continue self-monitoring progress. Pt declined generation of additional rehabilitative goals, requesting to "take it one day at a time." Pt further participated in problem solving scenarios related to med management. Mod fading to min cues provided for error awareness and attn to detail. Focus placed on identification discrepancies between home and current regimen, generation of solutions to hypothetical medication problems, and ongoing instruction of external organization systems to improve retention of medication info. Pt progressing towards ST goals. Recommend spousal supervision with IADLs at d/c. Additionally recommend HH ST to continue addressing higher-level cognitive linguistic deficits in home environment. POC 1. Pt will independently refer to external visual aids (e.g., memory book, calendars, daily schedule) to improve memory for daily events, medical information, orientation information, and functional facts. MET 4 2. Pt will accurately complete prospective thinking/planning tasks with min cues to improve executive functioning for achievement of rehabilitative goals and successful discharge to least restrictive living environment. 3.Pt will appropriately problem solve for safe and efficient management of medications with min cues for error awareness to support successful return to IADL participation.
--- NOTE | 2018-07-10 14:53 | NUR ---
Physical Therapy Impression Pt notes that he is sore today, but is agreeable to complete TUG test with some encouragement. Pt completed TUG test in 1 min 18 seconds, as compared to previous TUG test of greater than 10 minutes. Nursing notes that pt has been feeling nauseated with prescription pain medication, and thus they have been using only Tylenol today. Nursing also reports that pt has been walking to access bathroom as needed and demos improvement with mobility during ADL's as well. Physical Therapy Goals 1: Pt to complete bed mobility with Lidia 2: Pt to complete transfers with Lidia and least restrictive AD 3: Pt to ambulate 150' with Lidia and least restrictive AD 4: Pt to asc/desc 4 stairs with railing and CGA Patient's Goals
--- NOTE | 2018-07-10 15:10 | Medical Nutrition Therapy ---
Nutrition Anthropometrics Height (Inches): 65.00 Height (Calculated Centimeters: 165.988275 Weight (Pounds): 130 Weight (Calculated Kilograms): 59.080 BMI: 21.5 Mohamud Nutrition Score: Probably Inadequate Mohamud Nutrition Risk Score: 17 Dietary Referral Nutrition Risk Factors: Special Diet Nutrition Risk Comment: Physical Findings Physical Appearance: Skin Appearance Skin Appearance: Edema Edema Location Modifier: Right Edema Location: Lower Extremity Type of Edema: Degree of Edema: Gastrointestinal Symptoms GI Symtoms: Vomiting Tube Present: Bowel Sounds: Recent Bowel Pattern: Stool Characteristics: Nutritional Diagnosis Nutritional Risk Acuity 1: Acute/ES Renal Nutritional Risk Acuity 3: Fair Appetite Nutritional Risk Acuity 4: Age Related Past Medical History: T1DM, end stage renal disease with hemodialysis, hip fracture, pubic ramus fracture. Nutritional Acuity: 1-High Nutrition Diagnosis: Increased Nutrient Needs, Decreased Nutrient Needs Nutrition Etiology: Physiological Causes Nutrition Problem/Etiology/Sym: Increased protein need R/T physiologial cause AEB ESRD on dialysis. Decreased Na, fluids, K+, phos R/T physiologial cause AEB ESRD on dialysis Energy Requirement: 1950 (M- St J X 1.2SF) Protein Requirement: 71 (1.2gm/kg) Fluid Requirement: 1500 Nutrition Intervention: Cont diet as ordered Nutrition Monitoring & Eval Nutrition Goals: Eat 50-100% Meal Nutrition Follow-Up: Good Intake RD Patient Assessment Time: [address] Assessment Type: RD Re-Assessment Patient Nutrition Acuity: 1-High Follow Up Date: Jul 17, 2018 Nutritional Comment: 06/20: Pt admitted for right hip fracture. Pt has a hx of DMT1, end stage renal, hip fracture, pubic ramus fracture. Elevated WBG (187-210). Pt on heparin (anticoagulant). Pt on a diabetic diet and consuming 50% of meals. -JJ 06/20 Pt on Renal high protein. Pt requesting high phos/ high Na foods not recommended on renal diet. Pt was advised to limit these foods but he has right to choose foods not recommended. Encouraged pt to take phos binder with meals. Will cont to monitor and encourage intake. BK 06/25 Pt cont on high protein, renal, diabetic diet. Intake average 7-% of small to regular meals with occasional nutr supplment. BG elevated up to 320. Pt not interested in education for diabetes or renal. Anticipate wt to fluctuate d/t dialysis. Recommend weighing pt after dialysis to ensure dry wt is obtained. Cont to monitor and encourage intake. BK 07/03: Pt is on a renal high protein/NARENDRA diet. Pt is consuming on average 75% of meals and refusing snacks 50% of the time. Pt has elevated WBG (116-160). Pt's weight has been stable (128lbs upon admission and 128lbs on 07/02). Continue monitoring intake and offering snacks/supplements. -JMarko 07/07/18: Change follow up date. -AKG 07/08/18: Changed follow up date.-AKG 07/10: pt's pain gradually improving. Pt had WBG labs that ranged (64-133) on 07/09. Pt is consuming 100% of diet. Pt is up 3lbs since admission. Continue to monitor. -HITESH DAVIS Jul 10, 2018 09:26
[2018-07-10 16:15] VITALS: BP 104/64
[2018-07-10] MEDS: ASPIRIN 81 MG ENTERIC COATED PO SCH (20:37)
[2018-07-11] MEDS: LEVOTHYROXINE SOD 0.112 MG TAB PO SCH (06:16)
[2018-07-11 06:19] LABS: PLATELET COUNT, AUTOMATED 291 K/uL (150-450)
[2018-07-11 07:30] VITALS: BP 142/81
[2018-07-11] MEDS: ACETAMINOPHEN 500 MG TAB PO PRN (07:50)
[2018-07-11] MEDS: DOCUSATE SODIUM 100 MG CAP PO SCH ×2 (08:03→21:00)
[2018-07-11] MEDS: POLYETHYLENE GLYCOL 17 GM PKT PO SCH (08:03)
[2018-07-11] MEDS: CALCIUM CARBONATE 500 MG CHEW PO SCH (08:56)
[2018-07-11] MEDS: VITAMIN B CPLX/VIT C/FOLIC AC PO SCH (08:56)
[2018-07-11] MEDS: PANTOPRAZOLE SOD 40 MG TABEC PO SCH (08:56)
[2018-07-11] MEDS: HEPARIN (PORC) 5000 UN/ML VIAL SC SCH ×2 (08:56→21:00)
[2018-07-11] MEDS: MULTIVITAMINS TAB PO SCH (08:56)
[2018-07-11] MEDS: METOPROLOL TART 50 MG TAB PO SCH ×2 (08:56→21:00)
[2018-07-11] MEDS: CHOLECALCIFEROL 1000 UNIT TAB PO SCH (08:56)
[2018-07-11] MEDS: INSULIN HUM ISO(NPH) 100 UN/ML 3 ML VIAL SUBQ SCH ×2 (08:57→17:08)
--- NOTE | 2018-07-11 10:20 | NUR ---
Physical Therapy Impression Pt agreeable to ambulate partial distance to dialysis. Pt making steady progress with improved tolerance for ambulation and transfers. Physical Therapy Goals 1: Pt to complete bed mobility with Lidia 2: Pt to complete transfers with Lidia and least restrictive AD 3: Pt to ambulate 150' with Lidia and least restrictive AD 4: Pt to asc/desc 4 stairs with railing and CGA Patient's Goals
--- NOTE | 2018-07-11 14:18 | Hospitalist Progress Note ---
Subjective Progress Notes Subjective He has no complaints this afternoon. He reports he is improving with therapy. He likely wants to try to discharge next week sometime. Patient Complains of: Cardiovascular: No: Chest Pain Respiratory: No: Shortness of Breath Physical Exam Vital Signs Date Time Temp Pulse Resp B/P (MAP) Pulse Ox O2 Delivery O2 Flow Rate FiO2 07/11/18 08:00 93 Room Air 07/11/18 07:30 97.4 81 16 142/81 (101) Intake and Output 07/11/18 07:00 Intake Total 1240 ml Balance 1240 ml Intake Oral 1240 ml # Voids 0 # Bowel Movements 1 General Appearance: Alert, Awake, No Acute Distress, Afebrile Neuro: No Gross deficits Cardiovascular: Regular Rate and Rhythm Respiratory: No Respiratory Distress, Clear to Auscultation GI: Soft and Non-Tender Extremities: Warm, Perfused; No Edema Psych: Alert & Oriented X3, Appropriate Mood & Affect Result Diagram: 07/11/18 0556 07/11/18555 Assessment and Plan Problems: (1) Hip fracture, right Status: Acute Assessment & Plan: He tripped and fell on 06/09 suffering a proximal femur fracture below the greater trochanter. He had a CMN nail placed on 06/10. He can weight bear as tolerated. He was on heparin SC for DVT prophylaxis and then it was stopped, but he is still not moving well so it was restarted. He will be on APAP and lidoderm for pain and tramadol for breakthrough pain (ESRD dosing). Wi ll start MiraLax, docusate and prn Dulcolax suppository for constipation. His deangelo are out. He is working with OT/PT. He was having significant pain and a repeat x-ray was done. This was pushed to his orthopedist and multiple calls were placed to have the new x-ray compared with the postoperative x-ray, however, despite multiple attempts to have this looked at, there has been no response from his orthopedist. The patient is now better able to ambulate. He will need to follow up with the orthopedist in the future. (2) DM type 1 (diabetes mellitus, type 1) Status: Chronic Assessment & Plan: NPH 5 units bid. Will check glucose AC and HS, but will not do SSI because of the ESRD. If glucose>300 or <70, staff is to call. (3) End-stage renal disease on hemodialysis Status: Chronic Assessment & Plan: Continue chronic HD. WERO CHA SURGICAL SUPERVISOR Jul 11, 2018 14:18
[2018-07-11 15:35] VITALS: BP 83/55
[2018-07-11] MEDS: ASPIRIN 81 MG ENTERIC COATED PO SCH (21:00)
[2018-07-12] MEDS: LEVOTHYROXINE SOD 0.112 MG TAB PO SCH (05:48)
[2018-07-12 08:00] VITALS: BP 125/77
[2018-07-12] MEDS: DOCUSATE SODIUM 100 MG CAP PO SCH ×2 (08:33→20:39)
[2018-07-12] MEDS: CHOLECALCIFEROL 1000 UNIT TAB PO SCH (08:33)
[2018-07-12] MEDS: PANTOPRAZOLE SOD 40 MG TABEC PO SCH (08:33)
[2018-07-12] MEDS: VITAMIN B CPLX/VIT C/FOLIC AC PO SCH (08:33)
[2018-07-12] MEDS: METOPROLOL TART 50 MG TAB PO SCH ×2 (08:33→20:39)
[2018-07-12] MEDS: MULTIVITAMINS TAB PO SCH (08:33)
[2018-07-12] MEDS: INSULIN HUM ISO(NPH) 100 UN/ML 3 ML VIAL SUBQ SCH (08:33)
[2018-07-12] MEDS: HEPARIN (PORC) 5000 UN/ML VIAL SC SCH ×2 (08:34→20:39)
[2018-07-12] MEDS: CALCIUM CARBONATE 500 MG CHEW PO SCH (08:34)
[2018-07-12] MEDS: ACETAMINOPHEN 500 MG TAB PO PRN (08:38)
[2018-07-12] MEDS: POLYETHYLENE GLYCOL 17 GM PKT PO SCH (09:00)
[2018-07-12] MEDS ORDERED: DEXTROSE 50% 50 ML SYR IVP ONE (13:15)
[2018-07-12] MEDS ORDERED: DEXTROSE 37.5 GM GEL..GRAM. PO PRN (13:20)
--- NOTE | 2018-07-12 13:28 | Miscellaneous Provider Note ---
Miscellaneous Provider Note Note The patient had a glucose of 37 at noon. He was asymptomatic. He ate lunch and received juices. His glucose is in the 40's by fingerstick and now possibly slurring his words. He is to get an amp of D50 and recheck glucose in an hour. Likely, the NPH has accumulated (i.e. dialysis was yesterday). Will hold his e vening and tomorrow morning NPH. The dose will be decreased from 12 to 10 bid starting tomorrow night after dialysis. He was increased from 10 to 12 bid about 2 weeks ago and hasn't had a problem until today. Following glucose closely. HEYDI OLMOS MD Jul 12, 2018 13:28
--- NOTE | 2018-07-12 15:07 | NUR ---
Occupational Therapy Impression SBA ambulation 2x55ft with RW. SBA shower seated. Set-up UB dressing. SBA LB dressing with sockaid/chemistry research assistant and v/c's. SBA grooming standing in bathroom. Pt progressing well towards OT goals. Continue POC. Occupational Therapy Goals 1) Pt will be Mod (I) UB/LB dressing. Progressing towards. 2) Pt will be Mod (I) grooming/hygiene. Progressing towards. 3) Pt will be Mod (I) toileting. Progressing towards. 4) Pt will be CGA shower transfer and shower. Progressing towards. 5) Pt Dominic Index of ADLs will improve by 2 points. Progressing towards. 6) Pt will be SBA light meal prep task. Progressing towards. Patient's Goal
[2018-07-12 15:35] VITALS: BP 138/73
--- NOTE | 2018-07-12 15:56 | NUR ---
Physical Therapy Impression RN reports that blood glucose is WNL and pt is now appropriate for PT intervention. Pt reports that he is agreeable for session, pt's present. Main complaint is R) knee pain. Pt completes transfers with SBA and RW. Ambulation x90' with RW, PT instruction for step to gait pattern to assist with offloading R) knee. Pt reports that this does not help. Pt requests to trial stair negotiation today. PT prvided demonstration of various ways to attempt stair negotiation. Pt stood at bottom of stairs x5 minutes with dycem to assist with handholds, but was unable to step up onto stair. Plan to attempt stair training in AM at 9:00, afer medication and prior to dialysis treatment. Pt's present for session and plans to bring in knee brace for R) knee. Physical Therapy Goals 1: Pt to complete bed mobility with Lidia 2: Pt to complete transfers with Lidia and least restrictive AD 3: Pt to ambulate 150' with Lidia and least restrictive AD 4: Pt to asc/desc 4 stairs with railing and CGA Patient's Goals
[2018-07-12] MEDS: ASPIRIN 81 MG ENTERIC COATED PO SCH (20:39)
[2018-07-13] MEDS: ACETAMINOPHEN 500 MG TAB PO PRN (06:18)
[2018-07-13] MEDS: LEVOTHYROXINE SOD 0.112 MG TAB PO SCH (06:18)
--- NOTE | 2018-07-13 07:58 | NUR ---
Occupational Therapy Impression Mod (I) supine to sit with bed rail, HOB flat. SBA ambulation to toilet with RW. Independent toileting. Independent grooming/oral care standing sinkfront. Pt progressing well towards OT goals. Continue POC. Occupational Therapy Goals 1) Pt will be Mod (I) UB/LB dressing. Progressing towards. 2) Pt will be Mod (I) grooming/hygiene. Progressing towards. 3) Pt will be Mod (I) toileting. Progressing towards. 4) Pt will be CGA shower transfer and shower. Progressing towards. 5) Pt Doimnic Index of ADLs will improve by 2 points. Progressing towards. 6) Pt will be SBA light meal prep task. Progressing towards. Patient's Goal
[2018-07-13 08:30] VITALS: BP 127/65
[2018-07-13] MEDS: METOPROLOL TART 50 MG TAB PO SCH ×2 (08:40→20:42)
[2018-07-13] MEDS: CHOLECALCIFEROL 1000 UNIT TAB PO SCH (08:40)
[2018-07-13] MEDS: PANTOPRAZOLE SOD 40 MG TABEC PO SCH (08:40)
[2018-07-13] MEDS: MULTIVITAMINS TAB PO SCH (08:40)
[2018-07-13] MEDS: CALCIUM CARBONATE 500 MG CHEW PO SCH (08:40)
[2018-07-13] MEDS: VITAMIN B CPLX/VIT C/FOLIC AC PO SCH (08:40)
[2018-07-13] MEDS: HEPARIN (PORC) 5000 UN/ML VIAL SC SCH ×2 (08:41→20:42)
[2018-07-13] MEDS: DOCUSATE SODIUM 100 MG CAP PO SCH ×2 (08:41→20:42)
[2018-07-13] MEDS: INSULIN HUM ISO(NPH) 100 UN/ML 3 ML VIAL SUBQ SCH ×2 (08:41→16:56)
[2018-07-13] MEDS: POLYETHYLENE GLYCOL 17 GM PKT PO SCH (08:46)
[2018-07-13] MEDS: LIDOCAINE/PRILOCAINE 30GM TUBE TP PRN (09:14)
--- NOTE | 2018-07-13 11:06 | NUR ---
ST ENCOUNTER Attempted ST interventions. Pt at dialysis. Will f/u as schedule allows.
[2018-07-13 15:45] VITALS: BP 98/59
--- NOTE | 2018-07-13 16:25 | NUR ---
Physical Therapy Impression Pt requires extra time to perform all functional mobility. Pt able to stand with CGA and verbal cueing for technique. Pt able to ambulate 40' with RW, CGA and extra time. Attempted to ascend 2" stair, Pt unable to adequate weightshift onto R LE limited both by pain and self-identified fear. Worked on standing weight shifts from L LE to R LE with progressively less UE support. Pt eventually able to weightbear through R LE and lift L LE off ground but increased pain was reported. Physical Therapy Goals 1: Pt to complete bed mobility with Lidia 2: Pt to complete transfers with Lidia and least restrictive AD 3: Pt to ambulate 150' with Lidia and least restrictive AD 4: Pt to asc/desc 4 stairs with railing and CGA Patient's Goals
[2018-07-13] MEDS: ASPIRIN 81 MG ENTERIC COATED PO SCH (20:42)
[2018-07-14] MEDS: LEVOTHYROXINE SOD 0.112 MG TAB PO SCH (06:39)
[2018-07-14 07:25] VITALS: BP 130/72
[2018-07-14] MEDS: DOCUSATE SODIUM 100 MG CAP PO SCH ×2 (08:36→20:34)
[2018-07-14] MEDS: POLYETHYLENE GLYCOL 17 GM PKT PO SCH (08:36)
[2018-07-14] MEDS: INSULIN HUM ISO(NPH) 100 UN/ML 3 ML VIAL SUBQ SCH ×2 (08:37→17:05)
[2018-07-14] MEDS: MULTIVITAMINS TAB PO SCH (08:38)
[2018-07-14] MEDS: CALCIUM CARBONATE 500 MG CHEW PO SCH (08:38)
[2018-07-14] MEDS: CHOLECALCIFEROL 1000 UNIT TAB PO SCH (08:38)
[2018-07-14] MEDS: PANTOPRAZOLE SOD 40 MG TABEC PO SCH (08:38)
[2018-07-14] MEDS: METOPROLOL TART 50 MG TAB PO SCH ×2 (08:38→20:34)
[2018-07-14] MEDS: ACETAMINOPHEN 500 MG TAB PO PRN ×2 (08:38→20:34)
[2018-07-14] MEDS: HEPARIN (PORC) 5000 UN/ML VIAL SC SCH ×3 (08:39→20:33)
[2018-07-14] MEDS: VITAMIN B CPLX/VIT C/FOLIC AC PO SCH (08:39)
[2018-07-14 18:25] VITALS: BP 98/59
[2018-07-14] MEDS: ASPIRIN 81 MG ENTERIC COATED PO SCH (20:33)
[2018-07-15] MEDS: LEVOTHYROXINE SOD 0.112 MG TAB PO SCH (05:52)
[2018-07-15 07:31] VITALS: BP 142/79
[2018-07-15] MEDS: CALCIUM CARBONATE 500 MG CHEW PO SCH (08:45)
[2018-07-15] MEDS: ACETAMINOPHEN 500 MG TAB PO PRN ×2 (08:45→20:27)
[2018-07-15] MEDS: HEPARIN (PORC) 5000 UN/ML VIAL SC SCH ×2 (08:45→20:27)
[2018-07-15] MEDS: INSULIN HUM ISO(NPH) 100 UN/ML 3 ML VIAL SUBQ SCH ×2 (08:45→17:19)
[2018-07-15] MEDS: CHOLECALCIFEROL 1000 UNIT TAB PO SCH (08:46)
[2018-07-15] MEDS: VITAMIN B CPLX/VIT C/FOLIC AC PO SCH (08:46)
[2018-07-15] MEDS: DOCUSATE SODIUM 100 MG CAP PO SCH ×2 (08:46→20:27)
[2018-07-15] MEDS: PANTOPRAZOLE SOD 40 MG TABEC PO SCH (08:46)
[2018-07-15] MEDS: METOPROLOL TART 50 MG TAB PO SCH ×2 (08:46→20:28)
[2018-07-15] MEDS: MULTIVITAMINS TAB PO SCH (08:46)
[2018-07-15] MEDS: POLYETHYLENE GLYCOL 17 GM PKT PO SCH (08:46)
--- NOTE | 2018-07-15 16:52 | NUR ---
Evening blood sugar spikes Pt's WBG just now was 230, often has elevated WBG just prior to supper. Pt admitted that he drinks a milk shake at lunch time most days, but states, "but it's sugar free!"
[2018-07-15 17:00] VITALS: BP 154/77
[2018-07-15] MEDS: ASPIRIN 81 MG ENTERIC COATED PO SCH (20:27)
[2018-07-16] MEDS: LEVOTHYROXINE SOD 0.112 MG TAB PO SCH (06:00)
[2018-07-16] MEDS: ACETAMINOPHEN 500 MG TAB PO PRN ×2 (06:00→20:51)
[2018-07-16 08:02] VITALS: BP 154/78
[2018-07-16] MEDS: POLYETHYLENE GLYCOL 17 GM PKT PO SCH (08:08)
[2018-07-16] MEDS: DOCUSATE SODIUM 100 MG CAP PO SCH ×2 (08:08→20:51)
[2018-07-16] MEDS: VITAMIN B CPLX/VIT C/FOLIC AC PO SCH (08:15)
[2018-07-16] MEDS: CALCIUM CARBONATE 500 MG CHEW PO SCH (08:15)
[2018-07-16] MEDS: MULTIVITAMINS TAB PO SCH (08:15)
[2018-07-16] MEDS: METOPROLOL TART 50 MG TAB PO SCH ×2 (08:15→20:52)
[2018-07-16] MEDS: CHOLECALCIFEROL 1000 UNIT TAB PO SCH (08:15)
[2018-07-16] MEDS: PANTOPRAZOLE SOD 40 MG TABEC PO SCH (08:15)
[2018-07-16] MEDS: HEPARIN (PORC) 5000 UN/ML VIAL SC SCH ×2 (08:18→20:51)
[2018-07-16] MEDS: INSULIN HUM ISO(NPH) 100 UN/ML 3 ML VIAL SUBQ SCH ×2 (08:18→16:28)
[2018-07-16] MEDS: LIDOCAINE/PRILOCAINE 30GM TUBE TP PRN (09:13)
--- NOTE | 2018-07-16 10:16 | NUR ---
Occupational Therapy Impression Pt. ambulated 100 feet with use of FWW on room air. Pt. required Min A to perform sit to stand transfer from low dining room chair with arms. Pt. stating that all of his seat heights at home (including toilet) is elevated. Continue with POC. Occupational Therapy Goals 1) Pt will be Mod (I) UB/LB dressing. Progressing towards. 2) Pt will be Mod (I) grooming/hygiene. Progressing towards. 3) Pt will be Mod (I) toileting. Progressing towards. 4) Pt will be CGA shower transfer and shower. Progressing towards. 5) Pt Doimnic Index of ADLs will improve by 2 points. Progressing towards. 6) Pt will be SBA light meal prep task. Progressing towards. Patient's Goal
[2018-07-16 15:17] VITALS: BP 84/42
--- NOTE | 2018-07-16 15:24 | Medical Nutrition Therapy ---
Nutrition Anthropometrics Height (Inches): 65.00 Height (Calculated Centimeters: 165.484348 Weight (Pounds): 126 Weight (Calculated Kilograms): 57.379 BMI: 21.5 Mohamud Nutrition Score: Probably Inadequate Mohamud Nutrition Risk Score: 17 Dietary Referral Nutrition Risk Factors: Special Diet Nutrition Risk Comment: Nutritional Diagnosis Nutritional Risk Acuity 1: Acute/ES Renal Nutritional Risk Acuity 3: Fair Appetite Nutritional Risk Acuity 4: Age Related Past Medical History: T1DM, end stage renal disease with hemodialysis, hip fracture, pubic ramus fracture. Nutritional Acuity: 1-High Nutrition Diagnosis: Increased Nutrient Needs, Decreased Nutrient Needs Nutrition Etiology: Physiological Causes Nutrition Problem/Etiology/Sym: Increased protein need R/T physiologial cause AEB ESRD on dialysis. Decreased Na, fluids, K+, phos R/T physiologial cause AEB ESRD on dialysis Energy Requirement: 1950 (M- St J X 1.2SF) Protein Requirement: 71 (1.2gm/kg) Fluid Requirement: 1500 Diet Type: Renal High Protein Nutrition Intervention: Cont diet as ordered, Encourage intake, HS snack, Between meal supplement Additional Diet Restrictions: OFFER NUTR SUPPLMENTS Nutrition Monitoring & Eval Nutrition Goals: Eat 75-100% Meal Nutrition Follow-Up: Good Intake RD Patient Assessment Time: [address] Assessment Type: RD Re-Assessment Patient Nutrition Acuity: 1-High Follow Up Date: Jul 24, 2018 Nutritional Comment: 06/20: Pt admitted for right hip fracture. Pt has a hx of DMT1, end stage renal, hip fracture, pubic ramus fracture. Elevated WBG (187-210). Pt on heparin (anticoagulant). Pt on a diabetic diet and consuming 50% of meals. -JJ 06/20 Pt on Renal high protein. Pt requesting high phos/ high Na foods not recommended on renal diet. Pt was advised to limit these foods but he has right to choose foods not recommended. Encouraged pt to take phos binder with meals. Will cont to monitor and encourage intake. BK 06/25 Pt cont on high protein, renal, diabetic diet. Intake average 7-% of small to regular meals with occasional nutr supplment. BG elevated up to 320. Pt not interested in education for diabetes or renal. Anticipate wt to fluctuate d/t dialysis. Recommend weighing pt after dialysis to ensure dry wt is obtained. Cont to monitor and encourage intake. BK 07/03: Pt is on a renal high protein/NARENDRA diet. Pt is consuming on average 75% of meals and refusing snacks 50% of the time. Pt has elevated WBG (116-160). Pt's weight has been stable (128lbs upon admission and 128lbs on 07/02). Continue monitoring intake and offering snacks/supplements. -JJ 07/07/18: Change follow up date. -AKG 07/08/18: Changed follow up date.-AKG 07/10: pt's pain gradually improving. Pt had WBG labs that ranged (64-133) on 07/09. Pt is consuming 100% of diet. Pt is up 3lbs since admission. Continue to monitor. -JJ 07/17 Pt cont on high protein renal diet. Pt eating 75-100% of most meals. Will offer nutr supplment to increase protein intake. Bg elevated up to 250 with 3 low readings 40-50's. Insulin adjusted per Will cont to monitor and encourage high protein intake. NEFTALY PETERSON Jul 16, 2018 15:24
--- NOTE | 2018-07-16 15:43 | NUR ---
Physical Therapy Impression Discussed with Pt option of using a ramp to enter his home which he is open to. Pt demonstrated understanding of HEP. Pt also performed 5 sit<>stand transfers with SBA and verbal cueing for technique. Pt with increased L leg pain with sit<>stands. Physical Therapy Goals 1: Pt to complete bed mobility with Lidia 2: Pt to complete transfers with Lidia and least restrictive AD 3: Pt to ambulate 150' with Lidia and least restrictive AD 4: Pt to asc/desc 4 stairs with railing and CGA Patient's Goals
--- NOTE | 2018-07-16 16:54 | NUR ---
ST ENCOUNTER Pt completed executive function tasks for establishment of daily rehab goals, anticipation of discharge barriers. Pt also participated in problem solving task with focus on generation of potential solutions to minimize impact of perceived barriers to discharge. Mod fading to min cues provided across tx tasks for improved mental flexibility and detail expansion. Reviewed medications, pt indep recalled purpose for entirety of meds on list when presented with pharmaceutical name. Will continue to provide pt with encouragement to self-monitor progress towards rehabilitative goals. HH ST is recommended at discharge to continue addressing higher-level cognitive linguistic deficits in home environment. POC 1. Pt will independently refer to external visual aids (e.g., memory book, calendars, daily schedule) to improve memory for daily events, medical information, orientation information, and functional facts. MET 07/09 2. Pt will accurately complete prospective thinking/planning tasks with min cues to improve executive functioning for achievement of rehabilitative goals and successful discharge to least restrictive living environment. 3.Pt will appropriately problem solve for safe and efficient management of medications with min cues for error awareness to support successful return to IADL participation.
[2018-07-16] MEDS: ASPIRIN 81 MG ENTERIC COATED PO SCH (20:51)
[2018-07-17] MEDS: LEVOTHYROXINE SOD 0.112 MG TAB PO SCH (05:41)
[2018-07-17 07:36] VITALS: BP 128/71
[2018-07-17] MEDS: ACETAMINOPHEN 500 MG TAB PO PRN ×2 (07:41→20:18)
[2018-07-17] MEDS: INSULIN HUM ISO(NPH) 100 UN/ML 3 ML VIAL SUBQ SCH ×2 (08:29→16:38)
[2018-07-17] MEDS: PANTOPRAZOLE SOD 40 MG TABEC PO SCH (08:53)
[2018-07-17] MEDS: CHOLECALCIFEROL 1000 UNIT TAB PO SCH (08:53)
[2018-07-17] MEDS: MULTIVITAMINS TAB PO SCH (08:53)
[2018-07-17] MEDS: VITAMIN B CPLX/VIT C/FOLIC AC PO SCH (08:53)
[2018-07-17] MEDS: CALCIUM CARBONATE 500 MG CHEW PO SCH (08:53)
[2018-07-17] MEDS: METOPROLOL TART 50 MG TAB PO SCH ×2 (08:54→20:18)
[2018-07-17] MEDS: HEPARIN (PORC) 5000 UN/ML VIAL SC SCH ×2 (08:54→20:18)
[2018-07-17] MEDS: DOCUSATE SODIUM 100 MG CAP PO SCH ×2 (09:00→20:21)
[2018-07-17] MEDS: POLYETHYLENE GLYCOL 17 GM PKT PO SCH (09:00)
--- NOTE | 2018-07-17 10:17 | NUR ---
ST ENCOUNTER Pt completed problem solving tasks with focus on generation of multiple solutions in anticipation of potential problems re: medication management, blood sugar management, factors impeding completion of exercises, and set-up in home environment. Pt cont to require mod fading to min cues for mental flexibility and detail expansion. Pt indep summarized previously established list of daily goals, reporting strong motivation to self-monitor progress and accomplish plan. Pt cont to progress towards ST POC. POC 1. Pt will independently refer to external visual aids (e.g., memory book, calendars, daily schedule) to improve memory for daily events, medical information, orientation information, and functional facts. MET 07/09 2. Pt will accurately complete prospective thinking/planning tasks with min cues to improve executive functioning for achievement of rehabilitative goals and successful discharge to least restrictive living environment. 3.Pt will appropriately problem solve for safe and efficient management of medications with min cues for error awareness to support successful return to IADL participation.
--- NOTE | 2018-07-17 11:41 | NUR ---
Occupational Therapy Impression SBA ambulation household distances with RW. Independent retrieving clothing. Independent UB/LB dressing with use of AE. Information provided for where to obtain. Pt reports a neighbor is installing a ramp and pt hopes for discharge home soon. Pt nearing OT goals, plan to address high level IADLs and balance in future tx sessions. Occupational Therapy Goals 1) Pt will be Mod (I) UB/LB dressing. Progressing towards. 2) Pt will be Mod (I) grooming/hygiene. Progressing towards. 3) Pt will be Mod (I) toileting. Progressing towards. 4) Pt will be CGA shower transfer and shower. Progressing towards. 5) Pt Dominic Index of ADLs will improve by 2 points. Progressing towards. 6) Pt will be SBA light meal prep task. Progressing towards. Patient's Goal
--- NOTE | 2018-07-17 12:40 | NUR ---
Physical Therapy Impression PT provided tapping to stimulate quad during weight bearing on R) LE to advance up initial step, additionally, PT also provided support at R) knee to encouraged straight knee to accept weight while stepping up with L) LE. Pt tolerated this x 3 steps but was unable to complete the final fourth step, as the rail was at a different angle and provided different leverage. Pt encouraged to pursue ramp for home use, however, PT will continue to address stairs as pt desires and may utilize a knee brace with next episode if helpful. Physical Therapy Goals 1: Pt to complete bed mobility with Lidia 2: Pt to complete transfers with Lidia and least restrictive AD 3: Pt to ambulate 150' with Lidia and least restrictive AD 4: Pt to asc/desc 4 stairs with railing and CGA Patient's Goals
[2018-07-17 15:52] VITALS: BP 132/75
[2018-07-17] MEDS: ASPIRIN 81 MG ENTERIC COATED PO SCH (20:18)
[2018-07-18] MEDS: LEVOTHYROXINE SOD 0.112 MG TAB PO SCH (06:24)
[2018-07-18 08:00] VITALS: BP 129/66
[2018-07-18] MEDS: HEPARIN (PORC) 5000 UN/ML VIAL SC SCH ×2 (08:59→21:02)
[2018-07-18] MEDS: VITAMIN B CPLX/VIT C/FOLIC AC PO SCH (08:59)
[2018-07-18] MEDS: ACETAMINOPHEN 500 MG TAB PO PRN ×2 (08:59→21:02)
[2018-07-18] MEDS: CALCIUM CARBONATE 500 MG CHEW PO SCH (08:59)
[2018-07-18] MEDS: DOCUSATE SODIUM 100 MG CAP PO SCH ×2 (09:00→21:00)
[2018-07-18] MEDS: METOPROLOL TART 50 MG TAB PO SCH ×2 (09:00→21:02)
[2018-07-18] MEDS: POLYETHYLENE GLYCOL 17 GM PKT PO SCH (09:00)
[2018-07-18] MEDS: PANTOPRAZOLE SOD 40 MG TABEC PO SCH (09:00)
[2018-07-18] MEDS: CHOLECALCIFEROL 1000 UNIT TAB PO SCH (09:00)
[2018-07-18] MEDS: MULTIVITAMINS TAB PO SCH (09:00)
[2018-07-18] MEDS: INSULIN HUM ISO(NPH) 100 UN/ML 3 ML VIAL SUBQ SCH ×2 (09:00→17:04)
--- NOTE | 2018-07-18 10:10 | NUR ---
Occupational Therapy Impression SBA ambulation in room with dynamic balance tasks incorporated-reaching outside DARA and high/low. Pt steady, no loss of balance. Increased time to complete all tasks. Pt progressing towards OT goals. Encouraged LifeAlert system when home alone, pt resistant. Occupational Therapy Goals 1) Pt will be Mod (I) UB/LB dressing. Progressing towards. 2) Pt will be Mod (I) grooming/hygiene. Progressing towards. 3) Pt will be Mod (I) toileting. Progressing towards. 4) Pt will be CGA shower transfer and shower. Progressing towards. 5) Pt Dominic Index of ADLs will improve by 2 points. Progressing towards. 6) Pt will be SBA light meal prep task. Progressing towards. Patient's Goal
--- NOTE | 2018-07-18 11:10 | OT ECF NOTE ---
Type of Note: 30 day progress note Primary Medical Diagnosis: Generalized weakness s/p fall at home and right hip fx with gamma nail *WBAT* [facility] for hip fx 06/09/18 thru 06/19/18 Previous pelvic fx with admission to [facility] 04/26/18 thru 05/03/18 and ECF 05/03/18 thru 05/17/18 Occupational Therapy Evaluation Date: 06/19/18 SUBJECTIVE: Prior Hospitalization: [facility] 06/09/18 thru 06/19/18 Prior Level of Function: Mod (I) with RW Prior Living Status: Single level house Spouse Living with family Assist by family Community Services: Home health [facility] Accessibility: Stairs with rails-Ramp to back entrance of home is currently being installed All needs on one level Tub/shower combination Equipment Owned: Front wheeled walker Rollator Toilet riser Bedside commode Extended tub bench Medical Complications/Past Medical History: Please refer to EMR. Pt has end stage renal disease on hemodialysis Psychosocial Support: Supportive spouse Pain Scale (0-10): Pt reporting decreased pain with functional mobility. No numerical rating provided. OBJECTIVE: Strength: MMT: Right Left Shoulder Flexion WFL WFL Elbow Flexion WFL WFL Wrist Extension WFL WFL Computational Scientist WFL WFL (5= normal, 4= good, 3= fair, 2= poor, 1= trace) ROM: Both upper extremities, WFL Sensation: Intact, No concerns Functional Transfer: Assistive Device: Front wheeled walker, Gait belt Transfer Ability: SBA ADL: Upper body dressing: Assistive device: None Upper body dressing ability: Independent Lower body dressing: Assistive device: Sock aid/mechanical service specialist Lower body dressing ability: Modified Independent Toileting: Assistive device: Raised toilet seat Toileting ability: Modified Independent Grooming/hygiene: Assistive device: Seated Grooming ability: Independent Bathing: Assistive device: Extended tub transfer bench Bathing ability: Minimum assistance for bathtub transfer, SBA bathing, seated. Standardized Assessment: Dominic Index of Activities of Daily Livin/20 upon initial evaluation (06/19/18). 01/27 upon 2-week progress note (07/03/18). at 30-day progress note. ASSESSMENT: "Terence" is progressing well towards OT goals and will benefit from continued services to address high level IADLs and balance. At PLOF, he was Modified Independent with ADLs and occasional assist from spouse for IADLs. Pt was receiving assist from services. He will benefit from continued OT services to optimize (I) with IADLs prior to discharge home. Problem List/Current Limitations: Pain Decreased activity tolerance Generalized weakness Short Term Goals: 1) Pt will be Mod (I) UB/LB dressing. GOAL MET 2) Pt will be Mod (I) grooming/hygiene. GOAL MET 3) Pt will be Mod (I) toileting. GOAL MET 4) Pt will be CGA shower transfer and shower. Progressing towards. 5) Pt Dominic Index of ADLs will improve by 2 points. GOAL MET 6) Pt will be SBA light meal prep task. Progressing towards. Fdc Goals: Return home with Patient Goals: Return home by the end of this week with services Rehabilitation Prognosis: Fair Barriers to Discharge: Pain, fear of movement, history of falls PLAN: The patient will benefit from skilled occupational therapy services 5 times per week for 2 weeks including: Ther ex ADL training Safety training Ther act IADL training Transfer training Adaptive equip training Bed mobility Energy conservation Thank you for this referral. If you have any questions, concerns, or comments about this report or plan, please contact me at . Aicha Samuel MS, OTR/L Occupational Therapist [facility]
--- NOTE | 2018-07-18 14:26 | NUR ---
Medical Record release form given to resident as requested so [facility].
--- NOTE | 2018-07-18 15:39 | NUR ---
Physical Therapy Impression Strongly recommend Pt utilize a ramp to enter his home. Pt reports he is able to get LE into/out of bed without assistance. Pt demonstrated Mod I with sit<>stand transfers today and SBA with ambulation. Stairs remain limiting skill for DC home. Physical Therapy Goals 1: Pt to complete bed mobility with Lidia 2: Pt to complete transfers with Lidia and least restrictive AD 3: Pt to ambulate 150' with Lidia and least restrictive AD 4: Pt to asc/desc 4 stairs with railing and CGA Patient's Goals
--- NOTE | 2018-07-18 15:43 | PT INITIAL EVALUATION ---
Type of Note: 4 week progress Note Primary Medical Diagnosis: R) hip fx, s/p ORIF Physical Therapy Evaluation Date: 06/19/18 SUBJECTIVE: Prior Hospitalization: [facility] 06/09/18-06/19/18 Prior Level of Function: Randell with RW Prior Living Status: Single level house, Spouse Community Services:Support adequate, uses [employer] bus to/from dialysis, [facility] services s/p pelvic fx Home Accessibility: 4 stairs with rails, All needs on one level Equipment Owned: Cane, RW, wheelchair Medical Complications/Past Medical History: End stage renal disease, DM type 1 Psychosocial Support: Supportive and daughter Pain Scale (0-10): 8/10 with mobility OBJECTIVE: Strength: Right Lower Extremity: DF: 4/5 Knee flexion: 3/5 Knee extension: 3/5 Hip flexion: <3/5 Left Lower Extremity: DF: 4/5 Knee flexion: 3/5 Knee extension: 3/5 Hip flexion: 3/5 ROM: (please note any abnormalities) R) LE limited by pain Sensation: (please note any abnormalities) no abnormalities reported by pt Other Neuro findings: N/A Bed Mobility: Pt reports no assistance with supine to/from sit Transfers: SBA/Mod I with RW from bed or chair with arms Gait: x60' with RW and SBA Stairs: ascend/descend 3 stairs with rail and Min-Mod A Timed Up and Go (>12 seconds indicated increased risk for falls): not measured recently ASSESSMENT: Pt continues to make gradual improvement with functional mobility. Pt reports plans to install a ramp to enter his home. Pt will continue to benefit from skilled PT for functional mobility training to ensure safe DC. Problem List/Current Limitations: Pain Decreased WB Decreased activity kerri Decreased strength Decreased ROM Decreased balance Generalized weakness Short Term Goals: Progressing 1: Pt to complete bed mobility with Randell 2: Pt to complete transfers with Randell and least restrictive AD 3: Pt to ambulate 150' with Randell and least restrictive AD 4: Pt to asc/desc 4 stairs with railing and CGA Community Health Advisor Goals: Pt to d/c home with decreased need of assistance from others. Rehabilitation Prognosis: Fair Barriers for Discharge: High pain levels present at baseline evaluation, fear of movement, h/o falls PLAN: The patient will benefit from skilled physical therapy services 5 times per week for 2 weeks including: Therapeutic Exercise Therapeutic Activities Transfer Training Gait Training Stair Training Manual Therapy Safety Training Neuromuscular Re-educ. Pt/Caregiver Training Bed Mobility Thank you for this referral. If you have any questions, concerns, or comments about this report or plan, please contact me at . Emiliana Zelaya, PT, DPT, GCS MTDD
--- NOTE | 2018-07-18 15:50 | Hospitalist Progress Note ---
Subjective Progress Notes Subjective No new complaints. Doing well. Anxious to go home. Physical Exam Vital Signs Date Time Temp Pulse Resp B/P (MAP) Pulse Ox O2 Delivery O2 Flow Rate FiO2 07/18/18 09:50 95 Room Air 07/18/18 08:00 97.8 70 16 129/66 (87) Intake and Output 07/18/18 07:00 Intake Total 960 ml Balance 960 ml Intake Oral 960 ml # Voids 2 # Bowel Movements 1 General Appearance: Alert, Awake, No Acute Distress Neuro: No Gross deficits Cardiovascular: Regular Rate and Rhythm Respiratory: Clear to Auscultation GI: Soft and Non-Tender Extremities: Warm Psych: Appropriate Mood & Affect Assessment and Plan Problems: (1) Hip fracture, right Status: Acute Assessment & Plan: He tripped and fell on 06/09 suffering a proximal femur fracture below the greater trochanter. He had a CMN nail placed on 06/10. He was able to weight bear as tolerated. He was having significant pain initially and a repeat x-ray was done. This was pushed to his orthopedist and multiple calls were placed to have the new x-ray compared with the postoperative x-ray, however, despite multiple attempts to have this looked at, there was no response from his orthopedist's office. He worked with OT/PT. After a period of time the patient improved and was better able to ambulate. He was on heparin SC for DVT prophylaxis until he was ambulating well. He was on APAP and lidoderm for pain and tramadol for breakthrough pain (ESRD dosing). He was placed on MiraLax, docusate and prn Dulcolax suppository for constipation. He will need to follow up with his orthopedist after discharge. (2) DM type 1 (diabetes mellitus, type 1) Status: Chronic Assessment & Plan: The patient was transferred from [facility] on NPH 5 units bid. Glucoses were monitored AC and HS, but SSI was not ordered because of the ESRD. If glucose>300 or <70, staff was to call. The patient had been on short acting insulin 3 times daily based on a sliding scale prior to his fracture. He is followed at the [facility]. He requested to go back on his usual home regimen. We will do this at discharge. (3) End-stage renal disease on hemodialysis Status: Chronic Assessment & Plan: Continue chronic HD. Time Spent on Plan of Care: < 30 min ISAC THRASHER MD Jul 18, 2018 15:50
--- NOTE | 2018-07-18 15:54 | Hospitalist Depart ---
Discharge Summary Reason for Hosp/Final Diag: (1) Hip fracture, right Status: Acute Hospital Course & Plan: He tripped and fell on 06/09 suffering a proximal femur fracture below the greater trochanter. He had a CMN nail placed on 06/10. He was able to weight bear as tolerated. He was having significant pain initially and a repeat x-ray was done. The x-ray was "pushed" through the DR Ricardoassar system to his orthopedist and multiple calls were placed to have the new x-ray compared with the postoperative x-ray, however, despite multiple attempts to have this looked at, there was no response from his orthopedist's office. He continued to work with OT/PT. After a period of time the patient improved and was better able to ambulate. He was on heparin SC for DVT prophylaxis until he was ambulating well. He was on APAP and lidoderm patches for pain and tramadol for breakthrough pain (ESRD dosing). He was placed on MiraLax, docusate and prn Dulcolax suppository for constipation. He will need to follow up with his orthopedist after discharge. (2) DM type 1 (diabetes mellitus, type 1) Status: Chronic Hospital Course & Plan: The patient was transferred from [facility] on NPH 5 units bid. Glucoses were monitored AC and HS, but SSI was not ordered because of the ESRD. If glucose>300 or <70, staff was to call. The patient had been on short acting insulin 3 times daily based on a sliding scale prior to his fracture. He is followed at the [facility]. He requested to go back on his usual home regimen. We will do this at discharge. (3) End-stage renal disease on hemodialysis Status: Chronic Hospital Course & Plan: He continued his chronic 3 times weekly hemodialysis while on ECF. Departure Weight (Pounds): 126 Weight (Ounces): 8.0 Condition: Improved Discharge: Home Health PT/OT Follow Up For: PT For Strengthening, OT For ADL's, ST Evaluation and Treat Home Health RN Follow Up For: Other Home Health [employer]OO[employer] HELPER Follow Up For: ADL Assistance Time Spent: < 30 min Discharge Instructions Home Meds Active Scripts Lidocaine (Lidocaine) 5 % Adh..patch, 1 EACH TP QDAY, #1 BOX Prov:ISAC THRASHER MD 05/16/18 Acetaminophen (MAPAP) 325 Mg Tablet, 650 MG PO Q6H PRN for FEVER/PAIN, #60 TAB Prov:ISAC THRASHER MD 05/16/18 Reported Medications Calcium Carbonate (CALCIUM CARBONATE) 500 Mg Tablet, 1000 MG PO TIDCF 05/13/18 Aspirin (ASPIRIN EC) 81 Mg Tablet.dr, 81 MG PO QDAY, TAB 05/04/18 Metoprolol Tartrate (METOPROLOL TARTRATE) 50 Mg Tab, 1 TAB PO BID, TAB 05/04/18 Omeprazole (OMEPRAZOLE) 40 Mg Capsule.dr, 40 MG PO QDAY, CAP 05/04/18 Levothyroxine Sodium (LEVOTHYROXINE SODIUM) 0.112 Mg Tab, 0.112 MG PO QDAY, TAB 05/04/18 Ergocalciferol (Vitamin D2) (VITAMIN D2) 50,000 Unit Capsule, 21636 UNIT PO 3XW, CAPSULE 05/09/16 Nut.tx.impaired Renal Fxn,Soy (NEPRO CARB STEADY) 237 Ml Liquid, 237 ML PO QODAY 05/09/16 [Novolin] 100unit/ml No Conflict Check, 10 UNITS SUBQ TID MAY INCREASE TO 20 UNITS TID NEEDED TO KEEP BLOOD SUGARS IN RANGE 05/28/12 Activity: As Tolerated Special Instructions: Continue a renal high protein diet at discharge. Follow up with your [facility] provider in the next 1-2 months. Copies to: RUSH DE MD ; Venous Thromboembolism Antithrombotics Is Pt On Any Antithrombotics?: Yes [id number] Certification Face to Face Home Health Certification Patient's Primary Care Provider: Institutional Provider conducted the [id number] encounter. Electronic Undersigning Physician Certifies Home Health. I certify that the patient has been under my care and that I had a [id number] encounter that meets the physician [id number] encounter requirements with this patient. This patient is home-bound due to safety issues and continues to require assistance with ADL's. I certify that based on my findings, that Nursing, Aides and the following Home Health services are medically necessary: PT, OT, ST Medical Necessity: Nursing, Rehab Date Face to Face Conducted: Jul 18, 2018 ISAC THRASHER MD Jul 18, 2018 15:54
[2018-07-18 19:53] VITALS: BP 132/70
[2018-07-18] MEDS: ASPIRIN 81 MG ENTERIC COATED PO SCH (21:02)
[2018-07-19] MEDS: LEVOTHYROXINE SOD 0.112 MG TAB PO SCH (06:00)
[2018-07-19 07:20] VITALS: BP 133/70
[2018-07-19] MEDS: MULTIVITAMINS TAB PO SCH (08:32)
[2018-07-19] MEDS: CHOLECALCIFEROL 1000 UNIT TAB PO SCH (08:32)
[2018-07-19] MEDS: CALCIUM CARBONATE 500 MG CHEW PO SCH (08:32)
[2018-07-19] MEDS: DOCUSATE SODIUM 100 MG CAP PO SCH ×3 (08:32→20:47)
[2018-07-19] MEDS: PANTOPRAZOLE SOD 40 MG TABEC PO SCH (08:32)
[2018-07-19] MEDS: VITAMIN B CPLX/VIT C/FOLIC AC PO SCH (08:32)
[2018-07-19] MEDS: METOPROLOL TART 50 MG TAB PO SCH ×2 (08:32→20:47)
[2018-07-19] MEDS: INSULIN HUM ISO(NPH) 100 UN/ML 3 ML VIAL SUBQ SCH ×2 (08:33→16:48)
[2018-07-19] MEDS: HEPARIN (PORC) 5000 UN/ML VIAL SC SCH ×2 (08:33→20:46)
[2018-07-19] MEDS: POLYETHYLENE GLYCOL 17 GM PKT PO SCH ×2 (08:33→09:00)
[2018-07-19] MEDS: ACETAMINOPHEN 500 MG TAB PO PRN ×2 (08:40→20:46)
--- NOTE | 2018-07-19 13:42 | NUR ---
Physical Therapy Impression Pt complete transfers with Lidia with RW and ambulation of short distances with SBA/Lidia and use of RW. PT instruction for stair negotiation, with verbal cues to improve tolerance to weightbearing through R) LE with offloading through UEs and chest onto railing. Pt completed 2x4 stairs asc/desc with close CGA and knee block present if needed.Pt with no instances of knee buckling with stair negotiation to and pt reports increased confidence. PT continues to recommend ramp installation d/t frequency of stair use d/t dialysis appts MW. Pt reports that he plans to d/c home on monday prior to installation of the ramp at home. PT expressed concerns. Physical Therapy Goals 1: Pt to complete bed mobility with Lidia 2: Pt to complete transfers with Lidia and least restrictive AD 3: Pt to ambulate 150' with Lidia and least restrictive AD 4: Pt to asc/desc 4 stairs with railing and CGA Patient's Goals
--- NOTE | 2018-07-19 13:49 | NUR ---
Occupational Therapy Impression Mod (I) ambulation x55ft with RW. SBA simulated light meal prep and standing dynamic balance reaching tasks [id number]. Discussion re: fall prevention strategies and safety within the home. Pt verbalized understanding and denies concerns with discharge home once ramp is installed. Plan for final visit tomorrow unless further needs/concerns arise. Rec HH upon discharge home. Occupational Therapy Goals 1) Pt will be Mod (I) UB/LB dressing. GOAL MET 2) Pt will be Mod (I) grooming/hygiene. GOAL MET 3) Pt will be Mod (I) toileting. GOAL MET 4) Pt will be CGA shower transfer and shower. Progressing towards. 5) Pt Dominic Index of ADLs will improve by 2 points. GOAL MET 6) Pt will be SBA light meal prep task. Progressing towards. Patient's Goal
--- NOTE | 2018-07-19 14:00 | NUR ---
DC MDS completed with pt. C: 15, D: 01, E: no concerns, Q: pt plans to DC to community setting, referral made for [facility]. Will continue to follow for DC needs. Pt plans to DC Friday 07/21.
[2018-07-19 17:28] VITALS: BP 136/77
[2018-07-19] MEDS: ASPIRIN 81 MG ENTERIC COATED PO SCH (20:47)
[2018-07-20] MEDS: LEVOTHYROXINE SOD 0.112 MG TAB PO SCH (05:51)
[2018-07-20 07:45] VITALS: BP 154/74
[2018-07-20] MEDS: METOPROLOL TART 50 MG TAB PO SCH ×2 (08:25→20:30)
[2018-07-20] MEDS: DOCUSATE SODIUM 100 MG CAP PO SCH ×2 (08:25→20:30)
[2018-07-20] MEDS: INSULIN HUM ISO(NPH) 100 UN/ML 3 ML VIAL SUBQ SCH ×2 (08:25→16:51)
[2018-07-20] MEDS: PANTOPRAZOLE SOD 40 MG TABEC PO SCH (08:25)
[2018-07-20] MEDS: HEPARIN (PORC) 5000 UN/ML VIAL SC SCH ×2 (08:25→20:30)
[2018-07-20] MEDS: ACETAMINOPHEN 500 MG TAB PO PRN ×2 (08:25→20:29)
[2018-07-20] MEDS: CHOLECALCIFEROL 1000 UNIT TAB PO SCH (08:26)
[2018-07-20] MEDS: VITAMIN B CPLX/VIT C/FOLIC AC PO SCH (08:26)
[2018-07-20] MEDS: CALCIUM CARBONATE 500 MG CHEW PO SCH (08:26)
[2018-07-20] MEDS: MULTIVITAMINS TAB PO SCH (08:26)
--- NOTE | 2018-07-20 08:40 | NUR ---
OCCUPATIONAL THERAPY Dressing Assistance: Modified Independent with AE. Information provided for where to obtain sock aid/long handled shoe horn if desired. Dressing Aid Required: Computer Science Professor, Sock Aid, Long handled shoe horn Bathing Assistance: SBA in shower. Minimum assistance for extended tub bench transfer. Bathing Equipment: Extended tub transfer bench Home Assessment: [facility] Feeding Assistance: Independent Feeding Specialized Equipment: None Toilet Use: Modified I/ AE Verbalizes Needs: Yes Understands Precautions: Yes Cooperative: Yes Family Teaching: No Occupational Therapy Comment:
[2018-07-20] MEDS: POLYETHYLENE GLYCOL 17 GM PKT PO SCH (09:00)
--- NOTE | 2018-07-20 10:18 | NUR ---
Occupational Therapy Impression Mod (I) ambulation with RW over various thresholds and surfaces to simulate home. Mod (I) sit<>stand from low, soft couch. Mod (I) LB dressing. Pt reports feeling ready to discharge home with no concerns. Pt reporting no further needs/concerns to address with OT. Reiterated safety concerns and strategies to decrease fall risk within the home. Pt verbalized understanding. OT goals met. Rec services upon discharge. Occupational Therapy Goals 1) Pt will be Mod (I) UB/LB dressing. GOAL MET 2) Pt will be Mod (I) grooming/hygiene. GOAL MET 3) Pt will be Mod (I) toileting. GOAL MET 4) Pt will be CGA shower transfer and shower. Progressing towards. 5) Pt Dominic Index of ADLs will improve by 2 points. GOAL MET 6) Pt will be SBA light meal prep task. Progressing towards. Patient's Goal
--- NOTE | 2018-07-20 10:23 | OT ECF NOTE ---
Type of Note: Discharge Note Primary Medical Diagnosis: Generalized weakness s/p fall at home and right hip fx with gamma nail *WBAT* [facility] for hip fx 06/09/18 thru 06/19/18 Previous pelvic fx with admission to [facility] 04/26/18 thru 05/03/18 and ECF 05/03/18 thru 05/17/18 Occupational Therapy Evaluation Date: 06/19/18 SUBJECTIVE: Prior Hospitalization: [facility] 06/09/18 thru 06/19/18 Prior Level of Function: Mod (I) with RW Prior Living Status: Single level house Spouse Living with family Assist by family Community Services: Home health [facility] Accessibility: Stairs with rails-Ramp to back entrance of home is currently being installed All needs on one level Tub/shower combination Equipment Owned: Front wheeled walker Rollator Toilet riser Bedside commode Extended tub bench Medical Complications/Past Medical History: Please refer to EMR. Pt has end stage renal disease on hemodialysis Psychosocial Support: Supportive spouse Pain Scale (0-10): Pt reporting decreased pain with functional mobility. No numerical rating provided. OBJECTIVE: Strength: MMT: Right Left Shoulder Flexion WFL WFL Elbow Flexion WFL WFL Wrist Extension WFL WFL Shuttle Inspector WFL WFL (5= normal, 4= good, 3= fair, 2= poor, 1= trace) ROM: Both upper extremities, WFL Sensation: Intact, No concerns Functional Transfer: Assistive Device: Front wheeled walker Transfer Ability: Modified Independent ADL: Upper body dressing: Assistive device: None Upper body dressing ability: Independent Lower body dressing: Assistive device: Sock aid/civil designer Lower body dressing ability: Modified Independent Toileting: Assistive device: Raised toilet seat Toileting ability: Modified Independent Grooming/hygiene: Assistive device: Seated Grooming ability: Independent Bathing: Assistive device: Extended tub transfer bench Bathing ability: CGA/Min A bathtub transfer, SBA bathing, seated. Standardized Assessment: Dominic Index of Activities of Daily Livin/20 upon initial evaluation (06/19/18). 01/27 upon 2-week progress note (07/03/18). at 30-day progress note. 04/29 upon discharge date (07/20/18). ASSESSMENT: "Terence" has met all skilled OT goals and presents with no further questions/concerns/needs to be addressed by OT. Extensive discussion regarding fall prevention strategies and adaptive equipment has been incorporated into treatment sessions. Recommend HomeHealth, assist from spouse for IADLs, and LifeAlert type system. Pt verbalizes understanding although resistant ot LifeAlert type systems. Short Term Goals: 1) Pt will be Mod (I) UB/LB dressing. GOAL MET 2) Pt will be Mod (I) grooming/hygiene. GOAL MET 3) Pt will be Mod (I) toileting. GOAL MET 4) Pt will be CGA shower transfer and shower. GOAL MET. 5) Pt Dominic Index of ADLs will improve by 2 points. GOAL MET 6) Pt will be SBA light meal prep task. GOAL MET Alf Goals: Return home with Patient Goals: Return home by the end of this week with services Rehabilitation Prognosis: Fair Barriers to Discharge: Pain, fear of movement, history of falls PLAN: The patient will discharge home with HomeHealth, assist from spouse for IADLs. PT has encouraged installation of ramp prior to discharge, pt reports a ramp is being installed. Thank you for this referral. If you have any questions, concerns, or comments about this report or plan, please contact me at . Aicha Samuel MS, OTR/L Occupational Therapist [facility]
--- NOTE | 2018-07-20 15:23 | NUR ---
PHYSICAL THERAPY INFORMATION TRANSFER SHEET BED MOBILITY: Modified I/ AE TRANSFERS: Modified I/ AE GAIT: 50 ' with RW and Modified I/ AE Weightbearing Status: Weight bearing as kerri STAIRS: 4 with Standby Assistance CGA. EXERCISES: has handouts for supine and seated ther ex. Verbalizes Needs: Yes Understands Directions Yes Cooperative: Yes Family Teaching: Yes Physical Therapy Comment:
--- NOTE | 2018-07-20 15:23 | NUR ---
Physical Therapy Impression PT goals met with completion of 4 strs with CGA/SBA. Pt ready for d/c home when medically appropriate. Physical Therapy Goals 1: Pt to complete bed mobility with Lidia 2: Pt to complete transfers with Lidia and least restrictive AD 3: Pt to ambulate 150' with Lidia and least restrictive AD 4: Pt to asc/desc 4 stairs with railing and CGA Patient's Goals
[2018-07-20 18:55] VITALS: BP 148/80
[2018-07-20] MEDS: ASPIRIN 81 MG ENTERIC COATED PO SCH (20:29)
[2018-07-21] MEDS: LEVOTHYROXINE SOD 0.112 MG TAB PO SCH (05:50)
[2018-07-21 07:22] VITALS: BP 119/65
[2018-07-21] MEDS: VITAMIN B CPLX/VIT C/FOLIC AC PO SCH (08:49)
[2018-07-21] MEDS: METOPROLOL TART 50 MG TAB PO SCH (08:49)
[2018-07-21] MEDS: CHOLECALCIFEROL 1000 UNIT TAB PO SCH (08:49)
[2018-07-21] MEDS: MULTIVITAMINS TAB PO SCH (08:49)
[2018-07-21] MEDS: PANTOPRAZOLE SOD 40 MG TABEC PO SCH (08:49)
[2018-07-21] MEDS: CALCIUM CARBONATE 500 MG CHEW PO SCH (08:49)
[2018-07-21] MEDS: ACETAMINOPHEN 500 MG TAB PO PRN (08:51)
[2018-07-21] MEDS: INSULIN HUM ISO(NPH) 100 UN/ML 3 ML VIAL SUBQ SCH (08:51)
[2018-07-21] MEDS: HEPARIN (PORC) 5000 UN/ML VIAL SC SCH (08:51)
[2018-07-21] MEDS: DOCUSATE SODIUM 100 MG CAP PO SCH (09:00)
[2018-07-21] MEDS: POLYETHYLENE GLYCOL 17 GM PKT PO SCH (09:00)
--- NOTE | 2018-07-21 14:38 | PT ECF NOTE ---
Type of Note: Discharge Note Primary Medical Diagnosis: R) hip fx, s/p ORIF Physical Therapy Evaluation Date: 06/19/18 SUBJECTIVE: Prior Hospitalization: [facility] 06/09/18-06/19/18 Prior Level of Function: Randell with RW Prior Living Status: Single level house, Spouse Community Services:Support adequate, uses [employer] bus to/from dialysis, [facility] services s/p pelvic fx Home Accessibility: 4 stairs with rails, All needs on one level; ramp is in the process of being built Equipment Owned: Cane, RW, wheelchair Medical Complications/Past Medical History: End stage renal disease, DM type 1 Psychosocial Support: Supportive and daughter Pain Scale (0-10): 8/10 with mobility OBJECTIVE: Strength: Right Lower Extremity: DF: 4/5 Knee flexion: 3/5 Knee extension: 3/5 Hip flexion: <3/5 Left Lower Extremity: DF: 4/5 Knee flexion: 3/5 Knee extension: 3/5 Hip flexion: 3/5 ROM: (please note any abnormalities) R) LE limited by pain Sensation: (please note any abnormalities) no abnormalities reported by pt Other Neuro findings: N/A Bed Mobility: Pt reports no assistance with supine to/from sit Transfers: Mod I with RW from bed or chair with arms Gait: x60' with RW and Modified indep Stairs: ascend/descend 4 stairs with rail and SBA/CGA Timed Up and Go (>12 seconds indicated increased risk for falls): improved from nearly 11 minutes, to one minute 18 seconds on 07/10/17. On 07/20/18 pt ambulated 0.18 meters/sec, TUG test not completed on this day. ASSESSMENT: Pt notes that he feels safe to d/c home after completing up/down 4 steps with rail and SBA/CGA during today's therapy session. Pt still plans to have ramp installed at home, but feels that stairs are an option at this time. Problem List/Current Limitations: Pt continues to experience discomfort with decreased ROM and weight bearing. Short Term Goals: primarily met with the exception of distance ambulation; pt fatigues at 60' and requests seated rest breaks, but would be capable of completing 150' if necessary. 1: Pt to complete bed mobility with Randell 2: Pt to complete transfers with Randell and least restrictive AD 3: Pt to ambulate 150' with Randell and least restrictive AD 4: Pt to asc/desc 4 stairs with railing and CGA Correction Goals: Pt to d/c home with decreased need of assistance from others. Rehabilitation Prognosis: Fair Barriers for Discharge: h/o falls; pt encouraged to have ramp installed for energy conservation and safety. PLAN: Pt to follow up with [facility] services. Thank you for this referral. If you have any questions, concerns, or comments about this report or plan, please contact me at . . Zina Espinoza, PT, MPT, OMS MTDD
== END 2018-07-21 10:45 | disposition home health service (06) | DRG 559 ==
LOC: ECF 12:58
PROVIDERS: ADMIT Internal Medicine; ATTEND Internal Medicine
DX: S72.091D Other fracture of head and neck of right femur, subsequent encounter for closed fracture with routine healing (principal); N18.6 End stage renal disease; I12.0 Hypertensive chronic kidney disease with stage 5 chronic kidney disease or end stage renal disease; S32.512D Fracture of superior rim of left pubis, subsequent encounter for fracture with routine healing; S32.592D Other specified fracture of left pubis, subsequent encounter for fracture with routine healing; W01.0XXD Fall on same level from slipping, tripping and stumbling without subsequent striking against object, subsequent encounter; E10.22 Type 1 diabetes mellitus with diabetic chronic kidney disease; Z99.2 Dependence on renal dialysis; K59.00 Constipation, unspecified; Z79.4 Long term (current) use of insulin
CPT/HCPCS: 36415; 36416; 82040; 82247; 82310; 82374; 82435; 82565; 82947; 82948; 84075; 84132; 84155; 84295; 84450; 84460; 84520; 85025; 92523; 97161; 97166; J1644; S0119